=== PATIENT | female | born 1945 | race African-American/Black ===

== ENCOUNTER 2017-11-02 18:47 | Observation (INO) | payer MEDICARE, OTHER ==
--- NOTE | 2017-11-02 19:27 | PDOC ---
History of Present Illness - General History Source: Patient Exam Limitations: No Limitations - History of Present Illness Initial Comments: 11/02/17 20:12 The patient is a 72 year old female with past medical history of hypertension, asthma, CVA, COPD (on 5L O2 at home), CHF, and AICD placement who presents to the ED with complaints of hypotension and lightheadedness since this morning. The patient states that she is unable to walk because of her lightheadedness. She reports taking her blood pressure at home which appeared to be high, so she pressed her Life Alert button and EMS arrived at her home. When they took her blood pressure it was low. She reports also having cold symptoms for the past week as well. She also reports worsening SOB over the past month. The patient denies any fevers, chills, nausea, vomiting, diarrhea, cough, chest pain or urinary symptoms <Leslie Hare - Last Filed: 11/02/17 20:21> <Galileo Garcia - Last Filed: 11/03/17 01:19> - General Chief Complaint: Lightheaded Stated Complaint: HYPOTENSION Time Seen by Provider: 11/02/17 19:20 Past History <Leslie Hare - Last Filed: 11/02/17 20:21> - Past Medical History Anemia: No Asthma: Yes (ON 02 3L/MIN PRN) Cancer: No Cardiac Disorders: Yes CVA: Yes (2000 LEFT SIDED WEAKNESS) COPD: Yes CHF: Yes Dementia: No Diabetes: No GI Disorders: No Disorders: No HTN: Yes Hypercholesterolemia: No Liver Disease: No Seizures: No Thyroid Disease: No - Surgical History Abdominal Surgery: Yes (GASTRIC BYPASS [employer]EN [employer],) Appendectomy: No Cardiac Surgery: Yes (icd) Cholecystectomy: No Lung Surgery: No Neurologic Surgery: No Orthopedic Surgery: No (2000 SURGERY ON NECK,REMOVAL BOILS BOTH ARMPIT) - Immunization History Td Vaccination: No Immunization Up to Date: Yes - Suicide/Smoking/Psychosocial Hx Smoking Status: Yes Smoking History: Former smoker Have you smoked in the past 12 months: No Number of Cigarettes Smoked Daily: 5 Information on smoking cessation initiated: No 'Breaking Loose' booklet given: 03/09/15 Hx Alcohol Use: No Drug/Substance Use Hx: No Substance Use Type: None Hx Substance Use Treatment: No <Galileo Garcia - Last Filed: 11/03/17 01:19> - Past Medical History Allergies/Adverse Reactions: Allergies Allergy/AdvReac Type Severity Reaction Status Date / Time No Known Allergies Allergy Verified 04/24/16 09:57 Home Medications: Ambulatory Orders Aspirin [Aspir 81] 81 mg PO DAILY 02/23/12 Verapamil HCl [Verapamil ER] 120 mg PO DAILY 08/07/13 Multivitamin [Once Daily] 1 each PO DAILY 11/19/13 Omeprazole [Prilosec] 20 mg PO DAILY 04/24/16 Pregabalin [Lyrica] 100 mg PO DAILY 04/24/16 Varenicline Tartrate [Chantix] 1 mg PO DAILY 04/24/16 Carvedilol [Coreg -] 6.25 mg PO BID #60 tablet 04/27/16 Budesonide/Formeterol Fumarate [SYMBICORT 160/4.5mcg -] 1 inh PO DAILY 08/19/16 Tiotropium [place] [Spiriva] 1 inh PO DAILY 08/19/16 Bacitracin - [Bacitracin Topical Ointment -] 1 applic TP BID #1 tube 08/25/16 Furosemide [Lasix -] 40 mg PO DAILY #30 tablet 08/25/16 Roflumilast [Daliresp -] 500 mcg PO DAILY #30 tablet 08/25/16 Review of Systems - Review of Systems Able to Perform ROS?: Yes Comments:: 11/02/17 20:21 A complete review of 10 out of 10 review of systems is taken and is negative apart from what is previously mentioned below and in the HPI. All Other Systems: Reviewed and Negative <Leslie aHre - Last Filed: 11/02/17 20:21> *Physical Exam - Vital Signs Last Vital Signs Temp Pulse Resp BP Pulse Ox 98.2 F 100 H 20 93/66 100 11/02/17 19:16 11/02/17 19:16 11/02/17 19:16 11/02/17 19:16 11/02/17 19:16 - Physical Exam Comments: 11/02/17 20:21 Vitals: Triage Vital signs reviewed General Appearance: no acute distress, well nourished well developed, Head: Atraumatic, normocephalic Neck: Supple;No Nuchal rigidity Cardiac: Regular rate and rhythm, no murmurs, no rubs, no gallops, Lungs: Mild expiratory wheeze, good air movement bilaterally, Abdomen: Soft, nondistended, normal bowel sounds, nontender to palpation Extremities: Full range of motion to all extremities, no cyanosis, clubbing, or edema Skin: Warm and dry, no rashes or lesions, no petechiae Neuro: AOX3; Cranial Nerves 2-12 grossly intact <Leslie Hare - Last Filed: 11/02/17 20:21> - Vital Signs Last Vital Signs Temp Pulse Resp BP Pulse Ox 98.2 F 100 H 20 93/66 100 11/02/17 19:16 11/02/17 19:16 11/02/17 19:16 11/02/17 19:16 11/02/17 19:16 <Galileo Garcia - Last Filed: 11/03/17 01:19> Heart Score/ECG Review - ECG Impressions Comment:: 11/03/17 01:17 EKG performed at 1923 demonstrates rate of 56, rhythm of sinus, axis equal to left axis. No ST elevations no T-wave inversions <Galileo Garcia - Last Filed: 11/03/17 01:19> ED Treatment Course - LABORATORY CBC & Chemistry Diagram: 11/02/17 20:07 11/02/17 20:07 <Leslie Hare - Last Filed: 11/02/17 20:21> - LABORATORY CBC & Chemistry Diagram: 11/02/17 20:07 11/02/17 20:07 <Galileo Garcia - Last Filed: 11/03/17 01:19> Medical Decision Making - Medical Decision Making 11/03/17 01:18 Patient presents to the emergency department with a near syncopal episode Per report she was found to be hypotensive by EMS Upon arrival to ED patient with slight wheeze labs EKG chest x-ray ordered Reevaluation status post IV fluids blood pressure improving patient still with slight wheeze troponin negative Given borderline hypotension we will observe on telemetry to medicine service. We'll hold off additional IV fluids at this time given history of CHF <Galileo Garcia - Last Filed: 11/03/17 01:19> *DC/Admit/Observation/Transfer - Attestations Scribe Attestion: 11/02/17 20:25 Documentation prepared by Leslie Siracusa, acting as certified medical records coder for Galileo Garcia MD. <Leslie Hare - Last Filed: 11/02/17 20:21> - Discharge Dispostion Admit: Yes <Galileo Garcia - Last Filed: 11/03/17 01:19> Diagnosis at time of Disposition: Near syncope
[2017-11-02] MEDS ORDERED: SODIUM CHLORIDE 0.9% 1000 ML INFUS.BAG IV STA (19:28)
[2017-11-02 20:18] LABS: EOS % 0.9 % (0-4.5); LYMPH % 20.7 % (8-40); MCH 30.9 pg (25.7-33.7); MCHC 32.5 g/dl (32.0-36.0); MEAN PLT VOLUME 8.8 fl (7.5-11.1); MONO % 8.4 % (3.8-10.2); PLATELET COUNT 217 K/MM3 (134-434); RBC 4.53 M/mm3 (3.60-5.2); RDW 14.7 % (11.6-15.6); WHITE BLOOD COUNT 7.4 K/mm3 (4.0-10.0)
[2017-11-02 20:20] LABS: VENOUS PH 7.34 (7.32-7.42)
[2017-11-02 20:21] LABS: VENOUS PO2 36.1 mmHg (28-48)
[2017-11-02 20:29] LABS: INR 0.95 (0.82-1.09); PROTHROMBIN TIME (PATIENT) 10.7 SEC (9.98-11.88)
[2017-11-02 20:32] LABS: ACTIVATED PTT 24.1 SECONDS (26.9-34.4)
[2017-11-02 21:08] LABS: ALBUMIN 3.2 g/dl (3.4-5.0); ANION GAP 5 (8-16); BLOOD UREA NITROGEN 17 mg/dL (7-18); CALCIUM 8.2 mg/dL (8.5-10.1); CHLORIDE 113 mmol/L (98-107); CO2 24 mmol/L (21-32); CREATININE 1.1 mg/dL (0.55-1.02); GLUCOSE,RANDOM 92 mg/dL (74-106); POTASSIUM 4.3 mmol/L (3.5-5.1); SGOT/AST 14 U/L (15-37); SGPT/ALT 16 U/L (12-78); SODIUM 142 mmol/L (136-145)
[2017-11-02 21:12] LABS: URINE APPEARANCE SLCLOUDY; URINE BILIRUBIN NEGATIVE (NEGATIVE); URINE BLOOD NEGATIVE (NEGATIVE); URINE COLOR YELLOW; URINE GLUCOSE (UA) NEGATIVE (NEGATIVE); URINE KETONE NEGATIVE (NEGATIVE); URINE NITRITE NEGATIVE (NEGATIVE); URINE PROTEIN NEGATIVE (NEGATIVE)
[2017-11-02 21:12] LABS: ALK PHOS 110 U/L (45-117); BILIRUBIN,TOTAL 0.3 mg/dL (0.2-1.0); TOT PROT 6.6 g/dl (6.4-8.2)
[2017-11-02 21:16] LABS: URINE LEUK ESTERASE 1+ (NEGATIVE)
[2017-11-02 21:26] LABS: EPI CELLS RARE /HPF (FEW); URINE BACTERIA RARE /hpf (NONE SEEN); URINE HYALINE CAST 45 /lpf; URINE MUCUS RARE
[2017-11-02] MEDS ORDERED: ALBUTEROL SO4 2.5/IPRATROPIUM 0.5 INH SOL 3 ML VIAL.NEB. NEB ONE (22:59)
[2017-11-03] MEDS ORDERED: FUROSEMIDE 40 MG TABLET (FP) PO ONE (01:22)
--- NOTE | 2017-11-03 01:35 | HP ---
Admitting History and Physical - Primary Care Physician PCP: Brigida Carlos - Admission Chief Complaint: Hypotension History of Present Illness: 72 yo F h/o HTN, asthma, CVA, COPD (home O2 5L), dCHF, and AICD (last interrogated 3 months ago) presents to ED with dizziness after taking medications. Patient states that she felt dizzy 20 mins after taking all her meds at once. She then called 911. At first her BP shot up to 175/74, then it came down to 80/70 and it's confirmed while she's en route to ED by EMT. She denies room spinning, chest pain, palpitation, headache, vision change, tinnitus , focal weakness, fever, chills, bowel or urinary sx. History Source: Patient Limitations to Obtaining History: No Limitations - Past Medical History Cardiovascular: Yes: CHF, HTN, Other (AICD) Pulmonary: Yes: COPD (former smoker, quit in April) Gastrointestinal: Yes: Other (history of gastric bypass surgery) - Past Surgical History Past Surgical History: Yes: (1956, 1958), Permanent Pacemaker (vs ICD) - Smoking History Smoking history: Former smoker Have you smoked in the past 12 months: No Aproximately how many cigarettes per day: 5 - Alcohol/Substance Use Hx Alcohol Use: No - Social History History of Recent Travel: No Home Medications - Allergies Allergies/Adverse Reactions: Allergies Allergy/AdvReac Type Severity Reaction Status Date / Time No Known Allergies Allergy Verified 04/24/16 09:57 - Home Medications Home Medications: Ambulatory Orders Aspirin [Aspir 81] 81 mg PO DAILY 02/23/12 Verapamil HCl [Verapamil ER] 120 mg PO DAILY 08/07/13 Multivitamin [Once Daily] 1 each PO DAILY 11/19/13 Omeprazole [Prilosec] 20 mg PO DAILY 04/24/16 Pregabalin [Lyrica] 100 mg PO DAILY 04/24/16 Varenicline Tartrate [Chantix] 1 mg PO DAILY 04/24/16 Carvedilol [Coreg -] 6.25 mg PO BID #60 tablet 04/27/16 Budesonide/Formeterol Fumarate [SYMBICORT 160/4.5mcg -] 1 inh PO DAILY 08/19/16 Tiotropium [place] [Spiriva] 1 inh PO DAILY 08/19/16 Bacitracin - [Bacitracin Topical Ointment -] 1 applic TP BID #1 tube 08/25/16 Furosemide [Lasix -] 40 mg PO DAILY #30 tablet 08/25/16 Roflumilast [Daliresp -] 500 mcg PO DAILY #30 tablet 08/25/16 Review of Systems - Review of Systems Constitutional: reports: Weakness Eyes: reports: No Symptoms HENT: reports: No Symptoms Neck: reports: No Symptoms Cardiovascular: reports: Shortness of Breath. denies: Chest Pain, Palpitations Respiratory: reports: SOB Gastrointestinal: reports: No Symptoms Genitourinary: reports: No Symptoms Breasts: reports: No Symptoms Reported Musculoskeletal: reports: No Symptoms Integumentary: reports: No Symptoms Neurological: reports: Dizziness, Weakness Endocrine: reports: No Symptoms Physical Examination Vital Signs: Vital Signs Temperature 98.2 F 11/02/17 19:16 Pulse Rate 100 H 11/02/17 19:16 Respiratory Rate 20 11/02/17 19:16 Blood Pressure 108/50 11/02/17 21:57 O2 Sat by Pulse Oximetry (%) 100 11/02/17 20:56 Constitutional: Yes: Calm, Mild Distress Cardiovascular: Yes: Regular Rate and Rhythm, S1, S2. No: Murmur Respiratory: Yes: Rhonchi, SOB Gastrointestinal: Yes: Normal Bowel Sounds, Soft. No: Tenderness Edema: No Neurological: Yes: Alert, Oriented, Cran Nerves II-XII Intact. No: Loss of Sensation, Numbness, Tremors, Unsteady Gait ...Motor Strength: WNL Psychiatric: Yes: WNL Labs: CBC, BMP 11/02/17 20:07 11/02/17 20:07 Imaging - Results EKG: Image Reviewed Assessment/Plan 72 yo F h/o HTN, asthma, CVA, COPD (home O2 5L), dCHF, and AICD admitted to observation for hypotension. 1. Hypotension: Likely due to over-medication with BP meds. Hold verapamil ER and monitor vitals q4h. 2. Flash pulmonary edema in the setting of dCHF: Received fluids in ED for hypotension and developed flash pulmonary edema. Lasix 40mg PO x 1 dose then cont. daily lasix + coreg. Reassess fluid status. 3. dCHF: cont. lasix and coreg 4. COPD: stable. cont. daliresp, spiriva 5. HTN: hold verapamil ER FEN: avoid fluids. lytes normal. Na+ controlled diet. DVT ppx: heparin tid GI ppx: on home ppi Dispo: February discharge once asymptomatic and vitals stable Juan Rodriguez MD PGY2 Visit type - Emergency Visit Emergency Visit: Yes ED Registration Date: 11/02/17 Care time: The patient presented to the Emergency Department on the above date and was hospitalized for further evaluation of their emergent condition. - New Patient This patient is new to me today: Yes Date on this admission: 11/03/17 - Critical Care Critical Care patient: No
[2017-11-03] MEDS ORDERED: FUROSEMIDE 40 MG TABLET (FP) ONE (01:45)
[2017-11-03] MEDS ORDERED: ALBUTEROL SO4 2.5/IPRATROPIUM 0.5 INH SOL 3 ML VIAL.NEB. NEB ONE (02:46)
--- NOTE | 2017-11-03 05:03 | PN ---
Teaching Attending Note Name of Resident: Juan Rodriguez ATTENDING PHYSICIAN STATEMENT I saw and evaluated the patient. I reviewed the resident's note and discussed the case with the resident. I agree with the resident's findings and plan as documented. SUBJECTIVE: OBJECTIVE: ASSESSMENT AND PLAN: 72 yo F h/o HTN, asthma, CVA, COPD (home O2 5L), dCHF, and AICD admitted to observation for hypotension. 1. Hypotension: Likely due to over-medication with BP meds. Hold verapamil ER and monitor vitals q4h. 2. Flash pulmonary edema in the setting of dCHF: Received fluids in ED for hypotension and developed flash pulmonary edema. Lasix 40mg PO x 1 dose then cont. daily lasix + coreg. Reassess fluid status. 4. COPD: stable. cont. daliresp, spiriva 5. HTN: hold medication
[2017-11-03] MEDS ORDERED: HEPARIN NA (PORCINE) 5,000 UNITS/ML 1ML VIAL ONE ×2 (07:07→22:11)
[2017-11-03] MEDS: HEPARIN NA (PORCINE) 5,000 UNITS/ML 1ML VIAL SQ SCH ×3 (07:18→22:00)
[2017-11-03 08:02] LABS: ANION GAP 8 (8-16); CHLORIDE 112 mmol/L (98-107); CO2 24 mmol/L (21-32); CREATININE 0.9 mg/dL (0.55-1.02); GLUCOSE,RANDOM 87 mg/dL (74-106); SODIUM 144 mmol/L (136-145)
[2017-11-03 08:17] LABS: BLOOD UREA NITROGEN 14 mg/dL (7-18); CALCIUM 8.9 mg/dL (8.5-10.1)
--- NOTE | 2017-11-03 08:39 | CON.CARD ---
Consult Consult Specialty:: cardiology Reason for Consultation:: HTN; CHF - History of Present Illness Chief Complaint: Pt Alert; denies chest pain or dyspnea. History of Present Illness: The patient is a 72 year old black female with past medical history of hypertension, asthma, CVA, COPD (on 5L O2 at home), CHF, and AICD placement who presents to the ED with complaints of hypotension and lightheadedness since this morning. The patient states that she is unable to walk because of her lightheadedness. She reports taking her blood pressure at home which appeared to be high, so she pressed her Life Alert button and EMS arrived at her home. When they took her blood pressure it was low. She reports also having cold symptoms for the past week as well. She also reports worsening SOB over the past month. The patient denies any fevers, chills, nausea, vomiting, diarrhea, cough, chest pain or urinary symptoms - History Source History Provided By: Patient, Medical Record Limitations to Obtaining History: Poor Historian - Past Medical History Cardio/Vascular: Yes: CHF, HTN, Other (AICD) Pulmonary: Yes: COPD (former smoker, quit in April) Gastrointestinal: Yes: Other (history of gastric bypass surgery) Reproductive: Yes: Postmenopausal ...: No Heme/Onc: No: Anemia Psych: No: Depression - Past Surgical History Past Surgical History: Yes: (1956, 1958), Permanent Pacemaker (vs ICD) - Alcohol/Substance Use Hx Alcohol Use: No - Smoking History Smoking history: Former smoker Have you smoked in the past 12 months: No Aproximately how many cigarettes per day: 5 - Social History History of Recent Travel: No Home Medications - Allergies Allergies/Adverse Reactions: Allergies Allergy/AdvReac Type Severity Reaction Status Date / Time No Known Allergies Allergy Verified 04/24/16 09:57 - Home Medications Home Medications: Ambulatory Orders Aspirin [Aspir 81] 81 mg PO DAILY 02/23/12 Verapamil HCl [Verapamil ER] 120 mg PO DAILY 08/07/13 Multivitamin [Once Daily] 1 each PO DAILY 11/19/13 Omeprazole [Prilosec] 20 mg PO DAILY 04/24/16 Pregabalin [Lyrica] 100 mg PO DAILY 04/24/16 Varenicline Tartrate [Chantix] 1 mg PO DAILY 04/24/16 Carvedilol [Coreg -] 6.25 mg PO BID #60 tablet 04/27/16 Budesonide/Formeterol Fumarate [SYMBICORT 160/4.5mcg -] 1 inh PO DAILY 08/19/16 Tiotropium [place] [Spiriva] 1 inh PO DAILY 08/19/16 Bacitracin - [Bacitracin Topical Ointment -] 1 applic TP BID #1 tube 08/25/16 Furosemide [Lasix -] 40 mg PO DAILY #30 tablet 08/25/16 Roflumilast [Daliresp -] 500 mcg PO DAILY #30 tablet 08/25/16 Family Disease History - Family Disease History Family History: Denies Review of Systems - Review of Systems Constitutional: reports: No Symptoms Eyes: reports: No Symptoms HENT: reports: No Symptoms Neck: reports: No Symptoms Cardiovascular: reports: No Symptoms Respiratory: reports: SOB on Exertion Genitourinary: reports: No Symptoms Breasts: reports: No Symptoms Reported Musculoskeletal: reports: Muscle Weakness Integumentary: reports: Other ("extra" skin folds on arma and legs after gasttic bypass surgery years ago) Neurological: reports: No Symptoms Endocrine: reports: No Symptoms Psychiatric: reports: No Symptoms - Risk Factors Known Risk Factors: Yes: Age, Hypertension, Physical Inactivity, Race, Other ( CHF; s/p AICD) Vital Signs: Vital Signs Temperature 98.2 F 11/02/17 19:16 Pulse Rate 63 11/03/17 05:06 Respiratory Rate 20 11/03/17 05:06 Blood Pressure 150/62 11/03/17 05:06 O2 Sat by Pulse Oximetry (%) 89 L 11/03/17 05:06 Constitutional: Yes: Well Nourished Eyes: Yes: WNL HENT: Yes: WNL Neck: Yes: WNL Respiratory: Yes: Diminished Gastrointestinal: Yes: Soft Renal/: No: Anuria Cardiovascular: Yes: Regular Rate and Rhythm JVD: No Carotid Bruit: No PMI: Displaced Heart Sounds: Yes: S1, S2, S4 Murmur: Yes: Systolic Murmur, Grade 2 Musculoskeletal: Yes: WNL Extremities: Yes: WNL Edema: No Peripheral Pulses WNL: Yes Integumentary: Yes: Other (skin folds post gastric bypass surgery) Neurological: Yes: WNL Psychiatric: Yes: WNL - Other Data Labs, Other Data: CBC, BMP 11/02/17 20:07 11/03/17 06:37 INR, PTT INR 0.95 (0.82-1.09) 11/02/17 20:07 Troponin, BNP 11/02/17 11/02/17 11/03/17 20:07 20:07 03:27 Troponin I < 0.02 Cancelled < 0.02 B-Natriuretic Peptide 711.44 H 11/03/17 06:37 Troponin I < 0.02 B-Natriuretic Peptide Troponin, BNP 11/02/17 11/02/17 11/03/17 20:07 20:07 03:27 Troponin I < 0.02 Cancelled < 0.02 B-Natriuretic Peptide 711.44 H 11/03/17 06:37 Troponin I < 0.02 B-Natriuretic Peptide Ejection Fraction %: LVEF > or = 40 % Problem List - Problems (1) Dizziness Assessment/Plan: Check orthostatic VS. Maintain hydration. Code(s): R42 - DIZZINESS AND GIDDINESS (2) H/O gastric bypass Assessment/Plan: Pt would like to have "cosmetic" surgery for skin under arms and on thighs that hangs since she lost weight after gsatric bypass. Obese: 5'4", 200 lbs. Code(s): Z98.84 - BARIATRIC SURGERY STATUS (3) AICD (automatic cardioverter/defibrillator) present Code(s): Z95.810 - PRESENCE OF AUTOMATIC (IMPLANTABLE) CARDIAC DEFIBRILLATOR (4) CHF (congestive heart failure) Assessment/Plan: f/u ECHO results (last done in 2016 in office). On carvedilol. AICD; checked 05/2017, per pt. Code(s): I50.9 - HEART FAILURE, UNSPECIFIED (5) COPD (chronic obstructive pulmonary disease) Assessment/Plan: On home O2. Code(s): J44.9 - CHRONIC OBSTRUCTIVE PULMONARY DISEASE, UNSPECIFIED (6) Dyspnea Code(s): R06.00 - DYSPNEA, UNSPECIFIED (7) HTN (hypertension) Code(s): I10 - ESSENTIAL (PRIMARY) HYPERTENSION Qualifiers: Hypertension type: essential hypertension Qualified Code(s): I10 - Essential (primary) hypertension (8) Obesity (BMI 30.0-34.9) Code(s): E66.9 - OBESITY, UNSPECIFIED
--- NOTE | 2017-11-03 10:01 | HOSP ---
Subjective - Review of Symptoms Events since last encounter: Patient continues to feel short of breath on 5 liter oxygen. Vital Signs Temperature 98.2 F 11/02/17 19:16 Pulse Rate 62 11/03/17 09:06 Respiratory Rate 20 11/03/17 05:06 Blood Pressure 123/56 11/03/17 09:06 O2 Sat by Pulse Oximetry (%) 100 11/03/17 09:06 PE: lying in bed with no acute distress, on NC oxygen Respiratory: decreased BS BL Cardiovascular: RRR , S1S2 positive Gastrointestinal: soft, NT, NR EXT:PULSES ARE positive CBCD WBC 7.4 K/mm3 (4.0-10.0) 11/02/17 20:07 RBC 4.53 M/mm3 (3.60-5.2) 11/02/17 20:07 Hgb 14.0 GM/dL (10.7-15.3) 11/02/17 20:07 Hct 43.0 % (32.4-45.2) 11/02/17 20:07 MCV 95.0 fl (80-96) 11/02/17 20:07 MCHC 32.5 g/dl (32.0-36.0) 11/02/17 20:07 RDW 14.7 % (11.6-15.6) 11/02/17 20:07 Plt Count 217 K/MM3 (134-434) 11/02/17 20:07 MPV 8.8 fl (7.5-11.1) 11/02/17 20:07 CMP Sodium 144 mmol/L (136-145) 11/03/17 06:37 Potassium 4.0 mmol/L (3.5-5.1) 11/03/17 06:37 Chloride 112 mmol/L (98-107) H 11/03/17 06:37 Carbon Dioxide 24 mmol/L (21-32) 11/03/17 06:37 Anion Gap 8 (8-16) 11/03/17 06:37 BUN 14 mg/dL (7-18) 11/03/17 06:37 Creatinine 0.9 mg/dL (0.55-1.02) 11/03/17 06:37 Creat Clearance w eGFR 48.55 (>60) 11/02/17 20:07 Random Glucose 87 mg/dL (74-106) 11/03/17 06:37 Calcium 8.9 mg/dL (8.5-10.1) 11/03/17 06:37 Total Bilirubin 0.3 mg/dL (0.2-1.0) 11/02/17 20:07 AST 14 U/L (15-37) L 11/02/17 20:07 ALT 16 U/L (12-78) 11/02/17 20:07 Alkaline Phosphatase 110 U/L (45-117) 11/02/17 20:07 Total Protein 6.6 g/dl (6.4-8.2) 11/02/17 20:07 Albumin 3.2 g/dl (3.4-5.0) L 11/02/17 20:07 CARDIAC ENZYMES Creatine Kinase 115 IU/L (26-192) 11/02/17 20:07 Troponin I < 0.02 ng/ml (0.00-0.05) 11/03/17 06:37 Current Medications Generic Name Dose Route Start Last Admin Trade Name Joseq PRN Reason Stop Dose Admin Aspirin 81 mg 11/03/17 10:00 Ecotrin - PO DAILY [facility] Bacitracin 1 applic 11/03/17 10:00 Bacitracin - TP BID [facility] Budesonide/Formoterol Fumarate 2 puff 11/03/17 10:00 Symbicort 160/4.5mcg - IH BID [facility] Carvedilol 6.25 mg 11/03/17 10:00 Coreg - PO BID [facility] Furosemide 40 mg 11/03/17 10:00 Lasix - PO DAILY [facility] Heparin Sodium (Porcine) 5,000 unit 11/03/17 06:00 11/03/17 07:18 Heparin - SQ 5,000 unit TID [facility] Administration Multivitamins/Minerals/Vitamin C 1 tab 11/03/17 10:00 Tab-A-Vit - PO DAILY [facility] Pantoprazole Sodium 20 mg 11/03/17 10:00 Protonix - PO DAILY [facility] Pregabalin 100 mg 11/03/17 10:00 Lyrica - PO DAILY [facility] Roflumilast 500 mcg 11/03/17 10:00 Daliresp - PO DAILY [facility] Tiotropium [place] 1 puff 11/03/17 10:00 Spiriva - IH DAILY [facility] Varenicline 1 mg 11/03/17 10:00 Chantix - PO DAILY [facility] Home Medications Medication Instructions Recorded Aspirin [Aspir 81] 81 mg PO DAILY 02/23/12 Verapamil HCl [Verapamil ER] 120 mg PO DAILY 08/07/13 Multivitamin [Once Daily] 1 each PO DAILY 11/19/13 Omeprazole [Prilosec] 20 mg PO DAILY 04/24/16 Pregabalin [Lyrica] 100 mg PO DAILY 04/24/16 Varenicline Tartrate [Chantix] 1 mg PO DAILY 04/24/16 Carvedilol [Coreg -] 6.25 mg PO BID #60 tablet 04/27/16 Budesonide/Formeterol Fumarate 1 inh PO DAILY 08/19/16 [SYMBICORT 160/4.5mcg -] Tiotropium [place] [Spiriva] 1 inh PO DAILY 08/19/16 Bacitracin - [Bacitracin Topical 1 applic TP BID #1 tube 08/25/16 Ointment -] Furosemide [Lasix -] 40 mg PO DAILY #30 tablet 08/25/16 Roflumilast [Daliresp -] 500 mcg PO DAILY #30 tablet 08/25/16 Intake & Output 11/01/17 11/02/17 11/03/17 11/04/17 23:59 23:59 23:59 23:59 Intake Total 400 Balance 400 Weight 91.626 kg 90.718 kg A/P: Patient is a 72 yo Female with PMHx of HTN, asthma, CVA, COPD (home O2 5L), dCHF, and AICD admitted to observation for hypotension. #s/p Acute Hypotension with Hx of HTN ,now normotensive : will hold verapamil ER and monitor vitals q4h will discuss with his ip litigation associate # Acute Diastolic CHF exacerbation: started the patient on lasix 40mg PO daily continue . # COPD: stable. cont. daliresp, spiriva DVT Px: Heparin Physical Examination Vital Signs: Vital Signs Temperature 98.2 F 11/02/17 19:16 Pulse Rate 62 11/03/17 09:06 Respiratory Rate 20 11/03/17 05:06 Blood Pressure 123/56 11/03/17 09:06 O2 Sat by Pulse Oximetry (%) 100 11/03/17 09:06 Labs: CBC, BMP 11/02/17 20:07 11/03/17 06:37
[2017-11-03] MEDS ORDERED: PREGABALIN 100 MG CAPSULE ONE (10:14)
[2017-11-03] MEDS: BACITRACIN 15 GM TUBE TOPICAL OINTMENT TP SCH ×2 (10:57→21:56)
[2017-11-03] MEDS: PREGABALIN 100 MG CAPSULE PO SCH (10:58)
[2017-11-03] MEDS: TIOTROPIUM BROMIDE 18 MCG/INH (DEVICE W/ 5 CAPSULES) IH SCH (10:58)
[2017-11-03] MEDS: CARVEDILOL 6.25 MG TABLET (FP) PO SCH ×2 (10:58→22:00)
[2017-11-03] MEDS: PANTOPRAZOLE 20 MG TABLET (FP) PO SCH (10:58)
[2017-11-03] MEDS: BUDESONIDE/FORMETEROL FUMARATE 160/4.5 mcg INHALER IH SCH ×2 (10:58→23:53)
[2017-11-03] MEDS: ASPIRIN COATED 81 MG TABLET.EC PO SCH (10:58)
[2017-11-03] MEDS: FUROSEMIDE 40 MG TABLET (FP) PO SCH (10:58)
[2017-11-03] MEDS: MULTIVITAMINS (DAILY MVI) TABLET (FP) PO SCH (10:58)
[2017-11-03] MEDS: VARENICLINE TARTRATE 1 MG TAB PO SCH (10:58)
[2017-11-03] MEDS: ROFLUMILAST 500 MCG TABLET PO SCH (10:58)
[2017-11-03 12:17] LABS: CHOLESTEROL 134 mg/dL (50-200); HDL CHOLESTEROL 66 mg/dL (40-60); LDL CHOLESTEROL (ONLY SJRH) 56 mg/dL (5-100); TRIGLYCERIDES 94 mg/dL (35-160)
[2017-11-03] MEDS ORDERED: ACETAMINOPHEN 325 MG TABLET (FP) PO PRN (21:15)
[2017-11-03] MEDS ORDERED: CARVEDILOL 3.125 MG TABLET (FP) ONE (22:11)
[2017-11-04] MEDS ORDERED: PT OWN MED DRAWER 7, Y5N ONE (05:23)
[2017-11-04] MEDS: HEPARIN NA (PORCINE) 5,000 UNITS/ML 1ML VIAL SQ SCH ×3 (06:33→21:23)
[2017-11-04 07:31] VITALS: BMI 34.3
--- NOTE | 2017-11-04 10:28 | PN ---
Physical Exam: SUBJECTIVE: Patient seen and examined at bedside. complains of right hand cramp and abdominal cramps and constipation.still feel weak but sh dnies ny fever, chills, N/V/D, denies any chest pain or palpitation. OBJECTIVE: Vital Signs Period Temp Pulse Resp BP Sys/Vasquez Pulse Ox Last 24 Hr 97.6 F-98.2 F 62-81 18-20 119-140/61-77 90-96 GENERAL: The patient is awake, alert, and fully oriented, in no acute distress. HEAD: Normal with no signs of trauma. EYES: sclera anicteric, conjunctiva clear. ENT: moist mucous membranes. NECK: supple. LUNGS: Breath sounds equal, clear to auscultation bilaterally, no wheezes, no crackles, no accessory muscle use. HEART: Regular rate and rhythm, S1, S2 without murmur, rub or gallop. ABDOMEN: Soft, nontender, nondistended, normoactive bowel sounds, no guarding, no rebound, EXTREMITIES: 2+ pulses, warm, well-perfused, no edema. NEUROLOGICAL: Cranial nerves II through XII grossly intact. Normal speech, gait not observed. PSYCH: Normal mood, normal affect. SKIN: Warm, dry, no rashes or lesions noted Laboratory Results - last 24 hr 11/03/17 11/03/17 11/03/17 06:37 09:00 09:00 Sodium 144 Potassium 4.0 Chloride 112 H Carbon Dioxide 24 Anion Gap 8 BUN 14 Creatinine 0.9 Random Glucose 87 Calcium 8.9 Triglycerides 94 Cancelled Cholesterol 134 Cancelled Total LDL Cholesterol 56 Cancelled HDL Cholesterol 66 H Cancelled TSH 1.87 Cancelled Active Medications Generic Name Dose Route Start Last Admin Trade Name Freq PRN Reason Stop Dose Admin Acetaminophen 650 mg 11/03/17 21:15 Tylenol - PO Q6H PRN PAIN LEVEL 6-10 Aspirin 81 mg 11/03/17 10:00 11/03/17 10:58 Ecotrin - PO 81 mg DAILY KATY Administration Bacitracin 1 applic 11/03/17 10:00 11/03/17 21:56 Bacitracin - TP 1 mg BID KATY Administration Budesonide/Formoterol Fumarate 2 puff 11/03/17 10:00 11/03/17 23:53 Symbicort 160/4.5mcg - IH 160 mg BID KATY Administration Carvedilol 6.25 mg 11/03/17 10:00 11/03/17 22:00 Coreg - PO 6.25 mg BID KATY Administration Furosemide 40 mg 11/03/17 10:00 11/03/17 10:58 Lasix - PO 40 mg DAILY KATY Administration Heparin Sodium (Porcine) 5,000 unit 11/03/17 06:00 11/04/17 06:33 Heparin - SQ 5,000 unit TID KATY Administration Multivitamins/Minerals/Vitamin C 1 tab 11/03/17 10:00 11/03/17 10:58 Tab-A-Vit - PO 1 tab DAILY KATY Administration Pantoprazole Sodium 20 mg 11/03/17 10:00 11/03/17 10:58 Protonix - PO 20 mg DAILY KATY Administration Pregabalin 100 mg 11/03/17 10:00 11/03/17 10:58 Lyrica - PO 100 mg DAILY KATY Administration Roflumilast 500 mcg 11/03/17 10:00 11/03/17 10:58 Daliresp - PO 500 mcg DAILY KATY Administration Tiotropium [place] 1 puff 11/03/17 10:00 11/03/17 10:58 Spiriva - IH Not Given DAILY KATY Varenicline 1 mg 11/03/17 10:00 11/03/17 10:58 Chantix - PO Not Given DAILY KATY CBC, BMP 11/02/17 20:07 11/03/17 06:37 CXR 11/02/2017: No significant changes since prior study. ASSESSMENT/PLAN: 72 yo F h/o HTN, asthma, CVA, COPD (home O2 5L), dCHF, and AICD admitted to observation for hypotension. # Hypotension: * Likely due to over-medication with BP meds. * Hold verapamil ER and monitor vitals q4h. # Flash pulmonary edema in the setting of dCHF: * Received fluids in ED for hypotension and developed flash pulmonary edema. * Lasix 40mg PO x 1 dose then cont. daily lasix + coreg. * Reassess fluid status. # dCHF: * cont. lasix and coreg # COPD: stable. * cont. daliresp, spiriva # HTN: * hold verapamil ER 120 #FEN: * avoid fluids. * lytes normal. * Na+ controlled diet. #DVT ppx: * heparin SQ tid #GI ppx: * on home ppi #Dispo: February discharge once asymptomatic and vitals stable Visit type - Emergency Visit Emergency Visit: Yes ED Registration Date: 11/02/17 Care time: The patient presented to the Emergency Department on the above date and was hospitalized for further evaluation of their emergent condition. - New Patient This patient is new to me today: No - Critical Care Critical Care patient: No - Discharge Referral Referred to [facility] Med P.C.: No
[2017-11-04] MEDS: FUROSEMIDE 40 MG TABLET (FP) PO SCH (10:37)
[2017-11-04] MEDS: MULTIVITAMINS (DAILY MVI) TABLET (FP) PO SCH (10:37)
[2017-11-04] MEDS: ROFLUMILAST 500 MCG TABLET PO SCH (10:37)
[2017-11-04] MEDS: PANTOPRAZOLE 20 MG TABLET (FP) PO SCH (10:37)
[2017-11-04] MEDS: ASPIRIN COATED 81 MG TABLET.EC PO SCH (10:37)
[2017-11-04] MEDS: PREGABALIN 100 MG CAPSULE PO SCH (10:37)
[2017-11-04] MEDS: BACITRACIN 15 GM TUBE TOPICAL OINTMENT TP SCH ×2 (10:38→21:23)
[2017-11-04] MEDS: VARENICLINE TARTRATE 1 MG TAB PO SCH (10:38)
[2017-11-04] MEDS: TIOTROPIUM BROMIDE 18 MCG/INH (DEVICE W/ 5 CAPSULES) IH SCH (10:38)
[2017-11-04] MEDS: CARVEDILOL 6.25 MG TABLET (FP) PO SCH ×2 (10:38→21:22)
[2017-11-04] MEDS: BUDESONIDE/FORMETEROL FUMARATE 160/4.5 mcg INHALER IH SCH ×2 (10:38→21:23)
--- NOTE | 2017-11-04 16:03 | PN ---
Progress Note, Physician Chief Complaint: Pt A&Ox3; OOB in chair; occasionally feels dizzy. History of Present Illness: The patient is a 72 year old female with past medical history of hypertension, asthma, CVA, COPD (on 5L O2 at home), CHF, and AICD placement who presents to the ED with complaints of hypotension and lightheadedness since this morning. The patient states that she is unable to walk because of her lightheadedness. She reports taking her blood pressure at home which appeared to be high, so she pressed her Life Alert button and EMS arrived at her home. When they took her blood pressure it was low. She reports also having cold symptoms for the past week as well. She also reports worsening SOB over the past month. The patient denies any fevers, chills, nausea, vomiting, diarrhea, cough, chest pain or urinary symptoms - Current Medication List Current Medications: Active Medications Acetaminophen (Tylenol -) 650 mg PO Q6H PRN PRN Reason: PAIN LEVEL 6-10 Aspirin (Ecotrin -) 81 mg PO DAILY [facility] Last Admin: 11/04/17 10:37 Dose: 81 mg Bacitracin (Bacitracin -) 1 applic TP BID [facility] Last Admin: 11/04/17 10:38 Dose: Not Given Budesonide/Formoterol Fumarate (Symbicort 160/4.5mcg -) 2 puff IH BID [facility] Last Admin: 11/04/17 10:38 Dose: 160 mg Carvedilol (Coreg -) 6.25 mg PO BID [facility] Last Admin: 11/04/17 10:38 Dose: 6.25 mg Docusate Sodium (Colace -) 300 mg PO HS [facility] Furosemide (Lasix -) 40 mg PO DAILY [facility] Last Admin: 11/04/17 10:37 Dose: 40 mg Heparin Sodium (Porcine) (Heparin -) 5,000 unit SQ TID [facility] Last Admin: 11/04/17 14:51 Dose: 5,000 unit Multivitamins/Minerals/Vitamin C (Tab-A-Vit -) 1 tab PO DAILY [facility] Last Admin: 11/04/17 10:37 Dose: 1 tab Pantoprazole Sodium (Protonix -) 20 mg PO DAILY [facility] Last Admin: 11/04/17 10:37 Dose: 20 mg Pregabalin (Lyrica -) 100 mg PO DAILY [facility] Last Admin: 11/04/17 10:37 Dose: 100 mg Roflumilast (Daliresp -) 500 mcg PO DAILY [facility] Last Admin: 11/04/17 10:37 Dose: 500 mcg Tiotropium [place] (Spiriva -) 1 puff IH DAILY [facility] Last Admin: 11/04/17 10:38 Dose: 1 puff Varenicline (Chantix -) 1 mg PO DAILY [facility] Last Admin: 11/04/17 10:38 Dose: Not Given - Objective Vital Signs: Vital Signs Temperature 98.0 F 11/04/17 10:00 Pulse Rate 80 11/04/17 14:00 Respiratory Rate 20 11/04/17 14:00 Blood Pressure 106/67 11/04/17 14:00 O2 Sat by Pulse Oximetry (%) 95 11/04/17 10:00 Labs: CBC, BMP 11/02/17 20:07 11/03/17 06:37 INR, PTT INR 0.95 (0.82-1.09) 11/02/17 20:07 Problem List - Problems (1) H/O gastric bypass Assessment/Plan: Pt would like to have "cosmetic" surgery for skin under arms and on thighs that hangs since she lost weight after gsatric bypass. Obese: 5'4", 200 lbs. Code(s): Z98.84 - BARIATRIC SURGERY STATUS (2) AICD (automatic cardioverter/defibrillator) present Assessment/Plan: SVT and one episode of NSVT (halted by ATP; no shock required) on 05/2017 interrogation. Maintain electrolytes WNL. Continue carvedilol. ECHO: normal LVEF; hypertrophic cardiomyopathy (02/2017 ECHO). Code(s): Z95.810 - PRESENCE OF AUTOMATIC (IMPLANTABLE) CARDIAC DEFIBRILLATOR (3) COPD (chronic obstructive pulmonary disease) Assessment/Plan: On home O2. Code(s): J44.9 - CHRONIC OBSTRUCTIVE PULMONARY DISEASE, UNSPECIFIED (4) HTN (hypertension) Code(s): I10 - ESSENTIAL (PRIMARY) HYPERTENSION Qualifiers: Hypertension type: essential hypertension Qualified Code(s): I10 - Essential (primary) hypertension (5) Dizziness Assessment/Plan: Check orthostatic VS. Maintain hydration. Code(s): R42 - DIZZINESS AND GIDDINESS (6) Hypertrophic cardiomyopathy Code(s): I42.2 - OTHER HYPERTROPHIC CARDIOMYOPATHY
--- NOTE | 2017-11-04 20:22 | PN ---
Teaching Attending Note Name of Resident: Trevon Oconnor ATTENDING PHYSICIAN STATEMENT I saw and evaluated the patient. I reviewed the resident's note and discussed the case with the resident. I agree with the resident's findings and plan as documented. SUBJECTIVE: OBJECTIVE: Vital Signs Temperature 98.0 F 11/04/17 17:00 Pulse Rate 69 11/04/17 17:00 Respiratory Rate 20 11/04/17 17:00 Blood Pressure 108/49 11/04/17 17:00 O2 Sat by Pulse Oximetry (%) 95 11/04/17 10:00 CBCD WBC 7.4 K/mm3 (4.0-10.0) 11/02/17 20:07 RBC 4.53 M/mm3 (3.60-5.2) 11/02/17 20:07 Hgb 14.0 GM/dL (10.7-15.3) 11/02/17 20:07 Hct 43.0 % (32.4-45.2) 11/02/17 20:07 MCV 95.0 fl (80-96) 11/02/17 20:07 MCHC 32.5 g/dl (32.0-36.0) 11/02/17 20:07 RDW 14.7 % (11.6-15.6) 11/02/17 20:07 Plt Count 217 K/MM3 (134-434) 11/02/17 20:07 MPV 8.8 fl (7.5-11.1) 11/02/17 20:07 CMP Sodium 144 mmol/L (136-145) 11/03/17 06:37 Potassium 4.0 mmol/L (3.5-5.1) 11/03/17 06:37 Chloride 112 mmol/L (98-107) H 11/03/17 06:37 Carbon Dioxide 24 mmol/L (21-32) 11/03/17 06:37 Anion Gap 8 (8-16) 11/03/17 06:37 BUN 14 mg/dL (7-18) 11/03/17 06:37 Creatinine 0.9 mg/dL (0.55-1.02) 11/03/17 06:37 Creat Clearance w eGFR 48.55 (>60) 11/02/17 20:07 Random Glucose 87 mg/dL (74-106) 11/03/17 06:37 Calcium 8.9 mg/dL (8.5-10.1) 11/03/17 06:37 Total Bilirubin 0.3 mg/dL (0.2-1.0) 11/02/17 20:07 AST 14 U/L (15-37) L 11/02/17 20:07 ALT 16 U/L (12-78) 11/02/17 20:07 Alkaline Phosphatase 110 U/L (45-117) 11/02/17 20:07 Total Protein 6.6 g/dl (6.4-8.2) 11/02/17 20:07 Albumin 3.2 g/dl (3.4-5.0) L 11/02/17 20:07 CARDIAC ENZYMES Creatine Kinase 115 IU/L (26-192) 11/02/17 20:07 Troponin I < 0.02 ng/ml (0.00-0.05) 11/03/17 06:37 Current Medications Generic Name Dose Route Start Last Admin Trade Name Freq PRN Reason Stop Dose Admin Acetaminophen 650 mg 11/03/17 21:15 Tylenol - PO Q6H PRN PAIN LEVEL 6-10 Aspirin 81 mg 11/03/17 10:00 11/04/17 10:37 Ecotrin - PO 81 mg DAILY KATY Administration Bacitracin 1 applic 11/03/17 10:00 11/04/17 10:38 Bacitracin - TP Not Given BID KATY Budesonide/Formoterol Fumarate 2 puff 11/03/17 10:00 11/04/17 10:38 Symbicort 160/4.5mcg - IH 160 mg BID KATY Administration Carvedilol 6.25 mg 11/03/17 10:00 11/04/17 10:38 Coreg - PO 6.25 mg BID KATY Administration Docusate Sodium 300 mg 11/04/17 22:00 Colace - PO HS KATY Furosemide 40 mg 11/03/17 10:00 11/04/17 10:37 Lasix - PO 40 mg DAILY KATY Administration Heparin Sodium (Porcine) 5,000 unit 11/03/17 06:00 11/04/17 14:51 Heparin - SQ 5,000 unit TID KATY Administration Multivitamins/Minerals/Vitamin C 1 tab 11/03/17 10:00 11/04/17 10:37 Tab-A-Vit - PO 1 tab DAILY KATY Administration Pantoprazole Sodium 20 mg 11/03/17 10:00 11/04/17 10:37 Protonix - PO 20 mg DAILY KATY Administration Pregabalin 100 mg 11/03/17 10:00 11/04/17 10:37 Lyrica - PO 100 mg DAILY KATY Administration Roflumilast 500 mcg 11/03/17 10:00 11/04/17 10:37 Daliresp - PO 500 mcg DAILY KATY Administration Tiotropium [place] 1 puff 11/03/17 10:00 11/04/17 10:38 Spiriva - IH 1 puff DAILY KATY Administration Varenicline 1 mg 11/03/17 10:00 11/04/17 10:38 Chantix - PO Not Given DAILY [facility] Home Medications Medication Instructions Recorded Aspirin [Aspir 81] 81 mg PO DAILY 02/23/12 Verapamil HCl [Verapamil ER] 120 mg PO DAILY 08/07/13 Multivitamin [Once Daily] 1 each PO DAILY 11/19/13 Omeprazole [Prilosec] 20 mg PO DAILY 04/24/16 Pregabalin [Lyrica] 100 mg PO DAILY 04/24/16 Varenicline Tartrate [Chantix] 1 mg PO DAILY 04/24/16 Carvedilol [Coreg -] 6.25 mg PO BID #60 tablet 04/27/16 Budesonide/Formeterol Fumarate 1 inh PO DAILY 08/19/16 [SYMBICORT 160/4.5mcg -] Tiotropium [place] [Spiriva] 1 inh PO DAILY 08/19/16 Bacitracin - [Bacitracin Topical 1 applic TP BID #1 tube 08/25/16 Ointment -] Furosemide [Lasix -] 40 mg PO DAILY #30 tablet 08/25/16 Roflumilast [Daliresp -] 500 mcg PO DAILY #30 tablet 08/25/16 ASSESSMENT AND PLAN: Patient is a 72 yo Female with PMHx of HTN, asthma, CVA, COPD (home O2 5L), diastolic CHF, and AICD admitted to observation for hypotension. #s/p Acute Hypotension with Hx of HTN ,now normotensive: will hold verapamil ER and monitor vitals q4h will discuss with his bottom filler # Acute Diastolic CHF exacerbation: started the patient on lasix 40mg PO daily continue . # COPD: stable. cont. daliresp, spiriva DVT Px: Heparin will discharge patient home in am ; will check the records from office regarding use of Verapamil , is aware that she is running Her BP on a low side.
[2017-11-04] MEDS ORDERED: DOCUSATE SODIUM 100 MG CAPSULE (FP) PO SCH (22:00)
--- NOTE | 2017-11-05 04:46 | PN ---
Physical Exam: SUBJECTIVE: Patient seen and examined at bedside. no acute events over night, orthostics was positive, she is asking to go home for personal reasons. denies any fever, chills, N/V/D/C. OBJECTIVE: Vital Signs Period Temp Pulse Resp BP Sys/Vasquez Pulse Ox Last 24 Hr 97.6 F-98.1 F 62-80 20-20 106-142/49-100 95 GENERAL: The patient is awake, alert, and fully oriented, in no acute distress. HEAD: Normal with no signs of trauma. EYES: sclera anicteric, conjunctiva clear. ENT: moist mucous membranes. NECK: supple. LUNGS: Breath sounds equal, clear to auscultation bilaterally, no wheezes, no crackles, no accessory muscle use. HEART: Regular rate and rhythm, S1, S2 without murmur, rub or gallop. ABDOMEN: Soft, nontender, nondistended, normoactive bowel sounds, no guarding, no rebound, EXTREMITIES: 2+ pulses, warm, well-perfused, no edema. NEUROLOGICAL: Cranial nerves II through XII grossly intact. Normal speech, gait not observed. PSYCH: Normal mood, normal affect. SKIN: Warm, dry, no rashes or lesions noted Active Medications Generic Name Dose Route Start Last Admin Trade Name Freq PRN Reason Stop Dose Admin Acetaminophen 650 mg 11/03/17 21:15 Tylenol - PO Q6H PRN PAIN LEVEL 6-10 Aspirin 81 mg 11/03/17 10:00 11/04/17 10:37 Ecotrin - PO 81 mg DAILY KATY Administration Bacitracin 1 applic 11/03/17 10:00 11/04/17 21:23 Bacitracin - TP Not Given BID KATY Budesonide/Formoterol Fumarate 2 puff 11/03/17 10:00 11/04/17 21:23 Symbicort 160/4.5mcg - IH 2 puff BID KATY Administration Carvedilol 6.25 mg 11/03/17 10:00 11/04/17 21:22 Coreg - PO 6.25 mg BID KATY Administration Docusate Sodium 300 mg 11/04/17 22:00 11/04/17 21:22 Colace - PO 300 mg HS KATY Administration Furosemide 40 mg 11/03/17 10:00 11/04/17 10:37 Lasix - PO 40 mg DAILY KATY Administration Heparin Sodium (Porcine) 5,000 unit 11/03/17 06:00 11/04/17 21:23 Heparin - SQ 5,000 unit TID KATY Administration Multivitamins/Minerals/Vitamin C 1 tab 11/03/17 10:00 11/04/17 10:37 Tab-A-Vit - PO 1 tab DAILY KATY Administration Pantoprazole Sodium 20 mg 11/03/17 10:00 11/04/17 10:37 Protonix - PO 20 mg DAILY KATY Administration Pregabalin 100 mg 11/03/17 10:00 11/04/17 10:37 Lyrica - PO 100 mg DAILY KATY Administration Roflumilast 500 mcg 11/03/17 10:00 11/04/17 10:37 Daliresp - PO 500 mcg DAILY KATY Administration Tiotropium [place] 1 puff 11/03/17 10:00 11/04/17 10:38 Spiriva - IH 1 puff DAILY KATY Administration Varenicline 1 mg 11/03/17 10:00 11/04/17 10:38 Chantix - PO Not Given DAILY KATY CXR 11/02/2017: No significant changes since prior study. ASSESSMENT/PLAN: 72 yo F h/o HTN, asthma, CVA, COPD (home O2 5L), dCHF, and AICD admitted to observation for hypotension. # Hypotension: * Likely due to over-medication with BP meds. * Hold verapamil ER and monitor vitals q4h. # Flash pulmonary edema in the setting of dCHF: * Received fluids in ED for hypotension and developed flash pulmonary edema. * Lasix 40mg PO x 1 dose then cont. daily lasix + coreg. * Reassess fluid status. # dCHF: * cont. lasix and coreg # COPD: stable. * cont. daliresp, spiriva # HTN: * hold verapamil ER 120 #FEN: * avoid fluids. * lytes normal. * Na+ controlled diet. #DVT ppx: * heparin SQ tid #GI ppx: * on home ppi #Dispo: May discharge once asymptomatic and vitals stable Visit type - Emergency Visit Emergency Visit: Yes ED Registration Date: 11/02/17 Care time: The patient presented to the Emergency Department on the above date and was hospitalized for further evaluation of their emergent condition. - New Patient This patient is new to me today: No - Critical Care Critical Care patient: No - Discharge Referral Referred to [facility] Med P.C.: No
[2017-11-05] MEDS: HEPARIN NA (PORCINE) 5,000 UNITS/ML 1ML VIAL SQ SCH ×2 (06:35→13:58)
--- NOTE | 2017-11-05 08:33 | PN ---
Progress Note, Physician History of Present Illness: The patient is a 72 year old black female with past medical history of hypertension, asthma, CVA, COPD (on 5L O2 at home), CHF, and AICD placement who presents to the ED with complaints of hypotension and lightheadedness since this morning. The patient states that she is unable to walk because of her lightheadedness. She reports taking her blood pressure at home which appeared to be high, so she pressed her Life Alert button and EMS arrived at her home. When they took her blood pressure it was low. She reports also having cold symptoms for the past week as well. She also reports worsening SOB over the past month. The patient denies any fevers, chills, nausea, vomiting, diarrhea, cough, chest pain or urinary symptoms - Current Medication List Current Medications: Active Medications Acetaminophen (Tylenol -) 650 mg PO Q6H PRN PRN Reason: PAIN LEVEL 6-10 Aspirin (Ecotrin -) 81 mg PO DAILY [facility] Last Admin: 11/04/17 10:37 Dose: 81 mg Bacitracin (Bacitracin -) 1 applic TP BID [facility] Last Admin: 11/04/17 21:23 Dose: Not Given Budesonide/Formoterol Fumarate (Symbicort 160/4.5mcg -) 2 puff IH BID [facility] Last Admin: 11/04/17 21:23 Dose: 2 puff Carvedilol (Coreg -) 6.25 mg PO BID [facility] Last Admin: 11/04/17 21:22 Dose: 6.25 mg Docusate Sodium (Colace -) 300 mg PO HS [facility] Last Admin: 11/04/17 21:22 Dose: 300 mg Furosemide (Lasix -) 40 mg PO DAILY [facility] Last Admin: 11/04/17 10:37 Dose: 40 mg Heparin Sodium (Porcine) (Heparin -) 5,000 unit SQ TID [facility] Last Admin: 11/05/17 06:35 Dose: 5,000 unit Multivitamins/Minerals/Vitamin C (Tab-A-Vit -) 1 tab PO DAILY [facility] Last Admin: 11/04/17 10:37 Dose: 1 tab Pantoprazole Sodium (Protonix -) 20 mg PO DAILY [facility] Last Admin: 11/04/17 10:37 Dose: 20 mg Pregabalin (Lyrica -) 100 mg PO DAILY [facility] Last Admin: 11/04/17 10:37 Dose: 100 mg Roflumilast (Daliresp -) 500 mcg PO DAILY [facility] Last Admin: 11/04/17 10:37 Dose: 500 mcg Tiotropium [place] (Spiriva -) 1 puff IH DAILY [facility] Last Admin: 11/04/17 10:38 Dose: 1 puff Varenicline (Chantix -) 1 mg PO DAILY [facility] Last Admin: 11/04/17 10:38 Dose: Not Given - Objective Vital Signs: Vital Signs Temperature 98.1 F 11/05/17 05:00 Pulse Rate 65 11/05/17 05:00 Respiratory Rate 20 11/05/17 05:00 Blood Pressure 118/61 11/05/17 05:00 O2 Sat by Pulse Oximetry (%) 97 11/05/17 02:00 Eyes: Yes: WNL, Conjunctiva Clear, EOM Intact HENT: Yes: WNL, Atraumatic, Normocephalic Neck: Yes: WNL, Supple, Trachea Midline Cardiovascular: Yes: WNL, Regular Rate and Rhythm, Murmur, S1, S2 Respiratory: Yes: WNL, Regular, CTA Bilaterally Gastrointestinal: Yes: WNL, Normal Bowel Sounds Genitourinary: Yes: WNL Musculoskeletal: Yes: WNL Extremities: Yes: WNL Edema: No Integumentary: Yes: WNL Neurological: Yes: WNL, Alert, Oriented ...Motor Strength: WNL Psychiatric: Yes: WNL Labs: CBC, BMP 11/02/17 20:07 11/03/17 06:37 INR, PTT INR 0.95 (0.82-1.09) 11/02/17 20:07 Assessment/Plan - Problems (1) Dizziness Assessment/Plan: resolved probably dehydratiion Code(s): R42 - DIZZINESS AND GIDDINESS (2) H/O gastric bypass Assessment/Plan: Obese: 5'4", 200 lbs. Code(s): Z98.84 - BARIATRIC SURGERY STATUS (3) AICD (automatic cardioverter/defibrillator) present Code(s): Z95.810 - PRESENCE OF AUTOMATIC (IMPLANTABLE) CARDIAC DEFIBRILLATOR (4) CHF (congestive heart failure) Assessment/Plan: f/u ECHO results (last done in 2016 in office). On carvedilol. AICD; checked 05/2017, per pt. Code(s): I50.9 - HEART FAILURE, UNSPECIFIED (5) COPD (chronic obstructive pulmonary disease) Assessment/Plan: On home O2. Code(s): J44.9 - CHRONIC OBSTRUCTIVE PULMONARY DISEASE, UNSPECIFIED (6) Dyspnea Code(s): R06.00 - DYSPNEA, UNSPECIFIED (7) HTN (hypertension) Code(s): I10 - ESSENTIAL (PRIMARY) HYPERTENSION Qualifiers: Hypertension type: essential hypertension Qualified Code(s): I10 - Essential (primary) hypertension (8) Obesity (BMI 30.0-34.9) Code(s): E66.9 - OBESITY, UNSPECIFIED will d/c home off lasix, restart verapamil.
[2017-11-05 09:30] LABS: ANION GAP 9 (8-16); BLOOD UREA NITROGEN 21 mg/dL (7-18); CALCIUM 8.5 mg/dL (8.5-10.1); CHLORIDE 110 mmol/L (98-107); CO2 22 mmol/L (21-32); CREATININE 1.2 mg/dL (0.55-1.02); GLUCOSE,RANDOM 155 mg/dL (74-106); SODIUM 141 mmol/L (136-145)
[2017-11-05] MEDS: VARENICLINE TARTRATE 1 MG TAB PO SCH (10:16)
[2017-11-05] MEDS: BACITRACIN 15 GM TUBE TOPICAL OINTMENT TP SCH (10:16)
[2017-11-05] MEDS: ASPIRIN COATED 81 MG TABLET.EC PO SCH (10:17)
[2017-11-05] MEDS: PREGABALIN 100 MG CAPSULE PO SCH (10:17)
[2017-11-05] MEDS: FUROSEMIDE 40 MG TABLET (FP) PO SCH (10:17)
[2017-11-05] MEDS: MULTIVITAMINS (DAILY MVI) TABLET (FP) PO SCH (10:17)
[2017-11-05] MEDS: ROFLUMILAST 500 MCG TABLET PO SCH (10:17)
[2017-11-05] MEDS: TIOTROPIUM BROMIDE 18 MCG/INH (DEVICE W/ 5 CAPSULES) IH SCH (10:17)
[2017-11-05] MEDS: CARVEDILOL 6.25 MG TABLET (FP) PO SCH (10:17)
[2017-11-05] MEDS: PANTOPRAZOLE 20 MG TABLET (FP) PO SCH (10:17)
[2017-11-05] MEDS: BUDESONIDE/FORMETEROL FUMARATE 160/4.5 mcg INHALER IH SCH (10:18)
--- NOTE | 2017-11-05 13:31 | DS ---
Physical Exam: SUBJECTIVE: Patient seen and examined at bedside, stable hemodynamicaly and ready to go home. No acute events over night, no new complains. OBJECTIVE: Vital Signs Period Temp Pulse Resp BP Sys/Vasquez Pulse Ox Last 24 Hr 97.6 F-98.1 F 65-80 20-20 106-142/49-75 97-97 PHYSICAL EXAM GENERAL: The patient is awake, alert, and fully oriented, in no acute distress. HEAD: Normal with no signs of trauma. EYES: sclera anicteric, conjunctiva clear. ENT: moist mucous membranes. NECK: supple. LUNGS: Breath sounds equal, clear to auscultation bilaterally, no wheezes, no crackles, no accessory muscle use. HEART: Regular rate and rhythm, S1, S2 without murmur, rub or gallop. ABDOMEN: Soft, nontender, nondistended, normoactive bowel sounds, no guarding, no rebound, EXTREMITIES: 2+ pulses, warm, well-perfused, no edema. NEUROLOGICAL: Cranial nerves II through XII grossly intact. Normal speech, gait not observed. PSYCH: Normal mood, normal affect. SKIN: Warm, dry, no rashes or lesions noted LABS Laboratory Results - last 24 hr 11/05/17 08:50 Sodium 141 Potassium 4.0 Chloride 110 H Carbon Dioxide 22 Anion Gap 9 BUN 21 H Creatinine 1.2 H Random Glucose 155 H Calcium 8.5 CBC, BMP 11/02/17 20:07 11/05/17 08:50 HOSPITAL COURSE: Date of Admission:11/02/17 Date of Discharge: 11/05/17 'Ms Alcaraz is a 72 yo Female with PMHx of HTN, asthma, CVA, COPD (home O2 5L), dCHF, and AICD admitted to observation for hypotension. In term of Acute Hypotension with Hx of HTN ;Verapamil is on hold , still running Blood pressure on low side : Likely due to over-medication with BP meds. Hold verapamil ER and monitor vitals q4h during hospitalization. uppon discharged we stopped the lasix and she will resume verapamil 125 mg po daily. patient has Acute DCHF exacerbation on lasix 40mg PO daily , lasix was stopped upon discharged. for COPD: stable. cont. kavin choudhary will discharge patient home in am , will follow up with her PCP, Experimental Electronics Developer and Pulmonary doctor as out patient. she will resume her home meds. Minutes to complete discharge: 40 <Trevon Oconnor - Last Filed: 11/05/17 13:36> Physical Exam: Correction to the r d internship note: Patient's Verapamil was on hold on admission since patient was found to be hypotensive. Discussed with her [facility] Dr. Ramos to continue her Verapamil since has hx of HOCM . will discharge the patient home continue her Coreg as well. <Courtney Mackenzie - Last Filed: 11/05/17 21:23> Discharge Summary Reason For Visit: CONGESTIVE HEART FAILURE/PRE-SYNCOPE Current Active Problems Dizziness (Chronic) H/O gastric bypass (Chronic) Hypertrophic cardiomyopathy (Chronic) - Home Medications Comprehensive Discharge Medication List: Ambulatory Orders Aspirin [Aspir 81] 81 mg PO DAILY 02/23/12 Verapamil HCl [Verapamil ER] 120 mg PO DAILY 08/07/13 Multivitamin [Once Daily] 1 each PO DAILY 11/19/13 Omeprazole [Prilosec] 20 mg PO DAILY 04/24/16 Pregabalin [Lyrica] 100 mg PO DAILY 04/24/16 Varenicline Tartrate [Chantix] 1 mg PO DAILY 04/24/16 Carvedilol [Coreg -] 6.25 mg PO BID #60 tablet 04/27/16 Budesonide/Formeterol Fumarate [SYMBICORT 160/4.5mcg -] 1 inh PO DAILY 08/19/16 Tiotropium Hector [Spiriva] 1 inh PO DAILY 08/19/16 Bacitracin - [Bacitracin Topical Ointment -] 1 applic TP BID #1 tube 08/25/16 Roflumilast [Daliresp -] 500 mcg PO DAILY #30 tablet 08/25/16 <Trevon Oconnor - Last Filed: 11/05/17 13:36> - Home Medications Comprehensive Discharge Medication List: Ambulatory Orders Aspirin [Aspir 81] 81 mg PO DAILY 02/23/12 Verapamil HCl [Verapamil ER] 120 mg PO DAILY 08/07/13 Multivitamin [Once Daily] 1 each PO DAILY 11/19/13 Omeprazole [Prilosec] 20 mg PO DAILY 04/24/16 Pregabalin [Lyrica] 100 mg PO DAILY 04/24/16 Varenicline Tartrate [Chantix] 1 mg PO DAILY 04/24/16 Carvedilol [Coreg -] 6.25 mg PO BID #60 tablet 04/27/16 Budesonide/Formeterol Fumarate [SYMBICORT 160/4.5mcg -] 1 inh PO DAILY 08/19/16 Tiotropium Hector [Spiriva] 1 inh PO DAILY 08/19/16 Bacitracin - [Bacitracin Topical Ointment -] 1 applic TP BID #1 tube 08/25/16 Roflumilast [Daliresp -] 500 mcg PO DAILY #30 tablet 08/25/16 <Courtney Mackenzie - Last Filed: 11/05/17 21:23> Condition: Stable - Instructions Diet, Activity, Other Instructions: You were admitted to the hospital for low blood pressure due to over medication We stopped you lasix per [facility] winder recommendation and you will resume all other home meds as prescribed before including your verapamil 125 mg daily. Please follow up with your primary care physician within a week Please follow up with the [facility] winder within a week Please keep your self hydrated. Please take your time when you get out of bed and if you feel dizzy or lightheaded. Please monitor your blood pressure closely Please follow low sodium diet. If your symptoms worsen please call 911 or come back to emergency room as soon as possible. Referrals: Emile Salinas MD [Staff Physician] - 1 Week Disposition: HOME This patient is new to me today: No Emergency Visit: Yes ED Registration Date: 11/02/17 Care time: The patient presented to the Emergency Department on the above date and was hospitalized for further evaluation of their emergent condition. Critical Care patient: No - Discharge Referral Referred to [facility] Med P.C[facility] No <Trevon Oconnor - Last Filed: 11/05/17 13:36>
[2017-11-05 15:47] VITALS: BP 120/74; PULSE 75; TEMP 97.7
--- NOTE | 2017-11-05 21:45 | EKG ---
Test Reason : Blood Pressure : / mmHG Vent. Rate : 076 BPM Atrial Rate : 076 BPM P-R Int : 168 ms QRS Dur : 098 ms QT Int : 390 ms P-R-T Axes : 052 -46 055 degrees QTc Int : 438 ms NORMAL SINUS RHYTHM LEFT AXIS DEVIATION ANTERIOR INFARCT , AGE UNDETERMINED ABNORMAL ECG WHEN COMPARED WITH ECG OF 02-NOV-2017 19:23, NO SIGNIFICANT CHANGE WAS FOUND Confirmed by SARAH MENDEZ, LILIANA ([id number]) on 11/05/2017 9:44:51 PM Referred By: KODKA WOLF DR Confirmed By:LILIANA SMITH MD
--- NOTE | 2017-11-05 21:50 | EKG ---
Test Reason : Blood Pressure : / mmHG Vent. Rate : 056 BPM Atrial Rate : 056 BPM P-R Int : 170 ms QRS Dur : 096 ms QT Int : 444 ms P-R-T Axes : 039 -39 042 degrees QTc Int : 428 ms SINUS BRADYCARDIA LEFT AXIS DEVIATION ABNORMAL ECG WHEN COMPARED WITH ECG OF 20-AUG-2016 09:29, NO SIGNIFICANT CHANGE WAS FOUND Confirmed by LILIANA SMITH MD ([id number]) on 11/05/2017 9:49:43 PM Referred By: Confirmed By:LILIANA SMITH MD
== END 2017-11-05 16:00 | disposition home or self-care (01) ==
LOC: JER 18:47 → JERBED 23:16 → J4W 11-04 02:28
PROVIDERS: ADMIT Internal Medicine; ATTEND Internal Medicine
PROC: 3E0337Z Introduction of Electrolytic and Water Balance Substance into Peripheral Vein, Percutaneous Approach (ICD-10-PCS; principal; 2017-11-02)
PROC: 3E0F7GC Introduction of Other Therapeutic Substance into Respiratory Tract, Via Natural or Artificial Opening (ICD-10-PCS; 2017-11-02)
DX: I95.9 Hypotension, unspecified (principal); J81.0 Acute pulmonary edema; I50.33 Acute on chronic diastolic (congestive) heart failure; I10 Essential (primary) hypertension; I69.354 Hemiplegia and hemiparesis following cerebral infarction affecting left non-dominant side; I42.2 Other hypertrophic cardiomyopathy; J44.9 Chronic obstructive pulmonary disease, unspecified; J45.909 Unspecified asthma, uncomplicated; E66.9 Obesity, unspecified; Z68.34 Body mass index [BMI] 34.0-34.9, adult; Z95.810 Presence of automatic (implantable) cardiac defibrillator; Z98.84 Bariatric surgery status; Z87.891 Personal history of nicotine dependence; Z79.82 Long term (current) use of aspirin; Z99.81 Dependence on supplemental oxygen
CPT/HCPCS: 36415; 71045-TC; 80048; 80053; 80061; 81003; 81015; 82550; 82803; 83605; 83721; 83880; 84443; 84484; 85025; 85610; 85730; 87086; 87804; 93005; 93010; 94640; 99285-25; G0378; J1644

== ENCOUNTER 2018-03-26 10:37 | Inpatient (IN) | payer MEDICARE, OTHER ==
[2018-03-26 11:23] VITALS: BMI 34.7
--- NOTE | 2018-03-26 11:23 | PDOC ---
Attending Attestation - Resident Resident Name: Junior Abdi - HPI HPI: 03/26/18 15:44 pt presents to the ED complaining of chronic R hip pain and chronic shortness of breath. history of COPD and chronic home O2, states that her oxygen requirements increased last month. Denies injury to her R hip. Able to ambuate with difficulty. - Physicial Exam PE: 03/26/18 15:46 Agree with resident exam. PAtient is awake and alert, in no acute distress, speaking in complete sentences. Able to move R hip without difficulty. Lungs are clear. - Medical Decision Making 03/26/18 15:48 Pt presented to the ED complaining of chronic R hip pain and chronic shortness of breath. Denies other complaints. CXR and xray of the R hip show no acute changes. Patient was found to be tender by the resident on his exam, so CT abdomen pelvis was performed which shows small bowel anastomosis with dilated loop of small bowel consistent with small bowel obstruction. Patient is tolerating Po and is passing gas and having bowel movements. Denies fevers or abdominal pain. Plan is to discuss the case with Dr. Aguilera and likely admit the patient for observation.
--- NOTE | 2018-03-26 11:30 | PDOC ---
History of Present Illness - General Chief Complaint: Pain, Acute Stated Complaint: Shortness of Breath Time Seen by Provider: 03/26/18 11:21 - History of Present Illness Initial Comments: 03/26/18 11:31 73 yo F h/o HTN, asthma, CVA, COPD (home O2 3L), dCHF, and AICD who p/w R hip pain, and SOB. Patient reports 1 1/2 month of R hip pain with 3-4 days of sharp R hip pain, worse with ambulation. Typically ambulates with walker and cane. Denies falls, head/neck/back trauma. Patient states that R hip slightly. Pain not improved with topical "BC cream." Also reports episode of lightheadedness today upon EMS arrival, and 1 month of SOB and non productive cough. 1 month of BL LE leg/calf pain. Denies F/C, orthopnea, PND, N/V, diarrhea, constipation, urinary complaints, weakness, lightheadedness, sensory changes. PMHx: as noted above. H/o C section x 2. Denies TN. Denies h/o PE/DVT, recent travel, immobilization, surgery, or trauma. Denies h/o malignancy. ROS: as noted above SHx: Tobacco cessation 2 years ago following 20 year ppd smoking history. Denies Etoh, IVDA. Allergies: NKDA Past History - Past Medical History Allergies/Adverse Reactions: Allergies Allergy/AdvReac Type Severity Reaction Status Date / Time No Known Allergies Allergy Verified 03/26/18 11:13 Home Medications: Ambulatory Orders Aspirin [Aspir 81] 81 mg PO DAILY 02/23/12 Multivitamin [Once Daily] 1 each PO DAILY 11/19/13 Carvedilol [Coreg -] 6.25 mg PO BID #60 tablet 04/27/16 Roflumilast [Daliresp -] 500 mcg PO DAILY #30 tablet 08/25/16 Ergocalciferol [Vitamin D2] 50,000 unit PO Q7D@1000 03/26/18 Furosemide [Lasix] 40 mg PO DAILY 03/26/18 Gabapentin [Neurontin] 300 mg PO BID 03/26/18 Anemia: No Asthma: Yes (ON 5L/MIN PRN) Cancer: No Cardiac Disorders: Yes CVA: Yes (2000 LEFT SIDED WEAKNESS) COPD: Yes CHF: Yes Dementia: No Diabetes: No GI Disorders: No Disorders: No HTN: Yes Hypercholesterolemia: No Liver Disease: No Seizures: No Thyroid Disease: No - Surgical History Abdominal Surgery: Yes (GASTRIC BYPASS [employer] [place],) Appendectomy: No Cardiac Surgery: Yes (icd) Cholecystectomy: No Lung Surgery: No Neurologic Surgery: No Orthopedic Surgery: No (2000 SURGERY ON NECK,REMOVAL BOILS BOTH ARMPIT) - Immunization History Td Vaccination: No Immunization Up to Date: Yes - Suicide/Smoking/Psychosocial Hx Smoking Status: Yes Smoking History: Former smoker Have you smoked in the past 12 months: No Number of Cigarettes Smoked Daily: 5 If you are a former smoker, when did you quit?: 2 YEARS Information on smoking cessation initiated: No 'Breaking Loose' booklet given: 03/09/15 Hx Alcohol Use: No Drug/Substance Use Hx: No Substance Use Type: None Hx Substance Use Treatment: No Review of Systems - Review of Systems Comments:: 03/26/18 11:32 GENERAL/CONSTITUTIONAL: No fever or chills. No weakness. HEAD, EYES, EARS, NOSE AND THROAT: No change in vision. No ear pain or discharge. No sore throat. CARDIOVASCULAR: + SOB. No chest pain, RESPIRATORY: No cough, wheezing, or hemoptysis. GASTROINTESTINAL: No nausea, vomiting, diarrhea or constipation. GENITOURINARY: No dysuria, frequency, or change in urination. MUSCULOSKELETAL: + R hip pain. No neck or back pain. SKIN: No rash NEUROLOGIC: + Lightheadedness. No headache, vertigo, loss of consciousness, or change in strength/sensation. ENDOCRINE: No increased thirst. No abnormal weight change HEMATOLOGIC/LYMPHATIC: No anemia, easy bleeding, or history of blood clots. ALLERGIC/IMMUNOLOGIC: No hives or skin allergy. \\ *Physical Exam - Vital Signs Last Vital Signs Temp Pulse Resp BP Pulse Ox 98.4 F 61 20 160/59 95 03/26/18 11:15 03/26/18 11:15 03/26/18 11:15 03/26/18 11:15 03/26/18 11:15 - Physical Exam Comments: 03/26/18 11:33 GENERAL: Awake, alert, and fully oriented, in no acute distress HEAD: No signs of trauma, normocephalic, atraumatic EYES: PERRLA, EOMI, sclera anicteric, conjunctiva clear ENT: Hearing grossly normal, nares patent, oropharynx clear without exudates. Moist mucosa. NECK: Normal ROM, supple, no lymphadenopathy, JVD, or masses LUNGS: Diminished lungs sounds BL. HEART: Regular rate and rhythm, normal S1 and S2, no murmurs, rubs or gallops, peripheral pulses normal and equal bilaterally. ABDOMEN: Soft, R mid to lower abdominal ttp, normoactive bowel sounds. No guarding, no rebound. No masses. Neg CVA ttp. EXTREMITIES : BL calf ttp. Normal inspection, Normal range of motion, no edema. No clubbing or cyanosis. Palpable equal and symmetric DP and PT pulses. R HIP: + R sided greater trochanter ttp. Limited ROM d/t pain.Difficult to assess for bony deformity d/t body habitus. NEUROLOGICAL: Cranial nerves II through XII grossly intact. Normal speech, gait not assessed. No focal sensorimotor deficits SKIN: Warm, Dry, normal turgor, no rashes or lesions noted. ED Treatment Course - LABORATORY CBC & Chemistry Diagram: 03/26/18 12:15 03/26/18 12:15 Medical Decision Making - Medical Decision Making 03/26/18 12:27 73 yo F h/o HTN, asthma, CVA, COPD (home O2 3L), dCHF, and AICD who p/w R hip pain, and SOB. BP 160/95, 95% O2 on 3 L NC vitals otherwise wnl, VSS, AF. ACS/ TN r/o in setting of SOB, [place], and multiple risk factors. No evidence of fluid overload on physical exam. Will consider acute CHF vs. COPD exacerbation vs. PNA. PERC POS. Patient with BL calf ttp. R/o BL DVT and PE. Radiograph R hip. R/ o fracture/dislocation. ED Course: CBC, CMP, BNP, Cardiac Pr EKG, CXR CT AP 03/26/18 15:37 CT AP: S/p gastric surgery. Distended air/fluid small level and bowel loop at anasomosis. Closed loop cannot be exlcuded. June 2001 [facility] Gastric Bypass. Patient does not recall who performed procedure and at what clinic or hospital. Patient not vomitting, and tolerating PO intake. CBC. CMP: Unremarkable UA: Neg 03/26/18 16:[address] Aguilera patient is at risk of [place] hernia. She should be managed by bariatric surgery. 03/26/18 16:44 NPO, lactic acid Per Colby Carvajal pt. to remain NPO and will assess patient. Recommends observation. 03/26/18 17:[address] Brigida Carlos. Patient 03/26/18 17:32 Patient admitted to in./Dr. Sullivan. *DC/Admit/Observation/Transfer Diagnosis at time of Disposition: Bowel obstruction Qualifiers: Intestinal obstruction type: unspecified Intestinal obstruction extent: unspecified extent Qualified Code(s): K56.609 - Unspecified intestinal obstruction, unspecified as to partial versus complete obstruction - Discharge Dispostion Decision to Admit order: Yes - Referrals - Patient Instructions - Post Discharge Activity
[2018-03-26 12:29] LABS: BASO % 1.1 % (0-2.0); HEMOGLOBIN 13.9 GM/dL (10.7-15.3); LYMPH % 32.5 % (8-40); MCHC 33.9 g/dl (32.0-36.0); MEAN CELL VOLUME 94.3 fl (80-96); MEAN PLT VOLUME 9.1 fl (7.5-11.1); MONO % 13.2 % (3.8-10.2); NEUT % 51.2 % (42.8-82.8); PLATELET COUNT 236 K/MM3 (134-434); RBC 4.34 M/mm3 (3.60-5.2); RDW 14.6 % (11.6-15.6); WHITE BLOOD COUNT 5.5 K/mm3 (4.0-10.0)
[2018-03-26 12:43] LABS: INR 0.99 (0.82-1.09); PROTHROMBIN TIME (PATIENT) 11.2 SEC (9.7-13.0)
[2018-03-26 12:46] LABS: URINE APPEARANCE CLEAR; URINE BILIRUBIN NEGATIVE (<2.0 mg/dL); URINE COLOR YELLOW; URINE GLUCOSE (UA) NEGATIVE (NEGATIVE); URINE KETONE NEGATIVE (NEGATIVE); URINE LEUK ESTERASE NEGATIVE (NEGATIVE); URINE NITRITE NEGATIVE (NEGATIVE); URINE PROTEIN NEGATIVE (NEGATIVE)
[2018-03-26 13:31] LABS: ALBUMIN 3.6 g/dl (3.4-5.0); ANION GAP 7 (8-16); BILIRUBIN,TOTAL 0.5 mg/dL (0.2-1.0); BLOOD UREA NITROGEN 17 mg/dL (7-18); CALCIUM 8.7 mg/dL (8.5-10.1); CHLORIDE 109 mmol/L (98-107); CO2 27 mmol/L (21-32); CREATININE 0.8 mg/dL (0.55-1.02); GLUCOSE,RANDOM 90 mg/dL (74-106); SGPT/ALT 17 U/L (12-78); SODIUM 143 mmol/L (136-145); TOT PROT 6.8 g/dl (6.4-8.2)
[2018-03-26 13:32] LABS: ALK PHOS 104 U/L (45-117); N-TERMINAL BNP 1259.18 pg/ml (5-450); POTASSIUM 4.7 mmol/L (3.5-5.1); SGOT/AST 17 U/L (15-37)
--- NOTE | 2018-03-26 16:10 | EKG ---
Test Reason : Blood Pressure : / mmHG Vent. Rate : 061 BPM Atrial Rate : 061 BPM P-R Int : 182 ms QRS Dur : 090 ms QT Int : 466 ms P-R-T Axes : 057 -48 062 degrees QTc Int : 469 ms NORMAL SINUS RHYTHM LEFT AXIS DEVIATION ABNORMAL ECG WHEN COMPARED WITH ECG OF 05-NOV-2017 08:45, NO SIGNIFICANT CHANGE WAS FOUND Confirmed by MD MELLISA, JEAN ([id number]) on 03/26/2018 4:09:53 PM Referred By: Confirmed By:JEAN PAK MD
--- NOTE | 2018-03-26 17:34 | HP ---
CHIEF COMPLAINT: " Pain in both the hip right hip > Left hip" PCP: Dr. Jordan HISTORY OF PRESENT ILLNESS: Patient is a 73 year old female presented to the ED via EMS with the chief complaint of " Pain in both the hip right hip > Left hip". As per the patient, it started around 2 months ago, has been progressively getting worse, used to take BC powder (aspirin/Caffeine) for the pain which helped but since a week it hasn't been helping. Lives at home alone, uses a cane/walker, scooter for ambulation but patient said this morning she could barely get up, hence called 911 and was brought here for further evaluation. Denies chest pain, sob, cough, palpitation, abdominal pain, nausea or vomiting. Bowel habit normal-Last BM was this morning, passing flatus. Bladder habit normal. Sleep/Appetite normal. During the physical exam by the ED resident, she was found to have tenderness in the abdomen, CT abdomen was done showing possible SBO. Has a h/o Gastric bypass done in 2000 in [place] (doesn't remember the name of the doctor or the hospital). ER course was notable for: (1) Afebrile, hemodynamically stable, No leukocytosis (2) EKG: NSR (3) CT abdomen/Pelvis: s/p small bowel anastomosis with a markedly distended air and fluid- filled small bowel loop at the anastomotic site. A closed loop obstrustion cannot be excluded. Recent Travel: PAST MEDICAL HISTORY: HTN, asthma, CVA, COPD (home O2 5L), dCHF, and AICD PAST SURGICAL HISTORY: (1957, 1959), Permanent Pacemaker (vs ICD); Hemorrhoidectomy, Neck surgery; Gastric bypass Social History: Smoking: Smoked for 50 yrs, around 1 pack/day, quit 2 yrs ago Alcohol: Drinks 1 pint of Rum daily Drugs: Denies Family History: Non contributory Allergies No Known Allergies Allergy (Verified 03/26/18 11:13) HOME MEDICATIONS: Home Medications Medication Instructions Recorded Aspirin [Aspir 81] 81 mg PO DAILY 02/23/12 Multivitamin [Once Daily] 1 each PO DAILY 11/19/13 Carvedilol [Coreg -] 6.25 mg PO BID #60 tablet 04/27/16 Roflumilast [Daliresp -] 500 mcg PO DAILY #30 tablet 08/25/16 Ergocalciferol [Vitamin D2] 50,000 unit PO Q7D@1000 03/26/18 Fluticasone/Salmeterol [Advair 1 each IH BID 03/26/18 250-50 Diskus] Furosemide [Lasix] 40 mg PO DAILY 03/26/18 Gabapentin [Neurontin] 300 mg PO TID 03/26/18 REVIEW OF SYSTEMS CONSTITUTIONAL: Absent: fever, chills, diaphoresis, generalized weakness, malaise, loss of appetite, weight change HEENT: Absent: rhinorrhea, nasal congestion, throat pain, throat swelling, difficulty swallowing, mouth swelling, ear pain, eye pain, visual changes CARDIOVASCULAR: Absent: chest pain, syncope, palpitations, irregular heart rate, lightheadedness , peripheral edema RESPIRATORY: Absent: cough, shortness of breath, dyspnea with exertion, orthopnea, wheezing, stridor, hemoptysis GASTROINTESTINAL: Present: abdominal pain, nausea Absent: abdominal distension,vomiting, diarrhea, constipation, melena, hematochezia GENITOURINARY: Absent: dysuria, frequency, urgency, hesitancy, hematuria, flank pain, genital pain MUSCULOSKELETAL: Present: Right hip pain Absent: myalgia, arthralgia, joint swelling, back pain, neck pain SKIN: Absent: rash, itching, pallor HEMATOLOGIC/IMMUNOLOGIC: Absent: easy bleeding, easy bruising, lymphadenopathy, frequent infections ENDOCRINE: Absent: unexplained weight gain, unexplained weight loss, heat intolerance, cold intolerance NEUROLOGIC: Absent: headache, focal weakness or paresthesias, dizziness, unsteady gait, seizure, mental status changes, bladder or bowel incontinence PSYCHIATRIC: Absent: anxiety, depression, suicidal or homicidal ideation, hallucinations. PHYSICAL EXAMINATION Vital Signs - 24 hr 03/26/18 03/26/18 11:15 11:29 Temperature 98.4 F Pulse Rate 61 Respiratory 20 Rate Blood Pressure 160/59 O2 Sat by Pulse 95 95 Oximetry (%) GENERAL: Morbidly obese female, lying comfortably in bed, Awake, alert, and fully oriented, in no acute distress, has nasal canula in place. HEAD: Normal with no signs of trauma. EYES: EOM intact, no pallor or icterus. EARS, NOSE, THROAT: Ears normal. Moist mucous membranes. NECK: supple. LUNGS: Breath sounds equal, clear to auscultation bilaterally. No wheezes, and no crackles. No accessory muscle use. HEART: Regular rate and rhythm, normal S1 and S2 without murmur. ABDOMEN: Soft, tenderness in the right lower quadrant > left lower quadrant and mild tenderness diffusely, not distended, normoactive bowel sounds, no guarding , s. Hepatomegaly or splenomegaly couldn't be appreciated, passing flatus. MUSCULOSKELETAL: Normal range of motion at all joints. No bony deformities or tenderness. No CVA tenderness. UPPER EXTREMITIES: 2+ pulses, warm, well-perfused. No cyanosis. No clubbing. No peripheral edema. LOWER EXTREMITIES: 2+ pulses, warm, well-perfused. No calf tenderness. No peripheral edema. NEUROLOGICAL: No facial droop. Normal speech. Gait not observed. PSYCHIATRIC: Cooperative. Good eye contact. Appropriate mood and affect. SKIN: Warm, dry, normal turgor, no rashes or lesions noted, normal capillary refill. Laboratory Results - last 24 hr 03/26/18 03/26/18 03/26/18 11:47 12:15 12:15 WBC 5.5 RBC 4.34 Hgb 13.9 Hct 41.0 MCV 94.3 MCH 32.0 MCHC 33.9 RDW 14.6 Plt Count 236 MPV 9.1 Absolute Neuts (auto) 2.8 Neutrophils % 51.2 D Lymphocytes % 32.5 D Monocytes % 13.2 H Eosinophils % 2.0 D Basophils % 1.1 Nucleated RBC % 0 PT with INR INR Sodium Potassium Chloride Carbon Dioxide Anion Gap BUN Creatinine Creat Clearance w eGFR Random Glucose Calcium Total Bilirubin AST ALT Alkaline Phosphatase Creatine Kinase 79 Troponin I < 0.02 B-Natriuretic Peptide 1259.18 H Total Protein Albumin Urine Color Yellow Urine Appearance Clear Urine pH 5.0 Ur Specific [place] 1.018 Urine Protein Negative Urine Glucose (UA) Negative Urine Ketones Negative Urine Blood Negative Urine Nitrite Negative Urine Bilirubin Negative Urine Urobilinogen 2.0 H Ur Leukocyte Esterase Negative 03/26/18 03/26/18 12:15 12:15 WBC RBC Hgb Hct MCV MCH MCHC RDW Plt Count MPV Absolute Neuts (auto) Neutrophils % Lymphocytes % Monocytes % Eosinophils % Basophils % Nucleated RBC % PT with INR 11.20 INR 0.99 Sodium 143 Potassium 4.7 Chloride 109 H Carbon Dioxide 27 Anion Gap 7 L BUN 17 Creatinine 0.8 Creat Clearance w eGFR > 60 Random Glucose 90 Calcium 8.7 Total Bilirubin 0.5 D AST 17 ALT 17 Alkaline Phosphatase 104 Creatine Kinase Troponin I B-Natriuretic Peptide Total Protein 6.8 Albumin 3.6 Urine Color Urine Appearance Urine pH Ur Specific [place] Urine Protein Urine Glucose (UA) Urine Ketones Urine Blood Urine Nitrite Urine Bilirubin Urine Urobilinogen Ur Leukocyte Esterase Abdomen/Pelvis CT without contrast: s/p small bowel anastomosis with a markedly distended air and fluid- filled small bowel loop at the anastomotic site. A closed loop obstrustion cannot be excluded. ASSESSMENT/PLAN: Patient is a 73 year old female with significant past medical history of HTN, asthma, CVA, COPD (home O2 5L), dCHF, and AICD and multiple abdominal surgery presented to the ED via EMS with the chief complaint of " Pain in both the hip right hip > Left hip". # Possible SBO-r/o closed loop anastomosis Was found to have abdominal tenderness in the ED, Last BM was this morning; passing flatus. CT abd/pelvis report as mentioned above Admit in Med-Surg/Inpatient NPO except PO meds IV NS @ 83 mls/hr Lactic acid stat, repeat it at 1 am. Trend if needed. Doesn't need NG tube at this time. If needed can be placed as per Dr. Major but needs to be very careful while placing it. Abdominal/Pelvis CT with IV and Oral contrast to r/o closed loop anastomosis. Case discussed with Dr. Major. # B/L hip pain X-ray didn't show any acute pathology Could have arthritis # Hypertension- stable Continue 6.25 mg PO BID # COPD on home oxygen Continue oxygen Continue Roflumilast # Diastolic CHF-not in exacerbation BNP: 1259 Continue 6.25 mg PO BID On Lasix 40mg, will hold as patient is started on IV fluids # Alcohol use Drinks 1 pint of rum daily Watch for withdrawals # FEN IV NS @ 75 mls/hr x 1 bag, then reevalute her. Electrolytes WNL NPO except for PO meds # Prophylaxis For DVT: On Heparin 5000 IU sq TID For GI: Not on protonix # Code Status: Full Code # Dispo: Admitted in Med-Surg/Inpatient. Illness, Investigation and Plan of care explained to the patient. She verbalized understanding. Case discussed with Dr. Mackenzie. Visit type - Emergency Visit Emergency Visit: Yes ED Registration Date: 03/26/18 Care time: The patient presented to the Emergency Department on the above date and was hospitalized for further evaluation of their emergent condition. - New Patient This patient is new to me today: Yes Date on this admission: 03/26/18 - Critical Care Critical Care patient: No Hospitalist Screening - Colonoscopy Questionnaire Colonoscopy Questionnaire: Colonoscopy Questionnaire - Patient: 50 - 75 years old and never had a screening colonoscopy: Unknown History of colon or rectal polyps, or CA: Unknown History of IBD, Crohn's disease or UC: Unknown History of abdominal radiation therapy as a child: Unknown - Relative: 1 with colon or rectal CA, or polyps at age 60 or younger: Unknown Colon or rectal CA diagnosed at age 45 or younger: Unknown Multiple relatives with colon or rectal CA: Unknown - Outcome: Screening Result: Negative Screen
[2018-03-26] MEDS ORDERED: SODIUM CHLORIDE 1,000 ML IV SCH ×2 (18:45→19:23)
--- NOTE | 2018-03-26 19:27 | PN ---
Teaching Attending Note Name of Resident: Ann-Marie Garcia ATTENDING PHYSICIAN STATEMENT I saw and evaluated the patient. I reviewed the resident's note and discussed the case with the resident. I agree with the resident's findings and plan as documented. SUBJECTIVE: OBJECTIVE: Vital Signs Temperature 98.5 F 03/26/18 18:48 Pulse Rate 62 03/26/18 18:48 Respiratory Rate 18 03/26/18 18:48 Blood Pressure 144/65 03/26/18 18:48 O2 Sat by Pulse Oximetry (%) 95 03/26/18 11:29 CBCD WBC 5.5 K/mm3 (4.0-10.0) 03/26/18 12:15 RBC 4.34 M/mm3 (3.60-5.2) 03/26/18 12:15 Hgb 13.9 GM/dL (10.7-15.3) 03/26/18 12:15 Hct 41.0 % (32.4-45.2) 03/26/18 12:15 MCV 94.3 fl (80-96) 03/26/18 12:15 MCHC 33.9 g/dl (32.0-36.0) 03/26/18 12:15 RDW 14.6 % (11.6-15.6) 03/26/18 12:15 Plt Count 236 K/MM3 (134-434) 03/26/18 12:15 MPV 9.1 fl (7.5-11.1) 03/26/18 12:15 CMP Sodium 143 mmol/L (136-145) 03/26/18 12:15 Potassium 4.7 mmol/L (3.5-5.1) 03/26/18 12:15 Chloride 109 mmol/L (98-107) H 03/26/18 12:15 Carbon Dioxide 27 mmol/L (21-32) 03/26/18 12:15 Anion Gap 7 (8-16) L 03/26/18 12:15 BUN 17 mg/dL (7-18) 03/26/18 12:15 Creatinine 0.8 mg/dL (0.55-1.02) 03/26/18 12:15 Creat Clearance w eGFR > 60 (>60) 03/26/18 12:15 Random Glucose 90 mg/dL (74-106) 03/26/18 12:15 Calcium 8.7 mg/dL (8.5-10.1) 03/26/18 12:15 Total Bilirubin 0.5 mg/dL (0.2-1.0) D 03/26/18 12:15 AST 17 U/L (15-37) 03/26/18 12:15 ALT 17 U/L (12-78) 03/26/18 12:15 Alkaline Phosphatase 104 U/L (45-117) 03/26/18 12:15 Total Protein 6.8 g/dl (6.4-8.2) 03/26/18 12:15 Albumin 3.6 g/dl (3.4-5.0) 03/26/18 12:15 CARDIAC ENZYMES Creatine Kinase 79 IU/L (26-192) 03/26/18 12:15 Troponin I < 0.02 ng/ml (0.00-0.05) 03/26/18 12:15 Home Medications Medication Instructions Recorded Aspirin [Aspir 81] 81 mg PO DAILY 02/23/12 Multivitamin [Once Daily] 1 each PO DAILY 11/19/13 Carvedilol [Coreg -] 6.25 mg PO BID #60 tablet 04/27/16 Roflumilast [Daliresp -] 500 mcg PO DAILY #30 tablet 08/25/16 Ergocalciferol [Vitamin D2] 50,000 unit PO Q7D@1000 03/26/18 Furosemide [Lasix] 40 mg PO DAILY 03/26/18 Gabapentin [Neurontin] 300 mg PO BID 03/26/18 PE: per resident's note Abdomen/Pelvis CT without contrast: s/p small bowel anastomosis with a markedly distended air and fluid- filled small bowel loop at the anastomotic site. A closed loop obstruction cannot be excluded. ASSESSMENT/PLAN: Patient is a 73 year old female with significant past medical history of HTN, asthma, CVA, COPD (home O2 5L), diastolic CHF, and AICD and multiple abdominal surgery presented to the ED c/o having Pain in both of her hips. While in ED.was found to have an abdominal pain. # Abdominal pain with possible SBO as per report cannot r/o closed loop anastomosis, patient was seen by who suggested repeat of abdomen with oral contrast. As per surgeon if it is a closed loop will need a surgery. follow the result closely. # B/L hip pain : Xray with no acute pathology; recommend a weight loss # Hypertension- continue 6.25 mg PO BID # COPD on home oxygen continue and continue home meds. # Diastolic CHF-not in exacerbation continue meds. # Alcohol use Drinks 1 pint of rum daily Watch for withdrawals # DVT Px: Heparin 5000 IU sq TID Code Status: Full Code
[2018-03-26] MEDS ORDERED: GABAPENTIN 300 MG CAPSULE (FP) PO ONE (19:46)
[2018-03-26] MEDS ORDERED: GABAPENTIN 100 MG CAPSULE (FP) ONE (20:14)
[2018-03-26] MEDS ORDERED: GABAPENTIN 300 MG CAPSULE (FP) PO SCH (22:00)
[2018-03-26] MEDS ORDERED: CARVEDILOL 6.25 MG TABLET (FP) PO SCH (22:00)
--- NOTE | 2018-03-26 22:54 | CON.CARD ---
Consult Consult Specialty:: Cardiology - History of Present Illness History of Present Illness: Patient is a 73 year old female presented to the ED via EMS with the chief complaint of " Pain in both the hip right hip > Left hip". As per the patient, it started around 2 months ago, has been progressively getting worse, used to take BC powder (aspirin/Caffeine) for the pain which helped but since a week it hasn't been helping. Lives at home alone, uses a cane/walker, scooter for ambulation but patient said this morning she could barely get up, hence called 911 and was brought here for further evaluation. Denies chest pain, sob, cough, palpitation, abdominal pain, nausea or vomiting. Bowel habit normal-Last BM was this morning, passing flatus. Bladder habit normal. Sleep/Appetite normal. During the physical exam by the ED resident, she was found to have tenderness in the abdomen, CT abdomen was done showing possible SBO. Has a h/o Gastric bypass done in 2000 in [place] (doesn't remember the name of the doctor or the hospital). PMH s/p Gastric bypass surgery COPD HHD HOCOM HTN Negative MIBI stress test March [address]. [facility] c.cath NSVT s/p AICD [employer] single lead 2009 Sleep apnea on CPAP mask 2014 - History Source History Provided By: Patient, Medical Record - Past Medical History Cardio/Vascular: Yes: CHF, HTN, Other (AICD) Pulmonary: Yes: COPD (former smoker, quit in April) Gastrointestinal: Yes: Other (history of gastric bypass surgery) - Past Surgical History Past Surgical History: Yes: (1957, 195), Permanent Pacemaker (vs ICD) - Alcohol/Substance Use Hx Alcohol Use: No - Smoking History Smoking history: Former smoker Have you smoked in the past 12 months: No Aproximately how many cigarettes per day: 5 If you are a former smoker, when did you quit?: 2 YEARS - Social History History of Recent Travel: No Home Medications - Allergies Allergies/Adverse Reactions: Allergies Allergy/AdvReac Type Severity Reaction Status Date / Time No Known Allergies Allergy Verified 03/26/18 11:13 - Home Medications Home Medications: Ambulatory Orders Aspirin [Aspir 81] 81 mg PO DAILY 02/23/12 Multivitamin [Once Daily] 1 each PO DAILY 11/19/13 Carvedilol [Coreg -] 6.25 mg PO BID #60 tablet 04/27/16 Roflumilast [Daliresp -] 500 mcg PO DAILY #30 tablet 08/25/16 Ergocalciferol [Vitamin D2] 50,000 unit PO Q7D@1000 03/26/18 Furosemide [Lasix] 40 mg PO DAILY 03/26/18 Gabapentin [Neurontin] 300 mg PO BID 03/26/18 Review of Systems - Review of Systems Constitutional: reports: No Symptoms Eyes: reports: No Symptoms HENT: reports: No Symptoms Neck: reports: No Symptoms Cardiovascular: reports: No Symptoms Respiratory: reports: SOB Gastrointestinal: reports: Abdominal Pain Genitourinary: reports: No Symptoms Breasts: reports: No Symptoms Reported Musculoskeletal: reports: No Symptoms Integumentary: reports: No Symptoms Neurological: reports: No Symptoms Endocrine: reports: No Symptoms Hematology/Lymphatic: reports: No Symptoms Psychiatric: reports: No Symptoms Vital Signs: Vital Signs Temperature 97.9 F 03/26/18 22:36 Pulse Rate 66 03/26/18 22:36 Respiratory Rate 20 03/26/18 22:36 Blood Pressure 144/60 03/26/18 22:36 O2 Sat by Pulse Oximetry (%) 97 03/26/18 20:54 Constitutional: Yes: Well Nourished, No Distress, Calm Eyes: Yes: WNL, Conjunctiva Clear, EOM Intact HENT: Yes: WNL, Atraumatic, Normocephalic Neck: Yes: WNL, Supple, Trachea Midline Respiratory: Yes: WNL, Regular, CTA Bilaterally Renal/: Yes: WNL Cardiovascular: Yes: WNL, Regular Rate and Rhythm Musculoskeletal: Yes: WNL Extremities: Yes: WNL Integumentary: Yes: WNL Neurological: Yes: WNL, Alert, Oriented ...Motor Strength: WNL Psychiatric: Yes: WNL, Alert, Oriented - Other Data Labs, Other Data: CBC, BMP 03/26/18 12:15 03/26/18 12:15 INR, PTT INR 0.99 (0.82-1.09) 03/26/18 12:15 Troponin, BNP 03/26/18 12:15 Troponin I < 0.02 B-Natriuretic Peptide 1259.18 H Troponin, BNP 03/26/18 12:15 Troponin I < 0.02 B-Natriuretic Peptide 1259.18 H Imaging - Results Chest X-ray: Image Reviewed (no i/e) EKG: Image Reviewed (sr rep abn) Problem List - Problems (1) Bowel obstruction Code(s): K56.609 - UNSP INTESTNL OBST, UNSP TO PARTIAL VERSUS COMPLETE OBST Qualifiers: Intestinal obstruction type: unspecified Intestinal obstruction extent: unspecified extent Qualified Code(s): K56.609 - Unspecified intestinal obstruction, unspecified as to partial versus complete obstruction (2) AICD (automatic cardioverter/defibrillator) present Code(s): Z95.810 - PRESENCE OF AUTOMATIC (IMPLANTABLE) CARDIAC DEFIBRILLATOR (3) Acute exacerbation of CHF (congestive heart failure) Code(s): I50.9 - HEART FAILURE, UNSPECIFIED (4) Acute exacerbation of chronic obstructive pulmonary disease (COPD) Code(s): J44.1 - CHRONIC OBSTRUCTIVE PULMONARY DISEASE W (ACUTE) EXACERBATION (5) Acute hypernatremia Code(s): E87.0 - HYPEROSMOLALITY AND HYPERNATREMIA (6) Alcohol use Code(s): Z78.9 - OTHER SPECIFIED HEALTH STATUS (7) Alcohol use with intoxication Code(s): F10.929 - ALCOHOL USE, UNSPECIFIED WITH INTOXICATION, UNSPECIFIED (8) Atrophic vulvovaginitis Code(s): N95.2 - POSTMENOPAUSAL ATROPHIC VAGINITIS (9) Bronchitis Code(s): J40 - BRONCHITIS, NOT SPECIFIED ACUTE OR CHRONIC (10) CHF (congestive heart failure) Code(s): I50.9 - HEART FAILURE, UNSPECIFIED (11) COPD (chronic obstructive pulmonary disease) Code(s): J44.9 - CHRONIC OBSTRUCTIVE PULMONARY DISEASE, UNSPECIFIED (12) DVT prophylaxis Code(s): [id number] - (13) Dental caries Code(s): K02.9 - DENTAL CARIES, UNSPECIFIED (14) Dyspnea Code(s): R06.00 - DYSPNEA, UNSPECIFIED (15) Fall Code(s): W19.XXXA - UNSPECIFIED FALL, INITIAL ENCOUNTER (16) Generalized weakness Code(s): R53.1 - WEAKNESS (17) H/O: CVA (cerebrovascular accident) Code(s): Z86.73 - PRSNL HX OF TIA (TIA), AND CEREB INFRC W/O RESID DEFICITS (18) HTN (hypertension) Code(s): I10 - ESSENTIAL (PRIMARY) HYPERTENSION Qualifiers: Hypertension type: essential hypertension Qualified Code(s): I10 - Essential (primary) hypertension (19) Obesity (BMI 30.0-34.9) Code(s): E66.9 - OBESITY, UNSPECIFIED (20) Post concussion syndrome Code(s): F07.81 - POSTCONCUSSIONAL SYNDROME (21) Viral syndrome Code(s): B34.9 - VIRAL INFECTION, UNSPECIFIED (22) Dizziness Code(s): R42 - DIZZINESS AND GIDDINESS (23) H/O gastric bypass Code(s): Z98.84 - BARIATRIC SURGERY STATUS (24) Hypertrophic cardiomyopathy Code(s): I42.2 - OTHER HYPERTROPHIC CARDIOMYOPATHY (25) Near syncope Code(s): R55 - SYNCOPE AND COLLAPSE Assessment/Plan abd pain partial sbo s/p Gastric bypass surgery COPD HHD HOCOM HTN Negative MIBI stress test March [address] [facility] c.cath NSVT s/p AICD [employer] single lead 2010 Sleep apnea on CPAP mask 2014 Plan Cardiac [place] stable further management as per GI and surgery ECHO
--- NOTE | 2018-03-26 23:25 | CONSULT ---
Consult Consult Specialty:: Bariatric Surgery Reason for Consultation:: Abdominal pain - History of Present Illness History of Present Illness: 73 female s/p Open [place] en Y Gastric Bypass 2000 presents to the ER for complaints of right leg pain On exam in the ER, she was noted to have right>left sided abdominal tenderness Denies nausea/vomiting Passing gas Had a BM today Was tolerating diet No fevers/chills - History Source History Provided By: Patient Limitations to Obtaining History: No Limitations - Past Medical History Cardio/Vascular: Yes: CHF, HTN, Other (AICD) Pulmonary: Yes: COPD (former smoker, quit in April) Gastrointestinal: Yes: Other (history of gastric bypass surgery) - Past Surgical History Past Surgical History: Yes: Bariatric Surgery (Gastric bypass), (1956 , 1958), Permanent Pacemaker (vs ICD) - Alcohol/Substance Use Hx Alcohol Use: No - Smoking History Smoking history: Former smoker Have you smoked in the past 12 months: No Aproximately how many cigarettes per day: 5 If you are a former smoker, when did you quit?: 2 YEARS - Social History History of Recent Travel: No Home Medications - Allergies Allergies/Adverse Reactions: Allergies Allergy/AdvReac Type Severity Reaction Status Date / Time No Known Allergies Allergy Verified 03/26/18 11:13 - Home Medications Home Medications: Ambulatory Orders Aspirin [Aspir 81] 81 mg PO DAILY 02/23/12 Multivitamin [Once Daily] 1 each PO DAILY 11/19/13 Carvedilol [Coreg -] 6.25 mg PO BID #60 tablet 04/27/16 Roflumilast [Daliresp -] 500 mcg PO DAILY #30 tablet 08/25/16 Ergocalciferol [Vitamin D2] 50,000 unit PO Q7D@1000 03/26/18 Furosemide [Lasix] 40 mg PO DAILY 03/26/18 Gabapentin [Neurontin] 300 mg PO BID 03/26/18 Family Disease History - Family Disease History Family History: Denies Review of Systems - Review of Systems Constitutional: denies: Chills, Fever HENT: reports: No Symptoms Gastrointestinal: reports: Abdominal Pain. denies: Melena, Nausea, Vomiting Musculoskeletal: reports: Extremity Pain, Muscle Pain Neurological: reports: No Symptoms Pain Intensity: 4 Physical Exam Vital Signs: Vital Signs Temperature 97.9 F 03/26/18 22:36 Pulse Rate 66 03/26/18 22:36 Respiratory Rate 20 03/26/18 22:36 Blood Pressure 144/60 03/26/18 22:36 O2 Sat by Pulse Oximetry (%) 97 03/26/18 20:54 Constitutional: Yes: Calm Cardiovascular: Yes: WNL Respiratory: Yes: Regular Gastrointestinal: Yes: Soft, Abdomen, Obese, Tenderness (Right>left). No: Tenderness, Rebound Neurological: Yes: Alert, Oriented Labs: CBC, BMP 03/26/18 12:15 03/26/18 12:15 Imaging - Results Cat Scan: Report Reviewed, Image Reviewed Problem List - Problems (1) Bowel obstruction Code(s): K56.609 - UNSP INTESTNL OBST, UNSP TO PARTIAL VERSUS COMPLETE OBST Qualifiers: Intestinal obstruction type: unspecified Intestinal obstruction extent: unspecified extent Qualified Code(s): K56.609 - Unspecified intestinal obstruction, unspecified as to partial versus complete obstruction Assessment/Plan Dilated loops of bowel with air fluid levels on CT-? obstruction CT done without any contrast Needs repeat CT A/P with PO gastrograffin and IV contrast to further evaluate NPO Serial abdominal exams Serial lactate levels NG tube if vomits or pain worsens IV fluids
[2018-03-27] MEDS: HEPARIN NA (PORCINE) 5,000 UNITS/ML 1ML VIAL SQ SCH ×4 (06:06→23:08)
[2018-03-27 08:48] LABS: BASO % 1.4 % (0-2.0); EOS % 2.5 % (0-4.5); HEMOGLOBIN 13.7 GM/dL (10.7-15.3); MCH 31.9 pg (25.7-33.7); MCHC 33.4 g/dl (32.0-36.0); MEAN CELL VOLUME 95.7 fl (80-96); MEAN PLT VOLUME 9.5 fl (7.5-11.1); MONO % 12.9 % (3.8-10.2); NEUT % 48.2 % (42.8-82.8); PLATELET COUNT 234 K/MM3 (134-434); RBC 4.28 M/mm3 (3.60-5.2); RDW 14.6 % (11.6-15.6); WHITE BLOOD COUNT 5.1 K/mm3 (4.0-10.0)
[2018-03-27 09:10] LABS: ANION GAP 10 (8-16); CALCIUM 8.7 mg/dL (8.5-10.1); CHLORIDE 109 mmol/L (98-107); CO2 25 mmol/L (21-32); POTASSIUM 4.3 mmol/L (3.5-5.1); SODIUM 144 mmol/L (136-145)
[2018-03-27 09:14] LABS: BLOOD UREA NITROGEN 12 mg/dL (7-18); CREATININE 0.8 mg/dL (0.55-1.02); GLUCOSE,RANDOM 86 mg/dL (74-106)
[2018-03-27] MEDS: ALBUTEROL SO4 2.5/IPRATROPIUM 0.5 INH SOL 3 ML VIAL.NEB. NEB PRN ×3 (09:29→21:08)
[2018-03-27] MEDS ORDERED: FUROSEMIDE 40 MG TABLET (FP) PO SCH (10:00)
[2018-03-27] MEDS ORDERED: PT OWN MED DRAWER 7, Y5N ONE (11:08)
[2018-03-27] MEDS: CARVEDILOL 6.25 MG TABLET (FP) PO SCH ×3 (11:14→22:00)
[2018-03-27] MEDS: GABAPENTIN 300 MG CAPSULE (FP) PO SCH ×2 (11:14→21:15)
--- NOTE | 2018-03-27 11:55 | PN ---
Progress Note (short form) - Note Progress Note: No new events Abdominal pain improved No vomiting + Gas Vital Signs Period Temp Pulse Resp BP Sys/Vasquez Pulse Ox Last 24 Hr 97.9 F-98.5 F 62-67 18-22 133-146/60-80 97-97 Abd soft, tenderness improved, no rebound CBC WBC 5.1 K/mm3 (4.0-10.0) 03/27/18 08:13 RBC 4.28 M/mm3 (3.60-5.2) 03/27/18 08:13 Hgb 13.7 GM/dL (10.7-15.3) 03/27/18 08:13 Hct 41.0 % (32.4-45.2) 03/27/18 08:13 MCV 95.7 fl (80-96) 03/27/18 08:13 MCH 31.9 pg (25.7-33.7) 03/27/18 08:13 MCHC 33.4 g/dl (32.0-36.0) 03/27/18 08:13 RDW 14.6 % (11.6-15.6) 03/27/18 08:13 Plt Count 234 K/MM3 (134-434) 03/27/18 08:13 MPV 9.5 fl (7.5-11.1) 03/27/18 08:13 Absolute Neuts (auto) 2.4 # 03/27/18 08:13 Neutrophils % 48.2 % (42.8-82.8) 03/27/18 08:13 Lymphocytes % 35.0 % (8-40) 03/27/18 08:13 Monocytes % 12.9 % (3.8-10.2) H 03/27/18 08:13 Eosinophils % 2.5 % (0-4.5) 03/27/18 08:13 Basophils % 1.4 % (0-2.0) 03/27/18 08:13 Nucleated RBC % 0 % (0-0) 03/27/18 08:13 CMP Sodium 144 mmol/L (136-145) 03/27/18 08:13 Potassium 4.3 mmol/L (3.5-5.1) 03/27/18 08:13 Chloride 109 mmol/L (98-107) H 06/13/18 08:13 Carbon Dioxide 25 mmol/L (21-32) 03/27/18 08:13 Anion Gap 10 (8-16) 03/27/18 08:13 BUN 12 mg/dL (7-18) 03/27/18 08:13 Creatinine 0.8 mg/dL (0.55-1.02) 03/27/18 08:13 Creat Clearance w eGFR > 60 (>60) 03/26/18 12:15 Random Glucose 86 mg/dL (74-106) 03/27/18 08:13 Lactic Acid 1.1 mmol/L (0.0-2.0) 03/26/18 21:30 Calcium 8.7 mg/dL (8.5-10.1) 03/27/18 08:13 Total Bilirubin 0.5 mg/dL (0.2-1.0) D 03/26/18 12:15 AST 17 U/L (15-37) 03/26/18 12:15 ALT 17 U/L (12-78) 03/26/18 12:15 Alkaline Phosphatase 104 U/L (45-117) 03/26/18 12:15 Creatine Kinase 79 IU/L (26-192) 03/26/18 12:15 Troponin I < 0.02 ng/ml (0.00-0.05) 03/26/18 12:15 B-Natriuretic Peptide 1259.18 pg/ml (5-450) H 03/26/18 12:15 Total Protein 6.8 g/dl (6.4-8.2) 03/26/18 12:15 Albumin 3.6 g/dl (3.4-5.0) 03/26/18 12:[address] PO/IV- distended jejunal loop now partially decompressed with contrast flowing passed it into colon Resolving PSBO Continue NPO IV fluids Serial abdominal exams Serial x rays q 12-24 hours until contrast noted to continue to pass distally into the colon Problem List - Problems (1) Bowel obstruction Code(s): K56.609 - UNSP INTESTNL OBST, UNSP TO PARTIAL VERSUS COMPLETE OBST Qualifiers: Intestinal obstruction type: unspecified Intestinal obstruction extent: unspecified extent Qualified Code(s): K56.609 - Unspecified intestinal obstruction, unspecified as to partial versus complete obstruction
--- NOTE | 2018-03-27 14:20 | PN ---
Progress Note, Physician History of Present Illness: Patient is a 73 year old female presented to the ED via EMS with the chief complaint of " Pain in both the hip right hip > Left hip". As per the patient, it started around 2 months ago, has been progressively getting worse, used to take BC powder (aspirin/Caffeine) for the pain which helped but since a week it hasn't been helping. Lives at home alone, uses a cane/walker, scooter for ambulation but patient said this morning she could barely get up, hence called 911 and was brought here for further evaluation. Denies chest pain, sob, cough, palpitation, abdominal pain, nausea or vomiting. Bowel habit normal-Last BM was this morning, passing flatus. Bladder habit normal. Sleep/Appetite normal. During the physical exam by the ED resident, she was found to have tenderness in the abdomen, CT abdomen was done showing possible SBO. Has a h/o Gastric bypass done in 2000 in [place] (doesn't remember the name of the doctor or the hospital). PMH s/p Gastric bypass surgery COPD HHD HOCOM HTN Negative MIBI stress test March [address]. [facility] c.cath NSVT s/p AICD [employer] single lead 2009 Sleep apnea on CPAP mask 2014 - Current Medication List Current Medications: Active Medications Albuterol/Ipratropium (Duoneb -) 1 amp NEB Q4H PRN PRN Reason: SHORTNESS OF BREATH Last Admin: 03/27/18 09:29 Dose: 1 amp Aspirin (Ecotrin -) 81 mg PO DAILY REPLACED BY [facility] Carvedilol (Coreg -) 6.25 mg PO BID REPLACED BY [facility] Last Admin: 03/27/18 11:14 Dose: 6.25 mg Gabapentin (Neurontin -) 300 mg PO BID REPLACED BY [facility] Last Admin: 03/27/18 11:14 Dose: 300 mg Heparin Sodium (Porcine) (Heparin -) 5,000 unit SQ TID REPLACED BY [facility] Last Admin: 03/27/18 06:06 Dose: 5,000 unit Roflumilast (Daliresp -) 500 mcg PO DAILY REPLACED BY [facility] - Objective Vital Signs: Vital Signs Temperature 98.0 F 03/27/18 10:00 Pulse Rate 62 03/27/18 10:00 Respiratory Rate 22 03/27/18 10:00 Blood Pressure 146/80 03/27/18 10:00 O2 Sat by Pulse Oximetry (%) 97 03/26/18 22:01 Eyes: Yes: WNL, Conjunctiva Clear, EOM Intact HENT: Yes: WNL, Atraumatic, Normocephalic Neck: Yes: WNL, Supple, Trachea Midline Cardiovascular: Yes: Murmur, S1, S2 Respiratory: Yes: WNL, Regular, CTA Bilaterally Genitourinary: Yes: WNL Musculoskeletal: Yes: WNL Extremities: Yes: WNL Edema: No Integumentary: Yes: WNL Neurological: Yes: WNL, Alert, Oriented ...Motor Strength: WNL Psychiatric: Yes: WNL Labs: CBC, BMP 03/27/18 08:13 03/27/18 08:13 INR, PTT INR 0.99 (0.82-1.09) 03/26/18 12:15 Problem List - Problems (1) Bowel obstruction Code(s): K56.609 - UNSP INTESTNL OBST, UNSP TO PARTIAL VERSUS COMPLETE OBST Qualifiers: Intestinal obstruction type: unspecified Intestinal obstruction extent: unspecified extent Qualified Code(s): K56.609 - Unspecified intestinal obstruction, unspecified as to partial versus complete obstruction (2) AICD (automatic cardioverter/defibrillator) present Code(s): Z95.810 - PRESENCE OF AUTOMATIC (IMPLANTABLE) CARDIAC DEFIBRILLATOR (3) Acute exacerbation of CHF (congestive heart failure) Code(s): I50.9 - HEART FAILURE, UNSPECIFIED (4) Acute exacerbation of chronic obstructive pulmonary disease (COPD) Code(s): J44.1 - CHRONIC OBSTRUCTIVE PULMONARY DISEASE W (ACUTE) EXACERBATION (5) Acute hypernatremia Code(s): E87.0 - HYPEROSMOLALITY AND HYPERNATREMIA (6) Alcohol use Code(s): Z78.9 - OTHER SPECIFIED HEALTH STATUS (7) Alcohol use with intoxication Code(s): F10.929 - ALCOHOL USE, UNSPECIFIED WITH INTOXICATION, UNSPECIFIED (8) Atrophic vulvovaginitis Code(s): N95.2 - POSTMENOPAUSAL ATROPHIC VAGINITIS (9) Bronchitis Code(s): J40 - BRONCHITIS, NOT SPECIFIED ACUTE OR CHRONIC (10) CHF (congestive heart failure) Code(s): I50.9 - HEART FAILURE, UNSPECIFIED (11) COPD (chronic obstructive pulmonary disease) Code(s): J44.9 - CHRONIC OBSTRUCTIVE PULMONARY DISEASE, UNSPECIFIED (12) DVT prophylaxis Code(s): [id number] - (13) Dental caries Code(s): K02.9 - DENTAL CARIES, UNSPECIFIED (14) Dyspnea Code(s): R06.00 - DYSPNEA, UNSPECIFIED (15) Fall Code(s): W19.XXXA - UNSPECIFIED FALL, INITIAL ENCOUNTER (16) Generalized weakness Code(s): R53.1 - WEAKNESS (17) H/O: CVA (cerebrovascular accident) Code(s): Z86.73 - PRSNL HX OF TIA (TIA), AND CEREB INFRC W/O RESID DEFICITS (18) HTN (hypertension) Code(s): I10 - ESSENTIAL (PRIMARY) HYPERTENSION Qualifiers: Hypertension type: essential hypertension Qualified Code(s): I10 - Essential (primary) hypertension (19) Obesity (BMI 30.0-34.9) Code(s): E66.9 - OBESITY, UNSPECIFIED (20) Post concussion syndrome Code(s): F07.81 - POSTCONCUSSIONAL SYNDROME (21) Viral syndrome Code(s): B34.9 - VIRAL INFECTION, UNSPECIFIED (22) Dizziness Code(s): R42 - DIZZINESS AND GIDDINESS (23) H/O gastric bypass Code(s): Z98.84 - BARIATRIC SURGERY STATUS (24) Hypertrophic cardiomyopathy Code(s): I42.2 - OTHER HYPERTROPHIC CARDIOMYOPATHY (25) Near syncope Code(s): R55 - SYNCOPE AND COLLAPSE Assessment/Plan abd pain partial sbo s/p Gastric bypass surgery COPD HHD HOCOM HTN Negative MIBI stress test March [address] c.cath NSVT s/p AICD [employer] single lead 2010 Sleep apnea on CPAP mask 2014 Plan Cardiac [place] stable further management as per GI and surgery ECHO
[2018-03-27] MEDS: ASPIRIN COATED 81 MG TABLET.EC PO SCH (15:19)
[2018-03-27] MEDS: ROFLUMILAST 500 MCG TABLET PO SCH (15:19)
--- NOTE | 2018-03-27 18:44 | PN ---
Teaching Attending Note Name of Resident: Lynsey Becker ATTENDING PHYSICIAN STATEMENT I saw and evaluated the patient. I reviewed the resident's note and discussed the case with the resident. I agree with the resident's findings and plan as documented. SUBJECTIVE: No fever or chills , thirsty. No abd pain. pain in all her body and in her thighs and legs . has CLAUDIO , does not use CPAP at home . uses 3 L of O2 at home OBJECTIVE: NAD, dry MM CV: RRR Lungs: minimal bibasilar crackles Abd: obese , soft , TTP in R periumbilical area . no rebound tenderness or guarding Ext: no edema. ASSESSMENT AND PLAN: 73 year old female with significant past medical history of HTN, asthma, CVA, COPD, diastolic CHF, and AICD and multiple abdominal surgeries including gastric bypass who presented to pain in both hips who presented with b/l hip pain and was found to have partial SBO 1- Partial SBO : improved on repeat CT with contrast. has big BM today - repeat KUB tomorrow - NPO , possible feed tomorrow - appreciate Sx input 2- H/o Diastolic CHF : chronic stable, no signs of fluid overload. - monitor - cont coreg - hold lasix as NPO and slightly on the dry side 3- h/o COPD and CLAUDIO, cont home O2 . refuses to use CPAP 4- ALcohol dependence: no signs of withdrawal. 5- HTN: cont coreg dispo : HLOC
--- NOTE | 2018-03-27 19:10 | PN ---
Physical Exam: SUBJECTIVE: Patient seen and examined at bedside. Overnight, with continued pain and numb sensation in lower extremities. Today, pt with continued extremity pain. Still NPO, with BM and without nausea. denies BROOKS, fever, chills , SOB, or changes in urinary or bowel function. OBJECTIVE: Vital Signs Period Temp Pulse Resp BP Sys/Vasquez Pulse Ox Last 24 Hr 97.9 F-98.5 F 61-67 18-22 133-146/60-80 97-97 GENERAL: The patient is on 3L NC. awake, alert, and fully oriented, in no acute distress. HEAD: Normal with no signs of trauma. EYES: PERRL, extraocular movements intact, sclera anicteric, conjunctiva clear. ENT: Ears normal, nares patent, moist mucous membranes. NECK: Trachea midline, supple. LUNGS: +rhonchi, coarse breath sounds, b/l crackles appreciated. no accessory m usage HEART: Regular rate and rhythm, S1, S2 without murmur, rub or gallop. ABDOMEN: Soft, obese, nontender, nondistended, normoactive bowel sounds, no guarding EXTREMITIES: 2+ pt pulses, warm, well-perfused, no edema. NEUROLOGICAL: Cranial nerves II through XII grossly intact. PSYCH: positive mood, normal affect. SKIN: Warm, dry, normal turgor Laboratory Results - last 24 hr 03/26/18 03/27/18 03/27/18 21:30 08:13 08:13 WBC 5.1 RBC 4.28 Hgb 13.7 Hct 41.0 MCV 95.7 MCH 31.9 MCHC 33.4 RDW 14.6 Plt Count 234 MPV 9.5 Absolute Neuts (auto) 2.4 Neutrophils % 48.2 Lymphocytes % 35.0 Monocytes % 12.9 H Eosinophils % 2.5 Basophils % 1.4 Nucleated RBC % 0 Sodium 144 Potassium 4.3 Chloride 109 H Carbon Dioxide 25 Anion Gap 10 BUN 12 Creatinine 0.8 Random Glucose 86 Lactic Acid 1.1 Calcium 8.7 Active Medications Generic Name Dose Route Start Last Admin Trade Name Freq PRN Reason Stop Dose Admin Acetaminophen 650 mg 03/27/18 14:32 Tylenol - PO Q6H PRN HEADACHE Albuterol/Ipratropium 1 amp 03/27/18 08:37 03/27/18 16:24 Duoneb - NEB 1 amp Q4H PRN Administration SHORTNESS OF BREATH Aspirin 81 mg 03/27/18 10:00 03/27/18 15:19 Ecotrin - PO 81 mg DAILY KATY Administration Carvedilol 6.25 mg 03/27/18 10:00 03/27/18 11:14 Coreg - PO 6.25 mg BID KATY Administration Gabapentin 300 mg 03/27/18 10:00 03/27/18 11:14 Neurontin - PO 300 mg BID KATY Administration Heparin Sodium (Porcine) 5,000 unit 03/27/18 06:00 03/27/18 15:19 Heparin - SQ 5,000 unit TID KATY Administration Roflumilast 500 mcg 03/27/18 10:00 03/27/18 15:19 Daliresp - PO 500 mcg DAILY KATY Administration Imaging 03/26/18: CXR: since prior study of 11/02/17, again noted is a large heart, unfolded aorta, prominent sara and R pacemaker. an acute chest process is not seen. 03/26/18: R hip XR: no acute pathology. intact R hip. arthritic spine changes with evidence o previous pelvic surgery with fasteners present. evidence of buttock granulomata. 03/26/18: CTAP w/o contrast: 1. s/p gastric surgery. 2. s/p small bowel anastomosis with markedly distended air and fluid filled small bowel loop at the anastamotic site. a closed loop obstruction cannot be excluded. 03/27/18: CTAP w contrast: partial decompression of distended jejunal loop withinthe L mid abdomen since 03/26/18. ASSESSMENT/PLAN: 73 year old female with PMH HTN, asthma, CVA, COPD (home O2 3L), dCHF, and AICD and multiple abdominal surgeries who presented to the ED via EMS c/o R and L lower extremity pain. Pt found to have partial SBO. #Partial SBO 2/2 small bowel anastamosis -pt without complaint, no nausea. +BM -no need for NGT at this time, as without pain -f/u KUB -will adv diet tomorrow if improved #b/l lower extremity pain -likely 2/2 arthritis -if continues, may rec PT or physiatry consult #h/o diastolic CHF -continue to hold lasix 40mg qd, as pt dry -continue coreg 6.25mg PO BID #HTN- controlled -continue coreg 6.25mg PO BID #COPD on 3L 02 baseline -continue NC 02 -nebs q4h PRN -Daliresp 500 mcg PO qd #F/E/N -no IVF at this time as pt with congestion -continue to follow lytes -NPO except for PO meds #DVT PPX Heparin 5000 U sq TID #Dispo continued monitoring on med-surg Visit type - Emergency Visit Emergency Visit: No - New Patient This patient is new to me today: Yes Date on this admission: 03/27/18 - Critical Care Critical Care patient: No
[2018-03-27] MEDS ORDERED: INSULIN (LEVEMIR) 100 UNITS/ML UNITS SQ ONE (19:54)
[2018-03-27] MEDS ORDERED: INSULIN (NOVOLOG) ASPART 100 UNITS/ML 10ML VIAL ONE (21:03)
[2018-03-27] MEDS: ACETAMINOPHEN 325 MG TABLET (FP) PO PRN (21:15)
[2018-03-28] MEDS: ALBUTEROL SO4 2.5/IPRATROPIUM 0.5 INH SOL 3 ML VIAL.NEB. NEB PRN ×2 (08:05→21:34)
[2018-03-28 08:56] LABS: BLOOD UREA NITROGEN 10 mg/dL (7-18); CHLORIDE 111 mmol/L (98-107); CO2 23 mmol/L (21-32); CREATININE 0.7 mg/dL (0.55-1.02); GLUCOSE,RANDOM 87 mg/dL (74-106); POTASSIUM 4.2 mmol/L (3.5-5.1); SODIUM 145 mmol/L (136-145)
[2018-03-28 08:57] LABS: ANION GAP 11 (8-16); CALCIUM 8.9 mg/dL (8.5-10.1)
[2018-03-28 09:01] LABS: BASO % 1.2 % (0-2.0); EOS % 3.5 % (0-4.5); HEMATOCRIT 40.5 % (32.4-45.2); HEMOGLOBIN 13.3 GM/dL (10.7-15.3); LYMPH % 33.3 % (8-40); MCHC 32.8 g/dl (32.0-36.0); MEAN CELL VOLUME 94.5 fl (80-96); MEAN PLT VOLUME 9.5 fl (7.5-11.1); MONO % 12.4 % (3.8-10.2); NEUT % 49.6 % (42.8-82.8); PLATELET COUNT 208 K/MM3 (134-434); RBC 4.29 M/mm3 (3.60-5.2); RDW 14.4 % (11.6-15.6); WHITE BLOOD COUNT 4.2 K/mm3 (4.0-10.0)
--- NOTE | 2018-03-28 09:41 | PN ---
Progress Note, Physician Chief Complaint: Pt a&ox34; RETURNED FROM ABDOMINAL STUDIES. nO CHEST PAIN OR DYSPNEA. History of Present Illness: Pt presented to the ED complaining of chronic R hip pain and chronic shortness of breath. Denies other complaints. CXR and xray of the R hip show no acute changes. Patient was found to be tender by the resident on his exam, so CT abdomen pelvis was performed which shows small bowel anastomosis with dilated loop of small bowel consistent with small bowel obstruction. Patient is tolerating Po and is passing gas and having bowel movements. Denies fevers or abdominal pain. Plan is to discuss the case with Dr. Aguilera and likely admit the patient for observation. - Current Medication List Current Medications: Active Medications Acetaminophen (Tylenol -) 650 mg PO Q6H PRN PRN Reason: HEADACHE Last Admin: 03/27/18 21:15 Dose: 650 mg Albuterol/Ipratropium (Duoneb -) 1 amp NEB Q4H PRN PRN Reason: SHORTNESS OF BREATH Last Admin: 03/27/18 21:08 Dose: 1 amp Aspirin (Ecotrin -) 81 mg PO DAILY [facility] Last Admin: 03/27/18 15:19 Dose: 81 mg Carvedilol (Coreg -) 6.25 mg PO BID [facility] Last Admin: 03/27/18 21:17 Dose: 6.25 mg Gabapentin (Neurontin -) 300 mg PO BID [facility] Last Admin: 03/27/18 21:15 Dose: 300 mg Heparin Sodium (Porcine) (Heparin -) 5,000 unit SQ TID [facility] Last Admin: 03/27/18 21:16 Dose: 5,000 unit Roflumilast (Daliresp -) 500 mcg PO DAILY [facility] Last Admin: 03/27/18 15:19 Dose: 500 mcg - Objective Vital Signs: Vital Signs Temperature 98.5 F 03/27/18 18:00 Pulse Rate 67 03/27/18 18:00 Respiratory Rate 20 03/27/18 22:00 Blood Pressure 155/66 03/27/18 18:00 O2 Sat by Pulse Oximetry (%) 92 L 03/27/18 20:00 Labs: CBC, BMP 03/27/18 08:13 03/27/18 08:13 INR, PTT INR 0.99 (0.82-1.09) 03/26/18 12:15 Problem List - Problems (1) Bowel obstruction Assessment/Plan: f/u studies done today Code(s): K56.609 - UNSP INTESTNL OBST, UNSP TO PARTIAL VERSUS COMPLETE OBST Qualifiers: Intestinal obstruction type: unspecified Intestinal obstruction extent: unspecified extent Qualified Code(s): K56.609 - Unspecified intestinal obstruction, unspecified as to partial versus complete obstruction (2) AICD (automatic cardioverter/defibrillator) present Assessment/Plan: Placed for ?cardiac arrest in 2009. F/u ECHO for LVEF, wall thicknesses. On carvedilol. Code(s): Z95.810 - PRESENCE OF AUTOMATIC (IMPLANTABLE) CARDIAC DEFIBRILLATOR (3) Acute exacerbation of CHF (congestive heart failure) Code(s): I50.9 - HEART FAILURE, UNSPECIFIED (4) Acute exacerbation of chronic obstructive pulmonary disease (COPD) Code(s): J44.1 - CHRONIC OBSTRUCTIVE PULMONARY DISEASE W (ACUTE) EXACERBATION (5) Generalized weakness Code(s): R53.1 - WEAKNESS (6) HTN (hypertension) Code(s): I10 - ESSENTIAL (PRIMARY) HYPERTENSION Qualifiers: Hypertension type: essential hypertension Qualified Code(s): I10 - Essential (primary) hypertension (7) Obesity (BMI 30.0-34.9) Code(s): E66.9 - OBESITY, UNSPECIFIED (8) H/O gastric bypass Code(s): Z98.84 - BARIATRIC SURGERY STATUS (9) DVT femoral (deep venous thrombosis) with thrombophlebitis Assessment/Plan: Vascular study could not r/o partial thrombosis of Rt supercifical femoral vein ; further evaluation with repeat study recommended. Code(s): I82.419 - ACUTE EMBOLISM AND THROMBOSIS OF UNSPECIFIED FEMORAL VEIN
--- NOTE | 2018-03-28 10:41 | PN ---
Progress Note (short form) - Note Progress Note: 73 yo female with resolving PSBO. Currently resting in position of comfort without complaint. States she is passing a lot of gas. Had 2 bm's (diarrhea). She is voiding spontaneously. Denies n/v/f/c, CP, SOB or abd pain/bloating/ distension. Last Vital Signs Temp Pulse Resp BP Pulse Ox 98.5 F 67 20 155/66 92 L 03/27/18 18:00 03/27/18 18:00 03/27/18 22:00 03/27/18 18:00 03/27/18 20:00 CBC 03/28/18 06:20 Gen: nad Abd: morbidly obese habitus. soft. nt. nd LE: soft. nt bilat AXR 03/27/18 shows a improvement in colonic distension Problem List - Problems (1) Partial small bowel obstruction Assessment/Plan: PSBO resolving Cont serial abd exams Once the contrast is identified in the COLON on xray we will begin a clear liquid diet Cont medical management GI ppx Code(s): K56.600 - PARTIAL INTESTINAL OBSTRUCTION, UNSPECIFIED TO CAUSE
[2018-03-28] MEDS: GABAPENTIN 300 MG CAPSULE (FP) PO SCH ×3 (12:35→23:08)
[2018-03-28] MEDS: ROFLUMILAST 500 MCG TABLET PO SCH (12:36)
[2018-03-28] MEDS: ASPIRIN COATED 81 MG TABLET.EC PO SCH (12:36)
[2018-03-28] MEDS: CARVEDILOL 6.25 MG TABLET (FP) PO SCH ×2 (12:37→23:05)
[2018-03-28] MEDS: HEPARIN NA (PORCINE) 5,000 UNITS/ML 1ML VIAL SQ SCH ×3 (14:31→23:05)
[2018-03-28 15:06] LABS: MAGNESIUM 1.8 mg/dL (1.8-2.4); PHOSPHOROUS 3.6 mg/dL (2.5-4.9)
--- NOTE | 2018-03-28 15:21 | PN ---
Teaching Attending Note Name of Resident: Lynsey Becker ATTENDING PHYSICIAN STATEMENT I saw and evaluated the patient. I reviewed the resident's note and discussed the case with the resident. I agree with the resident's findings and plan as documented. SUBJECTIVE: No fever or chills. No abd pain. had 2 BMs this am OBJECTIVE: NAD CV: RRR , JVD Lungs: minimal bibasilar crackles Abd: obese , soft , TTP in R periumbilical area . no rebound tenderness or guarding ., NL BS Ext: no edema. TTP over R thigh, R calf , and L calf . ASSESSMENT AND PLAN: 73 year old female with significant past medical history of HTN, asthma, CVA, COPD, diastolic CHF, and AICD and multiple abdominal surgeries including gastric bypass who presented to pain in both hips who presented with b/l hip pain and was found to have partial SBO 1- Partial SBO : improved clinically ( having BMs ) and on xry ( contrast passed to rectum and L colon ) - will d/w Sx starting clears today 2- H/o Diastolic CHF: chronic stable, no signs of fluid overload. - monitor - cont coreg - echo reviewed: LVH, NL EF, severe TR and Mod MR - hold lasix as NPO and slightly on the dry side 3- h/o COPD and CLAUDIO, cont home O2 . refuses to use CPAP 4- ALcohol dependence: no signs of withdrawal. 5- HTN: cont coreg 6- LE pain and tenderness: not hips but thighs nad calfs. suspect fibromyalgia , but need to r/o DVT. initial US was not a good evaluation to view all veins due to patient not being cooperative . will repeat dispo : HLOC
--- NOTE | 2018-03-28 19:17 | PN ---
Physical Exam: SUBJECTIVE: Patient seen and examined at bedside. Overnight, pt with cont'd SOB sat 94% on RA. Was NPO for AXR. Today, c/o diffuse pain in lower extremities. + multiple BM. Eager to eat. Otherwise without BROOKS, fever, N/V, chills, or changes in urinary function. OBJECTIVE: Vital Signs Period Temp Pulse Resp BP Sys/Vasquez Pulse Ox Last 24 Hr 97.8 F-98.6 F 63-108 18-24 152-161/82-98 92-98 GENERAL: The patient is resting in bed. awake, alert, and fully oriented, in no acute distress. On 3L NC HEAD: Normal with no signs of trauma. EYES: PERRL, extraocular movements intact, sclera anicteric, conjunctiva clear. ENT: Ears normal, nares patent NECK: Trachea midline, supple. LUNGS: +scattered rhonchi b/l . without accessory m usage HEART: tachycardic rate and rhythm, S1, S2 without murmur, rub or gallop. ABDOMEN: Soft, +point tenderness RLQ, nondistended, normoactive bowel sounds, no guarding, no rebound, EXTREMITIES: 2+ pt pulses, TTP on lower extremities. NEUROLOGICAL: Cranial nerves II through XII grossly intact. PSYCH: positive mood, normal affect. SKIN: Warm, dry, normal turgor Laboratory Results - last 24 hr 03/28/18 03/28/18 06:00 06:20 WBC 4.2 RBC 4.29 Hgb 13.3 Hct 40.5 MCV 94.5 MCH 31.0 MCHC 32.8 RDW 14.4 Plt Count 208 MPV 9.5 Absolute Neuts (auto) 2.1 Neutrophils % 49.6 Lymphocytes % 33.3 Monocytes % 12.4 H Eosinophils % 3.5 Basophils % 1.2 Nucleated RBC % 0 Sodium 145 Potassium 4.2 Chloride 111 H Carbon Dioxide 23 Anion Gap 11 BUN 10 Creatinine 0.7 Random Glucose 87 Calcium 8.9 Phosphorus 3.6 Magnesium 1.8 Active Medications Generic Name Dose Route Start Last Admin Trade Name Freq PRN Reason Stop Dose Admin Acetaminophen 650 mg 03/27/18 14:32 03/27/18 21:15 Tylenol - PO 650 mg Q6H PRN Administration HEADACHE Albuterol/Ipratropium 1 amp 03/27/18 08:37 03/28/18 08:05 Duoneb - NEB 1 amp Q4H PRN Administration SHORTNESS OF BREATH Aspirin 81 mg 03/27/18 10:00 03/28/18 12:36 Ecotrin - PO 81 mg DAILY KATY Administration Carvedilol 6.25 mg 03/27/18 10:00 03/28/18 12:37 Coreg - PO 6.25 mg BID KATY Administration Gabapentin 300 mg 03/27/18 10:00 03/28/18 12:35 Neurontin - PO 300 mg BID KATY Administration Heparin Sodium (Porcine) 5,000 unit 03/27/18 06:00 03/28/18 14:31 Heparin - SQ 5,000 unit TID KATY Administration Roflumilast 500 mcg 03/27/18 10:00 03/28/18 12:36 Daliresp - PO 500 mcg DAILY KATY Administration Imaging 03/26/18: CXR: since prior study of 11/02/17, again noted is a large heart, unfolded aorta, prominent sara and R pacemaker. an acute chest process is not seen. 03/26/18: R hip XR: no acute pathology. intact R hip. arthritic spine changes with evidence o previous pelvic surgery with fasteners present. evidence of buttock granulomata. 03/26/18: CTAP w/o contrast: 1. s/p gastric surgery. 2. s/p small bowel anastomosis with markedly distended air and fluid filled small bowel loop at the anastamotic site. a closed loop obstruction cannot be excluded. 03/27/18: CTAP w contrast: partial decompression of distended jejunal loop withinthe L mid abdomen since 03/26/18. 03/27/18: ECHO: moderate concentric LVH, pacemaker, mild to mod TR, RSVP elevated 40-50mmhg, LV wall thickness- asymmetric septal hypertrophy and hypertrophic CM, severe MR 03/28/18: Abdomen flat and upright: partial SBO. contrast in rectum. partially contracted bladder. there are pelvic phleboliths. there are right pelvic soft tissue calcifications. there may be some brigitte calcifications in the RLQ. there is a large heart with pacemaker. free air not seen. a CT scan performed on showed improvement with decompression of the jejunum. since the CT scan, much of the contrast in the bowel has been eliminated. improving partial SBO. 03/28/18: duplex RLE: no evidence DVT in distal R superficial femoral v. ASSESSMENT/PLAN: 73 year old female with PMH HTN, asthma, CVA, COPD (home O2 3L), dCHF, and AICD and multiple abdominal surgeries who presented to the ED via EMS c/o R and L lower extremity pain. Pt found to have partial SBO. #Partial SBO 2/2 small bowel anastamosis -pt tolerating diet, without N/V. will adv to regular -KUB from AM reveals improving partial SBO #b/l lower extremity pain -likely 2/2 arthritis and deconditioning. not active at baseline -to be seen by physical therapy #h/o diastolic CHF -continue to hold lasix 40mg qd, as pt dry -continue coreg 6.25mg PO BID #h/o AICD -continue coreg 6.25mg PO BID -03/27/18: ECHO: moderate concentric LVH, pacemaker, mild to mod TR, RSVP elevated 40-50mmhg, LV wall thickness- asymmetric septal hypertrophy and hypertrophic CM, severe MR #HTN- controlled -continue coreg 6.25mg PO BID #COPD on 3L 02 baseline -continue NC 02 -nebs q4h PRN -Daliresp 500 mcg PO qd #F/E/N -no IVF at this time -continue to follow lytes -sodium controlled diet #DVT PPX Heparin 5000 U sq TID #Dispo continued monitoring on med-surg Visit type - Emergency Visit Emergency Visit: No - New Patient This patient is new to me today: No - Critical Care Critical Care patient: No
[2018-03-28] MEDS: ACETAMINOPHEN 325 MG TABLET (FP) PO PRN (21:29)
[2018-03-29] MEDS ORDERED: PT OWN MED DRAWER 7, Y5N ONE ×2 (05:01→10:55)
[2018-03-29] MEDS: HEPARIN NA (PORCINE) 5,000 UNITS/ML 1ML VIAL SQ SCH ×3 (05:29→21:45)
[2018-03-29 09:14] LABS: BASO % 1.2 % (0-2.0); EOS % 2.8 % (0-4.5); HEMATOCRIT 42.8 % (32.4-45.2); HEMOGLOBIN 14.2 GM/dL (10.7-15.3); LYMPH % 35.7 % (8-40); MCH 31.9 pg (25.7-33.7); MCHC 33.2 g/dl (32.0-36.0); MEAN CELL VOLUME 95.9 fl (80-96); MEAN PLT VOLUME 9.4 fl (7.5-11.1); MONO % 11.8 % (3.8-10.2); NEUT % 48.5 % (42.8-82.8); PLATELET COUNT 196 K/MM3 (134-434); RBC 4.46 M/mm3 (3.60-5.2); RDW 14.3 % (11.6-15.6); WHITE BLOOD COUNT 4.5 K/mm3 (4.0-10.0)
[2018-03-29 09:42] LABS: ANION GAP 9 (8-16); BLOOD UREA NITROGEN 8 mg/dL (7-18); CALCIUM 8.9 mg/dL (8.5-10.1); CHLORIDE 110 mmol/L (98-107); CO2 24 mmol/L (21-32); CREATININE 0.8 mg/dL (0.55-1.02); GLUCOSE,RANDOM 111 mg/dL (74-106); PHOSPHOROUS 3.2 mg/dL (2.5-4.9); SODIUM 143 mmol/L (136-145)
[2018-03-29] MEDS: CARVEDILOL 6.25 MG TABLET (FP) PO SCH ×2 (11:04→21:45)
[2018-03-29] MEDS: GABAPENTIN 300 MG CAPSULE (FP) PO SCH (11:04)
[2018-03-29] MEDS: ASPIRIN COATED 81 MG TABLET.EC PO SCH (11:04)
[2018-03-29] MEDS: ROFLUMILAST 500 MCG TABLET PO SCH (11:05)
[2018-03-29] MEDS: ALBUTEROL SO4 2.5/IPRATROPIUM 0.5 INH SOL 3 ML VIAL.NEB. NEB PRN ×3 (11:30→20:40)
--- NOTE | 2018-03-29 11:56 | PN ---
Progress Note, Physician History of Present Illness: Patient is a 73 year old female presented to the ED via EMS with the chief complaint of " Pain in both the hip right hip > Left hip". As per the patient, it started around 2 months ago, has been progressively getting worse, used to take BC powder (aspirin/Caffeine) for the pain which helped but since a week it hasn't been helping. Lives at home alone, uses a cane/walker, scooter for ambulation but patient said this morning she could barely get up, hence called 911 and was brought here for further evaluation. Denies chest pain, sob, cough, palpitation, abdominal pain, nausea or vomiting. Bowel habit normal-Last BM was this morning, passing flatus. Bladder habit normal. Sleep/Appetite normal. During the physical exam by the ED resident, she was found to have tenderness in the abdomen, CT abdomen was done showing possible SBO. Has a h/o Gastric bypass done in 2000 in [place] (doesn't remember the name of the doctor or the hospital). PMH s/p Gastric bypass surgery COPD HHD HOCOM HTN Negative MIBI stress test March [address] Allen [facility] c.cath NSVT s/p AICD [employer]! single lead 2009 Sleep apnea on CPAP mask 2014 - Current Medication List Current Medications: Active Medications Acetaminophen (Tylenol -) 650 mg PO Q6H PRN PRN Reason: HEADACHE Last Admin: 03/28/18 21:29 Dose: 650 mg Albuterol/Ipratropium (Duoneb -) 1 amp NEB Q4H PRN PRN Reason: SHORTNESS OF BREATH Last Admin: 03/28/18 21:34 Dose: 1 amp Aspirin (Ecotrin -) 81 mg PO DAILY [facility] Last Admin: 03/29/18 11:04 Dose: 81 mg Carvedilol (Coreg -) 6.25 mg PO BID [facility] Last Admin: 03/29/18 11:04 Dose: 6.25 mg Gabapentin (Neurontin -) 400 mg PO TID [facility] Heparin Sodium (Porcine) (Heparin -) 5,000 unit SQ TID [facility] Last Admin: 03/29/18 05:29 Dose: Not Given Roflumilast (Daliresp -) 500 mcg PO DAILY [facility] Last Admin: 03/29/18 11:05 Dose: 500 mcg - Objective Vital Signs: Vital Signs Temperature 98.7 F 06/15/18 10:54 Pulse Rate 60 03/29/18 10:54 Respiratory Rate 24 03/29/18 10:54 Blood Pressure 133/63 03/29/18 10:54 O2 Sat by Pulse Oximetry (%) 92 L 03/28/18 21:00 Eyes: Yes: WNL, Conjunctiva Clear, EOM Intact HENT: Yes: WNL, Atraumatic, Normocephalic Neck: Yes: WNL, Supple, Trachea Midline Cardiovascular: Yes: Regular Rate and Rhythm, Murmur, S1, S2 Respiratory: Yes: WNL, Regular, CTA Bilaterally Gastrointestinal: Yes: WNL, Normal Bowel Sounds Genitourinary: Yes: WNL Musculoskeletal: Yes: WNL Extremities: Yes: WNL Edema: No Integumentary: Yes: WNL Neurological: Yes: WNL, Alert, Oriented ...Motor Strength: WNL Psychiatric: Yes: WNL Labs: CBC, BMP 03/29/18 09:00 03/29/18 09:00 INR, PTT INR 0.99 (0.82-1.09) 03/26/18 12:15 Problem List - Problems (1) Bowel obstruction Code(s): K56.609 - UNSP INTESTNL OBST, UNSP TO PARTIAL VERSUS COMPLETE OBST Qualifiers: Intestinal obstruction type: unspecified Intestinal obstruction extent: unspecified extent Qualified Code(s): K56.609 - Unspecified intestinal obstruction, unspecified as to partial versus complete obstruction (2) AICD (automatic cardioverter/defibrillator) present Code(s): Z95.810 - PRESENCE OF AUTOMATIC (IMPLANTABLE) CARDIAC DEFIBRILLATOR (3) Acute exacerbation of CHF (congestive heart failure) Code(s): I50.9 - HEART FAILURE, UNSPECIFIED (4) Acute exacerbation of chronic obstructive pulmonary disease (COPD) Code(s): J44.1 - CHRONIC OBSTRUCTIVE PULMONARY DISEASE W (ACUTE) EXACERBATION (5) Acute hypernatremia Code(s): E87.0 - HYPEROSMOLALITY AND HYPERNATREMIA (6) Alcohol use Code(s): Z78.9 - OTHER SPECIFIED HEALTH STATUS (7) Alcohol use with intoxication Code(s): F10.929 - ALCOHOL USE, UNSPECIFIED WITH INTOXICATION, UNSPECIFIED (8) Atrophic vulvovaginitis Code(s): N95.2 - POSTMENOPAUSAL ATROPHIC VAGINITIS (9) Bronchitis Code(s): J40 - BRONCHITIS, NOT SPECIFIED ACUTE OR CHRONIC (10) CHF (congestive heart failure) Code(s): I50.9 - HEART FAILURE, UNSPECIFIED (11) COPD (chronic obstructive pulmonary disease) Code(s): J44.9 - CHRONIC OBSTRUCTIVE PULMONARY DISEASE, UNSPECIFIED (12) DVT prophylaxis Code(s): [id number] - (13) Dental caries Code(s): K02.9 - DENTAL CARIES, UNSPECIFIED (14) Dyspnea Code(s): R06.00 - DYSPNEA, UNSPECIFIED (15) Fall Code(s): W19.XXXA - UNSPECIFIED FALL, INITIAL ENCOUNTER (16) Generalized weakness Code(s): R53.1 - WEAKNESS (17) H/O: CVA (cerebrovascular accident) Code(s): Z86.73 - PRSNL HX OF TIA (TIA), AND CEREB INFRC W/O RESID DEFICITS (18) HTN (hypertension) Code(s): I10 - ESSENTIAL (PRIMARY) HYPERTENSION Qualifiers: Hypertension type: essential hypertension Qualified Code(s): I10 - Essential (primary) hypertension (19) Obesity (BMI 30.0-34.9) Code(s): E66.9 - OBESITY, UNSPECIFIED (20) Post concussion syndrome Code(s): F07.81 - POSTCONCUSSIONAL SYNDROME (21) Viral syndrome Code(s): B34.9 - VIRAL INFECTION, UNSPECIFIED (22) Dizziness Code(s): R42 - DIZZINESS AND GIDDINESS (23) H/O gastric bypass Code(s): Z98.84 - BARIATRIC SURGERY STATUS (24) Hypertrophic cardiomyopathy Code(s): I42.2 - OTHER HYPERTROPHIC CARDIOMYOPATHY (25) Near syncope Code(s): R55 - SYNCOPE AND COLLAPSE Assessment/Plan - Problems (1) Bowel obstruction Assessment/Plan: f/u studies done today Code(s): K56.609 - UNSP INTESTNL OBST, UNSP TO PARTIAL VERSUS COMPLETE OBST Qualifiers: Intestinal obstruction type: unspecified Intestinal obstruction extent: unspecified extent Qualified Code(s): K56.609 - Unspecified intestinal obstruction, unspecified as to partial versus complete obstruction (2) AICD (automatic cardioverter/defibrillator) present Assessment/Plan: Placed for ?cardiac arrest in 2009. F/u ECHO for LVEF, wall thicknesses. On carvedilol. Code(s): Z95.810 - PRESENCE OF AUTOMATIC (IMPLANTABLE) CARDIAC DEFIBRILLATOR (3) Acute exacerbation of CHF (congestive heart failure) Code(s): I50.9 - HEART FAILURE, UNSPECIFIED (4) Acute exacerbation of chronic obstructive pulmonary disease (COPD) Code(s): J44.1 - CHRONIC OBSTRUCTIVE PULMONARY DISEASE W (ACUTE) EXACERBATION (5) Generalized weakness Code(s): R53.1 - WEAKNESS (6) HTN (hypertension) Code(s): I10 - ESSENTIAL (PRIMARY) HYPERTENSION Qualifiers: Hypertension type: essential hypertension Qualified Code(s): I10 - Essential (primary) hypertension (7) Obesity (BMI 30.0-34.9) Code(s): E66.9 - OBESITY, UNSPECIFIED (8) H/O gastric bypass Code(s): Z98.84 - BARIATRIC SURGERY STATUS (9) DVT femoral (deep venous thrombosis) with thrombophlebitis Assessment/Plan: Vascular study could not r/o partial thrombosis of Rt supercifical femoral vein ; further evaluation with repeat study recommended. Code(s): I82.419 - ACUTE EMBOLISM AND THROMBOSIS OF UNSPECIFIED FEMORAL VEIN
--- NOTE | 2018-03-29 13:59 | PN ---
Progress Note (short form) - Note Progress Note: No new events No abdominal pain Tolerating diet + Gas AVSS Abd soft Diet as tolerated NO surgical intervention needed at this time Reconsult PRN Thank you Problem List - Problems (1) Bowel obstruction Code(s): K56.609 - UNSP INTESTNL OBST, UNSP TO PARTIAL VERSUS COMPLETE OBST Qualifiers: Intestinal obstruction type: unspecified Intestinal obstruction extent: unspecified extent Qualified Code(s): K56.609 - Unspecified intestinal obstruction, unspecified as to partial versus complete obstruction
[2018-03-29] MEDS: GABAPENTIN 400 MG CAPSULE (FP) PO SCH ×2 (14:00→21:45)
--- NOTE | 2018-03-29 14:28 | PN ---
Physical Exam: SUBJECTIVE: Patient seen and examined at bedside. Overnight, pt still c/o lower extremity pain. Sat 93-94% on 2L. Today, pt still c/o same pain. Still with mild SOB. Has been tolerating diet, without N/V. Otherwise without BROOKS, fever, chills, or changes in urinary or bowel function. OBJECTIVE: Vital Signs Period Temp Pulse Resp BP Sys/Vasquez Pulse Ox Last 24 Hr 97.8 F-98.7 F 60-70 18-24 123-159/58-98 92 GENERAL: The patient is awake, alert, and fully oriented, in no acute distress. +2L NC HEAD: Normal with no signs of trauma. EYES: PERRL, extraocular movements intact, sclera anicteric, conjunctiva clear. ENT: Ears normal, nares patent, oropharynx clear without exudates, moist mucous membranes. NECK: Trachea midline, supple. LUNGS: +scattered rhonchi bilaterally. no accessory m usage HEART: Regular rate and rhythm, S1, S2 without murmur, rub or gallop. ABDOMEN: Soft, obese, nontender, nondistended, normoactive bowel sounds, no guarding EXTREMITIES: 2+ pt pulses, warm, well-perfused, no edema. still with diffuse tenderness all over extremities. NEUROLOGICAL: Cranial nerves II through XII grossly intact. Normal speech PSYCH: Normal mood, normal affect. SKIN: Warm, dry, normal turgor Laboratory Results - last 24 hr 03/28/18 03/29/18 03/29/18 06:20 09:00 09:00 WBC 4.5 RBC 4.46 Hgb 14.2 Hct 42.8 MCV 95.9 MCH 31.9 MCHC 33.2 RDW 14.3 Plt Count 196 MPV 9.4 Absolute Neuts (auto) 2.2 Neutrophils % 48.5 Lymphocytes % 35.7 Monocytes % 11.8 H Eosinophils % 2.8 Basophils % 1.2 Nucleated RBC % 0 Sodium 143 Potassium 4.0 Chloride 110 H Carbon Dioxide 24 Anion Gap 9 BUN 8 Creatinine 0.8 Random Glucose 111 H Calcium 8.9 Phosphorus 3.6 3.2 Magnesium 1.8 2.0 Active Medications Generic Name Dose Route Start Last Admin Trade Name Freq PRN Reason Stop Dose Admin Acetaminophen 650 mg 03/27/18 14:32 03/28/18 21:29 Tylenol - PO 650 mg Q6H PRN Administration HEADACHE Albuterol/Ipratropium 1 amp 03/27/18 08:37 03/28/18 21:34 Duoneb - NEB 1 amp Q4H PRN Administration SHORTNESS OF BREATH Aspirin 81 mg 03/27/18 10:00 03/29/18 11:04 Ecotrin - PO 81 mg DAILY KATY Administration Carvedilol 6.25 mg 03/27/18 10:00 03/29/18 11:04 Coreg - PO 6.25 mg BID KATY Administration Gabapentin 400 mg 03/29/18 14:00 Neurontin - PO TID KATY Heparin Sodium (Porcine) 5,000 unit 03/27/18 06:00 03/29/18 14:14 Heparin - SQ 5,000 unit TID KATY Administration Roflumilast 500 mcg 03/27/18 10:00 03/29/18 11:05 Daliresp - PO 500 mcg DAILY KATY Administration Imaging 03/26/18: CXR: since prior study of 11/02/17, again noted is a large heart, unfolded aorta, prominent sara and R pacemaker. an acute chest process is not seen. 03/26/18: R hip XR: no acute pathology. intact R hip. arthritic spine changes with evidence o previous pelvic surgery with fasteners present. evidence of buttock granulomata. 03/26/18: CTAP w/o contrast: 1. s/p gastric surgery. 2. s/p small bowel anastomosis with markedly distended air and fluid filled small bowel loop at the anastamotic site. a closed loop obstruction cannot be excluded. 03/27/18: CTAP w contrast: partial decompression of distended jejunal loop withinthe L mid abdomen since 03/26/18. 03/27/18: ECHO: moderate concentric LVH, pacemaker, mild to mod TR, RSVP elevated 40-50mmhg, LV wall thickness- asymmetric septal hypertrophy and hypertrophic CM, severe MR 03/28/18: Abdomen flat and upright: partial SBO. contrast in rectum. partially contracted bladder. there are pelvic phleboliths. there are right pelvic soft tissue calcifications. there may be some brigitte calcifications in the RLQ. there is a large heart with pacemaker. free air not seen. a CT scan performed on showed improvement with decompression of the jejunum. since the CT scan, much of the contrast in the bowel has been eliminated. improving partial SBO. 03/28/18: duplex RLE: no evidence DVT in distal R superficial femoral v. ASSESSMENT/PLAN: 73 year old female with PMH HTN, asthma, CVA, COPD (home O2 3L), dCHF, and AICD and multiple abdominal surgeries who presented to the ED via EMS c/o R and L lower extremity pain. Pt found to have partial SBO. #Partial SBO 2/2 small bowel anastamosis -pt tolerating diet. No N/V -KUB from AM reveals improving partial SBO -cleared by surgery, without need of further intervention #b/l lower extremity pain -likely 2/2 arthritis and deconditioning. not active at baseline -today with PT 75 feet w/ rolling walker, assistance #h/o diastolic CHF -continue to hold lasix 40mg qd, as pt dry -continue coreg 6.25mg PO BID #h/o AICD -continue coreg 6.25mg PO BID -03/27/18: ECHO: moderate concentric LVH, pacemaker, mild to mod TR, RSVP elevated 40-50mmhg, LV wall thickness- asymmetric septal hypertrophy and hypertrophic CM, severe MR #HTN- controlled -continue coreg 6.25mg PO BID #COPD on 3L 02 baseline -continue NC 02 -nebs q4h PRN -Daliresp 500 mcg PO qd #F/E/N -no IVF at this time -continue to follow lytes -sodium controlled diet #DVT PPX Heparin 5000 U sq TID #Dispo continued monitoring on med-surg pt ready for d/c planning however refusing. states needs 24HHA will need to discuss with SW tomorrow Visit type - Emergency Visit Emergency Visit: No - New Patient This patient is new to me today: No - Critical Care Critical Care patient: No - Discharge Referral Referred to [facility] Med [facility] No
[2018-03-29] MEDS: ACETAMINOPHEN 325 MG TABLET (FP) PO PRN ×2 (16:01→21:49)
--- NOTE | 2018-03-29 18:28 | PN ---
Teaching Attending Note Name of Resident: Lynsey Becker ATTENDING PHYSICIAN STATEMENT I saw and evaluated the patient. I reviewed the resident's note and discussed the case with the resident. I agree with the resident's findings and plan as documented. SUBJECTIVE: no abd pain , feels burning pain in LE from hips down she was told she had neuropathy but wants an immidiate cure OBJECTIVE: NAD CV: RRR , JVD Lungs: minimal bibasilar crackles Abd: obese , soft , minimal TTP in R periumbilical area . no rebound tenderness or guarding ., NL BS Ext: no edema. TTP over R thigh, R calf , and L calf . ASSESSMENT AND PLAN: 73 year old female with significant past medical history of HTN, asthma, CVA, COPD, diastolic CHF, and AICD and multiple abdominal surgeries including gastric bypass who presented to pain in both hips who presented with b/l hip pain and was found to have partial SBO 1- Partial SBO : improved . tolerated diet 2- H/o Diastolic CHF: chronic stable, no signs of fluid overload. - monitor - cont coreg - Echo reviewed: LVH, NL EF, severe TR and Mod MR - hold lasix while here 3- h/o COPD and CLAUDIO, cont home O2 . refuses to use CPAP 4- ALcohol dependence: no signs of withdrawal. 5- HTN: cont coreg 6- LE pain and tenderness: no dvt . has neuropathy. increase neurontin. f/u with neuro ( has appointment ) Patient is ready for dc but has no services set for a safe dc . will arrange and dc in am
[2018-03-30] MEDS: HEPARIN NA (PORCINE) 5,000 UNITS/ML 1ML VIAL SQ SCH ×3 (05:56→22:06)
[2018-03-30] MEDS: GABAPENTIN 400 MG CAPSULE (FP) PO SCH ×3 (05:57→22:07)
[2018-03-30] MEDS: ALBUTEROL SO4 2.5/IPRATROPIUM 0.5 INH SOL 3 ML VIAL.NEB. NEB PRN ×4 (07:30→20:35)
[2018-03-30 08:41] LABS: ANION GAP 8 (8-16); BLOOD UREA NITROGEN 8 mg/dL (7-18); CALCIUM 8.7 mg/dL (8.5-10.1); CHLORIDE 112 mmol/L (98-107); CO2 26 mmol/L (21-32); GLUCOSE,RANDOM 81 mg/dL (74-106); POTASSIUM 3.8 mmol/L (3.5-5.1); SODIUM 146 mmol/L (136-145)
[2018-03-30 08:43] LABS: CREATININE 0.8 mg/dL (0.55-1.02)
--- NOTE | 2018-03-30 08:50 | PN ---
Progress Note, Physician History of Present Illness: Patient is a 73 year old female presented to the ED via EMS with the chief complaint of " Pain in both the hip right hip > Left hip". As per the patient, it started around 2 months ago, has been progressively getting worse, used to take BC powder (aspirin/Caffeine) for the pain which helped but since a week it hasn't been helping. Lives at home alone, uses a cane/walker, scooter for ambulation but patient said this morning she could barely get up, hence called 911 and was brought here for further evaluation. Denies chest pain, sob, cough, palpitation, abdominal pain, nausea or vomiting. Bowel habit normal-Last BM was this morning, passing flatus. Bladder habit normal. Sleep/Appetite normal. During the physical exam by the ED resident, she was found to have tenderness in the abdomen, CT abdomen was done showing possible SBO. Has a h/o Gastric bypass done in 2000 in [place] (doesn't remember the name of the doctor or the hospital). PMH s/p Gastric bypass surgery COPD HHD HOCOM HTN Negative MIBI stress test March [address] [facility] c.cath NSVT s/p AICD [employer] single lead 2009 Sleep apnea on CPAP mask 2014 - Current Medication List Current Medications: Active Medications Acetaminophen (Tylenol -) 650 mg PO Q6H PRN PRN Reason: HEADACHE Last Admin: 03/29/18 21:49 Dose: 650 mg Albuterol/Ipratropium (Duoneb -) 1 amp NEB Q4H PRN PRN Reason: SHORTNESS OF BREATH Last Admin: 03/30/18 07:30 Dose: 1 amp Aspirin (Ecotrin -) 81 mg PO DAILY [facility] Last Admin: 03/29/18 11:04 Dose: 81 mg Carvedilol (Coreg -) 6.25 mg PO BID [facility] Last Admin: 03/29/18 21:45 Dose: 6.25 mg Gabapentin (Neurontin -) 400 mg PO TID [facility] Last Admin: 03/30/18 05:57 Dose: 400 mg Heparin Sodium (Porcine) (Heparin -) 5,000 unit SQ TID [facility] Last Admin: 03/30/18 05:56 Dose: 5,000 unit Roflumilast (Daliresp -) 500 mcg PO DAILY [facility] Last Admin: 03/29/18 11:05 Dose: 500 mcg - Objective Vital Signs: Vital Signs Temperature 98.1 F 03/30/18 06:00 Pulse Rate 61 03/30/18 06:00 Respiratory Rate 20 03/30/18 06:00 Blood Pressure 113/65 03/30/18 06:00 O2 Sat by Pulse Oximetry (%) 95 03/29/18 21:00 Eyes: Yes: WNL, Conjunctiva Clear, EOM Intact HENT: Yes: WNL, Atraumatic, Normocephalic Neck: Yes: WNL, Supple, Trachea Midline Cardiovascular: Yes: Murmur, S1, S2 Respiratory: Yes: WNL, Regular, CTA Bilaterally Gastrointestinal: Yes: WNL, Normal Bowel Sounds Genitourinary: Yes: WNL Musculoskeletal: Yes: WNL Extremities: Yes: WNL Edema: No Integumentary: Yes: WNL Neurological: Yes: WNL, Alert, Oriented ...Motor Strength: WNL Psychiatric: Yes: WNL Labs: CBC, BMP 03/29/18 09:00 03/30/18 07:30 INR, PTT INR 0.99 (0.82-1.09) 03/26/18 12:15 Problem List - Problems (1) Bowel obstruction Code(s): K56.609 - UNSP INTESTNL OBST, UNSP TO PARTIAL VERSUS COMPLETE OBST Qualifiers: Intestinal obstruction type: unspecified Intestinal obstruction extent: unspecified extent Qualified Code(s): K56.609 - Unspecified intestinal obstruction, unspecified as to partial versus complete obstruction (2) AICD (automatic cardioverter/defibrillator) present Code(s): Z95.810 - PRESENCE OF AUTOMATIC (IMPLANTABLE) CARDIAC DEFIBRILLATOR (3) Acute exacerbation of CHF (congestive heart failure) Code(s): I50.9 - HEART FAILURE, UNSPECIFIED (4) Acute exacerbation of chronic obstructive pulmonary disease (COPD) Code(s): J44.1 - CHRONIC OBSTRUCTIVE PULMONARY DISEASE W (ACUTE) EXACERBATION (5) Acute hypernatremia Code(s): E87.0 - HYPEROSMOLALITY AND HYPERNATREMIA (6) Alcohol use Code(s): Z78.9 - OTHER SPECIFIED HEALTH STATUS (7) Alcohol use with intoxication Code(s): F10.929 - ALCOHOL USE, UNSPECIFIED WITH INTOXICATION, UNSPECIFIED (8) Atrophic vulvovaginitis Code(s): N95.2 - POSTMENOPAUSAL ATROPHIC VAGINITIS (9) Bronchitis Code(s): J40 - BRONCHITIS, NOT SPECIFIED ACUTE OR CHRONIC (10) CHF (congestive heart failure) Code(s): I50.9 - HEART FAILURE, UNSPECIFIED (11) COPD (chronic obstructive pulmonary disease) Code(s): J44.9 - CHRONIC OBSTRUCTIVE PULMONARY DISEASE, UNSPECIFIED (12) DVT prophylaxis Code(s): XUT2808 - (13) Dental caries Code(s): K02.9 - DENTAL CARIES, UNSPECIFIED (14) Dyspnea Code(s): R06.00 - DYSPNEA, UNSPECIFIED (15) Fall Code(s): W19.XXXA - UNSPECIFIED FALL, INITIAL ENCOUNTER (16) Generalized weakness Code(s): R53.1 - WEAKNESS (17) H/O: CVA (cerebrovascular accident) Code(s): Z86.73 - PRSNL HX OF TIA (TIA), AND CEREB INFRC W/O RESID DEFICITS (18) HTN (hypertension) Code(s): I10 - ESSENTIAL (PRIMARY) HYPERTENSION Qualifiers: Hypertension type: essential hypertension Qualified Code(s): I10 - Essential (primary) hypertension (19) Obesity (BMI 30.0-34.9) Code(s): E66.9 - OBESITY, UNSPECIFIED (20) Post concussion syndrome Code(s): F07.81 - POSTCONCUSSIONAL SYNDROME (21) Viral syndrome Code(s): B34.9 - VIRAL INFECTION, UNSPECIFIED (22) Dizziness Code(s): R42 - DIZZINESS AND GIDDINESS (23) H/O gastric bypass Code(s): Z98.84 - BARIATRIC SURGERY STATUS (24) Hypertrophic cardiomyopathy Code(s): I42.2 - OTHER HYPERTROPHIC CARDIOMYOPATHY (25) Near syncope Code(s): R55 - SYNCOPE AND COLLAPSE Assessment/Plan - Problems (1) Bowel obstruction Assessment/Plan: f/u studies done today Code(s): K56.609 - UNSP INTESTNL OBST, UNSP TO PARTIAL VERSUS COMPLETE OBST Qualifiers: Intestinal obstruction type: unspecified Intestinal obstruction extent: unspecified extent Qualified Code(s): K56.609 - Unspecified intestinal obstruction, unspecified as to partial versus complete obstruction (2) AICD (automatic cardioverter/defibrillator) present Assessment/Plan: Placed for ?cardiac arrest in 2009. F/u ECHO for LVEF, wall thicknesses. On carvedilol. Code(s): Z95.810 - PRESENCE OF AUTOMATIC (IMPLANTABLE) CARDIAC DEFIBRILLATOR (3) Acute exacerbation of CHF (congestive heart failure) Code(s): I50.9 - HEART FAILURE, UNSPECIFIED (4) Acute exacerbation of chronic obstructive pulmonary disease (COPD) Code(s): J44.1 - CHRONIC OBSTRUCTIVE PULMONARY DISEASE W (ACUTE) EXACERBATION (5) Generalized weakness Code(s): R53.1 - WEAKNESS (6) HTN (hypertension) Code(s): I10 - ESSENTIAL (PRIMARY) HYPERTENSION Qualifiers: Hypertension type: essential hypertension Qualified Code(s): I10 - Essential (primary) hypertension (7) Obesity (BMI 30.0-34.9) Code(s): E66.9 - OBESITY, UNSPECIFIED (8) H/O gastric bypass Code(s): Z98.84 - BARIATRIC SURGERY STATUS (9) DVT femoral (deep venous thrombosis) with thrombophlebitis Assessment/Plan: Vascular study could not r/o partial thrombosis of Rt supercifical femoral vein ; further evaluation with repeat study recommended. Code(s): I82.419 - ACUTE EMBOLISM AND THROMBOSIS OF UNSPECIFIED FEMORAL VEIN
[2018-03-30 09:05] LABS: MAGNESIUM 1.9 mg/dL (1.8-2.4); PHOSPHOROUS 3.2 mg/dL (2.5-4.9)
--- NOTE | 2018-03-30 09:19 | EKG ---
Test Reason : Blood Pressure : / mmHG Vent. Rate : 074 BPM Atrial Rate : 074 BPM P-R Int : 158 ms QRS Dur : 100 ms QT Int : 414 ms P-R-T Axes : 049 -55 068 degrees QTc Int : 459 ms NORMAL SINUS RHYTHM LEFT AXIS DEVIATION ABNORMAL ECG WHEN COMPARED WITH ECG OF 26-MAR-2018 10:54, NO SIGNIFICANT CHANGE WAS FOUND Confirmed by DREW MENDEZ, JAMES ([id number]) on 03/30/2018 9:19:24 AM Referred By: Juan SULTANA Confirmed By:JAMES RUSSELL MD
[2018-03-30] MEDS ORDERED: FUROSEMIDE 40 MG/4 ML INJECTABLE VIAL IVPUSH STA ×2 (10:46→13:07)
[2018-03-30] MEDS ORDERED: PT OWN MED DRAWER 7, Y5N ONE (11:14)
[2018-03-30] MEDS: ROFLUMILAST 500 MCG TABLET PO SCH (11:22)
[2018-03-30] MEDS: CARVEDILOL 6.25 MG TABLET (FP) PO SCH ×2 (11:22→22:07)
[2018-03-30] MEDS: ASPIRIN COATED 81 MG TABLET.EC PO SCH (11:22)
--- NOTE | 2018-03-30 14:31 | PN ---
Teaching Attending Note Name of Resident: Rishi Shelby ATTENDING PHYSICIAN STATEMENT I saw and evaluated the patient. I reviewed the resident's note and discussed the case with the resident. I agree with the resident's findings and plan as documented. SUBJECTIVE: No fever or chills. felt very SOB today and desated to 87 % on her 3 L of oxygen . no PC , no ocugh . used venti mask temporarily . OBJECTIVE: NAD CV: RRR , JVD Lungs: minimal bibasilar crackles Abd: obese , soft , minimal TTP in R periumbilical area . no rebound tenderness or guarding ., NL BS Ext: no edema. TTP over R thigh, R calf , and L calf . ASSESSMENT AND PLAN: 73 year old female with significant past medical history of HTN, asthma, CVA, COPD, diastolic CHF, and AICD and multiple abdominal surgeries including gastric bypass who presented to pain in both hips who presented with b/l hip pain and was found to have partial SBO 1- Partial SBO : improved . tolerated diet 2- SOB and hypoxia : Likely due to acute diastolic heart failure in the setting of holding her diuretics for days . - ordered Iv lasix 40 once. pt declined. if ocnt to decline will give PO and cont her home dose - unlikely acute COPD exacerbation , but if no improvement with IV lasix will treat as COPD . - order CPAP at night ( has been refusing ) - can probably place back on 3 L of NC. - cont coerg 3- H/o COPD and CLAUDIO, cont home O2 . as above Nebs 4- ALcohol dependence: no signs of withdrawal. 5- HTN: cont coreg 6- LE pain and tenderness: no dvt . has neuropathy. cont increased neurontin dose . f/u with neuro ( has appointment ) HLOC . Not ready for dc today
--- NOTE | 2018-03-30 15:27 | PN ---
Physical Exam: SUBJECTIVE: Patient seen and examined at bedside. Overnight, still c/o lower extremity pain however OOB. Today, pt desat into mid 80's after eating and talking to neighbor. Stat EKG done, pt switched to venti mask with significant improvement. Pt transitioned back since to 3L NC 02, sat 96%. Denies BROOKS, fever, chills, or chest pain. OBJECTIVE: Vital Signs Period Temp Pulse Resp BP Sys/Vasquez Pulse Ox Last 24 Hr 97.5 F-98.3 F 61-74 20-32 113-154/59-108 95 GENERAL: The patient is out of breath. awake, alert, and fully oriented, +3L 02 HEAD: Normal with no signs of trauma. EYES: PERRL, extraocular movements intact, sclera anicteric, conjunctiva clear. No ptosis. ENT: Ears normal, nares patent NECK: Trachea midline, supple. LUNGS: +scattered rhonchi appreciated b/l, with coarse breath sounds. with mild accessory m usage. HEART: Regular rate and rhythm, S1, S2 without murmur, rub or gallop. ABDOMEN: Soft, nontender, nondistended, normoactive bowel sounds, no guarding EXTREMITIES: 2+ pt pulses, warm, diffusely tender to palpation NEUROLOGICAL: Cranial nerves II through XII grossly intact. PSYCH: Normal mood, normal affect. SKIN: Warm, dry, normal turgor Laboratory Results - last 24 hr 03/30/18 03/30/18 07:30 07:30 Sodium 146 H Potassium 3.8 Chloride 112 H Carbon Dioxide 26 Anion Gap 8 BUN 8 Creatinine 0.8 Creat Clearance w eGFR > 60 Random Glucose 81 Calcium 8.7 Phosphorus 3.2 Cancelled Magnesium 1.9 Cancelled Active Medications Generic Name Dose Route Start Last Admin Trade Name Freq PRN Reason Stop Dose Admin Acetaminophen 650 mg 03/27/18 14:32 03/29/18 21:49 Tylenol - PO 650 mg Q6H PRN Administration HEADACHE Albuterol/Ipratropium 1 amp 03/27/18 08:37 03/30/18 15:05 Duoneb - NEB 1 amp Q4H PRN Administration SHORTNESS OF BREATH Aspirin 81 mg 03/27/18 10:00 03/30/18 11:22 Ecotrin - PO 81 mg DAILY KATY Administration Carvedilol 6.25 mg 03/27/18 10:00 03/30/18 11:22 Coreg - PO 6.25 mg BID KATY Administration Furosemide 40 mg 03/31/18 10:00 Lasix - PO DAILY KATY Gabapentin 400 mg 03/29/18 14:00 03/30/18 13:40 Neurontin - PO 400 mg TID KATY Administration Heparin Sodium (Porcine) 5,000 unit 03/27/18 06:00 03/30/18 13:40 Heparin - SQ 5,000 unit TID KATY Administration Roflumilast 500 mcg 03/27/18 10:00 03/30/18 11:22 Daliresp - PO 500 mcg DAILY KATY Administration Imaging 03/26/18: CXR: since prior study of 11/02/17, again noted is a large heart, unfolded aorta, prominent sara and R pacemaker. an acute chest process is not seen. 03/26/18: R hip XR: no acute pathology. intact R hip. arthritic spine changes with evidence o previous pelvic surgery with fasteners present. evidence of buttock granulomata. 03/26/18: CTAP w/o contrast: 1. s/p gastric surgery. 2. s/p small bowel anastomosis with markedly distended air and fluid filled small bowel loop at the anastamotic site. a closed loop obstruction cannot be excluded. 03/27/18: CTAP w contrast: partial decompression of distended jejunal loop withinthe L mid abdomen since 03/26/18. 03/27/18: ECHO: moderate concentric LVH, pacemaker, mild to mod TR, RSVP elevated 40-50mmhg, LV wall thickness- asymmetric septal hypertrophy and hypertrophic CM, severe MR 03/28/18: Abdomen flat and upright: partial SBO. contrast in rectum. partially contracted bladder. there are pelvic phleboliths. there are right pelvic soft tissue calcifications. there may be some brigitte calcifications in the RLQ. there is a large heart with pacemaker. free air not seen. a CT scan performed on showed improvement with decompression of the jejunum. since the CT scan, much of the contrast in the bowel has been eliminated. improving partial SBO. 03/28/18: duplex RLE: no evidence DVT in distal R superficial femoral v. ASSESSMENT/PLAN: 73 year old female with PMH HTN, asthma, CVA, COPD (home O2 3L), dCHF, and AICD and multiple abdominal surgeries who presented to the ED via EMS c/o R and L lower extremity pain. Pt found to have partial SBO. #SOB, hx COPD (on 3L 02), hx diastolic CHF -acute change in resp status, likely 2/2 holding lasix d/t SBO -received dose of 40mg IVP lasix x 1 today -will continue on 40mg PO qd tomorrow -continue coreg 6.25mg PO BID -continue 3L NC 02 -nebs q4h PRN -Daliresp 500 mcg PO qd -CPAP at night #Partial SBO 2/2 small bowel anastamosis -resolved -pt tolerating diet. No N/V -cleared by surgery, without need of further intervention #b/l lower extremity pain -likely 2/2 arthritis and deconditioning. not active at baseline -Continue neurontin 400mg PO TID -once breathing stabilizes, encourage PT #h/o AICD -continue coreg 6.25mg PO BID -03/27/18: ECHO: moderate concentric LVH, pacemaker, mild to mod TR, RSVP elevated 40-50mmhg, LV wall thickness- asymmetric septal hypertrophy and hypertrophic CM, severe MR #HTN- controlled -continue coreg 6.25mg PO BID #F/E/N -no IVF at this time -continue to follow lytes -sodium controlled diet #DVT PPX Heparin 5000 U sq TID #Dispo continued monitoring on med-surg not ready for d/c, d/t resp status requesting 24hr SLIPMAN when d/c Visit type - Emergency Visit Emergency Visit: No - New Patient This patient is new to me today: No - Critical Care Critical Care patient: No
[2018-03-30] MEDS: ACETAMINOPHEN 325 MG TABLET (FP) PO PRN (22:07)
[2018-03-31] MEDS: GABAPENTIN 400 MG CAPSULE (FP) PO SCH ×3 (06:06→21:34)
[2018-03-31] MEDS: HEPARIN NA (PORCINE) 5,000 UNITS/ML 1ML VIAL SQ SCH ×3 (06:06→21:52)
[2018-03-31 08:09] LABS: CHLORIDE 108 mmol/L (98-107); POTASSIUM 3.9 mmol/L (3.5-5.1); SODIUM 143 mmol/L (136-145)
[2018-03-31 08:21] LABS: ANION GAP 8 (8-16); BLOOD UREA NITROGEN 11 mg/dL (7-18); CO2 27 mmol/L (21-32); CREATININE 0.9 mg/dL (0.55-1.02); GLUCOSE,RANDOM 94 mg/dL (74-106)
--- NOTE | 2018-03-31 09:07 | PN ---
Progress Note, Physician History of Present Illness: Patient is a 73 year old female presented to the ED via EMS with the chief complaint of " Pain in both the hip right hip > Left hip". As per the patient, it started around 2 months ago, has been progressively getting worse, used to take BC powder (aspirin/Caffeine) for the pain which helped but since a week it hasn't been helping. Lives at home alone, uses a cane/walker, scooter for ambulation but patient said this morning she could barely get up, hence called 911 and was brought here for further evaluation. Denies chest pain, sob, cough, palpitation, abdominal pain, nausea or vomiting. Bowel habit normal-Last BM was this morning, passing flatus. Bladder habit normal. Sleep/Appetite normal. During the physical exam by the ED resident, she was found to have tenderness in the abdomen, CT abdomen was done showing possible SBO. Has a h/o Gastric bypass done in 2000 in [place] (doesn't remember the name of the doctor or the hospital). PMH s/p Gastric bypass surgery COPD HHD HOCOM HTN Negative MIBI stress test March 2014 Non[address] CAD [address] dr. [facility] c.cath NSVT s/p AICD [employer] single lead 2009 Sleep apnea on CPAP mask 2014 - Current Medication List Current Medications: Active Medications Acetaminophen (Tylenol -) 650 mg PO Q6H PRN PRN Reason: HEADACHE Last Admin: 03/30/18 22:07 Dose: 650 mg Albuterol/Ipratropium (Duoneb -) 1 amp NEB Q4H PRN PRN Reason: SHORTNESS OF BREATH Last Admin: 03/30/18 20:35 Dose: 1 amp Aspirin (Ecotrin -) 81 mg PO DAILY [facility] Last Admin: 03/30/18 11:22 Dose: 81 mg Carvedilol (Coreg -) 6.25 mg PO BID [facility] Last Admin: 03/30/18 22:07 Dose: 6.25 mg Furosemide (Lasix -) 40 mg PO DAILY [facility] Gabapentin (Neurontin -) 400 mg PO TID [facility] Last Admin: 03/31/18 06:06 Dose: 400 mg Heparin Sodium (Porcine) (Heparin -) 5,000 unit SQ TID [facility] Last Admin: 03/31/18 06:06 Dose: 5,000 unit Roflumilast (Daliresp -) 500 mcg PO DAILY [facility] Last Admin: 03/30/18 11:22 Dose: 500 mcg - Objective Vital Signs: Vital Signs Temperature 97.3 F L 03/31/18 05:00 Pulse Rate 62 03/31/18 05:00 Respiratory Rate 22 03/31/18 05:00 Blood Pressure 129/68 03/31/18 05:00 O2 Sat by Pulse Oximetry (%) 97 03/31/18 01:36 Eyes: Yes: WNL, Conjunctiva Clear, EOM Intact HENT: Yes: WNL, Atraumatic, Normocephalic Neck: Yes: WNL, Supple, Trachea Midline Cardiovascular: Yes: WNL, Regular Rate and Rhythm, Murmur, S1, S2 Respiratory: Yes: WNL, Regular, CTA Bilaterally Gastrointestinal: Yes: WNL, Normal Bowel Sounds Genitourinary: Yes: WNL Musculoskeletal: Yes: WNL Extremities: Yes: WNL Edema: No Integumentary: Yes: WNL Neurological: Yes: WNL, Alert, Oriented ...Motor Strength: WNL Psychiatric: Yes: WNL Labs: CBC, BMP 03/29/18 09:00 03/31/18 07:24 INR, PTT INR 0.99 (0.82-1.09) 03/26/18 12:15 Problem List - Problems (1) Bowel obstruction Code(s): K56.609 - UNSP INTESTNL OBST, UNSP TO PARTIAL VERSUS COMPLETE OBST Qualifiers: Intestinal obstruction type: unspecified Intestinal obstruction extent: unspecified extent Qualified Code(s): K56.609 - Unspecified intestinal obstruction, unspecified as to partial versus complete obstruction (2) AICD (automatic cardioverter/defibrillator) present Code(s): Z95.810 - PRESENCE OF AUTOMATIC (IMPLANTABLE) CARDIAC DEFIBRILLATOR (3) Acute exacerbation of CHF (congestive heart failure) Code(s): I50.9 - HEART FAILURE, UNSPECIFIED (4) Acute exacerbation of chronic obstructive pulmonary disease (COPD) Code(s): J44.1 - CHRONIC OBSTRUCTIVE PULMONARY DISEASE W (ACUTE) EXACERBATION (5) Acute hypernatremia Code(s): E87.0 - HYPEROSMOLALITY AND HYPERNATREMIA (6) Alcohol use Code(s): Z78.9 - OTHER SPECIFIED HEALTH STATUS (7) Alcohol use with intoxication Code(s): F10.929 - ALCOHOL USE, UNSPECIFIED WITH INTOXICATION, UNSPECIFIED (8) Atrophic vulvovaginitis Code(s): N95.2 - POSTMENOPAUSAL ATROPHIC VAGINITIS (9) Bronchitis Code(s): J40 - BRONCHITIS, NOT SPECIFIED ACUTE OR CHRONIC (10) CHF (congestive heart failure) Code(s): I50.9 - HEART FAILURE, UNSPECIFIED (11) COPD (chronic obstructive pulmonary disease) Code(s): J44.9 - CHRONIC OBSTRUCTIVE PULMONARY DISEASE, UNSPECIFIED (12) DVT prophylaxis Code(s): OCX4001 - (13) Dental caries Code(s): K02.9 - DENTAL CARIES, UNSPECIFIED (14) Dyspnea Code(s): R06.00 - DYSPNEA, UNSPECIFIED (15) Fall Code(s): W19.XXXA - UNSPECIFIED FALL, INITIAL ENCOUNTER (16) Generalized weakness Code(s): R53.1 - WEAKNESS (17) H/O: CVA (cerebrovascular accident) Code(s): Z86.73 - PRSNL HX OF TIA (TIA), AND CEREB INFRC W/O RESID DEFICITS (18) HTN (hypertension) Code(s): I10 - ESSENTIAL (PRIMARY) HYPERTENSION Qualifiers: Hypertension type: essential hypertension Qualified Code(s): I10 - Essential (primary) hypertension (19) Obesity (BMI 30.0-34.9) Code(s): E66.9 - OBESITY, UNSPECIFIED (20) Post concussion syndrome Code(s): F07.81 - POSTCONCUSSIONAL SYNDROME (21) Viral syndrome Code(s): B34.9 - VIRAL INFECTION, UNSPECIFIED (22) Dizziness Code(s): R42 - DIZZINESS AND GIDDINESS (23) H/O gastric bypass Code(s): Z98.84 - BARIATRIC SURGERY STATUS (24) Hypertrophic cardiomyopathy Code(s): I42.2 - OTHER HYPERTROPHIC CARDIOMYOPATHY (25) Near syncope Code(s): R55 - SYNCOPE AND COLLAPSE Assessment/Plan - Problems (1) Bowel obstruction Assessment/Plan: f/u studies done today Code(s): K56.609 - UNSP INTESTNL OBST, UNSP TO PARTIAL VERSUS COMPLETE OBST Qualifiers: Intestinal obstruction type: unspecified Intestinal obstruction extent: unspecified extent Qualified Code(s): K56.609 - Unspecified intestinal obstruction, unspecified as to partial versus complete obstruction (2) AICD (automatic cardioverter/defibrillator) present Assessment/Plan: Placed for ?cardiac arrest in 2009. F/u ECHO for LVEF, wall thicknesses. On carvedilol. Code(s): Z95.810 - PRESENCE OF AUTOMATIC (IMPLANTABLE) CARDIAC DEFIBRILLATOR (3) Acute exacerbation of CHF (congestive heart failure) Code(s): I50.9 - HEART FAILURE, UNSPECIFIED chf resolving after restarting lasix (4) Acute exacerbation of chronic obstructive pulmonary disease (COPD) Code(s): J44.1 - CHRONIC OBSTRUCTIVE PULMONARY DISEASE W (ACUTE) EXACERBATION (5) Generalized weakness Code(s): R53.1 - WEAKNESS (6) HTN (hypertension) Code(s): I10 - ESSENTIAL (PRIMARY) HYPERTENSION Qualifiers: Hypertension type: essential hypertension Qualified Code(s): I10 - Essential (primary) hypertension (7) Obesity (BMI 30.0-34.9) Code(s): E66.9 - OBESITY, UNSPECIFIED (8) H/O gastric bypass Code(s): Z98.84 - BARIATRIC SURGERY STATUS
[2018-03-31] MEDS: ALBUTEROL SO4 2.5/IPRATROPIUM 0.5 INH SOL 3 ML VIAL.NEB. NEB PRN ×3 (11:39→20:30)
[2018-03-31] MEDS: ASPIRIN COATED 81 MG TABLET.EC PO SCH (12:12)
[2018-03-31] MEDS: CARVEDILOL 6.25 MG TABLET (FP) PO SCH ×2 (12:12→21:33)
[2018-03-31] MEDS: FUROSEMIDE 40 MG TABLET (FP) PO SCH (12:12)
[2018-03-31] MEDS: ROFLUMILAST 500 MCG TABLET PO SCH (12:13)
--- NOTE | 2018-03-31 19:29 | PN ---
Progress Note (short form) - Note Progress Note: Subjective: no fever or chills. still SOB but slightly better than yesterdya Objective: Vital Signs: Last Vital Signs Temp Pulse Resp BP Pulse Ox 98.8 F 75 20 111/63 94 L 03/31/18 15:58 03/31/18 15:58 03/31/18 15:58 03/31/18 15:58 03/31/18 09:00 Laboratory Results - last 24 hr 03/31/18 07:24 Sodium 143 Potassium 3.9 Chloride 108 H Carbon Dioxide 27 Anion Gap 8 BUN 11 Creatinine 0.9 Creat Clearance w eGFR > 60 Random Glucose 94 Calcium 9.0 Physical Exam: NAD CV: RRR Lungs: minimal bibasilar crackles Abd: obese , soft , minimal TTP in R periumbilical area . no rebound tenderness or guarding ., NL BS Ext: no edema. TTP over R thigh, R calf , and L calf . ASSESSMENT AND PLAN: 73 year old female with significant past medical history of HTN, asthma, CVA, COPD, diastolic CHF, and AICD and multiple abdominal surgeries including gastric bypass who presented to pain in both hips who presented with b/l hip pain and was found to have partial SBO 1- Partial SBO : improved . tolerated diet 2- SOB and hypoxia : due to acute D CHF exacerbation - cont po lasix - give extra 20 IV todya - cont coerg - CPAP at night 3- H/o COPD and CLAUDIO, cont home O2 . Nebs 4- ALcohol dependence: no signs of withdrawal. 5- HTN: cont coreg 6- LE pain and tenderness: no dvt . has neuropathy. cont increased neurontin dose . f/u with neuro ( has appointment ) possibel c tomorrow . need VNS Visit type - Emergency Visit Emergency Visit: Yes ED Registration Date: 03/26/18 Care time: The patient presented to the Emergency Department on the above date and was hospitalized for further evaluation of their emergent condition. - New Patient This patient is new to me today: No - Critical Care Critical Care patient: No
[2018-03-31] MEDS ORDERED: FUROSEMIDE 40 MG/4 ML INJECTABLE VIAL IVPUSH ONE (19:30)
[2018-03-31] MEDS: ACETAMINOPHEN 325 MG TABLET (FP) PO PRN (21:32)
[2018-04-01] MEDS: ACETAMINOPHEN 325 MG TABLET (FP) PO PRN (02:48)
[2018-04-01] MEDS: HEPARIN NA (PORCINE) 5,000 UNITS/ML 1ML VIAL SQ SCH ×2 (06:05→13:38)
[2018-04-01] MEDS: GABAPENTIN 400 MG CAPSULE (FP) PO SCH ×2 (06:06→13:38)
--- NOTE | 2018-04-01 10:29 | PN ---
Progress Note, Physician History of Present Illness: Patient is a 73 year old female presented to the ED via EMS with the chief complaint of " Pain in both the hip right hip > Left hip". As per the patient, it started around 2 months ago, has been progressively getting worse, used to take BC powder (aspirin/Caffeine) for the pain which helped but since a week it hasn't been helping. Lives at home alone, uses a cane/walker, scooter for ambulation but patient said this morning she could barely get up, hence called 911 and was brought here for further evaluation. Denies chest pain, sob, cough, palpitation, abdominal pain, nausea or vomiting. Bowel habit normal-Last BM was this morning, passing flatus. Bladder habit normal. Sleep/Appetite normal. During the physical exam by the ED resident, she was found to have tenderness in the abdomen, CT abdomen was done showing possible SBO. Has a h/o Gastric bypass done in 2000 in [place] (doesn't remember the name of the doctor or the hospital). PMH s/p Gastric bypass surgery COPD HHD HOCOM HTN Negative MIBI stress test March [address]. [facility] c.cath NSVT s/p AICD [employer] single lead 2009 Sleep apnea on CPAP mask 2014 - Current Medication List Current Medications: Active Medications Acetaminophen (Tylenol -) 650 mg PO Q6H PRN PRN Reason: HEADACHE Last Admin: 04/01/18 02:48 Dose: 650 mg Aspirin (Ecotrin -) 81 mg PO DAILY [facility] Last Admin: 03/31/18 12:12 Dose: 81 mg Carvedilol (Coreg -) 6.25 mg PO BID [facility] Last Admin: 03/31/18 21:33 Dose: 6.25 mg Furosemide (Lasix -) 40 mg PO DAILY [facility] Last Admin: 03/31/18 12:12 Dose: 40 mg Gabapentin (Neurontin -) 400 mg PO TID [facility] Last Admin: 04/01/18 06:06 Dose: 400 mg Heparin Sodium (Porcine) (Heparin -) 5,000 unit SQ TID [facility] Last Admin: 04/01/18 06:05 Dose: 5,000 unit Roflumilast (Daliresp -) 500 mcg PO DAILY [facility] Last Admin: 03/31/18 12:13 Dose: 500 mcg - Objective Vital Signs: Vital Signs Temperature 98.2 F 04/01/18 06:00 Pulse Rate 62 04/01/18 06:00 Respiratory Rate 20 04/01/18 06:00 Blood Pressure 127/73 04/01/18 06:00 O2 Sat by Pulse Oximetry (%) 98 04/01/18 02:29 Eyes: Yes: WNL, Conjunctiva Clear, EOM Intact HENT: Yes: WNL, Atraumatic, Normocephalic Neck: Yes: WNL, Supple, Trachea Midline Cardiovascular: Yes: WNL, Regular Rate and Rhythm, Murmur, S1, S2 Respiratory: Yes: WNL, Regular, CTA Bilaterally Gastrointestinal: Yes: WNL, Normal Bowel Sounds Genitourinary: Yes: WNL Musculoskeletal: Yes: WNL Extremities: Yes: WNL Edema: No Integumentary: Yes: WNL Neurological: Yes: WNL, Alert, Oriented ...Motor Strength: WNL Psychiatric: Yes: WNL Labs: CBC, BMP 03/29/18 09:00 03/31/18 07:24 INR, PTT INR 0.99 (0.82-1.09) 03/26/18 12:15 Problem List - Problems (1) Bowel obstruction Code(s): K56.609 - UNSP INTESTNL OBST, UNSP TO PARTIAL VERSUS COMPLETE OBST Qualifiers: Intestinal obstruction type: unspecified Intestinal obstruction extent: unspecified extent Qualified Code(s): K56.609 - Unspecified intestinal obstruction, unspecified as to partial versus complete obstruction (2) AICD (automatic cardioverter/defibrillator) present Code(s): Z95.810 - PRESENCE OF AUTOMATIC (IMPLANTABLE) CARDIAC DEFIBRILLATOR (3) Acute exacerbation of CHF (congestive heart failure) Code(s): I50.9 - HEART FAILURE, UNSPECIFIED (4) Acute exacerbation of chronic obstructive pulmonary disease (COPD) Code(s): J44.1 - CHRONIC OBSTRUCTIVE PULMONARY DISEASE W (ACUTE) EXACERBATION (5) Acute hypernatremia Code(s): E87.0 - HYPEROSMOLALITY AND HYPERNATREMIA (6) Alcohol use Code(s): Z78.9 - OTHER SPECIFIED HEALTH STATUS (7) Alcohol use with intoxication Code(s): F10.929 - ALCOHOL USE, UNSPECIFIED WITH INTOXICATION, UNSPECIFIED (8) Atrophic vulvovaginitis Code(s): N95.2 - POSTMENOPAUSAL ATROPHIC VAGINITIS (9) Bronchitis Code(s): J40 - BRONCHITIS, NOT SPECIFIED ACUTE OR CHRONIC (10) CHF (congestive heart failure) Code(s): I50.9 - HEART FAILURE, UNSPECIFIED (11) COPD (chronic obstructive pulmonary disease) Code(s): J44.9 - CHRONIC OBSTRUCTIVE PULMONARY DISEASE, UNSPECIFIED (12) DVT prophylaxis Code(s): [id number] - (13) Dental caries Code(s): K02.9 - DENTAL CARIES, UNSPECIFIED (14) Dyspnea Code(s): R06.00 - DYSPNEA, UNSPECIFIED (15) Fall Code(s): W19.XXXA - UNSPECIFIED FALL, INITIAL ENCOUNTER (16) Generalized weakness Code(s): R53.1 - WEAKNESS (17) H/O: CVA (cerebrovascular accident) Code(s): Z86.73 - PRSNL HX OF TIA (TIA), AND CEREB INFRC W/O RESID DEFICITS (18) HTN (hypertension) Code(s): I10 - ESSENTIAL (PRIMARY) HYPERTENSION Qualifiers: Hypertension type: essential hypertension Qualified Code(s): I10 - Essential (primary) hypertension (19) Obesity (BMI 30.0-34.9) Code(s): E66.9 - OBESITY, UNSPECIFIED (20) Post concussion syndrome Code(s): F07.81 - POSTCONCUSSIONAL SYNDROME (21) Viral syndrome Code(s): B34.9 - VIRAL INFECTION, UNSPECIFIED (22) Dizziness Code(s): R42 - DIZZINESS AND GIDDINESS (23) H/O gastric bypass Code(s): Z98.84 - BARIATRIC SURGERY STATUS (24) Hypertrophic cardiomyopathy Code(s): I42.2 - OTHER HYPERTROPHIC CARDIOMYOPATHY (25) Near syncope Code(s): R55 - SYNCOPE AND COLLAPSE Assessment/Plan - Problems (1) Bowel obstruction Assessment/Plan: f/u studies done today Code(s): K56.609 - UNSP INTESTNL OBST, UNSP TO PARTIAL VERSUS COMPLETE OBST Qualifiers: Intestinal obstruction type: unspecified Intestinal obstruction extent: unspecified extent Qualified Code(s): K56.609 - Unspecified intestinal obstruction, unspecified as to partial versus complete obstruction (2) AICD (automatic cardioverter/defibrillator) present Assessment/Plan: Placed for ?cardiac arrest in 2009. F/u ECHO for LVEF, wall thicknesses. On carvedilol. Code(s): Z95.810 - PRESENCE OF AUTOMATIC (IMPLANTABLE) CARDIAC DEFIBRILLATOR (3) Acute exacerbation of CHF (congestive heart failure) Code(s): I50.9 - HEART FAILURE, UNSPECIFIED chf resolving after restarting lasix (4) Acute exacerbation of chronic obstructive pulmonary disease (COPD) Code(s): J44.1 - CHRONIC OBSTRUCTIVE PULMONARY DISEASE W (ACUTE) EXACERBATION (5) Generalized weakness Code(s): R53.1 - WEAKNESS (6) HTN (hypertension) Code(s): I10 - ESSENTIAL (PRIMARY) HYPERTENSION Qualifiers: Hypertension type: essential hypertension Qualified Code(s): I10 - Essential (primary) hypertension (7) Obesity (BMI 30.0-34.9) Code(s): E66.9 - OBESITY, UNSPECIFIED (8) H/O gastric bypass Code(s): Z98.84 - BARIATRIC SURGERY STATUS
[2018-04-01 11:09] VITALS: PULSE 72
[2018-04-01] MEDS ORDERED: PT OWN MED DRAWER 7, Y5N ONE (11:15)
[2018-04-01] MEDS: CARVEDILOL 6.25 MG TABLET (FP) PO SCH (11:16)
[2018-04-01] MEDS: ROFLUMILAST 500 MCG TABLET PO SCH (11:16)
[2018-04-01] MEDS: ASPIRIN COATED 81 MG TABLET.EC PO SCH (11:17)
[2018-04-01] MEDS: FUROSEMIDE 40 MG TABLET (FP) PO SCH (11:17)
--- NOTE | 2018-04-01 12:53 | DS ---
Physical Exam: SUBJECTIVE: Patient seen and examined at bedside. No acute events overnight. Today, pt sat in mid 90's on NC 02. Looking forward to going home. Denies BROOKS, fever, chills, chest pain or pressure, or changes in urinary or bowel function. OBJECTIVE: Vital Signs Period Temp Pulse Resp BP Sys/Vasquez Pulse Ox Last 24 Hr 97.7 F-98.8 F 62-75 20-24 111-140/57-75 94-98 PHYSICAL EXAM GENERAL: The patient is in good spirits. awake, alert, and fully oriented, in no acute distress. on 3L NC 02 HEAD: Normal with no signs of trauma. EYES: PERRL, extraocular movements intact, sclera anicteric, conjunctiva clear. ENT: Ears normal, nares patent, oropharynx clear without exudates, moist mucous membranes. NECK: Trachea midline, full range of motion, supple. LUNGS: +mild crackles b/l in bases HEART: Regular rate and rhythm, S1, S2 without murmur, rub or gallop. ABDOMEN: Soft, obese, nontender, nondistended, normoactive bowel sounds, no guarding, no rebound EXTREMITIES: 2+ pt pulses, warm, well-perfused, no edema. NEUROLOGICAL: Cranial nerves II through XII grossly intact. PSYCH: Normal mood, normal affect. SKIN: Warm, dry LABS CBC Trend 03/26/18 03/27/18 03/28/18 12:15 08:13 06:00 WBC 5.5 5.1 4.2 Hgb 13.9 13.7 13.3 Hct 41.0 41.0 40.5 Plt Count 236 234 208 03/29/18 09:00 WBC 4.5 Hgb 14.2 Hct 42.8 Plt Count 196 BMP trend 03/26/18 03/27/18 03/28/18 12:15 08:13 06:20 Sodium 143 144 145 Potassium 4.7 4.3 4.2 Chloride 109 H 109 H 111 H Carbon Dioxide 27 25 23 Anion Gap 7 L BUN 17 12 10 Creatinine 0.8 0.8 0.7 03/29/18 03/30/18 03/31/18 09:00 07:30 07:24 Sodium 143 146 H 143 Potassium 4.0 3.8 3.9 Chloride 110 H 112 H 108 H Carbon Dioxide 24 Anion Gap BUN 8 8 11 Creatinine 0.8 0.8 0.9 Additional testing 03/26/18 03/27/18 03/28/18 12:15 08:13 06:20 Random Glucose 86 87 Phosphorus 3.6 Magnesium 1.8 B-Natriuretic Peptide 1259.18 H 03/29/18 03/30/18 03/31/18 09:00 07:30 07:24 Random Glucose 111 H 81 94 Phosphorus 3.2 3.2 Magnesium 2.0 1.9 Imaging 03/26/18: CXR: since prior study of 11/02/17, again noted is a large heart, unfolded aorta, prominent sara and R pacemaker. an acute chest process is not seen. 03/26/18: R hip XR: no acute pathology. intact R hip. arthritic spine changes with evidence o previous pelvic surgery with fasteners present. evidence of buttock granulomata. 03/26/18: CTAP w/o contrast: 1. s/p gastric surgery. 2. s/p small bowel anastomosis with markedly distended air and fluid filled small bowel loop at the anastamotic site. a closed loop obstruction cannot be excluded. 03/27/18: CTAP w contrast: partial decompression of distended jejunal loop withinthe L mid abdomen since 03/26/18. 03/27/18: ECHO: moderate concentric LVH, pacemaker, mild to mod TR, RSVP elevated 40-50mmhg, LV wall thickness- asymmetric septal hypertrophy and hypertrophic CM, severe MR 03/28/18: Abdomen flat and upright: partial SBO. contrast in rectum. partially contracted bladder. there are pelvic phleboliths. there are right pelvic soft tissue calcifications. there may be some brigitte calcifications in the RLQ. there is a large heart with pacemaker. free air not seen. a CT scan performed on showed improvement with decompression of the jejunum. since the CT scan, much of the contrast in the bowel has been eliminated. improving partial SBO. 03/28/18: duplex RLE: no evidence DVT in distal R superficial femoral v. 03/29/18: KUB : resolving partial small bowel obstruction, air in stool and rectum 03/30/18: CXR: cardiomegaly, slightly rotated to left, sclerotic knob, prominent central markings and R pacemaker. sinec 03/26/18, the patient is rotated to the left. HOSPITAL COURSE: Date of Admission:03/26/18 Date of Discharge: 04/01/18 Admit diagnosis: partial small bowel obstruction 73 y/o female with hx asthma, CVA, COPD (on 3L 02 at home), diastolic CHF, AICD , past abdominal surgeries, who presented to the ED via EMS c/o pain in her RLE and LLE. As per patient this pain has progressively worsened, and has not been alleviated with BC powder (aspirin/Caffeine) for pain. In the past, this had alleviated her pain. Pt came to the hospital for evaluation because she was unable to get up out of bed. While pt was in the hospital she had a CTAP done which revealed possible closed loop obstruction, with small bowel loop at the anastamotic loop. Pt was admitted for partial small bowel obstruction. While pt was in the hospital, she was managed for the following: Partial SBO 2/2 small bowel anastamosis When pt presented to ED, she did not have abdominal complaints. Did not have nausea, vomiting, or constipation. Was having BM and passing flatus. However, imaging revealed partial SBO. Pt was kept NPO, given mild IVF (and assessed for crackles and signs of overload) during this time. Serial abdominal exams were performed as well as follow up abdominal XR imaging, which revealed resolution of obstruction. Pt's diet was subsequently advanced. Prior to d/c, she was seen by surgery and only recommended f/u however with no needed NGT or surgical interventions. She will f/u with her surgeon in a week. SOB, hx COPD, hx diastolic CHF Pt had an acute change in respiratory status prior to d/c, as her lasix was held d/t SBO. And the need to replete her fluids d/t SBO. For this reason, pt completed a short trial on venti mask until her 02 sat improved back into the mid 90's and her SOB resolved. She was given a dose of IV lasix and then continued on her home dose of 40mg PO qd. Pt was also continued on coreg 6.25mg PO BID, 3L NC 02, neb tx q4h PRN, daliresp 500mcg PO qd. Towards the end of her stay, she was placed on CPAP. Initially she was resistant and noncompliant. She is recommended PM continuation of CPAP and will d/w her PCP. B/l lower extremity pain Likely secondary to arthritis, deconditioning. Pt dose of neurontin was changed to 400 mg PO TID. She should continue Physical therapy after d/c. This was discussed with her. H/o AICD, HTN Pt will continue on coreg 6.25mg PO BID. She had an ECHO performed which revealed the following: moderate concentric LVH , pacemaker, mild to mod TR, RSVP elevated 40-50mmhg, LV wall thickness- asymmetric septal hypertrophy and hypertrophic CM, severe MR Pt is to f/u with PCP, cardio, with PT, neurology in a wk. Minutes to complete discharge: 44 Discharge Summary Reason For Visit: INTESTINAL OBSTRUCTION Current Active Problems Acute diastolic heart failure (Acute) Partial small bowel obstruction (Acute) H/O gastric bypass (Chronic) Obesity (BMI 30.0-34.9) (Chronic) Condition: Improved - Instructions Diet, Activity, Other Instructions: You were in the hospital because you had an obstruction in your small bowel. You were seen by the surgery team, and had abdominal scans that showed that this resolved. Your visit You were seen by the surgery, medicine, and cardiology teams Medications You may continue your home medications. We have changed your neurontin dose. Continue to take 400mg three times a day for your leg pain. (instead of 300mg twice a day) Care - You should discuss using a CPAP machine at night with your primary medical doctor. This can help stabilize your breathing. - We also recommend you continue physical therapy for your legs - Follow up with your neurologist for your leg pain. - Don't drink alcohol. as it might interact with your medications - Don't smoke cigaret. Follow-up Please follow up with the following doctors: -Dr. Serrato, your primary care doctor - 1 week -Dr. Major, the surgeon who saw you in the hospital- 1 week -Dr. Salinas, the turf manager who saw you in the hospital - 1 week -You should also follow up with your neurologist in 1 week . If you develop shortness of breath, or chest pain, please go to the hospital. We hope you feel better soon. Referrals: Colby Major MD [Staff Physician] - 1 Week Noble Serrato MD [Primary Care Provider] - 1 Week Emile Salinas MD [Staff Physician] - 1 Week Disposition: VNS/HOME HEALTH CARE - Home Medications Comprehensive Discharge Medication List: Ambulatory Orders Aspirin [Aspir 81] 81 mg PO DAILY 02/23/12 Multivitamin [Once Daily] 1 each PO DAILY 11/19/13 Carvedilol [Coreg -] 6.25 mg PO BID #60 tablet 04/27/16 Roflumilast [Daliresp -] 500 mcg PO DAILY #30 tablet 08/25/16 Ergocalciferol [Vitamin D2] 50,000 unit PO Q7D@1000 03/26/18 Furosemide [Lasix] 40 mg PO DAILY 03/26/18 Gabapentin [Neurontin -] 400 mg PO TID #21 capsule 04/01/18 This patient is new to me today: No Emergency Visit: No Critical Care patient: No - Discharge Referral Referred to [facility] No
[2018-04-01 14:27] VITALS: BP 133/66; TEMP 98.6
--- NOTE | 2018-04-01 16:37 | PN ---
Teaching Attending Note Name of Resident: Lynsey Becker ATTENDING PHYSICIAN STATEMENT I saw and evaluated the patient. I reviewed the resident's note and discussed the case with the resident. I agree with the resident's findings and plan as documented. SUBJECTIVE: no SOB . improved . BM OBJECTIVE: NAD CV: RRR Lungs: CTAB Abd: obese , soft , NT. no rebound tenderness or guarding ., NL BS Ext: no edema. TTP over R thigh, R calf , and L calf . ASSESSMENT AND PLAN: 73 year old female with significant past medical history of HTN, asthma, CVA, COPD, diastolic CHF, and AICD and multiple abdominal surgeries including gastric bypass who presented to pain in both hips who presented with b/l hip pain and was found to have partial SBO 1- Partial SBO :resolved 2- SOB and hypoxia : due to acute D CHF exacerbation - cont po lasix at dc - cont coerg - f/u with PCP and pulm for CPAP 3- H/o COPD and CLAUDIO, cont home O2 and inhalers 4- ALcohol dependence: no signs of withdrawal. 5- HTN: cont coreg 6-peripheral neuropathy : cont increased dose of neuronting. advised no alcohol use dispo : HOme with VNS
== END 2018-04-01 15:00 | disposition home health service (06) | DRG 388 ==
LOC: JER 10:37 → JERBED 17:31 → OBSVTOIN 18:47 → J5S 22:30
PROVIDERS: ADMIT Internal Medicine; ATTEND Internal Medicine
DX: K56.600 Partial intestinal obstruction, unspecified as to cause (principal); I50.31 Acute diastolic (congestive) heart failure; I69.354 Hemiplegia and hemiparesis following cerebral infarction affecting left non-dominant side; J44.9 Chronic obstructive pulmonary disease, unspecified; G47.33 Obstructive sleep apnea (adult) (pediatric); F10.20 Alcohol dependence, uncomplicated; I11.0 Hypertensive heart disease with heart failure; G62.9 Polyneuropathy, unspecified; E66.9 Obesity, unspecified; Z68.34 Body mass index [BMI] 34.0-34.9, adult
CPT/HCPCS: 36415; 71045-TC-FY; 73523-TC-FY; 74018-TC-FY; 74019-TC-FY; 74176-TC; 74177-TC; 80048; 80053; 81003; 82550; 83605; 83735; 83880; 84100; 84484; 85025; 85610; 93005; 93010; 93306-TC; 93970-TC; 93971-TC; 94640; 94660; 97116-GP; 97161-GP; 99284-25; G0378; J1644; J7030; J7620

== ENCOUNTER 2018-11-11 11:18 | Inpatient (IN) | payer MEDICARE, OTHER ==
[2018-11-11] MEDS ORDERED: ALBUTEROL SO4 2.5/IPRATROPIUM 0.5 INH SOL 3 ML VIAL.NEB. NEB ONE ×2 (12:02→12:19)
--- NOTE | 2018-11-11 12:12 | PDOC ---
History of Present Illness - General Chief Complaint: Shortness of Breath Stated Complaint: SOB Time Seen by Provider: 11/11/18 11:56 History Source: Patient Exam Limitations: No Limitations - History of Present Illness Initial Comments: Vannesa is a 73 yo F with a pmh of CHF, COPD on home O2 3-5L, AICD, asthma, HTN , CVA, who was BIBEMS that presents for SOB, difficulty breathing and progressive weakness over the course of the past month. She says this morning it was extremely difficult for her to breathe and even with 5 liters of home O2 she was short of breath so she called an ambulance to come to the hospital. She has not been able to lie flat at night and has been experiencing significant dyspnea on exertion. She reports that her legs have been swelling and she has been experiencing difficulty walking as a result of her weakness. She states that 1 month prior she was able to ambulate without difficulty but now she cannot walk. She also admits to being very bad about adhering to her medication regimen at home. She states it is hard to keep track of her meds so she just doesn't take them. She denies currently having any chest pain, dysuria, frequency, urgency, diarrhea, constipation, headache, neck pain, blurry vision, numbness, tingling, fevers, infections, or chills. PCP: Noble Serrato [employer] Outseamer: Dr. Ramos Social Hx: Admits to drinking 1 box of wine every 3 days, former 50+ pack year smoking history - stopped 3 years ago. Denies other substance usage. PSH: (1957, 195), AICD, Hemorrhoidectomy, Neck surgery, Gastric bypass Allergies: NKA, NKDA Past History - Past Medical History Allergies/Adverse Reactions: Allergies Allergy/AdvReac Type Severity Reaction Status Date / Time No Known Allergies Allergy Verified 03/26/18 11:13 Home Medications: Ambulatory Orders Aspirin [Aspir 81] 81 mg PO DAILY 02/23/12 Multivitamin [Once Daily] 1 each PO DAILY 11/19/13 Carvedilol [Coreg -] 6.25 mg PO BID #60 tablet 04/27/16 Roflumilast [Daliresp -] 500 mcg PO DAILY #30 tablet 08/25/16 Ergocalciferol [Vitamin D2] 50,000 unit PO Q7D@1000 03/26/18 Furosemide [Lasix] 40 mg PO DAILY 03/26/18 Gabapentin [Neurontin -] 400 mg PO TID #21 capsule 04/01/18 Anemia: No Asthma: Yes (ON 02 5L/MIN PRN) Cancer: No Cardiac Disorders: Yes CVA: Yes (2000 LEFT SIDED WEAKNESS) COPD: Yes CHF: Yes Dementia: No Diabetes: No GI Disorders: No Disorders: No HTN: Yes Hypercholesterolemia: No Liver Disease: No Seizures: No Thyroid Disease: No - Surgical History Abdominal Surgery: Yes (GASTRIC BYPASS [employer],) Appendectomy: No Cardiac Surgery: Yes (icd) Cholecystectomy: No Lung Surgery: No Neurologic Surgery: No Orthopedic Surgery: No (2000 SURGERY ON NECK,REMOVAL BOILS BOTH ARMPIT) - Immunization History Td Vaccination: No Immunization Up to Date: Yes - Suicide/Smoking/Psychosocial Hx Smoking Status: Yes Smoking History: Former smoker Have you smoked in the past 12 months: Yes Number of Cigarettes Smoked Daily: 5 If you are a former smoker, when did you quit?: 2 YEARS Information on smoking cessation initiated: No 'Breaking Loose' booklet given: 03/09/15 Hx Alcohol Use: No Drug/Substance Use Hx: No Substance Use Type: None Hx Substance Use Treatment: No Review of Systems - Review of Systems Able to Perform ROS?: Yes Comments:: CONSTITUTIONAL: Present: Fatigue Absent: fever, no chills EYES: Absent: visual changes ENT: Absent: ear pain, no sore throat CARDIOVASCULAR: Absent: chest pain, no palpitations RESPIRATORY: Present: cough, SOB GI: Absent: abdominal pain, no nausea, no vomiting, no constipation, no diarrhea GENITOURINARY: Absent: dysuria, no frequency, no hematuria MUSKULOSKELETAL: Present: Constant Back pain for months Absent: no arthralgia, no myalgia SKIN: Present: There is a rash under both breasts NEURO: Absent: headache *Physical Exam - Vital Signs Last Vital Signs Temp Pulse Resp BP Pulse Ox 99.7 F H 94 H 16 141/78 100 11/11/18 11:24 11/11/18 11:20 11/11/18 11:20 11/11/18 11:20 11/11/18 11:20 - Physical Exam Comments: GENERAL: Well-appearing, well-nourished. No apparent distress. HEENT: Normocephalic, atraumatic. PERRL, EOM intact. CARDIOVASCULAR: Regular rate and rhythm. No murmurs, rubs, or gallops. Distal pulses are 2+ and symmetric. PULMONARY: There is clear evidence of respiratory distress. She has decreased breath sounds bilaterally at the bases with some crackles in the bases L>R. No wheezing , rales or rhonchi. ABDOMEN: Soft, non-distended, non-tender. EXTREMITIES: Normal ROM in all four extremities. 1 + edema in both legs. SKIN: There are bilateral intertrigo rashes underneath her breasts. NEUROLOGICAL: No focal neurological deficits. Moderate Sedation - Procedure Monitoring Vital Signs: Procedure Monitoring Vital Signs Temperature 99.7 F H 11/11/18 11:24 Pulse Rate 94 H 11/11/18 11:20 Respiratory Rate 16 11/11/18 11:20 Blood Pressure 141/78 11/11/18 11:20 O2 Sat by Pulse Oximetry (%) 100 11/11/18 11:20 ED Treatment Course - LABORATORY CBC & Chemistry Diagram: 11/11/18 12:22 11/11/18 12:22 Medical Decision Making - Medical Decision Making Vannesa is a 73 yo F with a pmh of CHF, COPD on home O2 3-5L, AICD, asthma, HTN , CVA, who was BIBEMS that presents for SOB, difficulty breathing and progressive weakness over the course of the past month. She says this morning it was extremely difficult for her to breathe and even with 5 liters of home O2 she was short of breath so she called an ambulance to come to the hospital. She has not been able to lie flat at night and has been experiencing significant dyspnea on exertion. She reports that her legs have been swelling and she has been experiencing difficulty walking as a result of her weakness. She states that 1 month prior she was able to ambulate without difficulty but now she cannot walk. VS WNL. Afebrile, borderline tachycardic. Rectal temp < 100. DDx IBNLT: CHF vs COPD exacerbation. URI, PNA, pneumothorax, pleural effusion, pulmonary edema. This appears to be more of a CHF exacerbation than COPD. She has not been wheezing much, complains of generalized weakness, dyspnea on exertion, orthopnea , and SOB. She has not been adherent to her CHF meds. Plan: Labs, urine, CXR, EKG, Duonebs, lasix, cardiac monitoring, re-assess. BNP elevated at 2253 This appears to be a HF exacerbation. Giving Lasix in ER. Dr. Ramos is here and she is his patient so he will see her. She needs social work to help her get on top of taking her meds more consistently Will admit her for further CHF treatment. *DC/Admit/Observation/Transfer Diagnosis at time of Disposition: CHF (congestive heart failure) - Discharge Dispostion Condition at time of disposition: Guarded Decision to Admit order: Yes - Referrals Referrals: Noble Serrato MD [Primary Care Provider] - - Patient Instructions - Post Discharge Activity
[2018-11-11] MEDS ORDERED: FUROSEMIDE 40 MG/4 ML INJECTABLE VIAL IVPUSH ONE ×2 (12:21→17:30)
[2018-11-11 12:37] LABS: BASO % 1.2 % (0-2.0); EOS % 1.8 % (0-4.5); HEMATOCRIT 38.9 % (32.4-45.2); HEMOGLOBIN 13.2 GM/dL (10.7-15.3); LYMPH % 24.4 % (8-40); MCH 31.3 pg (25.7-33.7); MCHC 33.9 g/dl (32.0-36.0); MEAN CELL VOLUME 92.3 fl (80-96); MEAN PLT VOLUME 9.2 fl (7.5-11.1); MONO % 9.5 % (3.8-10.2); NEUT % 63.1 % (42.8-82.8); PLATELET COUNT 228 K/MM3 (134-434); RBC 4.21 M/mm3 (3.60-5.2); RDW 13.7 % (11.6-15.6); VENOUS PH 7.37 (7.32-7.42); VENOUS PO2 45.6 mmHg (28-48); WHITE BLOOD COUNT 5.8 K/mm3 (4.0-10.0)
--- NOTE | 2018-11-11 12:47 | PDOC ---
Attending Attestation - Resident Resident Name: Yoan Jameson - ED Attending Attestation I have performed the following: I have examined & evaluated the patient, The case was reviewed & discussed with the resident, I agree w/resident's findings & plan, Exceptions are as noted - Physicial Exam PE: 11/11/18 14:02 GENERAL: The patient is awake, alert, and fully oriented, Nontoxic - in no acute distress. HEAD: Normocephalic, atraumatic. EYES: extraocular movements intact, sclera anicteric, conjunctiva clear. ENT: Normal voice, Moist mucous membranes. NECK: Normal range of motion, supple LUNGS: Trace crackles at the bases HEART: Regular rate and rhythm, normal S1 and S2 without murmur, rub or gallop. ABDOMEN: Soft, nontender, normoactive bowel sounds. No guarding, no rebound. . No CVA tenderness EXTREMITIES: Normal range of motion, +1 pitting edema bilaterally, negative Homans sign tenderness. NEUROLOGICAL: No facial assymetry, Normal speech, moivng all 4 extremities psontaneously adns ymmetrically PSYCH: Normal mood, normal affect. SKIN: Warm, Dry, normal turgor, - Medical Decision Making 11/11/18 12:45 73y F CHF, copd, on baseline 3-5 NC, AICD, sp CVA, asthma, htn presents with 1 month of worsening sob, increased leg sewlling and generalized weakness. PT notes she wasnt feeling better on her 5L of NC so called EMS. more difficult ambulting due to her dyspnea and worsening orthopnea denies any fever, cp, dysuria +smoking history +drinks freuquently +bases at bases +1 edema 11/11/18 14:31 pts bnp elevated, cxr cw ocngestion will admit for further management of chf exacerbation will give lasix for diuresis <Tammie,Alf - Last Filed: 11/11/18 14:31> - HPI HPI: 11/11/18 15:07 73y F with PMH of CHF, COPD (on baseline 3-5L o2 NC), AICD, sp CVA, asthma, and HTN who presents the emergency department for evaluation of a 1 month history of worsening SOB, increased b/l leg swelling, and generalized weakness. Pt reports feeling sob this morning despite being on 5L of o2 via NC which prompted her to activate EMS. Pt reports associated difficulty with ambulation due to her weakness and rolon. She reports sleeping with 4 pillows under her head and 2 under each of her legs. Denies fevers, recent infections, chest pain , hemoptysis, leg swelling, increased urinary frequency. Endorses history of alcohol and cigarette use. - Medical Decision Making Documentation prepared by Rachel Ramirez, acting as medical insurance clerk for Alf Cho MD. <Rachel Ramirez - Last Filed: 11/11/18 15:07> Heart Score/ECG Review - ECG Impressions Comment:: 11/11/18 14:04 Twelve-lead EKG was performed and reviewed by me. There is normal sinus rhythm with a rate of 58 left axis deviation nonspecific t wave abnormaities <Alf Cho - Last Filed: 11/11/18 14:31>
[2018-11-11 12:57] LABS: INR 1.03 (0.83-1.09); PROTHROMBIN TIME (PATIENT) 12.1 SEC (9.7-13.0)
[2018-11-11 13:00] LABS: ACTIVATED PTT 27.2 SECONDS (25.2-36.5)
[2018-11-11 13:09] LABS: ALBUMIN 3.4 g/dl (3.4-5.0); ALK PHOS 105 U/L (45-117); ANION GAP 9 MMOL/L (8-16); BILIRUBIN,TOTAL 0.5 mg/dL (0.2-1); BLOOD UREA NITROGEN 16 mg/dL (7-18); CALCIUM 8.6 mg/dL (8.5-10.1); CHLORIDE 114 mmol/L (98-107); CO2 22 mmol/L (21-32); GLUCOSE,RANDOM 100 mg/dL (74-106); POTASSIUM 4.4 mmol/L (3.5-5.1); SGOT/AST 15 U/L (15-37); SGPT/ALT 15 U/L (13-61); SODIUM 145 mmol/L (136-145); TOT PROT 6.7 g/dl (6.4-8.2)
[2018-11-11 13:11] LABS: N-TERMINAL BNP 2253.6 pg/ml (5-450)
--- NOTE | 2018-11-11 13:41 | EKG ---
Test Reason : Blood Pressure : / mmHG Vent. Rate : 058 BPM Atrial Rate : 058 BPM P-R Int : 164 ms QRS Dur : 092 ms QT Int : 484 ms P-R-T Axes : 048 -49 076 degrees QTc Int : 475 ms SINUS BRADYCARDIA WITH PREMATURE ATRIAL COMPLEXES LEFT AXIS DEVIATION NONSPECIFIC T WAVE ABNORMALITY ABNORMAL ECG WHEN COMPARED WITH ECG OF 30-MAR-2018 09:07, PREMATURE ATRIAL COMPLEXES ARE NOW PRESENT T WAVE VARIATION Confirmed by SARAH MENDEZ, LILIANA ([id number]) on 11/11/2018 1:40:47 PM Referred By: Confirmed By:LILIANA SMITH MD
[2018-11-11] MEDS ORDERED: FUROSEMIDE 40 MG/4 ML INJECTABLE VIAL ONE ×2 (13:54→17:28)
--- NOTE | 2018-11-11 14:07 | CON.CARD ---
Consult Consult Specialty:: Cardiology - History of Present Illness Chief Complaint: sob History of Present Illness: 73y F CHF, copd, on baseline 3-5 NC, AICD, sp CVA, asthma, htn presents with 1 month of worsening sob, increased leg sewlling and generalized weakness. PT notes she wasnt feeling better on her 5L of NC so called EMS. more difficult ambulting due to her dyspnea and worsening orthopnea PMH s/p Gastric bypass surgery COPD HHD HOCOM HTN Negative MIBI stress test March [address]. [facility] c.cath NSVT s/p AICD [employer] single lead 2009 Sleep apnea on CPAP mask 2014 - Past Medical History Cardio/Vascular: Yes: CHF, HTN, Other (AICD) Pulmonary: Yes: COPD (former smoker, quit in April) Gastrointestinal: Yes: Other (history of gastric bypass surgery) - Past Surgical History Past Surgical History: Yes: (1956, 1958), Permanent Pacemaker (vs ICD) - Alcohol/Substance Use Hx Alcohol Use: No - Smoking History Smoking history: Former smoker Have you smoked in the past 12 months: Yes Aproximately how many cigarettes per day: 5 If you are a former smoker, when did you quit?: 2 YEARS - Social History History of Recent Travel: No Home Medications - Allergies Allergies/Adverse Reactions: Allergies Allergy/AdvReac Type Severity Reaction Status Date / Time No Known Allergies Allergy Verified 03/26/18 11:13 - Home Medications Home Medications: Ambulatory Orders Aspirin [Aspir 81] 81 mg PO DAILY 02/23/12 Multivitamin [Once Daily] 1 each PO DAILY 11/19/13 Carvedilol [Coreg -] 6.25 mg PO BID #60 tablet 04/27/16 Roflumilast [Daliresp -] 500 mcg PO DAILY #30 tablet 08/25/16 Ergocalciferol [Vitamin D2] 50,000 unit PO Q7D@1000 03/26/18 Furosemide [Lasix] 40 mg PO DAILY 03/26/18 Gabapentin [Neurontin -] 400 mg PO TID #21 capsule 04/01/18 Review of Systems - Review of Systems Constitutional: reports: No Symptoms Eyes: reports: No Symptoms HENT: reports: No Symptoms Neck: reports: No Symptoms Cardiovascular: reports: No Symptoms Respiratory: reports: SOB, SOB on Exertion Gastrointestinal: reports: No Symptoms Genitourinary: reports: No Symptoms Breasts: reports: No Symptoms Reported Musculoskeletal: reports: No Symptoms Integumentary: reports: No Symptoms Neurological: reports: No Symptoms Endocrine: reports: No Symptoms Hematology/Lymphatic: reports: No Symptoms Psychiatric: reports: No Symptoms Vital Signs: Vital Signs Temperature 99.7 F H 11/11/18 11:24 Pulse Rate 60 11/11/18 12:19 Respiratory Rate 16 11/11/18 11:20 Blood Pressure 141/78 11/11/18 11:20 O2 Sat by Pulse Oximetry (%) 99 11/11/18 12:30 Constitutional: Yes: Well Nourished, No Distress, Calm Eyes: Yes: WNL, Conjunctiva Clear, EOM Intact HENT: Yes: WNL, Atraumatic, Normocephalic Neck: Yes: WNL, Supple, Trachea Midline Respiratory: Yes: WNL, Regular, CTA Bilaterally Gastrointestinal: Yes: WNL, Normal Bowel Sounds Renal/: Yes: WNL Cardiovascular: Yes: WNL, Regular Rate and Rhythm Heart Sounds: Yes: S1, S2 Murmur: Yes: Systolic Murmur Musculoskeletal: Yes: WNL Extremities: Yes: WNL Edema: Yes Edema: LLE: 1+, RLE: 1+ Integumentary: Yes: WNL Neurological: Yes: WNL, Alert, Oriented ...Motor Strength: WNL Psychiatric: Yes: WNL, Alert, Oriented - Other Data Labs, Other Data: CBC, BMP 11/11/18 12:22 11/11/18 12:22 INR, PTT INR 1.03 (0.83-1.09) 11/11/18 12:22 Troponin, BNP 11/11/18 12:22 Troponin I 0.03 B-Natriuretic Peptide 2253.6 H Troponin, BNP 11/11/18 12:22 Troponin I 0.03 B-Natriuretic Peptide 2253.6 H Imaging - Results Chest X-ray: Image Reviewed (no i/e) EKG: Image Reviewed (s ariana apc's) Problem List - Problems (1) Acute diastolic heart failure Code(s): I50.31 - ACUTE DIASTOLIC (CONGESTIVE) HEART FAILURE (2) Bowel obstruction Code(s): K56.609 - UNSP INTESTNL OBST, UNSP TO PARTIAL VERSUS COMPLETE OBST (3) CHF (congestive heart failure) Code(s): I50.9 - HEART FAILURE, UNSPECIFIED (4) DVT femoral (deep venous thrombosis) with thrombophlebitis Code(s): I82.419 - ACUTE EMBOLISM AND THROMBOSIS OF UNSPECIFIED FEMORAL VEIN (5) Dental caries Code(s): K02.9 - DENTAL CARIES, UNSPECIFIED (6) Generalized weakness Code(s): R53.1 - WEAKNESS (7) Partial small bowel obstruction Code(s): K56.600 - PARTIAL INTESTINAL OBSTRUCTION, UNSPECIFIED TO CAUSE (8) AICD (automatic cardioverter/defibrillator) present Code(s): Z95.810 - PRESENCE OF AUTOMATIC (IMPLANTABLE) CARDIAC DEFIBRILLATOR (9) COPD (chronic obstructive pulmonary disease) Code(s): J44.9 - CHRONIC OBSTRUCTIVE PULMONARY DISEASE, UNSPECIFIED (10) H/O gastric bypass Code(s): Z98.84 - BARIATRIC SURGERY STATUS (11) H/O: CVA (cerebrovascular accident) Code(s): Z86.73 - PRSNL HX OF TIA (TIA), AND CEREB INFRC W/O RESID DEFICITS (12) HTN (hypertension) Code(s): I10 - ESSENTIAL (PRIMARY) HYPERTENSION Qualifiers: (13) Obesity (BMI 30.0-34.9) Code(s): E66.9 - OBESITY, UNSPECIFIED Assessment/Plan decompensated chf edema elevated bnp s/p Gastric bypass surgery COPD HHD HOCOM HTN Negative MIBI stress test March [address] [facility] c.cath NSVT s/p AICD [employer] single lead 2010 Sleep apnea on CPAP mask 2014 Plan agree with IV lasix will f/u
[2018-11-11 14:25] LABS: URINE APPEARANCE CLEAR; URINE BILIRUBIN NEGATIVE (<2.0 mg/dL); URINE COLOR YELLOW; URINE GLUCOSE (UA) NEGATIVE (NEGATIVE); URINE KETONE NEGATIVE (NEGATIVE); URINE LEUK ESTERASE NEGATIVE (NEGATIVE); URINE NITRITE NEGATIVE (NEGATIVE); URINE PROTEIN NEGATIVE (NEGATIVE); URINE UROBILINOGEN NEGATIVE mg/dL (0.2-1.0)
[2018-11-11 15:01] LABS: EPI CELLS RARE /HPF (FEW); URINE HYALINE CAST 3 /lpf; URINE MUCUS RARE
--- NOTE | 2018-11-11 15:21 | HP ---
Admitting History and Physical - Primary Care Physician PCP: Brigida Carlos - Admission Chief Complaint: sob History of Present Illness: 73 year old female pmh of HTN, CHF s/p AICD, CVA w/ residual left side weakness , COPD(3L O2 at home), peripheral neuropathy, presents with worsening sob over the last 3 weeks. Pt reports increased sob, weight gain>13lbs, orthopnea, and le edema over the last couple of weeks. She was advised by her PCP to come to ED sooner however she did not due to personal reasons. She continued to feel worse and decided to come to ED. Pt reports using 4 pillows when sleeping. She also c/o sob on minimal exertion. Pt reports she has not been taking her medications, unable to state why. Otherwise, she denies any chest pain, lightheadedness, dizziness, fever/chills, abdominal pain, dysuria or recent travel. History Source: Patient, Medical Record Limitations to Obtaining History: Poor Historian - Past Medical History [employer]: Yes: CVA, Peripheral Neuropathy Cardiovascular: Yes: CAD, CHF, HTN Pulmonary: Yes: Asthma, COPD, O2 Dependent, Sleep Apnea - Past Surgical History Past Surgical History: Yes: AICD, Bypass (gastric), (1956, 1958), Laminectomy (cervical) - Smoking History Smoking history: Former smoker Have you smoked in the past 12 months: No If you are a former smoker, when did you quit?: 3 years ago - Alcohol/Substance Use Hx Alcohol Use: No History of Substance Use: reports: None - Social History History of Recent Travel: No Home Medications - Allergies Allergies/Adverse Reactions: Allergies Allergy/AdvReac Type Severity Reaction Status Date / Time No Known Allergies Allergy Verified 03/26/18 11:13 - Home Medications Home Medications: Ambulatory Orders Aspirin [Aspir 81] 81 mg PO DAILY 02/23/12 Multivitamin [Once Daily] 1 each PO DAILY 11/19/13 Carvedilol [Coreg -] 6.25 mg PO BID #60 tablet 04/27/16 Roflumilast [Daliresp -] 500 mcg PO DAILY #30 tablet 08/25/16 Furosemide [Lasix] 40 mg PO DAILY 03/26/18 Budesonide/Formeterol Fumarate [SYMBICORT 160/4.5mcg -] 2 puff IH BID 11/11/18 Pregabalin [Lyrica -] 50 mg PO TID 11/11/18 Family Disease History - Family Disease History Family History: Denies Review of Systems Findings/Remarks: as per hpi Physical Examination Vital Signs: Vital Signs Temperature 99.7 F H 11/11/18 11:24 Pulse Rate 60 11/11/18 14:57 Respiratory Rate 16 11/11/18 11:20 Blood Pressure 141/78 11/11/18 11:20 O2 Sat by Pulse Oximetry (%) 98 11/11/18 14:57 Constitutional: Yes: Well Nourished, Calm, Obese Cardiovascular: Yes: Regular Rate and Rhythm, Murmur Respiratory: Yes: Regular, CTA Bilaterally, Cough, On Nasal O2, Rales (mild bibasilar), SOB, SOB on Exertion. No: Accessory Muscle Use, Tachypnea, Wheezes Gastrointestinal: Yes: WNL, Normal Bowel Sounds, Soft, Abdomen, Obese. No: Distention, Tenderness Renal/: Yes: WNL Edema: Yes Edema: LLE: 1+, RLE: 1+ Neurological: Yes: Alert, Oriented Psychiatric: Yes: WNL, Alert, Oriented Labs: CBC, BMP 11/11/18 12:22 11/11/18 12:22 Imaging - Results Chest X-ray: Report Reviewed (unremarkable) Ultrasound: Pending (cardiac echo) Problem List - Problems (1) Acute exacerbation of congestive heart failure Assessment/Plan: acute on chronic, diastolic HFpEF presents w/ sob, orthopnea, weight gain, le edema suspect 2/2 non-compliance with meds outpt bnp 2253 iv lasix daily weights strict I&O's low na diet echo ordered cardiology following Code(s): I50.9 - HEART FAILURE, UNSPECIFIED Qualifiers: Heart failure type: diastolic Qualified Code(s): I50.33 - Acute on chronic diastolic (congestive) heart failure (2) Acute respiratory failure with hypoxia Assessment/Plan: 2/2 acute chf requiring more O2 to maintain o2sat >92% continue O2 via NC CPAP at night for sleep apnea Code(s): J96.01 - ACUTE RESPIRATORY FAILURE WITH HYPOXIA (3) COPD (chronic obstructive pulmonary disease) Assessment/Plan: not in acute exacerbation continue O2 via NC symbicort, daliresp Code(s): J44.9 - CHRONIC OBSTRUCTIVE PULMONARY DISEASE, UNSPECIFIED Qualifiers: COPD type: unspecified COPD Qualified Code(s): J44.9 - Chronic obstructive pulmonary disease, unspecified (4) HTN (hypertension) Assessment/Plan: mildly elevated- monitor trend while here BP goal 130/80 continue carvedilol, lasix Code(s): I10 - ESSENTIAL (PRIMARY) HYPERTENSION Qualifiers: Hypertension type: essential hypertension Qualified Code(s): I10 - Essential (primary) hypertension (5) Peripheral neuropathy Assessment/Plan: stable continue lyrica Code(s): G62.9 - POLYNEUROPATHY, UNSPECIFIED Qualifiers: Peripheral neuropathy type: polyneuropathy, unspecified Qualified Code(s): G62.9 - Polyneuropathy, unspecified (6) H/O: CVA (cerebrovascular accident) Assessment/Plan: chronic residual left sided weakness Code(s): Z86.73 - PRSNL HX OF TIA (TIA), AND CEREB INFRC W/O RESID DEFICITS (7) CAD (coronary artery disease) Assessment/Plan: not in acute ACS non-obstructive continue asa lipid panel ordered Code(s): I25.10 - ATHSCL HEART DISEASE OF [place] CORONARY ARTERY W/O ANG PCTRS Qualifiers: Coronary Disease-Associated Artery/Lesion type: [place] artery [place] vs. transplanted heart: [place] heart Associated angina: without angina Qualified Code(s): I25.10 - Atherosclerotic heart disease of [place] coronary artery without angina pectoris
[2018-11-11] MEDS ORDERED: ALBUTEROL SO4 2.5/IPRATROPIUM 0.5 INH SOL 3 ML VIAL.NEB. NEB PRN (17:17)
[2018-11-11] MEDS ORDERED: CARVEDILOL 12.5 MG TABLET (FP) ONE (21:35)
[2018-11-11] MEDS ORDERED: PREGABALIN 50 MG CAPSULE ONE (21:35)
[2018-11-11] MEDS: CARVEDILOL 6.25 MG TABLET (FP) PO SCH (21:41)
[2018-11-11] MEDS: PREGABALIN 50 MG CAPSULE PO SCH (21:41)
[2018-11-11] MEDS: BUDESONIDE/FORMETEROL FUMARATE 160/4.5 mcg INHALER IH SCH (21:41)
[2018-11-11] MEDS ORDERED: GABAPENTIN 400 MG CAPSULE (FP) PO SCH (22:00)
[2018-11-12] MEDS: FUROSEMIDE 40 MG/4 ML INJECTABLE VIAL IVPUSH SCH ×2 (06:57→14:37)
[2018-11-12] MEDS: PREGABALIN 50 MG CAPSULE PO SCH ×3 (06:57→22:18)
[2018-11-12] MEDS: ASPIRIN COATED 81 MG TABLET.EC PO SCH (09:54)
[2018-11-12] MEDS: CARVEDILOL 6.25 MG TABLET (FP) PO SCH ×2 (09:54→22:18)
[2018-11-12] MEDS: ENOXAPARIN NA (PORCINE) 40 MG/0.4 ML DISP.SYRIN SQ SCH (09:54)
[2018-11-12 10:06] LABS: BASO % 1.1 % (0-2.0); EOS % 2.5 % (0-4.5); HEMATOCRIT 38.1 % (32.4-45.2); HEMOGLOBIN 12.7 GM/dL (10.7-15.3); LYMPH % 20.9 % (8-40); MCH 30.9 pg (25.7-33.7); MCHC 33.2 g/dl (32.0-36.0); MEAN CELL VOLUME 93.1 fl (80-96); MEAN PLT VOLUME 9.2 fl (7.5-11.1); NEUT % 63.5 % (42.8-82.8); PLATELET COUNT 228 K/MM3 (134-434); RDW 13.9 % (11.6-15.6); WHITE BLOOD COUNT 5.7 K/mm3 (4.0-10.0)
[2018-11-12] MEDS ORDERED: PT OWN MED DRAWER 7, Y5N ONE (10:18)
[2018-11-12 10:39] LABS: ANION GAP 10 MMOL/L (8-16); BLOOD UREA NITROGEN 21 mg/dL (7-18); CALCIUM 8.4 mg/dL (8.5-10.1); CHLORIDE 109 mmol/L (98-107); CHOLESTEROL 127 mg/dL (50-200); CO2 23 mmol/L (21-32); CREATININE 1.1 mg/dL (0.55-1.3); GLUCOSE,RANDOM 110 mg/dL (74-106); HDL CHOLESTEROL 58 mg/dL (40-60); MAGNESIUM 1.8 mg/dL (1.8-2.4); PHOSPHOROUS 4.7 mg/dL (2.5-4.9); POTASSIUM 3.8 mmol/L (3.5-5.1); SODIUM 142 mmol/L (136-145); TRIGLYCERIDES 99 mg/dL (0-150)
[2018-11-12] MEDS ORDERED: MAGNESIUM SULF 50% (8.12 MEQ/2 ML-1 GM VIAL) IVPB ONE (10:45)
[2018-11-12] MEDS ORDERED: POTASSIUM CHLORIDE TABS 20 MEQ TABLET.ER (FP) PO ONE (10:46)
--- NOTE | 2018-11-12 11:20 | ECHO ---
Name: JOMAR, JERMAN Exam:Adult Echocardiogram Study Date: 11/12/2018 07:44 AM Age: 73 yrs Reason For Study: CHF Height: 64 in Weight: 213 lb BSA: 2.0 m2 MMode/2D Measurements & Calculations IVSd: 1.4 cm Ao root diam: 2.6 cm LVIDd: 3.5 cm LA dimension: 4.0 cm LVIDs: 2.2 cm LVPWd: 1.3 cm EDV(Teich): 51.0 ml LAV (MOD-bp): 91.3 ml ESV(Teich): 15.8 ml Doppler Measurements & Calculations MV E max agustín: 142.0 cm/sec MR max agustín: 516.1 cm/sec MV A max agustín: 134.6 cm/sec MR max P.7 mmHg MV E/A: 1.1 MV dec time: 0.11 sec TR max agustín: 296.6 cm/sec Med Peak E' Agustín: 3.7 cm/sec TR max P.2 mmHg Med E/e': 38.4 Lat Peak E' Agustín: 3.9 cm/sec Lat E/e': 36.3 PI Vmax: 123.5 cm/sec Procedure A two-dimensional transthoracic echocardiogram with color flow and Doppler was performed. The patient was in normal sinus rhythm during the exam. Left Ventricle There is moderate concentric left ventricular hypertrophy. There is asymmetric septal hypertrophy. Th ere is systolic anterior motion of the chordal apparatus. Resting LV Max Pressure Gradient = 46 mmhg. An intracavitary gradient is present. Left ventricular systolic function is normal. Ejection Fraction = 55-60%. Right Ventricle There is a pacemaker lead in the right ventricle. The right ventricle is grossly normal size. The rig ht ventricular systolic function is grossly normal. Atria The left atrium is mildly dilated. The right atrium is mildly dilated. Mitral Valve There is moderate mitral annular calcification. There is mild mitral valve thickening. There is mild to moderate mitral regurgitation. Tricuspid Valve The tricuspid valve is not well visualized, but is grossly normal. There is mild tricuspid regurgitat ion. Right ventricular systolic pressure is elevated at 30-40mmHg. Aortic Valve There is mild aortic sclerosis.;. The aortic valve is trileaflet. The aortic valve opens well. No hemodynamically significant valvular aortic stenosis. No aortic regurgitation is present. Pulmonic Valve The pulmonic valve is not well seen, but is grossly normal. There is no pulmonic valvular regurgitati on. Great Vessels The aortic root is normal size. Pericardium/Pleura There is no pericardial effusion. Interpretation Summary There is moderate concentric left ventricular hypertrophy. There is asymmetric septal hypertrophy. There is systolic anterior motion of the chordal apparatus. An intracavitary gradient is present. Resting LV Max Pressure Gradient = 46 mmhg Left ventricular systolic function is normal. The right ventricular systolic function is grossly normal. The left atrium is mildly dilated. The right atrium is mildly dilated. There is moderate mitral annular calcification. There is mild mitral valve thickening. There is mild to moderate mitral regurgitation. There is mild tricuspid regurgitation. There is mild aortic sclerosis.; There is no pericardial effusion. MD Zak Caba 11/12/2018 11:20 AM
--- NOTE | 2018-11-12 11:44 | CONSULT ---
Consult - text type - Consultation Consultation Note: Renal Consult for CKD/Fluid overload This is a 73 year old woman with hx of CKD stage 3 (Baseline Cr 0.9-1.1) w/o proteinuria, CHF s/p AICD, CVA, COPD who presented with progressive SOB at home and admitted with CHF exacerbation. PT reports she was not compliant with her medications at home. Denies any chest pain, fever, chills , wheeze, N/V/D. Feels as little better today. No dysuria, flank pain, hematuria. PMhx: as above Allergies: NKDA Family Hx: NC Social Hx: No T/A/D ROS: as per HPI Home Medications Medication Instructions Recorded Aspirin [Aspir 81] 81 mg PO DAILY 02/23/12 Multivitamin [Once Daily] 1 each PO DAILY 11/19/13 Carvedilol [Coreg -] 6.25 mg PO BID #60 tablet 04/27/16 Roflumilast [Daliresp -] 500 mcg PO DAILY #30 tablet 08/25/16 Furosemide [Lasix] 40 mg PO DAILY 03/26/18 Budesonide/Formeterol Fumarate 2 puff IH BID 11/11/18 [SYMBICORT 160/4.5mcg -] Pregabalin [Lyrica -] 50 mg PO TID 11/11/18 Vital Signs Temperature 98 F 11/12/18 10:00 Pulse Rate 80 11/12/18 10:00 Respiratory Rate 20 11/12/18 10:00 Blood Pressure 142/68 11/12/18 10:00 O2 Sat by Pulse Oximetry (%) 96 11/12/18 04:00 Intake & Output 11/09/18 11/10/18 11/11/18 11/12/18 23:59 23:59 23:59 23:59 Output Total 1999 1399 Balance -1999 Weight 96.615 kg 95.731 kg NAD awake and alert no JVD, neck supple RRR, No M/R Dec BS at lung bases soft NT/ND Abd Trace LE edema, no clubbing or cyanosis no bladder distension CBC, BMP 11/12/18 09:50 11/12/18 09:50 Current Medications Albuterol/Ipratropium (Duoneb -) 1 amp NEB Q6H PRN PRN Reason: SHORTNESS OF BREATH Aspirin (Ecotrin -) 81 mg PO DAILY [facility] Last Admin: 11/12/18 09:54 Dose: 81 mg Budesonide/Formoterol Fumarate (Symbicort 160/4.5mcg -) 2 puff IH BID [facility] Last Admin: 11/11/18 21:41 Dose: Not Given Carvedilol (Coreg -) 6.25 mg PO BID [facility] Last Admin: 11/12/18 09:54 Dose: 6.25 mg Enoxaparin Sodium (Lovenox -) 40 mg SQ DAILY [facility] Last Admin: 11/12/18 09:54 Dose: 40 mg Furosemide (Lasix Injection -) 40 mg IVPUSH BID@0600,1400 [facility] Last Admin: 11/12/18 06:57 Dose: 40 mg Nystatin (Nystop Powder -) 1 applic TP DAILY [facility] Pregabalin (Lyrica -) 50 mg PO TID [facility] Last Admin: 11/12/18 06:57 Dose: 50 mg Roflumilast (Daliresp -) 500 mcg PO DAILY [facility] 73 year old woman with hx of CKD stage 3 (Baseline Cr 0.9-1.1 ) w/o proteinuria, CHF s/p AICD, CVA, COPD who presented with progressive SOB at home and admitted with CHF exacerbation. #CHF/Fluid overload #CKD stage 3 #HTN #COPD Continue Lasix IV BID as per cardiology recs Trend daily weights, BUN/Cr and electrolytes Renal function stable at this time pt would benefit from DIANE/ARB but would wait until pt is evolemic and off IV lasix before starting Can titrate Coreg as needed for BP control now Low salt diet continue Nebs as needed Thank you Nikolai Orozco DO
--- NOTE | 2018-11-12 11:45 | PN ---
Progress Note, Physician Chief Complaint: Pt lying in bed in no acute distress. reports sob improving. c/o itchy rash under breasts. also requests to follow here as well. Denies any chest pain, worsening sob, n/v/d - Current Medication List Current Medications: Active Medications Albuterol/Ipratropium (Duoneb -) 1 amp NEB Q6H PRN PRN Reason: SHORTNESS OF BREATH Aspirin (Ecotrin -) 81 mg PO DAILY [facility] Last Admin: 11/12/18 09:54 Dose: 81 mg Budesonide/Formoterol Fumarate (Symbicort 160/4.5mcg -) 2 puff IH BID [facility] Last Admin: 11/11/18 21:41 Dose: Not Given Carvedilol (Coreg -) 6.25 mg PO BID [facility] Last Admin: 11/12/18 09:54 Dose: 6.25 mg Enoxaparin Sodium (Lovenox -) 40 mg SQ DAILY [facility] Last Admin: 11/12/18 09:54 Dose: 40 mg Furosemide (Lasix Injection -) 40 mg IVPUSH BID@0600,1400 [facility] Last Admin: 11/12/18 06:57 Dose: 40 mg Nystatin (Nystop Powder -) 1 applic TP DAILY [facility] Pregabalin (Lyrica -) 50 mg PO TID [facility] Last Admin: 11/12/18 06:57 Dose: 50 mg Roflumilast (Daliresp -) 500 mcg PO DAILY [facility] - Objective Vital Signs: Vital Signs Temperature 98 F 11/12/18 10:00 Pulse Rate 80 11/12/18 10:00 Respiratory Rate 20 11/12/18 10:00 Blood Pressure 142/68 11/12/18 10:00 O2 Sat by Pulse Oximetry (%) 96 11/12/18 04:00 Constitutional: Yes: Well Nourished, No Distress, Calm, Obese Cardiovascular: Yes: Regular Rate and Rhythm Respiratory: Yes: WNL, Regular, CTA Bilaterally. No: Accessory Muscle Use, Tachypnea, Wheezes Gastrointestinal: Yes: WNL, Normal Bowel Sounds, Soft, Abdomen, Obese. No: Distention, Tenderness Genitourinary: Yes: Moses Present Edema: Yes Edema: LLE: Trace, RLE: Trace Integumentary: Yes: Rash (b/l under breasts) Wound/Incision: Yes: Clean/Dry Neurological: Yes: WNL, Alert, Oriented Psychiatric: Yes: WNL, Alert, Oriented Labs: CBC, BMP 11/12/18 09:50 11/12/18 09:50 INR, PTT INR 1.03 (0.83-1.09) 11/11/18 12:22 Assessment/Plan (1) Acute exacerbation of congestive heart failure Assessment/Plan: improving weight trending down iv lasix strict I&O's low na diet cardiology following Code(s): I50.9 - HEART FAILURE, UNSPECIFIED Qualifiers: Heart failure type: diastolic Qualified Code(s): I50.33 - Acute on chronic diastolic (congestive) heart failure (2) Acute respiratory failure with hypoxia Assessment/Plan: improving continue O2 via [place] CPAP at night for sleep apnea Code(s): J96.01 - ACUTE RESPIRATORY FAILURE WITH HYPOXIA (3) COPD (chronic obstructive pulmonary disease) Assessment/Plan: not in acute exacerbation continue O2 via NC symbicort, daliresp Code(s): J44.9 - CHRONIC OBSTRUCTIVE PULMONARY DISEASE, UNSPECIFIED Qualifiers: COPD type: unspecified COPD Qualified Code(s): J44.9 - Chronic obstructive pulmonary disease, unspecified (4) HTN (hypertension) Assessment/Plan: mildly elevated- monitor trend BP goal <130/80 continue carvedilol, lasix Code(s): I10 - ESSENTIAL (PRIMARY) HYPERTENSION Qualifiers: Hypertension type: essential hypertension Qualified Code(s): I10 - Essential (primary) hypertension (5) Peripheral neuropathy Assessment/Plan: stable continue lyrica Code(s): G62.9 - POLYNEUROPATHY, UNSPECIFIED Qualifiers: Peripheral neuropathy type: polyneuropathy, unspecified Qualified Code(s): G62.9 - Polyneuropathy, unspecified (6) H/O: CVA (cerebrovascular accident) Assessment/Plan: chronic residual left sided weakness Code(s): Z86.73 - PRSNL HX OF TIA (TIA), AND CEREB INFRC W/O RESID DEFICITS (7) CAD (coronary artery disease) Assessment/Plan: not in acute ACS non-obstructive continue asa lipid panel wnl Code(s): I25.10 - ATHSCL HEART DISEASE OF [place] CORONARY ARTERY W/O ANG PCTRS Qualifiers: Coronary Disease-Associated Artery/Lesion type: [place] artery [place] vs. transplanted heart: [place] heart Associated angina: without angina Qualified Code(s): I25.10 - Atherosclerotic heart disease of [place] coronary artery without angina pectoris (8) CKD (chronic kidney disease) Assessment/Plan: at baseline nephrology consulted per pt request monitor Code(s): N18.9 - CHRONIC KIDNEY DISEASE, UNSPECIFIED Qualifiers: Chronic kidney disease stage: stage 3 (moderate) Qualified Code(s): N18.3 - Chronic kidney disease, stage 3 (moderate) (9) Hypokalemia Assessment/Plan: repleted today monitor bmp Code(s): E87.6 - HYPOKALEMIA (10) Hypomagnesemia Assessment/Plan: repleted Code(s): E83.42 - HYPOMAGNESEMIA (11) Intertrigo Assessment/Plan: b/l under breasts nystatin powder ordered Code(s): L30.4 - ERYTHEMA INTERTRIGO Dispo: Home with VNS
[2018-11-12] MEDS: BUDESONIDE/FORMETEROL FUMARATE 160/4.5 mcg INHALER IH SCH ×2 (12:33→22:18)
[2018-11-12] MEDS: ROFLUMILAST 500 MCG TABLET PO SCH (12:33)
--- NOTE | 2018-11-12 14:05 | PN ---
Progress Note, Physician Chief Complaint: Pt alert; OOB in chair; c/o right sided lower back and hip pain; she says "i think I'm dying because I'm gaining weight even though I had a gastric bypass". History of Present Illness: Pt is a 73 yo black woman with a pmh of diastolic CHF, HOCM (normal LVEF, mild- moderate asymmetric LVH, and moderate LVOT gradient on most recent ECHO),s/p ICD , COPD-- on home O2 3-5L, asthma, HTN, CVA, morbid obesity-->gastric bypass surgery (reduced to 155 lbs; now is 213 lbs), sleep apnea, who was BIBEMS that presents for SOB, difficulty breathing and progressive weakness over the course of the past month. She says this morning it was extremely difficult for her to breathe and even with 5 liters of home O2 she was short of breath so she called an ambulance to come to the hospital. She has not been able to lie flat at night and has been experiencing significant dyspnea on exertion. She reports that her legs have been swelling and she has been experiencing difficulty walking as a result of her weakness. She states that 1 month prior she was able to ambulate without difficulty but now she cannot walk. She also admits to being very bad about adhering to her medication regimen at home. She states it is hard to keep track of her meds so she just doesn't take them. She denies currently having any chest pain, dysuria, frequency, urgency, diarrhea, constipation, headache, neck pain, blurry vision, numbness, tingling, fevers, infections, or chills. PCP: Noble Serrato [employer] Machine: Dr. Ramos Social Hx: Admits to drinking 1 box of wine every 3 days, former 50+ pack year smoking history - stopped 3 years ago. Denies other substance usage. PSH: (1957, 195), AICD, Hemorrhoidectomy, Neck surgery, Gastric bypass Allergies: NKA, NKDA Negative MIBI stress test March [address] Allen [facility] c.cath NSVT s/p AICD [employer] SARL single lead 2009 Sleep apnea on CPAP mask 2014 - Current Medication List Current Medications: Active Medications Albuterol/Ipratropium (Duoneb -) 1 amp NEB Q6H PRN PRN Reason: SHORTNESS OF BREATH Aspirin (Ecotrin -) 81 mg PO DAILY [facility] Last Admin: 11/12/18 09:54 Dose: 81 mg Budesonide/Formoterol Fumarate (Symbicort 160/4.5mcg -) 2 puff IH BID [facility] Last Admin: 11/12/18 12:33 Dose: 2 inh Carvedilol (Coreg -) 6.25 mg PO BID [facility] Last Admin: 11/12/18 09:54 Dose: 6.25 mg Enoxaparin Sodium (Lovenox -) 40 mg SQ DAILY [facility] Last Admin: 11/12/18 09:54 Dose: 40 mg Furosemide (Lasix Injection -) 40 mg IVPUSH BID@0600,1400 [facility] Last Admin: 11/12/18 06:57 Dose: 40 mg Nystatin (Nystop Powder -) 1 applic TP DAILY [facility] Pregabalin (Lyrica -) 50 mg PO TID [facility] Last Admin: 11/12/18 06:57 Dose: 50 mg Roflumilast (Daliresp -) 500 mcg PO DAILY [facility] Last Admin: 11/12/18 12:33 Dose: 500 mcg - Objective Vital Signs: Vital Signs Temperature 98 F 11/12/18 10:00 Pulse Rate 80 11/12/18 10:00 Respiratory Rate 20 11/12/18 10:00 Blood Pressure 142/68 11/12/18 10:00 O2 Sat by Pulse Oximetry (%) 96 11/12/18 09:00 Constitutional: Yes: Anxious, Obese Eyes: Yes: WNL HENT: Yes: WNL Neck: Yes: WNL Cardiovascular: Yes: Bradycardia, S1, S2, S4 Respiratory: Yes: WNL Gastrointestinal: Yes: Soft, Abdomen, Obese ...Rectal Exam: Yes: Deferred Genitourinary: No: Anuria, Vaginal Bleeding Musculoskeletal: Yes: Joint Stiffness, Muscle Weakness Extremities: Yes: WNL Edema: No Peripheral Pulses WNL: Yes Integumentary: Yes: WNL Neurological: Yes: Alert, Oriented, Weakness Psychiatric: Yes: Other Labs: CBC, BMP 11/12/18 09:50 11/12/18 09:50 INR, PTT INR 1.03 (0.83-1.09) 11/11/18 12:22 Abnormal Lab Results 11/11/18 11/12/18 11/12/18 14:10 09:50 09:50 Monocytes % 12.0 H Chloride 109 H BUN 21 H Random Glucose 110 H Calcium 8.4 L Urine Blood 2+ H - ....Imaging Chest X-ray: Image Reviewed (no acute infiltrate) Other: Image Reviewed (telemetry: NSR) Problem List - Problems (1) Status post gastric bypass for obesity Assessment/Plan: F/u nutrition consult (s/p gastric bypass surgery; pt has regained much of the lost weight, and is worried by it). Code(s): Z98.84 - BARIATRIC SURGERY STATUS (2) Acute respiratory failure with hypoxia Assessment/Plan: F/u with registrar assistant. F/u CT chest (recommended after two small pleura-based nodules in left lung were noted on CT in 2016). Code(s): J96.01 - ACUTE RESPIRATORY FAILURE WITH HYPOXIA (3) AICD (automatic cardioverter/defibrillator) present Code(s): Z95.810 - PRESENCE OF AUTOMATIC (IMPLANTABLE) CARDIAC DEFIBRILLATOR (4) COPD (chronic obstructive pulmonary disease) Assessment/Plan: medication regimen per registrar assistant. Code(s): J44.9 - CHRONIC OBSTRUCTIVE PULMONARY DISEASE, UNSPECIFIED Qualifiers: COPD type: unspecified COPD Qualified Code(s): J44.9 - Chronic obstructive pulmonary disease, unspecified (5) HTN (hypertension) Assessment/Plan: on carvedilol and furosemide. Code(s): I10 - ESSENTIAL (PRIMARY) HYPERTENSION Qualifiers: Hypertension type: essential hypertension Qualified Code(s): I10 - Essential (primary) hypertension (6) Sedentary lifestyle Assessment/Plan: Physical therapy would be of benefit (pt c/o back, hip, and knee pains). Weight loss is sorto. Code(s): Z91.89 - OTH PERSONAL RISK FACTORS, NOT ELSEWHERE CLASSIFIED
[2018-11-12] MEDS: NYSTATIN POWDER 100,000 UNITS/GM - 15 GM TOPICAL POWDER TP SCH (14:37)
[2018-11-13] MEDS: FUROSEMIDE 40 MG/4 ML INJECTABLE VIAL IVPUSH SCH ×2 (05:48→10:32)
[2018-11-13] MEDS: PREGABALIN 50 MG CAPSULE PO SCH ×3 (05:48→22:17)
[2018-11-13 08:14] LABS: BASO % 1.3 % (0-2.0); EOS % 2.7 % (0-4.5); HEMATOCRIT 40.5 % (32.4-45.2); HEMOGLOBIN 13.4 GM/dL (10.7-15.3); LYMPH % 28.2 % (8-40); MCH 30.9 pg (25.7-33.7); MEAN CELL VOLUME 93.5 fl (80-96); MONO % 13.7 % (3.8-10.2); NEUT % 54.1 % (42.8-82.8); PLATELET COUNT 227 K/MM3 (134-434); RBC 4.33 M/mm3 (3.60-5.2); RDW 14.1 % (11.6-15.6); WHITE BLOOD COUNT 5.6 K/mm3 (4.0-10.0)
[2018-11-13] MEDS ORDERED: PT OWN MED DRAWER 7, Y5N ONE (08:35)
[2018-11-13 09:45] LABS: ANION GAP 9 MMOL/L (8-16); BLOOD UREA NITROGEN 23 mg/dL (7-18); CALCIUM 8.7 mg/dL (8.5-10.1); CHLORIDE 109 mmol/L (98-107); CO2 27 mmol/L (21-32); CREATININE 1.2 mg/dL (0.55-1.3); GLUCOSE,RANDOM 101 mg/dL (74-106); MAGNESIUM 2.2 mg/dL (1.8-2.4); PHOSPHOROUS 5.2 mg/dL (2.5-4.9); POTASSIUM 4.1 mmol/L (3.5-5.1); SODIUM 144 mmol/L (136-145)
[2018-11-13] MEDS: ENOXAPARIN NA (PORCINE) 40 MG/0.4 ML DISP.SYRIN SQ SCH (09:45)
[2018-11-13] MEDS: CARVEDILOL 6.25 MG TABLET (FP) PO SCH ×2 (09:45→22:17)
[2018-11-13] MEDS: ROFLUMILAST 500 MCG TABLET PO SCH (09:45)
[2018-11-13] MEDS: ASPIRIN COATED 81 MG TABLET.EC PO SCH (09:45)
[2018-11-13] MEDS: NYSTATIN POWDER 100,000 UNITS/GM - 15 GM TOPICAL POWDER TP SCH (09:46)
[2018-11-13] MEDS: BUDESONIDE/FORMETEROL FUMARATE 160/4.5 mcg INHALER IH SCH ×2 (09:46→22:18)
--- NOTE | 2018-11-13 09:49 | PN ---
Progress Note, Physician Chief Complaint: Pt lying in bed in no acute distress. reports sob improving. Denies any chest pain, worsening sob, n/v/d - Current Medication List Current Medications: Active Medications Albuterol/Ipratropium (Duoneb -) 1 amp NEB Q6H PRN PRN Reason: SHORTNESS OF BREATH Last Admin: 11/12/18 21:15 Dose: 1 amp Aspirin (Ecotrin -) 81 mg PO DAILY [facility] Last Admin: 11/13/18 09:45 Dose: 81 mg Budesonide/Formoterol Fumarate (Symbicort 160/4.5mcg -) 2 puff IH BID [facility] Last Admin: 11/13/18 09:46 Dose: 2 inh Carvedilol (Coreg -) 6.25 mg PO BID [facility] Last Admin: 11/13/18 09:45 Dose: 6.25 mg Enoxaparin Sodium (Lovenox -) 40 mg SQ DAILY [facility] Last Admin: 11/13/18 09:45 Dose: 40 mg Nystatin (Nystop Powder -) 1 applic TP DAILY [facility] Last Admin: 11/13/18 09:46 Dose: 1 applic Pregabalin (Lyrica -) 50 mg PO TID [facility] Last Admin: 11/13/18 05:48 Dose: 50 mg Roflumilast (Daliresp -) 500 mcg PO DAILY [facility] Last Admin: 11/13/18 09:45 Dose: 500 mcg - Objective Vital Signs: Vital Signs Temperature 98.2 F 11/13/18 06:00 Pulse Rate 84 11/13/18 06:00 Respiratory Rate 20 11/13/18 06:00 Blood Pressure 129/72 11/13/18 06:00 O2 Sat by Pulse Oximetry (%) 98 11/13/18 04:05 Constitutional: Yes: Well Nourished, No Distress, Calm Cardiovascular: Yes: Regular Rate and Rhythm Respiratory: Yes: WNL, Regular, CTA Bilaterally, On Nasal O2. No: Accessory Muscle Use, Tachypnea, Wheezes Gastrointestinal: Yes: WNL, Normal Bowel Sounds, Soft, Abdomen, Obese. No: Distention, Tenderness Genitourinary: Yes: WNL Edema: Yes Edema: LLE: Trace, RLE: Trace Neurological: Yes: WNL, Alert, Oriented Psychiatric: Yes: WNL, Alert, Oriented Labs: CBC, BMP 11/13/18 07:45 11/13/18 07:45 INR, PTT INR 1.03 (0.83-1.09) 11/11/18 12:22 Assessment/Plan (1) Acute exacerbation of congestive heart failure Assessment/Plan: improving weight trending down iv lasix reduced, will transition to po lasix upon d/c strict I&O's low na diet case discussed with cardiology Code(s): I50.9 - HEART FAILURE, UNSPECIFIED Qualifiers: Heart failure type: diastolic Qualified Code(s): I50.33 - Acute on chronic diastolic (congestive) heart failure (2) Acute respiratory failure with hypoxia Assessment/Plan: improving continue O2 via [place] CPAP at night for sleep apnea Code(s): J96.01 - ACUTE RESPIRATORY FAILURE WITH HYPOXIA (3) COPD (chronic obstructive pulmonary disease) Assessment/Plan: not in acute exacerbation continue O2 via [place] symbicort, daliresp Code(s): J44.9 - CHRONIC OBSTRUCTIVE PULMONARY DISEASE, UNSPECIFIED Qualifiers: COPD type: unspecified COPD Qualified Code(s): J44.9 - Chronic obstructive pulmonary disease, unspecified (4) HTN (hypertension) Assessment/Plan: BP goal <130/80 continue carvedilol, lasix Code(s): I10 - ESSENTIAL (PRIMARY) HYPERTENSION Qualifiers: Hypertension type: essential hypertension Qualified Code(s): I10 - Essential (primary) hypertension (5) Peripheral neuropathy Assessment/Plan: stable continue lyrica Code(s): G62.9 - POLYNEUROPATHY, UNSPECIFIED Qualifiers: Peripheral neuropathy type: polyneuropathy, unspecified Qualified Code(s): G62.9 - Polyneuropathy, unspecified (6) H/O: CVA (cerebrovascular accident) Assessment/Plan: chronic residual left sided weakness Code(s): Z86.73 - PRSNL HX OF TIA (TIA), AND CEREB INFRC W/O RESID DEFICITS (7) CAD (coronary artery disease) Assessment/Plan: not in acute ACS non-obstructive continue asa lipid panel wnl Code(s): I25.10 - ATHSCL HEART DISEASE OF [place] CORONARY ARTERY W/O ANG PCTRS Qualifiers: Coronary Disease-Associated Artery/Lesion type: [place] artery [place] vs. transplanted heart: [place] heart Associated angina: without angina Qualified Code(s): I25.10 - Atherosclerotic heart disease of [place] coronary artery without angina pectoris (8) CKD (chronic kidney disease) Assessment/Plan: stable trending up, will reduce iv lasix nephrology following Code(s): N18.9 - CHRONIC KIDNEY DISEASE, UNSPECIFIED Qualifiers: Chronic kidney disease stage: stage 3 (moderate) Qualified Code(s): N18.3 - Chronic kidney disease, stage 3 (moderate) (9) Hypokalemia Assessment/Plan: resolved Code(s): E87.6 - HYPOKALEMIA (10) Hypomagnesemia Assessment/Plan: resolved Code(s): E83.42 - HYPOMAGNESEMIA (11) Intertrigo Assessment/Plan: b/l under breasts clotrimazole cream Code(s): L30.4 - ERYTHEMA INTERTRIGO (12) Constipation Assessment/Plan: miralax, colace ordered Code(s): K59.00 - CONSTIPATION, UNSPECIFIED Qualifiers: Constipation type: slow transit constipation Qualified Code(s): K59.01 - Slow transit constipation Dispo: Home with VNS, anticipate d/c in the next 24-48 hours
[2018-11-13] MEDS: CLOTRIMAZOLE 1% CREAM 15 GM TUBE TP SCH ×2 (12:03→22:17)
--- NOTE | 2018-11-13 13:29 | PN ---
Progress Note (short form) - Note Progress Note: Renal follow up for CKD/Volume overload Pt seen and examined at the bedside reports feeling better sob improved but not baseline yet making urine Vital Signs Temperature 98 F 11/13/18 10:00 Pulse Rate 70 11/13/18 10:00 Respiratory Rate 18 11/13/18 10:00 Blood Pressure 142/88 11/13/18 10:00 O2 Sat by Pulse Oximetry (%) 98 11/13/18 04:05 Intake & Output 11/10/18 11/11/18 11/12/18 11/13/18 23:59 23:59 23:59 23:59 Intake Total 840 15 Output Total 2000 3000 Balance -2000 -2160 15 Weight 96.615 kg 95.731 kg 85.729 kg NAD awake and alert no JVD, neck supple RRR, No M/R Dec BS at lung bases soft NT/ND Abd Trace LE edema, no clubbing or cyanosis no bladder distension CBC, BMP 11/13/18 07:45 11/13/18 07:45 Current Medications Albuterol/Ipratropium (Duoneb -) 1 amp NEB Q6H PRN PRN Reason: SHORTNESS OF BREATH Last Admin: 11/12/18 21:15 Dose: 1 amp Aspirin (Ecotrin -) 81 mg PO DAILY [facility] Last Admin: 11/13/18 09:45 Dose: 81 mg Budesonide/Formoterol Fumarate (Symbicort 160/4.5mcg -) 2 puff IH BID [facility] Last Admin: 11/13/18 09:46 Dose: 2 inh Carvedilol (Coreg -) 6.25 mg PO BID [facility] Last Admin: 11/13/18 09:45 Dose: 6.25 mg Clotrimazole (Lotrimin 1% Cream -) 1 applic TP BID [facility] Last Admin: 11/13/18 12:03 Dose: 1 applic Enoxaparin Sodium (Lovenox -) 40 mg SQ DAILY [facility] Last Admin: 11/13/18 09:45 Dose: 40 mg Furosemide (Lasix Injection -) 40 mg IVPUSH DAILY [facility] Last Admin: 11/13/18 10:32 Dose: Not Given Pregabalin (Lyrica -) 50 mg PO TID [facility] Last Admin: 11/13/18 13:29 Dose: 50 mg Roflumilast (Daliresp -) 500 mcg PO DAILY [facility] Last Admin: 11/13/18 09:45 Dose: 500 mcg 73 year old woman with hx of CKD stage 3 (Baseline Cr 0.9-1.1 ) w/o proteinuria, CHF s/p AICD, CVA, COPD who presented with progressive SOB at home and admitted with CHF exacerbation. #CHF/Fluid overload #CKD stage 3 #HTN #COPD Renal function stbal e Continue Lasix IV Dailyas per cardiology recs Trend daily weights, BUN/Cr and electrolytes Thank you Nikolai Orozco DO
[2018-11-13] MEDS: DOCUSATE SODIUM 100 MG CAPSULE (FP) PO SCH (13:59)
[2018-11-13] MEDS: POLYETHYLENE GLYCOL 3350 119 GM BTL PO SCH (13:59)
--- NOTE | 2018-11-13 15:35 | PN ---
Progress Note, Physician History of Present Illness: 73y F CHF, copd, on baseline 3-5 NC, AICD, sp CVA, asthma, htn presents with 1 month of worsening sob, increased leg sewlling and generalized weakness. PT notes she wasnt feeling better on her 5L of NC so called EMS. more difficult ambulting due to her dyspnea and worsening orthopnea PMH s/p Gastric bypass surgery COPD HHD HOCOM HTN Negative MIBI stress test March 2014 Nonobstruct[address] CAD 2009 dr. Aleln [facility] c.cath NSVT s/p AICD [facility] single lead 2009 Sleep apnea on CPAP mask 2014 - Current Medication List Current Medications: Active Medications Albuterol/Ipratropium (Duoneb -) 1 amp NEB Q6H PRN PRN Reason: SHORTNESS OF BREATH Last Admin: 11/12/18 21:15 Dose: 1 amp Aspirin (Ecotrin -) 81 mg PO DAILY [facility] Last Admin: 11/13/18 09:45 Dose: 81 mg Budesonide/Formoterol Fumarate (Symbicort 160/4.5mcg -) 2 puff IH BID [facility] Last Admin: 11/13/18 09:46 Dose: 2 inh Carvedilol (Coreg -) 6.25 mg PO BID [facility] Last Admin: 11/13/18 09:45 Dose: 6.25 mg Clotrimazole (Lotrimin 1% Cream -) 1 applic TP BID [facility] Last Admin: 11/13/18 12:03 Dose: 1 applic Docusate Sodium (Colace -) 300 mg PO DAILY [facility] Last Admin: 11/13/18 13:59 Dose: 300 mg Enoxaparin Sodium (Lovenox -) 40 mg SQ DAILY [facility] Last Admin: 11/13/18 09:45 Dose: 40 mg Furosemide (Lasix Injection -) 40 mg IVPUSH DAILY [facility] Last Admin: 11/13/18 10:32 Dose: Not Given Polyethylene Glycol (Miralax (For Daily Use) -) 17 gm PO DAILY [facility] Last Admin: 11/13/18 13:59 Dose: 17 gm Pregabalin (Lyrica -) 50 mg PO TID [facility] Last Admin: 11/13/18 13:29 Dose: 50 mg Roflumilast (Daliresp -) 500 mcg PO DAILY [facility] Last Admin: 11/13/18 09:45 Dose: 500 mcg - Objective Vital Signs: Vital Signs Temperature 98.2 F 11/13/18 14:00 Pulse Rate 89 11/13/18 14:00 Respiratory Rate 18 11/13/18 10:00 Blood Pressure 113/54 L 11/13/18 14:00 O2 Sat by Pulse Oximetry (%) 98 11/13/18 04:05 Eyes: Yes: WNL, Conjunctiva Clear, EOM Intact HENT: Yes: WNL, Atraumatic, Normocephalic Neck: Yes: WNL, Supple, Trachea Midline Cardiovascular: Yes: WNL, Regular Rate and Rhythm, Murmur, S1, S2 Respiratory: Yes: WNL, Regular, CTA Bilaterally Gastrointestinal: Yes: WNL, Normal Bowel Sounds Genitourinary: Yes: WNL Musculoskeletal: Yes: WNL Extremities: Yes: WNL Edema: No Integumentary: Yes: WNL Neurological: Yes: WNL, Alert, Oriented ...Motor Strength: WNL Psychiatric: Yes: WNL Labs: CBC, BMP 11/13/18 07:45 11/13/18 07:45 INR, PTT INR 1.03 (0.83-1.09) 11/11/18 12:22 Problem List - Problems (1) Acute diastolic heart failure Code(s): I50.31 - ACUTE DIASTOLIC (CONGESTIVE) HEART FAILURE (2) Bowel obstruction Code(s): K56.609 - UNSP INTESTNL OBST, UNSP TO PARTIAL VERSUS COMPLETE OBST (3) CHF (congestive heart failure) Code(s): I50.9 - HEART FAILURE, UNSPECIFIED (4) DVT femoral (deep venous thrombosis) with thrombophlebitis Code(s): I82.419 - ACUTE EMBOLISM AND THROMBOSIS OF UNSPECIFIED FEMORAL VEIN (5) Dental caries Code(s): K02.9 - DENTAL CARIES, UNSPECIFIED (6) Generalized weakness Code(s): R53.1 - WEAKNESS (7) Partial small bowel obstruction Code(s): K56.600 - PARTIAL INTESTINAL OBSTRUCTION, UNSPECIFIED TO CAUSE (8) AICD (automatic cardioverter/defibrillator) present Code(s): Z95.810 - PRESENCE OF AUTOMATIC (IMPLANTABLE) CARDIAC DEFIBRILLATOR (9) COPD (chronic obstructive pulmonary disease) Code(s): J44.9 - CHRONIC OBSTRUCTIVE PULMONARY DISEASE, UNSPECIFIED Qualifiers: COPD type: unspecified COPD Qualified Code(s): J44.9 - Chronic obstructive pulmonary disease, unspecified (10) H/O gastric bypass Code(s): Z98.84 - BARIATRIC SURGERY STATUS (11) H/O: CVA (cerebrovascular accident) Code(s): Z86.73 - PRSNL HX OF TIA (TIA), AND CEREB INFRC W/O RESID DEFICITS (12) HTN (hypertension) Code(s): I10 - ESSENTIAL (PRIMARY) HYPERTENSION Qualifiers: Hypertension type: essential hypertension Qualified Code(s): I10 - Essential (primary) hypertension (13) Obesity (BMI 30.0-34.9) Code(s): E66.9 - OBESITY, UNSPECIFIED Assessment/Plan - Problems (1) Status post gastric bypass for obesity Assessment/Plan: F/u nutrition consult (s/p gastric bypass surgery; pt has regained much of the lost weight, and is worried by it). Code(s): Z98.84 - BARIATRIC SURGERY STATUS (2) Acute respiratory failure with hypoxia Assessment/Plan: F/u with music coordinator. F/u CT chest (recommended after two small pleura-based nodules in left lung were noted on CT in 2016). Code(s): J96.01 - ACUTE RESPIRATORY FAILURE WITH HYPOXIA (3) AICD (automatic cardioverter/defibrillator) present Code(s): Z95.810 - PRESENCE OF AUTOMATIC (IMPLANTABLE) CARDIAC DEFIBRILLATOR (4) COPD (chronic obstructive pulmonary disease) Assessment/Plan: medication regimen per music coordinator. Code(s): J44.9 - CHRONIC OBSTRUCTIVE PULMONARY DISEASE, UNSPECIFIED Qualifiers: COPD type: unspecified COPD Qualified Code(s): J44.9 - Chronic obstructive pulmonary disease, unspecified (5) HTN (hypertension) Assessment/Plan: on carvedilol and furosemide. Code(s): I10 - ESSENTIAL (PRIMARY) HYPERTENSION Qualifiers: Hypertension type: essential hypertension Qualified Code(s): I10 - Essential (primary) hypertension (6) Sedentary lifestyle Assessment/Plan: Physical therapy would be of benefit (pt c/o back, hip, and knee pains). Weight loss is sorto. Code(s): Z91.89 - OTH PERSONAL RISK FACTORS, NOT ELSEWHERE CLASSIFIED chf improved with iv lasix- changed to qd today. Change it to PO and d/c in am
[2018-11-13 18:32] VITALS: BMI 32.4
[2018-11-13] MEDS ORDERED: MELATONIN 5 MG TABLETS PO ONE (22:13)
[2018-11-14] MEDS: PREGABALIN 50 MG CAPSULE PO SCH (05:22)
[2018-11-14 09:13] LABS: ANION GAP 9 MMOL/L (8-16); BLOOD UREA NITROGEN 21 mg/dL (7-18); CALCIUM 8.9 mg/dL (8.5-10.1); CHLORIDE 108 mmol/L (98-107); CO2 26 mmol/L (21-32); CREATININE 1.1 mg/dL (0.55-1.3); GLUCOSE,RANDOM 178 mg/dL (74-106); MAGNESIUM 2.2 mg/dL (1.8-2.4); PHOSPHOROUS 3.8 mg/dL (2.5-4.9); POTASSIUM 3.8 mmol/L (3.5-5.1); SODIUM 143 mmol/L (136-145)
[2018-11-14] MEDS ORDERED: PT OWN MED DRAWER 7, Y5N ONE (09:19)
[2018-11-14] MEDS: ROFLUMILAST 500 MCG TABLET PO SCH (09:23)
[2018-11-14] MEDS: CARVEDILOL 6.25 MG TABLET (FP) PO SCH (09:23)
[2018-11-14] MEDS: ENOXAPARIN NA (PORCINE) 40 MG/0.4 ML DISP.SYRIN SQ SCH (09:23)
[2018-11-14] MEDS: DOCUSATE SODIUM 100 MG CAPSULE (FP) PO SCH (09:23)
[2018-11-14] MEDS: FUROSEMIDE 40 MG/4 ML INJECTABLE VIAL IVPUSH SCH (09:23)
[2018-11-14] MEDS: ASPIRIN COATED 81 MG TABLET.EC PO SCH (09:23)
[2018-11-14] MEDS: CLOTRIMAZOLE 1% CREAM 15 GM TUBE TP SCH (09:24)
[2018-11-14] MEDS: BUDESONIDE/FORMETEROL FUMARATE 160/4.5 mcg INHALER IH SCH (09:24)
[2018-11-14] MEDS: POLYETHYLENE GLYCOL 3350 119 GM BTL PO SCH (09:24)
[2018-11-14] MEDS ORDERED: POTASSIUM CHLORIDE TABS 20 MEQ TABLET.ER (FP) PO ONE (10:07)
[2018-11-14] MEDS ORDERED: traMADol HCL 50 MG TABLET PO PRN (10:22)
[2018-11-14] MEDS ORDERED: ACETAMINOPHEN 325 MG TABLET (FP) PO PRN (10:35)
--- NOTE | 2018-11-14 10:58 | DS ---
Physical Examination Vital Signs: Vital Signs Temperature 97.6 F 11/14/18 06:30 Pulse Rate 71 11/14/18 06:30 Respiratory Rate 20 11/14/18 06:30 Blood Pressure 108/64 11/14/18 06:30 O2 Sat by Pulse Oximetry (%) 94 L 11/13/18 21:00 Constitutional: Yes: Well Nourished, No Distress, Obese Cardiovascular: Yes: Regular Rate and Rhythm Respiratory: Yes: WNL, Regular, CTA Bilaterally, On Nasal O2. No: Accessory Muscle Use, SOB, Tachypnea, Wheezes Gastrointestinal: Yes: WNL, Normal Bowel Sounds, Soft, Abdomen, Obese. No: Distention, Tenderness Renal/: Yes: WNL Edema: Yes Edema: LLE: Trace, RLE: Trace Neurological: Yes: WNL, Alert, Oriented Psychiatric: Yes: WNL, Alert, Oriented Labs: CBC, BMP 11/13/18 07:45 11/14/18 08:30 Discharge Summary Reason For Visit: CONGESTIVE HEART FAILURE Current Active Problems Acute exacerbation of congestive heart failure (Acute) Acute respiratory failure with hypoxia (Acute) CAD (coronary artery disease) (Acute) CHF (congestive heart failure) (Acute) CKD (chronic kidney disease) (Acute) Constipation (Acute) Hypokalemia (Acute) Hypomagnesemia (Acute) Intertrigo (Acute) Peripheral neuropathy (Acute) Sedentary lifestyle (Acute) Status post gastric bypass for obesity (Acute) Hospital Course: 73 year old female pmh of HTN, CHF s/p AICD, CVA w/ residual left side weakness , COPD(3L O2 at home), peripheral neuropathy admitted for acute chf exacerbation. Suspect this 2/2 non compliance at home as pt reported she was not taking medications at home for no apparent reason. Pt clinically improved with iv diuresis. Pt transitioned to po lasix per cardiology. Vitals/labs stable. Advise compliance with medications and follow up. Pt is medically stable for discharge home w/ VNS. 40 minutes spent in discharge planning Condition: Improved - Instructions Diet, Activity, Other Instructions: LOW NA DIET AT HOME CONTINUE O2 3L CPAP PER PCP DAILY WEIGHTS AND KEEP LOG AND BRING IT WITH YOU WHEN YOU FOLLOW UP INFORM CARDIOLOGY OR PCP IF WEIGHTGAIN>3LBS/DAY TAKE MEDICATIONS DIRECTED- ALL MEDS HAVE BEEN REFILLED AND SENT TO PHARMACY TRAMADOL NEEDED FOR PAIN CALL REGARDING FOLLOW UP Referrals: Brigida Carlos MD [Staff Physician] - Leeanne Monterroso MD [Non Staff, Medical] - 1 Week Emile Salinas MD [Staff Physician] - 1 Week Disposition: VNS/HOME HEALTH CARE - Home Medications Comprehensive Discharge Medication List: Ambulatory Orders Aspirin [Aspir 81] 81 mg PO DAILY 02/23/12 Multivitamin [Once Daily] 1 each PO DAILY 11/19/13 Budesonide/Formeterol Fumarate [SYMBICORT 160/4.5mcg -] 2 puff IH BID 11/11/18 Budesonide/Formeterol Fumarate [SYMBICORT 160/4.5mcg -] 2 puff IH BID #1 inhaler 11/14/18 Carvedilol [Coreg -] 6.25 mg PO BID #60 tablet 11/14/18 Clotrimazole [Lotrimin -] 1 applic TP BID #1 tube 11/14/18 Docusate Sodium [Colace -] 300 mg PO DAILY #60 capsule 11/14/18 Furosemide [Lasix] 40 mg PO DAILY #30 tablet 11/14/18 Polyethylene Glycol 3350 [Miralax 119 gm Btl -] 17 gm PO DAILY #1 bottle Pregabalin [Lyrica -] 50 mg PO TID #42 capsule MDD 200 11/14/18 Roflumilast [Daliresp -] 500 mcg PO DAILY #30 tablet 11/14/18 traMADol HCL [Ultram -] 50 mg PO Q8H PRN #21 tablet MDD 150 11/14/18
[2018-11-14 11:09] VITALS: BP 123/68; PULSE 77; TEMP 97.7
[2018-11-15] MEDS ORDERED: FUROSEMIDE 40 MG TABLET (FP) PO SCH (10:00)
== END 2018-11-14 14:54 | disposition home health service (06) | DRG 291 ==
LOC: JER 11:18 → JERBED 15:13 → J4W 11-12 06:47
PROVIDERS: ADMIT Internal Medicine; ATTEND Nurse Practitioner Family
DX: I13.0 Hypertensive heart and chronic kidney disease with heart failure and stage 1 through stage 4 chronic kidney disease, or unspecified chronic kidney disease (principal); I50.33 Acute on chronic diastolic (congestive) heart failure; J96.01 Acute respiratory failure with hypoxia; I69.354 Hemiplegia and hemiparesis following cerebral infarction affecting left non-dominant side; N18.3 Chronic kidney disease, stage 3 (moderate); J44.9 Chronic obstructive pulmonary disease, unspecified; E66.01 Morbid (severe) obesity due to excess calories; E87.6 Hypokalemia; E83.42 Hypomagnesemia; Z99.81 Dependence on supplemental oxygen; Z95.810 Presence of automatic (implantable) cardiac defibrillator; J45.909 Unspecified asthma, uncomplicated; Z87.891 Personal history of nicotine dependence; F10.10 Alcohol abuse, uncomplicated; Z98.84 Bariatric surgery status; R21 Rash and other nonspecific skin eruption; I25.10 Atherosclerotic heart disease of native coronary artery without angina pectoris; G47.30 Sleep apnea, unspecified; G62.9 Polyneuropathy, unspecified; Z68.35 Body mass index [BMI] 35.0-35.9, adult; Z91.14 Patient's other noncompliance with medication regimen; L30.4 Erythema intertrigo; Z72.89 Other problems related to lifestyle
CPT/HCPCS: 36415; 71045-TC-FY; 80048; 80053; 80061; 81003; 81015; 82803; 83721; 83735; 83880; 84100; 84443; 84484; 85025; 85610; 85730; 86850; 86900; 86901; 87040; 87086; 93005; 93010; 93306-TC; 94640; 94660; 97116-GP; 97162-GP; 99285-25

== ENCOUNTER 2019-02-25 11:10 | Observation (INO) | payer MEDICARE, OTHER | END 2019-02-27 17:16 | disposition home health service (06) | LOC: J5S 02-26 00:09 → JER 11:10 → JERBED 15:50 ==

== ENCOUNTER 2019-07-03 10:40 | Emergency (ER) | payer MEDICARE, OTHER ==
[2019-07-03 11:01] VITALS: BP 122/78; PULSE 70; TEMP 98.2; BMI 34.4
--- NOTE | 2019-07-03 11:20 | PDOC ---
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 Pt states when she left the house to go to her appointment, she felt immediately SOB without her oxygen and "used this inhaler (symbicort) a bunch of times". Pt states she has been non-compliant with all of her medications over the past year ("I don't know why"), and she used this MDI much more than usual today. At the cardiologists office, she had "shaking in both of her hands that she couldn't control" and the office staff thought "she was having a seizure". The pt was awake and speaking during this episode, and the pt remembers the incident. The pt states she still has the tremors but they have improved, and has never had this problem before. Pt states "I am always short of breath" but cannot say if it is worse than baseline. Pt denies any fevers/chills, headache, cough or congestion, vision changes, syncope, chest pain, palpitations, nausea/vomiting, abdominal pain, urinary symptoms, diarrhea/constipation, or leg swelling. Allergies: NKDA PCP: Dr. Monterroso Neuro: Dr. Martinez Pain: Dr. Ramirez Cards: Dr. Salinas Social: Pt denies any cigarette, alcohol, or drug use. Pt denies any recent travel or sick contacts. Surgical: AICD placement, gastric bypass Family: no relevant history. 07/03/19 13:30 07/03/19 14:14 Past History - Travel Traveled outside of the country in the last 30 days: No Close contact w/someone who was outside of country & ill: No - Past Medical History Allergies/Adverse Reactions: Allergies Allergy/AdvReac Type Severity Reaction Status Date / Time No Known Allergies Allergy Verified 07/03/19 10:58 Home Medications: Ambulatory Orders Aspirin [Aspir 81] 81 mg PO DAILY 02/23/12 Multivitamin [Once Daily] 1 each PO DAILY 11/19/13 Budesonide/Formeterol Fumarate [SYMBICORT 160/4.5mcg -] 2 puff IH BID #1 inhaler 11/14/18 Carvedilol [Coreg -] 6.25 mg PO BID #60 tablet 11/14/18 Docusate Sodium [Colace -] 300 mg PO DAILY #60 capsule 11/14/18 Furosemide [Lasix] 40 mg PO DAILY #30 tablet 11/14/18 Polyethylene Glycol 3350 [Miralax 119 gm Btl -] 17 gm PO DAILY #1 bottle Roflumilast [Daliresp -] 500 mcg PO DAILY #30 tablet 11/14/18 Cyclobenzaprine HCl 5 mg PO TID PRN #42 tablet 02/27/19 Gabapentin [Neurontin -] 100 mg PO TID #90 capsule 02/27/19 Lidocaine 5% Patch [Lidoderm -] 1 patch TP DAILY #30 patch 02/27/19 Anemia: No Asthma: Yes (ON 02 5L/MIN PRN) Cancer: No Cardiac Disorders: Yes CVA: Yes (2000 LEFT SIDED WEAKNESS) COPD: Yes CHF: Yes Dementia: No Diabetes: No GI Disorders: No Disorders: No HTN: Yes Hypercholesterolemia: No Liver Disease: No Seizures: No Thyroid Disease: No - Surgical History Abdominal Surgery: Yes (GASTRIC BYPASS OWEN [employer]HE[employer],) Appendectomy: No Cardiac Surgery: Yes (icd) Cholecystectomy: No Lung Surgery: No Neurologic Surgery: No Orthopedic Surgery: No (2000 SURGERY ON NECK,REMOVAL BOILS BOTH ARMPIT) - Immunization History Td Vaccination: No Immunization Up to Date: Yes - Suicide/Smoking/Psychosocial Hx Smoking Status: Yes Smoking History: Never smoked Have you smoked in the past 12 months: No Number of Cigarettes Smoked Daily: 5 If you are a former smoker, when did you quit?: 3 years ago 'Breaking Loose' booklet given: 03/09/15 Hx Alcohol Use: No Drug/Substance Use Hx: No Substance Use Type: None Hx Substance Use Treatment: No Review of Systems - Review of Systems Able to Perform ROS?: Yes (limited, poor historian) Constitutional: Yes: Weight Stable. No: Fever, Loss of Appetite, Malaise, Weakness HEENTM: No: Recent change in vision, Nose Congestion, Throat Pain Respiratory: Yes: Shortness of Breath, SOB with Exertion, SOB at Rest. No: Cough, Orthopnea, Wheezing, Productive cough, Hemoptysis Cardiac (ROS): No: Chest Pain, Edema, Irregular Heart Rate, Lightheadedness, Palpitations, Syncope, Chest Tightness ABD/GI: No: Constipated, Diarrhea, Nausea, Vomiting : No: Burning, Pain, Urgency Musculoskeletal: No: Other (chronic pain in knees, not new) Integumentary: No: Rash Neurological: No: Headache, Weakness, Unsteady Gait (ambulatory with walker), Dizziness Psychiatric: No: Sleep Pattern Change, Change in Appetite Endocrine: No: Increased Urine, Change in Weight Hematologic/Lymphatic: No: Anemia, Blood Clots *Physical Exam - Vital Signs Last Vital Signs Temp Pulse Resp BP Pulse Ox 98.2 F 70 16 122/78 87 L 07/03/19 10:59 07/03/19 10:59 07/03/19 10:59 07/03/19 10:59 07/03/19 10:59 - Physical Exam Comments: Hypoxic on arrival (improved to 95% on 3L NC), pt afebrile. Pt in NAD, obese body habitus. Pt alert and oriented x3. patient services coordinator generally intact, muscular strength and sensation intact. B/l hand tremors present. Mildly decreased strength on the L arm and leg (pt baseline) Edema R knee (pt states chronic from arthritis) No midline spinal tenderness, step-offs, or crepitus. Head normocephalic, atraumatic. Eyes PERRLA, EOMI. Oropharynx without erythema or exudates, no LAD b/l. No nasal congestion, hearing intact. Clear heart sounds, S1/S2, no JVD, b/l pedal edema, or heart murmur. Clear lung sounds, no respiratory distress, wheezes, crackles, or accessory muscle use. No abdominal or CVA tenderness to palpation, no rebound, no guarding. Abdomen soft, non-distended, and with normoactive bowel sounds. Skin without jaundice or rash. 07/03/19 14:22 07/03/19 14:31 07/03/19 16:23 ED Treatment Course - LABORATORY CBC & Chemistry Diagram: 07/03/19 12:56 07/03/19 12:36 Medical Decision Making - Medical Decision Making Pt was seen at bedside, also will be seen by attending Dr. Vargas. Pt presenting with shaking activity from Cardiology clinic, shortly after taking large dose of symbicort MDI. Pt has never had seizure activity in the past, and did not have LOC or incontinence. Will evaluate with labs, chest x-ray, EKG to look for CHF vs COPD exacerbations vs ACS vs infection vs electrolyte abnormalities. Provided 3L NC O2, which improved pts O2. Will continue to reassess pt and monitor for symptomatic improvement. ECG: NSR, LAD, intervals WNL (HR 71, AZ 162, QRS 96, QTc 460). No TWIs or significant ST segment changes. No significant changes from prior ECG (02/25/2019 ). 07/03/19 14:31 Chest x-ray with no acute pathology. Spoke with Dr. Salinas, who states pt had no LOC, but generalized shaking - - will obtain non-contrast head CT. Labs WNL for pt Trop <.02 with no ECG changes; BNP 818 (improved from prior admissions). 07/03/19 14:33 Pt has been eating and stable in ER, has not provided urine sample yet. Pt taken for head CT. 07/03/19 15:26 CT head negative for acute pathology UA pending 07/03/19 15:49 UA negative for infection Pt can be discharged to home with follow-up. Pt advised to follow-up with PCP in 1-2 days and has been referred to neurology. Strict return precautions provided with pt understanding. 07/03/19 16:22 *DC/Admit/Observation/Transfer Diagnosis at time of Disposition: Tremors of nervous system COPD (chronic obstructive pulmonary disease) Qualifiers: COPD type: unspecified COPD Qualified Code(s): J44.9 - Chronic obstructive pulmonary disease, unspecified - Discharge Dispostion Disposition: HOME Condition at time of disposition: Improved Decision to Admit order: No - Referrals Referrals: Leeanne Monterroso MD [Primary Care Provider] - Charles Martinez MD [Staff Physician] - - Patient Instructions Printed Discharge Instructions: DI for Chronic Obstructive Pulmonary Disease, DI for Seizure Disorder -- Adult Additional Instructions: You were seen in the ER today for shaking or tremors. The results of your labs and imaging today were normal for your baseline. Please follow-up with your primary care doctor and neurologist (Dr. Martinez) within 1-2 days to discuss your visit and make sure your symptoms have improved. Please return to the ER if you have any worsening pain or continued shaking activity, development of fevers or chills, loss of consciousness, inability to tolerate food or fluids, or any other concerns. - Post Discharge Activity
[2019-07-03 13:08] LABS: BASO % 0.6 % (0-2.0); EOS % 0.1 % (0-4.5); HEMATOCRIT 45.2 % (32.4-45.2); HEMOGLOBIN 14.6 GM/dL (10.7-15.3); LYMPH % 9.3 % (8-40); MCHC 32.3 g/dl (32.0-36.0); MEAN CELL VOLUME 96.1 fl (80-96); MEAN PLT VOLUME 9.4 fl (7.5-11.1); MONO % 5.4 % (3.8-10.2); NEUT % 84.6 % (42.8-82.8); PLATELET COUNT 230 K/MM3 (134-434); RDW 13.7 % (11.6-15.6); WHITE BLOOD COUNT 7.7 K/mm3 (4.0-10.0)
[2019-07-03 13:36] LABS: INR 1.01 (0.83-1.09); PROTHROMBIN TIME (PATIENT) 11.9 SEC (9.7-13.0)
[2019-07-03 13:46] LABS: ALBUMIN 3.6 g/dl (3.4-5.0); BILIRUBIN,TOTAL 0.3 mg/dL (0.2-1); BLOOD UREA NITROGEN 16.3 mg/dL (7-18); CREATININE 1.1 mg/dL (0.55-1.3); POTASSIUM 4.2 mmol/L (3.5-5.1); TOT PROT 7.1 g/dl (6.4-8.2)
--- NOTE | 2019-07-03 14:30 | PDOC ---
Attending Attestation - Resident Resident Name: Elda Snell - ED Attending Attestation I have performed the following: I have examined & evaluated the patient, The case was reviewed & discussed with the resident, I agree w/resident's findings & plan, Exceptions are as noted - HPI HPI: 07/03/19 14:25 74 F with h/o HTN, CHF (s/p AICD), CVA (L-sided deficits), COPD (3L home O2), and lumbar radiculopathy presenting to ED for shaking of her extremities today. Pt states that she was at Dr. Salinas's office for a routine visit this morning. While she was getting an EKG done, pt states that she began to shake. She states that her arms and legs were all tremoring uncontrollably. She denies LOC. Does not recall how long the episode lasted but states that it resolved spontaneously. Pt currently denies any symptoms. Denies fevers. Endorses chronic SOB due to COPD. No new cough. No dysuria. No abdominal pain/N/V/D. - Physicial Exam PE: 07/03/19 14:29 "GENERAL: Awake, alert, and fully oriented, in no acute distress. HEAD: No signs of trauma EYES: PERRLA, EOMI, sclera anicteric, conjunctiva clear ENT: Auricles normal inspection, hearing grossly normal, nares patent, oropharynx clear without exudates. Moist mucosa NECK: Nontender, no stepoffs, Normal ROM, supple, no lymphadenopathy, JVD, or masses LUNGS: Breath sounds equal, clear to auscultation bilaterally. No wheezes, and no crackles HEART: Regular rate and rhythm, normal S1 and S2, no murmurs, rubs or gallops ABDOMEN: Soft, nontender, normoactive bowel sounds. No guarding, no rebound. No masses EXTREMITIES: Normal range of motion, no edema. No clubbing or cyanosis. No cords, erythema, or tenderness NEUROLOGICAL: Cranial nerves II through XII intact. 5/5 strength and sensation in all extremities, Normal speech, normal gait, normal cerebellar function SKIN: Warm, Dry, normal turgor, no rashes or lesions noted. - Medical Decision Making 07/03/19 14:30 74 F with possible rigors vs tremors today. Pt notes whole body shaking. Possible seizure, but pt was awake the entire time. Will evaluate for infectious process. Obtain head CT to r/o intracranial process. Pt neurologically nonfocal in ED. Vitals in triage notable for O2 sat 87. However, pt was on room air and is uses 3L home O2 chronically. O2 sat on 2L oxygen s 96. - Labs - CXR, UA - CT head 07/03/19 15:51 CT head negative Labs wnl CXR and UA with no evidence of infection Pt with no recurrent episodes of shaking. Will give neuro f/u Pt is well appearing, with normal vitals. Clinically stable for DC at this time. I discussed the physical exam findings, ancillary test results and final diagnoses with the patient. I answered all of the patient's questions. The patient was satisfied with the care received and felt comfortable with the discharge plan and treatment plan. The patient agrees to follow up with the primary care physician within 24-72 hours.
[2019-07-03 15:57] LABS: PH,URINE 5.5 (5.0-8.0); URINE APPEARANCE Clear; URINE BILIRUBIN Negative (NEGATIVE); URINE COLOR Yellow; URINE GLUCOSE (UA) Negative (NEGATIVE); URINE KETONE Negative (NEGATIVE); URINE LEUK ESTERASE Negative (NEGATIVE); URINE NITRITE Negative (NEGATIVE); URINE PROTEIN Negative (NEGATIVE); URINE UROBILINOGEN 0.2 mg/dL (0.2-1.0)
--- NOTE | 2019-07-04 14:39 | EKG ---
Test Reason : Blood Pressure : / mmHG Vent. Rate : 071 BPM Atrial Rate : 071 BPM P-R Int : 162 ms QRS Dur : 096 ms QT Int : 424 ms P-R-T Axes : 046 -34 050 degrees QTc Int : 460 ms NORMAL SINUS RHYTHM LEFT AXIS DEVIATION ABNORMAL ECG WHEN COMPARED WITH ECG OF 25-FEB-2019 14:41, NO SIGNIFICANT CHANGE WAS FOUND Confirmed by SIMBA ECHAVARRIA MD ([id number]) on 07/04/2019 2:39:37 PM Referred By: Confirmed By:SIMBA ECHAVARRIA MD
== END 2019-07-03 17:41 | disposition home or self-care (01) ==
LOC: JER 10:40
DX: G25.1 Drug-induced tremor (principal); J44.9 Chronic obstructive pulmonary disease, unspecified; I25.10 Atherosclerotic heart disease of native coronary artery without angina pectoris; I11.0 Hypertensive heart disease with heart failure; I50.9 Heart failure, unspecified; I69.854 Hemiplegia and hemiparesis following other cerebrovascular disease affecting left non-dominant side; M54.16 Radiculopathy, lumbar region; Z99.81 Dependence on supplemental oxygen; Z95.810 Presence of automatic (implantable) cardiac defibrillator
CPT/HCPCS: 36415; 70450-TC; 71045-TC-FY; 80053; 81003; 82550; 83735; 83880; 84484; 85025; 85610; 93005; 93010; 99283-25

== ENCOUNTER 2019-10-21 10:38 | Inpatient (IN) | payer MEDICARE, OTHER ==
[2019-10-21] MEDS ORDERED: ALBUTEROL SO4 2.5/IPRATROPIUM 0.5 INH SOL 3 ML VIAL.NEB. NEB ONE ×2 (11:17→11:25)
[2019-10-21 12:10] LABS: BASO % 0.9 % (0-2.0); EOS % 1.3 % (0-4.5); HEMATOCRIT 44.6 % (32.4-45.2); HEMOGLOBIN 14.7 GM/dL (10.7-15.3); MCH 30.7 pg (25.7-33.7); MEAN CELL VOLUME 93.2 fl (80-96); MEAN PLT VOLUME 9.6 fl (7.5-11.1); MONO % 9.2 % (3.8-10.2); NEUT % 63.6 % (42.8-82.8); PLATELET COUNT 280 K/MM3 (134-434); RBC 4.78 M/mm3 (3.60-5.2); RDW 13.5 % (11.6-15.6); WHITE BLOOD COUNT 7.1 K/mm3 (4.0-10.0)
--- NOTE | 2019-10-21 12:18 | PDOC ---
History of Present Illness - General Chief Complaint: Respiratory Stated Complaint: DIFFICULTY BREATHING Time Seen by Provider: 10/21/19 10:53 History Source: Patient Exam Limitations: No Limitations - History of Present Illness Initial Comments: 10/21/19 12:18 74y F with PMH of AICD, CVA with L sided weakness, HTN, COPD on 3L NC presenting for sob, cough, congestion, aches. Pt states symptoms started a few days ago and thinks she might have pneumonia because the nasal cannula was dirty. cough is productive of white phlegm. She also complains of aches in the legs. She denies chest pain, increasing use of oxygen, headaches, weakness, numbness/tingling, back pain, abdominal pain, n/v/d, changes in vision, recent antibiotic use. Past History - Past Medical History Allergies/Adverse Reactions: Allergies Allergy/AdvReac Type Severity Reaction Status Date / Time No Known Allergies Allergy Verified 10/21/19 11:06 Home Medications: Ambulatory Orders Fluticasone/Umeclidin/Vilanter [Trelegy Ellipta 100-62.5-25] 1 each IH DAILY 05/03 Ipratropium/Albuterol Sulfate [Iprat-Albut 0.5-3(2.5) mg/3 ml] 3 ml IH PRN 10/21 Losartan Potassium [Cozaar -] 50 mg PO DAILY 10/21/19 Aspirin [Adult Aspirin Regimen] 1 tablet PO DAILY 10/22/19 Anemia: No Asthma: Yes (ON 02 5L/MIN PRN) Cancer: No Cardiac Disorders: Yes CVA: Yes (2000 LEFT SIDED WEAKNESS) COPD: Yes CHF: Yes Dementia: No Diabetes: No GI Disorders: No Disorders: No HTN: Yes Hypercholesterolemia: No Liver Disease: No Seizures: No Thyroid Disease: No - Surgical History Abdominal Surgery: Yes (GASTRIC BYPASS [employer] PACHE[employer],) Appendectomy: No Cardiac Surgery: Yes (icd) Cholecystectomy: No Lung Surgery: No Neurologic Surgery: No Orthopedic Surgery: No (2000 SURGERY ON NECK,REMOVAL BOILS BOTH ARMPIT) - Immunization History Td Vaccination: No Immunization Up to Date: Yes - Psycho Social/Smoking Cessation Hx Smoking Status: Yes Smoking History: Former smoker Have you smoked in the past 12 months: No Number of Cigarettes Smoked Daily: 5 If you are a former smoker, when did you quit?: 3 years ago Information on smoking cessation initiated: No 'Breaking Loose' booklet given: 03/09/15 Hx Alcohol Use: No Drug/Substance Use Hx: No Substance Use Type: None Hx Substance Use Treatment: No Review of Systems - Review of Systems Constitutional: Yes: See HPI HEENTM: Yes: See HPI Respiratory: Yes: See HPI Cardiac (ROS): No: Symptoms Reported ABD/GI: No: Symptoms Reported : No: Symptoms Reported Musculoskeletal: Yes: See HPI Integumentary: No: Symptoms Reported Neurological: No: Symptoms reported *Physical Exam - Vital Signs Last Vital Signs Temp Pulse Resp BP Pulse Ox 98 F 83 24 H 143/94 95 10/21/19 11:01 10/21/19 11:01 10/21/19 11:01 10/21/19 11:10/21/19 11:15 - Physical Exam General Appearance: Yes: Nourished, Appropriately Dressed. No: Apparent Distress HEENT: positive: EOMI, MERNA, Normal ENT Inspection Neck: positive: Trachea midline, Supple Respiratory/Chest: positive: Labored Respiration, Crackles, Rhonchi, Wheezing. negative: Chest Tender, Respiratory Distress, Accessory Muscle Use, Rapid RR, Decreased Breath Sounds, Stridor Cardiovascular: positive: Regular Rhythm, Regular Rate, S1, S2. negative: Edema , JVD, Murmur Vascular Pulses: Dorsalis-Pedis (R): 2+, Doralis-Pedis (L): 2+ Gastrointestinal/Abdominal: positive: Normal Bowel Sounds, Soft. negative: Tender Musculoskeletal: positive: Normal Inspection. negative: CVA Tenderness, Decreased Range of Motion, Vertebral Tenderness Extremity: positive: Normal Capillary Refill. 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, Fully Oriented, Alert, Normal Mood/ Affect, Normal Response, Motor Strength /5 ED Treatment Course - LABORATORY CBC & Chemistry Diagram: 10/22/19 12:15 10/22/19 12:15 - ADDITIONAL ORDERS Additional order review: 10/21/19 11:44 RBC 4.78 MCV 93.2 MCHC 33.0 RDW 13.5 MPV 9.6 Neutrophils % 63.6 D Lymphocytes % 25.0 D Monocytes % 9.2 Eosinophils % 1.3 D Basophils % 0.9 - RADIOLOGY Radiology Studies Ordered: Category Date Time Status CHEST X-RAY PORTABLE* [RAD] Stat Radiology 10/21/19 11:06 Taken - Medications Given in the ED: ED Medications Discontinued Medications Generic Name Dose Route Start Last Admin Trade Name Echo PRN Reason Stop Dose Admin Albuterol/Ipratropium 2 amp 10/21/19 11:17 10/21/19 11:34 Duoneb - NEB 10/21/19 11:18 2 amp ONCE ONE Administration Medical Decision Making - Medical Decision Making 10/21/19 19:40 74y F with COPD on 3L presenting for sob, cough, congestion. vitals: tachypnea, saturating well on 3L NC. will obtain cardiac labs and basic labs, bnp. -duonebs. labs show no white count, elevated bnp however pt had elevated bnp 10/2018 with normal EF on echo. negative trop, flu negative. cxr does not show any infiltrates or consolidations. ekg: nsr at 83bpm, normal intervals. left axis. no nessa or depressions. upon reassessment, patient is still dyspneic requiring to take breaths inbetween words. o2 requirement increased in interim to 4L. -azithromycin 500mg -solu-medrol will admit for copd exacerbation Discharge - Discharge Information Problems reviewed: Yes Clinical Impression/Diagnosis: COPD exacerbation Condition: Improved - Follow up/Referral - Patient Discharge Instructions - Post Discharge Activity
[2019-10-21 12:25] LABS: INR 1.02 (0.83-1.09)
[2019-10-21 12:34] LABS: N-TERMINAL BNP 1847.2 pg/ml (5-450)
[2019-10-21 12:37] LABS: ALBUMIN 3.4 g/dl (3.4-5.0); BILIRUBIN,TOTAL 0.4 mg/dL (0.2-1); BLOOD UREA NITROGEN 12.6 mg/dL (7-18); CALCIUM 9.1 mg/dL (8.5-10.1); MAGNESIUM 2.1 mg/dL (1.8-2.4); POTASSIUM 4.6 mmol/L (3.5-5.1); TOT PROT 7.1 g/dl (6.4-8.2)
[2019-10-21] MEDS ORDERED: AZITHROMYCIN IVPB 500 MG in DEXTROSE 5%-WATER - 250 ML IVPB ONE (12:52)
[2019-10-21] MEDS ORDERED: methylPREDNISolone NA SUCC 125 MG/2 ML VIAL IVPUSH ONE (12:52)
--- NOTE | 2019-10-21 13:04 | PDOC ---
Documentation entered by Jose Welsh SCRIBE, acting as scribe for Amrit Vargas MD. Amrit Vargas MD: This documentation has been prepared by the Blaise hdez Daniel, SCRIBE, under my direction and personally reviewed by me in its entirety. I confirm that the documentation accurately reflects all work, treatment, procedures, and medical decision making performed by me. Attending Attestation - Resident Resident Name: Sa Adryira - ED Attending Attestation I have performed the following: I have examined & evaluated the patient, The case was reviewed & discussed with the resident, I agree w/resident's findings & plan, Exceptions are as noted - HPI HPI: 10/21/19 13:04 74 F with h/o HTN, CHF (s/p AICD), CVA (L-sided deficits), COPD (3L home O2), and lumbar radiculopathy presenting to ED with SOB and cough. Pt states that she has had SOB x 1 week, worsening. Denies F/C. Endorses pain in her chest with coughing. Denies leg swelling. Has been using breathing treatments at home with no improvement. - Physicial Exam PE: 10/21/19 13:05 "GENERAL: Awake, alert, and fully oriented, in no acute distress. HEAD: No signs of trauma EYES: PERRLA, EOMI, sclera anicteric, conjunctiva clear ENT: Auricles normal inspection, hearing grossly normal, nares patent, oropharynx clear without exudates. Moist mucosa NECK: Nontender, no stepoffs, Normal ROM, supple, no lymphadenopathy, JVD, or masses LUNGS: + expiratory wheezes, bibasilar rales HEART: Regular rate and rhythm, normal S1 and S2, no murmurs, rubs or gallops ABDOMEN: Soft, nontender, normoactive bowel sounds. No guarding, no rebound. No masses EXTREMITIES: Normal range of motion, no edema. No clubbing or cyanosis. No cords, erythema, or tenderness NEUROLOGICAL: Cranial nerves II through XII intact. 5/5 strength and sensation in all extremities, Normal speech, normal gait, normal cerebellar function SKIN: Warm, Dry, normal turgor, no rashes or lesions noted. - Medical Decision Making 10/21/19 13:06 74 F with SOB and cough. Exam notable for wheezing and mild rales. Likely COPD exacerbation. - Labs - CXR - Nebs, steroids, azithro
[2019-10-21] MEDS ORDERED: AZITHROMYCIN IVPB 500 MG/250 ML BAG IVPB ONE (13:06)
[2019-10-21] MEDS ORDERED: methylPREDNISolone NA SUCC 125 MG/2 ML VIAL ONE (13:06)
--- NOTE | 2019-10-21 14:49 | EKG ---
Test Reason : Blood Pressure : / mmHG Vent. Rate : 083 BPM Atrial Rate : 083 BPM P-R Int : 144 ms QRS Dur : 084 ms QT Int : 398 ms P-R-T Axes : 048 -54 063 degrees QTc Int : 467 ms NORMAL SINUS RHYTHM POSSIBLE LEFT ATRIAL ENLARGEMENT LEFT AXIS DEVIATION SEPTAL INFARCT , AGE UNDETERMINED ABNORMAL ECG WHEN COMPARED WITH ECG OF 03-JUL-2019 11:53, SEPTAL INFARCT IS NOW PRESENT Confirmed by Colby Chapman ([id number]) on 10/21/2019 2:49:11 PM Referred By: Confirmed By:Colby Chapman
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
[2019-10-21] MEDS ORDERED: ALBUTEROL SO4 0.083% IH SOL 2.5 MG/3 ML VIAL.NEB. NEB SCH (17:15)
[2019-10-21] MEDS ORDERED: FUROSEMIDE 40 MG/4 ML INJECTABLE VIAL IVPB SCH (18:00)
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
--- NOTE | 2019-10-21 19:00 | CON.CARD ---
Consult Consult Specialty:: cardiology Reason for Consultation:: SOB; hx CHF - History of Present Illness Chief Complaint: Pt c/o SOB on minimal exertion History of Present Illness: 74 yr old woman with PM h/o HOCM, with diastolic CHF (2019 ECHO: asymmetric severe septal LVH; normal LVEF, with moderately elevated LVOT gradient); hx nonsustained VT/s/p AICD; CVA with L-sided deficits (CT head 07/03: chronic small vessel ischemia), non-obstructive CAD on coronary angiogram, HTN, COPD ( 3L home O2), obesity/s/p gastric bypass surgery, sleep apnea, and lumbar radiculopathy, now presenting to ED with SOB and cough. Pt states that she has had SOB x 1 week, worsening. Denies F/C. Endorses pain in her chest with coughing. Denies leg swelling. Has been using breathing treatments at home with no improvement. 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, Peripheral Neuropathy Cardio/Vascular: Yes: CAD, CHF, HTN Pulmonary: Yes: Asthma, COPD, O2 Dependent, Sleep Apnea Gastrointestinal: Yes: Other (hx gastric bypass surgery) Reproductive: Yes: Postmenopausal ...: No Musculoskeletal: Yes: Chronic low back pain - Past Surgical History Past Surgical History: Yes: AICD, Bypass (gastric), (1956, 1958), Laminectomy (cervical) - Alcohol/Substance Use Hx Alcohol Use: No History of Substance Use: reports: None - Smoking History Smoking history: Former smoker Have you smoked in the past 12 months: No Aproximately how many cigarettes per day: 5 If you are a former smoker, when did you quit?: 3 years ago - Social History Usual Living Arrangement: With Spouse History of Recent Travel: No Home Medications - Allergies Allergies/Adverse Reactions: Allergies Allergy/AdvReac Type Severity Reaction Status Date / Time No Known Allergies Allergy Verified 10/21/19 11:06 - Home Medications Home Medications: Ambulatory Orders Fluticasone/Umeclidin/Vilanter [Trelegy Ellipta 100-62.5-25] 1 each IH DAILY 05/03 Ipratropium/Albuterol Sulfate [Iprat-Albut 0.5-3(2.5) mg/3 ml] 3 ml IH PRN 01/07 /20 Losartan Potassium [Cozaar -] 50 mg PO DAILY 10/21/19 Family Medical History Family History: Denies Review of Systems - Review of Systems Constitutional: reports: Weakness Cardiovascular: reports: Shortness of Breath Respiratory: reports: SOB Musculoskeletal: reports: Muscle Weakness Neurological: reports: Weakness - Risk Factors Known Risk Factors: Yes: Age, Hypercholesterolemia, Hypertension, Physical Inactivity, Other (HOCM) Vital Signs: Vital Signs Temperature 98.3 F 10/21/19 13:54 Pulse Rate 88 10/21/19 15:00 Respiratory Rate 32 H 10/21/19 15:00 Blood Pressure 148/89 10/21/19 13:54 O2 Sat by Pulse Oximetry (%) 93 L 10/21/19 15:15 Constitutional: Yes: Obese - Other Data Labs, Other Data: CBC, BMP 10/21/19 11:44 10/21/19 11:44 INR, PTT INR 1.02 (0.83-1.09) 10/21/19 11:44 Troponin, BNP 10/21/19 11:44 Troponin I < 0.02 B-Natriuretic Peptide 1847.2 H Troponin, BNP 10/21/19 11:44 Troponin I < 0.02 B-Natriuretic Peptide 1847.2 H Imaging - Results Chest X-ray: Image Reviewed (no acute pathology or process) EKG: Image Reviewed (NSR; LAD; LAE; ?old septal infarct) Problem List - Problems (1) Chronic diastolic (congestive) heart failure Assessment/Plan: Pt does not appear to be in acute heart failure. On carvedilol (HOCM;HTN; NSVT) Avoid excessive dehydration (attempt to use diuretics sparingly with HOCM, as use may worsen LVOT obstruction). f/u BUN/Cr, electrolytes, daily weight, Is and Os. 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 Code(s): J44.9 - CHRONIC OBSTRUCTIVE PULMONARY DISEASE, UNSPECIFIED Qualifiers: COPD type: unspecified COPD Qualified Code(s): J44.9 - Chronic obstructive pulmonary disease, unspecified (6) H/O gastric bypass Code(s): Z98.84 - BARIATRIC SURGERY STATUS (7) H/O: CVA (cerebrovascular accident) Code(s): Z86.73 - PRSNL HX OF TIA (TIA), AND CEREB INFRC W/O RESID DEFICITS (8) HTN (hypertension) Code(s): I10 - ESSENTIAL (PRIMARY) HYPERTENSION Qualifiers: Hypertension type: essential hypertension Qualified Code(s): I10 - Essential (primary) hypertension (9) Peripheral neuropathy Code(s): G62.9 - POLYNEUROPATHY, UNSPECIFIED Qualifiers: Peripheral neuropathy type: polyneuropathy, unspecified Qualified Code(s): G62.9 - Polyneuropathy, unspecified (10) NSVT (nonsustained ventricular tachycardia) Assessment/Plan: Hx NSVT on recent ICD interrogation. Continue carvedilol 6.25 mg bid. F/u electrolytes. Avoid excessive dehydration. Code(s): I47.2 - VENTRICULAR TACHYCARDIA (11) HOCM (hypertrophic obstructive cardiomyopathy) Assessment/Plan: On carvedilol (HOCM;HTN; NSVT). On losartan (HTN); caution with vasodilators in HOCM. F/u ECHO. Use diuretics sparingly to avoid potential worsening of LVOT obstruction. Code(s): I42.1 - OBSTRUCTIVE HYPERTROPHIC CARDIOMYOPATHY
[2019-10-21] MEDS: ALBUTEROL SO4 2.5/IPRATROPIUM 0.5 INH SOL 3 ML VIAL.NEB. NEB SCH (20:40)
[2019-10-21] MEDS: CARVEDILOL 6.25 MG TABLET (FP) PO SCH (21:20)
[2019-10-21] MEDS: methylPREDNISolone NA SUCC 40 MG/1 ML VIAL IVPB SCH (21:20)
[2019-10-21] MEDS ORDERED: MELATONIN 5 MG TABLETS PO ONE (23:31)
[2019-10-22] MEDS: methylPREDNISolone NA SUCC 40 MG/1 ML VIAL IVPB SCH ×4 (04:54→21:15)
[2019-10-22] MEDS: ALBUTEROL SO4 0.083% IH SOL 2.5 MG/3 ML VIAL.NEB. NEB PRN ×2 (05:05→21:10)
[2019-10-22] MEDS ORDERED: FUROSEMIDE 40 MG/4 ML INJECTABLE VIAL IVPUSH SCH ×3 (06:00→18:00)
[2019-10-22] MEDS ORDERED: FUROSEMIDE 40 MG/4 ML INJECTABLE VIAL IVPB SCH (06:00)
[2019-10-22] MEDS ORDERED: PT OWN MED DRAWER 7, Y5N ONE ×2 (08:45→10:30)
[2019-10-22] MEDS: ALBUTEROL SO4 2.5/IPRATROPIUM 0.5 INH SOL 3 ML VIAL.NEB. NEB SCH ×4 (09:15→20:00)
[2019-10-22] MEDS: CARVEDILOL 6.25 MG TABLET (FP) PO SCH ×2 (09:17→21:15)
[2019-10-22] MEDS: ENOXAPARIN NA (PORCINE) 40 MG/0.4 ML DISP.SYRIN SQ SCH (09:17)
[2019-10-22] MEDS: LOSARTAN POTASSIUM 50 MG TABLET (FP) PO SCH (09:17)
[2019-10-22] MEDS: AZITHROMYCIN IVPB 250 MG in DEXTROSE 5%-WATER - 250 ML IVPB SCH (10:43)
--- NOTE | 2019-10-22 12:18 | EKG ---
Test Reason : Blood Pressure : / mmHG Vent. Rate : 066 BPM Atrial Rate : 066 BPM P-R Int : 154 ms QRS Dur : 096 ms QT Int : 446 ms P-R-T Axes : 053 -18 067 degrees QTc Int : 467 ms NORMAL SINUS RHYTHM NORMAL ECG WHEN COMPARED WITH ECG OF 21-OCT-2019 11:01, CRITERIA FOR SEPTAL INFARCT ARE NO LONGER PRESENT Confirmed by DREW MENDEZ, JAMES ([id number]) on 10/22/2019 12:17:47 PM Referred By: Kaden PENA Confirmed By:JAMES RUSSELL MD
--- NOTE | 2019-10-22 12:27 | PN ---
Progress Note, Physician History of Present Illness: 74 yr old woman with PM h/o HOCM, with diastolic CHF (2019 ECHO: asymmetric severe septal LVH; normal LVEF, with moderately elevated LVOT gradient); hx nonsustained VT/s/p AICD; CVA with L-sided deficits (CT head 07/03: chronic small vessel ischemia), non-obstructive CAD on coronary angiogram, HTN, COPD ( 3L home O2), obesity/s/p gastric bypass surgery, sleep apnea, and lumbar radiculopathy, now presenting to ED with SOB and cough. Pt states that she has had SOB x 1 week, worsening. Denies F/C. Endorses pain in her chest with coughing. Denies leg swelling. Has been using breathing treatments at home with no improvement. - Current Medication List Current Medications: Active Medications Albuterol Sulfate (Ventolin 0.083% Nebulizer Soln -) 1 amp NEB Q4H KATY Albuterol Sulfate (Ventolin 0.083% Nebulizer Soln -) 1 amp NEB Q4H PRN PRN Reason: SHORT OF BREATH/WHEEZING Last Admin: 10/22/19 05:05 Dose: 1 amp Albuterol/Ipratropium (Duoneb -) 1 amp NEB RQID [facility] Last Admin: 10/22/19 09:15 Dose: 1 amp Carvedilol (Coreg -) 6.25 mg PO BID [facility] Last Admin: 10/22/19 09:17 Dose: 6.25 mg Enoxaparin Sodium (Lovenox -) 40 mg SQ DAILY [facility] Last Admin: 10/22/19 09:17 Dose: 40 mg Azithromycin 250 mg/ Dextrose 250 mls @ 250 mls/hr IVPB DAILY [facility] Last Admin: 10/22/19 10:43 Dose: 250 mls/hr Losartan Potassium (Cozaar -) 50 mg PO DAILY [facility] Last Admin: 10/22/19 09:17 Dose: 50 mg Methylprednisolone Sodium Succinate (Solu-Medrol -) 40 mg IVPB Q6H-IV [facility] Last Admin: 10/22/19 09:43 Dose: 40 mg - Objective Vital Signs: Vital Signs Temperature 98.7 F 10/22/19 08:05 Pulse Rate 96 H 10/22/19 08:05 Respiratory Rate 18 10/22/19 08:05 Blood Pressure 109/55 L 10/22/19 08:05 O2 Sat by Pulse Oximetry (%) 95 10/22/19 08:05 Eyes: Yes: WNL, Conjunctiva Clear, EOM Intact HENT: Yes: WNL, Atraumatic, Normocephalic Neck: Yes: WNL, Supple, Trachea Midline Cardiovascular: Yes: WNL, Regular Rate and Rhythm, Murmur Respiratory: Yes: WNL, Regular, CTA Bilaterally Gastrointestinal: Yes: WNL, Normal Bowel Sounds Genitourinary: Yes: WNL Musculoskeletal: Yes: WNL Extremities: Yes: WNL Edema: No Integumentary: Yes: WNL Neurological: Yes: WNL, Alert, Oriented ...Motor Strength: WNL Psychiatric: Yes: WNL Labs: INR, PTT INR 1.02 (0.83-1.09) 10/21/19 11:44 Assessment/Plan Problems (1) Chronic diastolic (congestive) heart failure Assessment/Plan: Pt does not appear to be in acute heart failure. On carvedilol (HOCM;HTN; NSVT) Avoid excessive dehydration (attempt to use diuretics sparingly with HOCM, as use may worsen LVOT obstruction). f/u BUN/Cr, electrolytes, daily weight, Is and Os. Code(s): I50.32 - CHRONIC DIASTOLIC (CONGESTIVE) HEART FAILURE (2) Obesity Code(s): E66.9 - OBESITY, UNSPECIFIED (3) Lumbar radiculopathy Assessment/Plan: s/p lumbar surgery Code(s): M54.16 - RADICULOPATHY, LUMBAR REGION (4) AICD (automatic cardioverter/defibrillator) present Assessment/Plan: f/u most recent interrogation (Hx NSVT) Code(s): Z95.810 - PRESENCE OF AUTOMATIC (IMPLANTABLE) CARDIAC DEFIBRILLATOR (5) COPD (chronic obstructive pulmonary disease) Assessment/Plan: steroids, bronchodilators, and O2 per ton container filler. Code(s): J44.9 - CHRONIC OBSTRUCTIVE PULMONARY DISEASE, UNSPECIFIED Qualifiers: COPD type: unspecified COPD Qualified Code(s): J44.9 - Chronic obstructive pulmonary disease, unspecified (6) H/O gastric bypass Code(s): Z98.84 - BARIATRIC SURGERY STATUS (7) H/O: CVA (cerebrovascular accident) Code(s): Z86.73 - PRSNL HX OF TIA (TIA), AND CEREB INFRC W/O RESID DEFICITS (8) HTN (hypertension) Code(s): I10 - ESSENTIAL (PRIMARY) HYPERTENSION Qualifiers: Hypertension type: essential hypertension Qualified Code(s): I10 - Essential (primary) hypertension (9) Peripheral neuropathy Code(s): G62.9 - POLYNEUROPATHY, UNSPECIFIED Qualifiers: Peripheral neuropathy type: polyneuropathy, unspecified Qualified Code(s): G62.9 - Polyneuropathy, unspecified (10) NSVT (nonsustained ventricular tachycardia) Assessment/Plan: Hx NSVT on recent ICD interrogation. Continue carvedilol 6.25 mg bid. F/u electrolytes. Avoid excessive dehydration. Code(s): I47.2 - VENTRICULAR TACHYCARDIA (11) HOCM (hypertrophic obstructive cardiomyopathy) Assessment/Plan: On carvedilol (HOCM;HTN; NSVT). On losartan (HTN); caution with vasodilators in HOCM. F/u ECHO. Use diuretics sparingly to avoid potential worsening of LVOT obstruction. Code(s): I42.1 - OBSTRUCTIVE HYPERTROPHIC CARDIOMYOPATHY
[2019-10-22 12:29] LABS: HEMATOCRIT 40.2 % (32.4-45.2); HEMOGLOBIN 13.1 GM/dL (10.7-15.3); MCH 30.2 pg (25.7-33.7); MCHC 32.5 g/dl (32.0-36.0); MEAN CELL VOLUME 92.7 fl (80-96); MEAN PLT VOLUME 8.6 fl (7.5-11.1); PLATELET COUNT 261 K/MM3 (134-434); RBC 4.33 M/mm3 (3.60-5.2); RDW 13.4 % (11.6-15.6)
[2019-10-22 13:03] LABS: ALBUMIN 3.3 g/dl (3.4-5.0); BILIRUBIN,TOTAL 0.3 mg/dL (0.2-1); BLOOD UREA NITROGEN 20.9 mg/dL (7-18); CALCIUM 8.9 mg/dL (8.5-10.1); CREATININE 1.1 mg/dL (0.55-1.3); PHOSPHOROUS 2.6 mg/dL (2.5-4.9); POTASSIUM 4.4 mmol/L (3.5-5.1)
--- NOTE | 2019-10-22 14:21 | CON.PULM ---
Consult Consult Specialty:: PULMONARY Referred by:: Dr Montana Reason for Consultation:: shortness of breath - History of Present Illness Chief Complaint: shortness of breath History of Present Illness: 74yo female with h/o HTN, LV systolic dysfunction s/p ICD, COPD, chronic hypoxic respiratory failure, h/o CVA who was admitted with worsening shortness of breath x 2 months. Denies chest pain or discomfort. Reports a cough productive of white sputum and wheezing. Had subjective fevers 2 weeks ago with viral symptoms. Reports compliance with her inhalers and oxygen. She is a former smoker. 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, Peripheral Neuropathy Cardio/Vascular: Yes: CAD, CHF, HTN Pulmonary: Yes: Asthma, COPD, O2 Dependent, Sleep Apnea Gastrointestinal: Yes: Other (hx gastric bypass surgery) ...: No Musculoskeletal: Yes: Chronic low back pain - Past Surgical History Past Surgical History: Yes: AICD, Bypass (gastric), (1956, 1958), Laminectomy (cervical) - Alcohol/Substance Use Hx Alcohol Use: No History of Substance Use: reports: None - Smoking History Smoking history: Former smoker Have you smoked in the past 12 months: No Aproximately how many cigarettes per day: 5 If you are a former smoker, when did you quit?: 3 years ago - Social History Usual Living Arrangement: With Spouse History of Recent Travel: No Home Medications - Allergies Allergies/Adverse Reactions: Allergies Allergy/AdvReac Type Severity Reaction Status Date / Time No Known Allergies Allergy Verified 10/21/19 11:06 - Home Medications Home Medications: Ambulatory Orders Fluticasone/Umeclidin/Vilanter [Trelegy Ellipta 100-62.5-25] 1 each IH DAILY 05/03 Ipratropium/Albuterol Sulfate [Iprat-Albut 0.5-3(2.5) mg/3 ml] 3 ml IH PRN 10/21 Losartan Potassium [Cozaar -] 50 mg PO DAILY 10/21/19 Review of Systems - Review of Systems Constitutional: reports: Fever, Weakness Eyes: denies: Recent Change in Vision HENT: reports: Nasal Congestion, Throat Pain Neck: denies: Stiffness, Tenderness Cardiovascular: reports: Shortness of Breath. denies: Chest Pain, Edema Respiratory: reports: Cough, SOB, SOB on Exertion, Wheezing. denies: Hemoptysis Gastrointestinal: denies: Abdominal Pain, Nausea, Vomiting Genitourinary: denies: Dysuria, Hematuria Neurological: denies: Dizziness, Headache Endocrine: denies: Unexplained Weight Loss Physical Exam Vital Sings: Vital Signs Temperature 98.7 F 10/22/19 08:05 Pulse Rate 96 H 10/22/19 08:05 Respiratory Rate 18 10/22/19 08:05 Blood Pressure 109/55 L 10/22/19 08:05 O2 Sat by Pulse Oximetry (%) 95 10/22/19 08:05 Constitutional: Yes: Mild Distress Eyes: Yes: Conjunctiva Clear, EOM Intact HENT: Yes: Atraumatic, Normocephalic Neck: Yes: Supple, Trachea Midline Cardiovascular: Yes: Regular Rate and Rhythm Respiratory: Yes: Diminished (distant breath sounds), Rhonchi ...Clubbing: No Gastrointestinal: Yes: Normal Bowel Sounds, Soft. No: Tenderness Edema: No Neurological: Yes: Alert, Oriented Labs: CBC, BMP 10/22/19 12:15 10/22/19 12:15 Imaging - Results Chest X-ray: Report Reviewed, Image Reviewed (no infiltrates) Problem List - Problems (1) COPD exacerbation Code(s): J44.1 - CHRONIC OBSTRUCTIVE PULMONARY DISEASE W (ACUTE) EXACERBATION Assessment/Plan Acute COPD exacerbation URI Chronic Hypoxic Respiratory Failure LV Systolic Dysfunction HTN h/o CVA - IV medrol - inhaled bronchodilators - O2 to keep SpO2 >90% - agree with azithromycin - DVT prophylaxis Thank you for this consult Jeff Pinon MD
--- NOTE | 2019-10-22 14:37 | ECHO ---
Name: HOLDIP, JERMAN Exam:Adult Echocardiogram Study Date: 10/22/2019 10:47 AM Age: 74 yrs Reason For Study: CHF Height: 64 in Weight: 204 lb BSA: 2.0 m2 MMode/2D Measurements & Calculations IVSd: 1.5 cm Ao root diam: 2.6 cm LVIDd: 3.1 cm LA dimension: 4.1 cm LVIDs: 2.2 cm LVPWd: 1.8 cm EDV(Teich): 37.6 ml LVOT diam: 2.0 cm ESV(Teich): 17.1 ml LAV (MOD-bp): 89.6 ml Doppler Measurements & Calculations MV V2 max: 225.9 cm/sec MV E max agustín: 182.0 cm/sec MV max P.4 mmHg MV A max agustín: 153.4 cm/sec MV V2 mean: 129.1 cm/sec MV E/A: 1.2 MV mean P.8 mmHg MV dec time: 0.25 sec MV V2 VTI: 61.8 cm Ao V2 max: 220.2 cm/sec LV V1 max P.0 mmHg Ao max P.4 mmHg LV V1 max: 200.2 cm/sec Ao V2 mean: 136.7 cm/sec Ao mean P.1 mmHg Ao V2 VTI: 44.8 cm BENJAMIN(V,D): 2.7 cm2 MR max agustín: 587.1 cm/sec TV V2 max: 393.6 cm/sec MR max P.1 mmHg TV max P.0 mmHg TR max agustín: 317.6 cm/sec PA V2 max: 93.7 cm/sec TR max P.7 mmHg PA max P.5 mmHg Med Peak E' Agustín: 5.8 cm/sec Med E/e': 31.6 Lat Peak E' Agustín: 2.9 cm/sec Lat E/e': 62.0 Procedure A two-dimensional transthoracic echocardiogram with color flow and Doppler was performed. Left Ventricle There is moderate asymmetric left ventricular hypertrophy. The left ventricular ejection fraction is normal. The left ventricular wall motion is normal. Right Ventricle The right ventricle is grossly normal size. There is a pacemaker lead in the right ventricle. Atria The left atrium is mildly dilated. The right atrium is mildly dilated. Mitral Valve There is mild to moderate mitral valve thickening. There is mild to moderate mitral annular calcifica tion. There is moderate mitral stenosis. Functional mitral valve stenosis secondary to MAC. There is modera te mitral regurgitation. Tricuspid Valve There is mild tricuspid valve thickening. There is no tricuspid stenosis. There is mild to moderate t ricuspid regurgitation. Right ventricular systolic pressure is elevated at >60mmHg. Aortic Valve The aortic valve is not well visualized. No hemodynamically significant valvular aortic stenosis. Mod erate aortic regurgitation. Pulmonic Valve The pulmonic valve is not well visualized. Great Vessels The aortic root is normal size. Pericardium/Pleura There is no pericardial effusion. Interpretation Summary There is moderate asymmetric left ventricular hypertrophy. The left ventricular ejection fraction is normal. The left ventricular wall motion is normal. There is a pacemaker lead in the right ventricle. The left atrium is mildly dilated. The right atrium is mildly dilated. There is mild to moderate mitral valve thickening. There is mild to moderate mitral annular calcification. There is moderate mitral stenosis. Functional mitral valve stenosis secondary to MAC There is moderate mitral regurgitation. Moderate aortic regurgitation. Right ventricular systolic pressure is elevated at >60mmHg. There is mild to moderate tricuspid regurgitation. MD Emile Salinas 10/22/2019 02:36 PM
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
--- NOTE | 2019-10-22 19:58 | PN ---
Teaching Attending Note Name of Resident: Hudson Vences ATTENDING PHYSICIAN STATEMENT I saw and evaluated the patient. I reviewed the resident's note and discussed the case with the resident. I agree with the resident's findings and plan as documented. SUBJECTIVE: SOB . wheezing no CP OBJECTIVE: NAD Cv : RRR Lungs: wheezing Abd: obese , soft, NT Ext : No edema ASSESSMENT AND PLAN: 74 y/o F PMH HTN, diastolic CHF s/p AICD, CVA w/ residual left side weakness, COPD (3L O2 at home), peripheral neuropathy, HOCM , h/o NSVT, presented with SOband was diagnosed with COPD exacerbation 1- Acute COPD exacerbation 2- h/o diastolic CHF 3- h/o HOCM 4- h/o NSVT with ICD placement plan : - cont steroids - azitho x 3 days - nebs - add mucomyst - no diuresis - cont losartan - resume home asa - SQ lovenox fro DVt Px HLOC
[2019-10-22] MEDS: ACETYLCYSTEINE 20% 200MG/ML 30 ML VIAL *FOR ORAL / INH USE ONLY NEB SCH (20:00)
[2019-10-22] MEDS ORDERED: MELATONIN 5 MG TABLETS PO ONE (23:11)
[2019-10-23] MEDS: methylPREDNISolone NA SUCC 40 MG/1 ML VIAL IVPB SCH ×4 (03:29→21:17)
[2019-10-23 07:34] LABS: HEMATOCRIT 41.8 % (32.4-45.2); HEMOGLOBIN 13.3 GM/dL (10.7-15.3); MCH 29.9 pg (25.7-33.7); MCHC 31.7 g/dl (32.0-36.0); MEAN CELL VOLUME 94.3 fl (80-96); MEAN PLT VOLUME 10.1 fl (7.5-11.1); PLATELET COUNT 262 K/MM3 (134-434); RBC 4.43 M/mm3 (3.60-5.2); RDW 13.5 % (11.6-15.6); WHITE BLOOD COUNT 14.9 K/mm3 (4.0-10.0)
[2019-10-23 08:11] LABS: ALBUMIN 3.2 g/dl (3.4-5.0); BILIRUBIN,TOTAL 0.2 mg/dL (0.2-1); BLOOD UREA NITROGEN 22.3 mg/dL (7-18); CALCIUM 8.8 mg/dL (8.5-10.1); POTASSIUM 5.3 mmol/L (3.5-5.1); TOT PROT 6.7 g/dl (6.4-8.2)
[2019-10-23] MEDS: ALBUTEROL SO4 2.5/IPRATROPIUM 0.5 INH SOL 3 ML VIAL.NEB. NEB SCH ×5 (08:57→20:25)
[2019-10-23] MEDS: ACETYLCYSTEINE 20% 200MG/ML 30 ML VIAL *FOR ORAL / INH USE ONLY NEB SCH (08:59)
[2019-10-23] MEDS: LOSARTAN POTASSIUM 50 MG TABLET (FP) PO SCH (10:58)
[2019-10-23] MEDS: CARVEDILOL 6.25 MG TABLET (FP) PO SCH ×2 (10:58→21:16)
[2019-10-23] MEDS: ASPIRIN COATED 81 MG TABLET.EC PO SCH (10:59)
[2019-10-23] MEDS: AZITHROMYCIN IVPB 250 MG in DEXTROSE 5%-WATER - 250 ML IVPB SCH (10:59)
[2019-10-23] MEDS: ENOXAPARIN NA (PORCINE) 40 MG/0.4 ML DISP.SYRIN SQ SCH (10:59)
--- NOTE | 2019-10-23 11:48 | PN ---
Progress Note (short form) - Note Progress Note: Still with congested cough and SOB. Asked for suction device as she is expectorating thick phlegm. No CP. No acute events overnight. Intake & Output 10/20/19 10/21/19 10/22/19 10/23/19 23:59 23:59 23:59 23:59 Intake Total 400 430 480 Balance 400 430 480 Weight 204 lb 6.4 oz 204 lb 3.2 oz 207 lb 12.8 oz Last Vital Signs Temp Pulse Resp BP Pulse Ox 97.8 F 92 H 20 146/74 94 L 10/23/19 10:00 10/23/19 10:00 10/23/19 10:00 10/23/19 10:00 10/22/19 22:00 Active Medications Acetylcysteine (Mucomyst 20 Oral / Inh Use Only*) 200 mg NEB RQID [facility] Albuterol Sulfate (Ventolin 0.083% Nebulizer Soln -) 1 amp NEB Q4H [facility] Albuterol Sulfate (Ventolin 0.083% Nebulizer Soln -) 1 amp NEB Q4H PRN PRN Reason: SHORT OF BREATH/WHEEZING Last Admin: 10/22/19 21:10 Dose: 1 amp Albuterol/Ipratropium (Duoneb -) 1 amp NEB RQID [facility] Last Admin: 10/23/19 08:57 Dose: 1 amp Aspirin (Ecotrin -) 81 mg PO DAILY [facility] Last Admin: 10/23/19 10:59 Dose: 81 mg Carvedilol (Coreg -) 6.25 mg PO BID [facility] Last Admin: 10/23/19 10:58 Dose: 6.25 mg Enoxaparin Sodium (Lovenox -) 40 mg SQ DAILY [facility] Last Admin: 10/23/19 10:59 Dose: 40 mg Azithromycin 250 mg/ Dextrose 250 mls @ 250 mls/hr IVPB DAILY [facility] Last Admin: 10/23/19 10:59 Dose: 250 mls/hr Losartan Potassium (Cozaar -) 50 mg PO DAILY [facility] Last Admin: 10/23/19 10:58 Dose: 50 mg Methylprednisolone Sodium Succinate (Solu-Medrol -) 40 mg IVPB Q6H-IV [facility] Last Admin: 10/23/19 10:58 Dose: 40 mg Constitutional: Yes: Mildly tachypneic at rest Eyes: Yes: Conjunctiva Clear, EOM Intact HENT: Yes: Atraumatic, Normocephalic Neck: Yes: Supple, Trachea Midline Cardiovascular: Yes: Regular Rate and Rhythm Respiratory: Yes: Bilateral coarse rhonchi, scattered mild expiratory wheeze, Diminished at the bases ...Clubbing: No Gastrointestinal: Yes: Normal Bowel Sounds, Soft. No: Tenderness Edema: No Neurological: Yes: Alert, Oriented Labs: Laboratory Results - last 24 hr 10/22/19 10/22/19 10/22/19 12:15 12:15 12:15 WBC 12.0 H RBC 4.33 Hgb 13.1 Hct 40.2 MCV 92.7 MCH 30.2 MCHC 32.5 RDW 13.4 Plt Count 261 MPV 8.6 D Platelet Comment Sodium 137 Potassium 4.4 Chloride 105 Carbon Dioxide 24 Anion Gap 8 BUN 20.9 H Creatinine 1.1 Est GFR (CKD-EPI)AfAm 56.48 Est GFR (CKD-EPI)NonAf 48.73 Random Glucose 131 H Hemoglobin A1c % 5.4 Calcium 8.9 Phosphorus 2.6 Magnesium 2.0 Total Bilirubin 0.3 AST 13 L ALT 14 Alkaline Phosphatase 84 Total Protein 7.0 Albumin 3.3 L Triglycerides 66 Cholesterol 127 Total LDL Cholesterol 50 HDL Cholesterol 68 H 10/23/19 10/23/19 06:40 06:40 WBC 14.9 H RBC 4.43 Hgb 13.3 Hct 41.8 MCV 94.3 MCH 29.9 MCHC 31.7 L RDW 13.5 Plt Count 262 MPV 10.1 D Platelet Comment Present Sodium 138 Potassium 5.3 H Chloride 107 Carbon Dioxide 24 Anion Gap 8 BUN 22.3 H Creatinine 1.0 Est GFR (CKD-EPI)AfAm 63.38 Est GFR (CKD-EPI)NonAf 54.68 Random Glucose 124 H Hemoglobin A1c % Calcium 8.8 Phosphorus Magnesium Total Bilirubin 0.2 AST 18 ALT 17 Alkaline Phosphatase 77 Total Protein 6.7 Albumin 3.2 L Triglycerides Cholesterol Total LDL Cholesterol HDL Cholesterol Problem List - Problems (1) COPD exacerbation Code(s): J44.1 - CHRONIC OBSTRUCTIVE PULMONARY DISEASE W (ACUTE) EXACERBATION Assessment/Plan Acute COPD exacerbation URI Chronic Hypoxic Respiratory Failure LV Systolic Dysfunction HTN h/o CVA - IV medrol - inhaled bronchodilators - O2 to keep SpO2 >90% - Noted azithromycin - DVT prophylaxis Dr Chodwhury
[2019-10-23] MEDS: ACETYLCYSTEINE 20% 200MG/ML 4 ML VIAL *FOR ORAL / INH USE ONLY NEB SCH ×3 (11:58→20:25)
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
--- NOTE | 2019-10-23 12:26 | PN ---
Progress Note, Physician Chief Complaint: Pt A&Ox3; lying in bed; becomes SOB while conversing. No chest pain. She says she wants to get a portable O2 mintor for use when she goes out (and says her scooter is [place]). History of Present Illness: 74 yr old black woman with PM h/o HOCM, with diastolic CHF (2019 ECHO: asymmetric severe septal LVH; normal LVEF, with moderately elevated LVOT gradient); hx nonsustained VT/s/p AICD; CVA with L-sided deficits (CT head : chronic small vessel ischemia), non-obstructive CAD on coronary angiogram, HTN, COPD (3L home O2), obesity/s/p gastric bypass surgery, sleep apnea, and lumbar radiculopathy, now presenting to ED with SOB and cough. Pt states that she has had SOB x 1 week, worsening. Denies F/C. Endorses pain in her chest with coughing. Denies leg swelling. Has been using breathing treatments at home with no improvement. - Current Medication List Current Medications: Active Medications Acetylcysteine (Mucomyst 20 Oral / Inh Use Only*) 200 mg NEB RQID [facility] Last Admin: 10/23/19 11:58 Dose: Not Given Albuterol Sulfate (Ventolin 0.083% Nebulizer Soln -) 1 amp NEB Q4H PRN PRN Reason: SHORT OF BREATH/WHEEZING Last Admin: 10/22/19 21:10 Dose: 1 amp Albuterol/Ipratropium (Duoneb -) 1 amp NEB RQID [facility] Last Admin: 10/23/19 11:58 Dose: 1 amp Aspirin (Ecotrin -) 81 mg PO DAILY [facility] Last Admin: 10/23/19 10:59 Dose: 81 mg Budesonide/Formoterol Fumarate (Symbicort 80/4.5mcg -) 2 puff IH BID [facility] Carvedilol (Coreg -) 6.25 mg PO BID [facility] Last Admin: 10/23/19 10:58 Dose: 6.25 mg Enoxaparin Sodium (Lovenox -) 40 mg SQ DAILY [facility] Last Admin: 10/23/19 10:59 Dose: 40 mg Azithromycin 250 mg/ Dextrose 250 mls @ 250 mls/hr IVPB DAILY [facility] Last Admin: 10/23/19 10:59 Dose: 250 mls/hr Losartan Potassium (Cozaar -) 50 mg PO DAILY [facility] Last Admin: 10/23/19 10:58 Dose: 50 mg Methylprednisolone Sodium Succinate (Solu-Medrol -) 40 mg IVPB Q6H-IV [facility] Last Admin: 10/23/19 10:58 Dose: 40 mg - Objective Vital Signs: Vital Signs Temperature 97.8 F 10/23/19 10:00 Pulse Rate 92 H 10/23/19 10:00 Respiratory Rate 10/23/19 10:00 Blood Pressure 146/74 10/23/19 10:00 O2 Sat by Pulse Oximetry (%) 94 L 10/22/19 22:00 Constitutional: Yes: Anxious, Other Eyes: Yes: WNL HENT: Yes: WNL Neck: Yes: WNL Cardiovascular: Yes: Regular Rate and Rhythm, S1, S2 (split) Respiratory: Yes: Diminished, Rales Gastrointestinal: Yes: Soft ...Rectal Exam: Yes: Deferred Genitourinary: No: Anuria Musculoskeletal: Yes: Muscle Weakness, Other (ICD battery felt (right anterior chest wall)) Extremities: Yes: Cool Edema: Yes Edema: LLE: Trace, RLE: Trace Peripheral Pulses WNL: Yes Integumentary: Yes: WNL Labs: CBC, BMP 10/23/19 06:40 10/23/19 06:40 INR, PTT INR 1.02 (0.83-1.09) 10/21/19 11:44 Problem List - Problems (1) Chronic diastolic (congestive) heart failure Code(s): I50.32 - CHRONIC DIASTOLIC (CONGESTIVE) HEART FAILURE (2) Obesity Code(s): E66.9 - OBESITY, UNSPECIFIED (3) Lumbar radiculopathy Code(s): M54.16 - RADICULOPATHY, LUMBAR REGION (4) AICD (automatic cardioverter/defibrillator) present Code(s): Z95.810 - PRESENCE OF AUTOMATIC (IMPLANTABLE) CARDIAC DEFIBRILLATOR (5) COPD (chronic obstructive pulmonary disease) Code(s): J44.9 - CHRONIC OBSTRUCTIVE PULMONARY DISEASE, UNSPECIFIED Qualifiers: COPD type: unspecified COPD Qualified Code(s): J44.9 - Chronic obstructive pulmonary disease, unspecified (6) H/O gastric bypass Code(s): Z98.84 - BARIATRIC SURGERY STATUS (7) H/O: CVA (cerebrovascular accident) Code(s): Z86.73 - PRSNL HX OF TIA (TIA), AND CEREB INFRC W/O RESID DEFICITS (8) HTN (hypertension) Code(s): I10 - ESSENTIAL (PRIMARY) HYPERTENSION Qualifiers: Hypertension type: essential hypertension Qualified Code(s): I10 - Essential (primary) hypertension (9) Peripheral neuropathy Code(s): G62.9 - POLYNEUROPATHY, UNSPECIFIED Qualifiers: Peripheral neuropathy type: polyneuropathy, unspecified Qualified Code(s): G62.9 - Polyneuropathy, unspecified (10) NSVT (nonsustained ventricular tachycardia) Code(s): I47.2 - VENTRICULAR TACHYCARDIA (11) HOCM (hypertrophic obstructive cardiomyopathy) Code(s): I42.1 - OBSTRUCTIVE HYPERTROPHIC CARDIOMYOPATHY (12) Hyperkalemia Assessment/Plan: hold losartan. Gentle hydration. F/u electrolytes, BUN/Cr, electrolytes., Is and Os. Serial BPs; Code(s): E87.5 - HYPERKALEMIA
[2019-10-23] MEDS ORDERED: BUDESONIDE/FORMETEROL FUMARATE 80/4.5 mcg INHALER IH SCH (12:30)
--- NOTE | 2019-10-23 14:26 | PN ---
Teaching Attending Note Name of Resident: Hudson Vences ATTENDING PHYSICIAN STATEMENT I saw and evaluated the patient. I reviewed the resident's note and discussed the case with the resident. I agree with the resident's findings and plan as documented. SUBJECTIVE: No fever or chills. still SOB but slightly better than yesterday. cought with white sputum. no abd pain. OBJECTIVE: NAD Cv : RRR Lungs: wheezing b/l. coarse rales Ext : No edema ASSESSMENT AND PLAN: 74 y/o F PMH HTN, diastolic CHF s/p AICD, CVA w/ residual left side weakness, COPD (3L O2 at home), peripheral neuropathy, HOCM , h/o NSVT, presented with SOband was diagnosed with COPD exacerbation 1- Acute COPD exacerbation 2- h/o diastolic CHF 3- h/o HOCM 4- h/o NSVT with ICD placement 5- Hyperkalemia plan : - cont steroids . patient stated she did not want them due to weight gain. she as advised to continue current treatment - azitho day 3 . dc - add Symbicort - nebs - cont mucomyst - no diuresis - agree with holding Losartan due to hyperkalemia . repeat level this afternoon - cont asa - SQ lovenox for DVt Px HLOC
[2019-10-23] MEDS: BUDESONIDE/FORMETEROL FUMARATE 160/4.5 mcg INHALER IH SCH ×2 (15:11→21:15)
[2019-10-23] MEDS: ALBUTEROL SO4 0.083% IH SOL 2.5 MG/3 ML VIAL.NEB. NEB PRN (17:45)
[2019-10-23] MEDS ORDERED: MELATONIN 1 MG TABLET PO ONE (21:22)
[2019-10-24] MEDS: methylPREDNISolone NA SUCC 40 MG/1 ML VIAL IVPB SCH ×4 (03:26→21:24)
[2019-10-24] MEDS: ALBUTEROL SO4 0.083% IH SOL 2.5 MG/3 ML VIAL.NEB. NEB PRN ×5 (03:59→20:40)
[2019-10-24 07:25] LABS: HEMATOCRIT 41.9 % (32.4-45.2); HEMOGLOBIN 13.8 GM/dL (10.7-15.3); MCHC 33.1 g/dl (32.0-36.0); MEAN CELL VOLUME 93.8 fl (80-96); MEAN PLT VOLUME 9.8 fl (7.5-11.1); PLATELET COUNT 197 K/MM3 (134-434); RBC 4.46 M/mm3 (3.60-5.2); RDW 13.3 % (11.6-15.6); WHITE BLOOD COUNT 10.8 K/mm3 (4.0-10.0)
[2019-10-24] MEDS: ACETYLCYSTEINE 20% 200MG/ML 4 ML VIAL *FOR ORAL / INH USE ONLY NEB SCH ×4 (07:40→20:40)
[2019-10-24 07:47] LABS: BILIRUBIN,TOTAL 0.2 mg/dL (0.2-1); BLOOD UREA NITROGEN 21.7 mg/dL (7-18); CALCIUM 8.9 mg/dL (8.5-10.1); CREATININE 0.9 mg/dL (0.55-1.3); POTASSIUM 4.7 mmol/L (3.5-5.1); TOT PROT 6.3 g/dl (6.4-8.2)
[2019-10-24] MEDS: ALBUTEROL SO4 2.5/IPRATROPIUM 0.5 INH SOL 3 ML VIAL.NEB. NEB SCH ×4 (08:02→22:15)
[2019-10-24] MEDS: CARVEDILOL 6.25 MG TABLET (FP) PO SCH ×2 (09:18→21:24)
[2019-10-24] MEDS: ENOXAPARIN NA (PORCINE) 40 MG/0.4 ML DISP.SYRIN SQ SCH (09:19)
[2019-10-24] MEDS: ASPIRIN COATED 81 MG TABLET.EC PO SCH (09:19)
[2019-10-24] MEDS: BUDESONIDE/FORMETEROL FUMARATE 160/4.5 mcg INHALER IH SCH ×2 (09:20→21:35)
--- NOTE | 2019-10-24 14:11 | PN ---
Progress Note (short form) - Note Progress Note: Still with congested cough and SOB. Reports epistaxis overnight. No CP. No acute events overnight. Intake & Output 10/21/19 10/22/19 10/23/19 10/24/19 23:59 23:59 23:59 23:59 Intake Total 162 123 9365 390 Balance 080 212 9943 390 Weight 204 lb 6.4 oz 204 lb 3.2 oz 207 lb 12.8 oz 206 lb 3.2 oz Last Vital Signs Temp Pulse Resp BP Pulse Ox 97.5 F L 84 20 137/60 94 L 10/24/19 09:14 10/24/19 09:14 10/24/19 09:14 10/24/19 09:14 10/24/19 10:00 Active Medications Acetylcysteine (Mucomyst 20 Oral / Inh Use Only*) 200 mg NEB RQID [facility] Last Admin: 10/24/19 11:35 Dose: 200 mg Albuterol Sulfate (Ventolin 0.083% Nebulizer Soln -) 1 amp NEB Q4H PRN PRN Reason: SHORT OF BREATH/WHEEZING Last Admin: 10/24/19 11:35 Dose: 1 amp Albuterol/Ipratropium (Duoneb -) 1 amp NEB RQID [facility] Last Admin: 10/24/19 11:35 Dose: Not Given Aspirin (Ecotrin -) 81 mg PO DAILY [facility] Last Admin: 10/24/19 09:19 Dose: 81 mg Budesonide/Formoterol Fumarate (Symbicort 160/4.5mcg -) 2 puff IH BID [facility] Last Admin: 10/24/19 09:20 Dose: 2 puff Carvedilol (Coreg -) 6.25 mg PO BID [facility] Last Admin: 10/24/19 09:18 Dose: 6.25 mg Enoxaparin Sodium (Lovenox -) 40 mg SQ DAILY [facility] Last Admin: 10/24/19 09:19 Dose: 40 mg Methylprednisolone Sodium Succinate (Solu-Medrol -) 40 mg IVPB Q6H-IV [facility] Last Admin: 10/24/19 09:18 Dose: 40 mg Constitutional: Yes: Mildly tachypneic at rest Eyes: Yes: Conjunctiva Clear, EOM Intact HENT: Yes: Atraumatic, Normocephalic Neck: Yes: Supple, Trachea Midline Cardiovascular: Yes: Regular Rate and Rhythm Respiratory: Yes: Bilateral coarse rhonchi, scattered mild expiratory wheeze, Diminished at the bases ...Clubbing: No Gastrointestinal: Yes: Normal Bowel Sounds, Soft. No: Tenderness Edema: No Neurological: Yes: Alert, Oriented Labs: Laboratory Results - last 24 hr 10/23/19 10/24/19 10/24/19 15:30 06:20 06:20 WBC 10.8 H RBC 4.46 Hgb 13.8 Hct 41.9 MCV 93.8 MCH 31.0 MCHC 33.1 RDW 13.3 Plt Count 197 D MPV 9.8 Sodium 139 Potassium 4.8 4.7 Chloride 107 Carbon Dioxide 23 Anion Gap 9 BUN 21.7 H Creatinine 0.9 Est GFR (CKD-EPI)AfAm 71.98 Est GFR (CKD-EPI)NonAf 62.11 Random Glucose 127 H Calcium 8.9 Total Bilirubin 0.2 AST 14 L ALT 19 Alkaline Phosphatase 69 Total Protein 6.3 L Albumin 3.0 L Problem List - Problems (1) COPD exacerbation Code(s): J44.1 - CHRONIC OBSTRUCTIVE PULMONARY DISEASE W (ACUTE) EXACERBATION Assessment/Plan Acute COPD exacerbation URI Chronic Hypoxic Respiratory Failure LV Systolic Dysfunction HTN h/o CVA - Humidify O2 - IV medrol - inhaled bronchodilators - O2 to keep SpO2 >90% - Noted azithromycin - DVT prophylaxis Dr Chowdhury
[2019-10-24] MEDS ORDERED: FUROSEMIDE 40 MG/4 ML INJECTABLE VIAL IVPUSH ONE (14:26)
[2019-10-24] MEDS ORDERED: SODIUM CHLORIDE NASAL SPRAY 44 ML BOTTLE NS PRN (15:11)
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
--- NOTE | 2019-10-24 15:56 | PN ---
Progress Note, Physician History of Present Illness: 74 yr old woman with PM h/o HOCM, with diastolic CHF (2019 ECHO: asymmetric severe septal LVH; normal LVEF, with moderately elevated LVOT gradient); hx nonsustained VT/s/p AICD; CVA with L-sided deficits (CT head 07/03: chronic small vessel ischemia), non-obstructive CAD on coronary angiogram, HTN, COPD ( 3L home O2), obesity/s/p gastric bypass surgery, sleep apnea, and lumbar radiculopathy, now presenting to ED with SOB and cough. Pt states that she has had SOB x 1 week, worsening. Denies F/C. Endorses pain in her chest with coughing. Denies leg swelling. Has been using breathing treatments at home with no improvement. - Current Medication List Current Medications: Active Medications Acetylcysteine (Mucomyst 20 Oral / Inh Use Only*) 200 mg NEB RQID [facility] Last Admin: 10/24/19 11:35 Dose: 200 mg Albuterol Sulfate (Ventolin 0.083% Nebulizer Soln -) 1 amp NEB Q4H PRN PRN Reason: SHORT OF BREATH/WHEEZING Last Admin: 10/24/19 11:35 Dose: 1 amp Albuterol/Ipratropium (Duoneb -) 1 amp NEB RQID [facility] Last Admin: 10/24/19 11:35 Dose: Not Given Aspirin (Ecotrin -) 81 mg PO DAILY [facility] Last Admin: 10/24/19 09:19 Dose: 81 mg Budesonide/Formoterol Fumarate (Symbicort 160/4.5mcg -) 2 puff IH BID [facility] Last Admin: 10/24/19 09:20 Dose: 2 puff Carvedilol (Coreg -) 6.25 mg PO BID [facility] Last Admin: 10/24/19 09:18 Dose: 6.25 mg Enoxaparin Sodium (Lovenox -) 40 mg SQ DAILY [facility] Last Admin: 10/24/19 09:19 Dose: 40 mg Furosemide (Lasix Injection -) 20 mg IVPUSH DAILY [facility] Methylprednisolone Sodium Succinate (Solu-Medrol -) 40 mg IVPB Q6H-IV [facility] Last Admin: 10/24/19 14:49 Dose: 40 mg Sodium Chloride ([place] Nasal [place] -) 2 spray NS BID PRN PRN Reason: NASAL CONGESTION - Objective Vital Signs: Vital Signs Temperature 97.9 F 10/24/19 14:45 Pulse Rate 82 10/24/19 14:45 Respiratory Rate 18 10/24/19 14:45 Blood Pressure 127/71 10/24/19 14:45 O2 Sat by Pulse Oximetry (%) 94 L 10/24/19 10:00 Eyes: Yes: WNL, Conjunctiva Clear, EOM Intact HENT: Yes: WNL, Atraumatic, Normocephalic Neck: Yes: WNL, Supple, Trachea Midline Cardiovascular: Yes: WNL, Regular Rate and Rhythm Respiratory: Yes: Rhonchi Gastrointestinal: Yes: WNL, Normal Bowel Sounds Genitourinary: Yes: WNL Musculoskeletal: Yes: WNL Extremities: Yes: WNL Edema: No Integumentary: Yes: WNL Neurological: Yes: WNL, Alert, Oriented ...Motor Strength: WNL Psychiatric: Yes: WNL Labs: CBC, BMP 10/24/19 06:20 10/24/19 06:20 INR, PTT INR 1.02 (0.83-1.09) 10/21/19 11:44 Assessment/Plan Problems (1) Chronic diastolic (congestive) heart failure Assessment/Plan: Pt does not appear to be in acute heart failure. On carvedilol (HOCM;HTN; NSVT) Avoid excessive dehydration (attempt to use diuretics sparingly with HOCM, as use may worsen LVOT obstruction). f/u BUN/Cr, electrolytes, daily weight, Is and Os. Code(s): I50.32 - CHRONIC DIASTOLIC (CONGESTIVE) HEART FAILURE (2) Obesity Code(s): E66.9 - OBESITY, UNSPECIFIED (3) Lumbar radiculopathy Assessment/Plan: s/p lumbar surgery Code(s): M54.16 - RADICULOPATHY, LUMBAR REGION (4) AICD (automatic cardioverter/defibrillator) present Assessment/Plan: f/u most recent interrogation (Hx NSVT) Code(s): Z95.810 - PRESENCE OF AUTOMATIC (IMPLANTABLE) CARDIAC DEFIBRILLATOR (5) COPD (chronic obstructive pulmonary disease) Assessment/Plan: steroids, bronchodilators, and O2 per lay out worker. Code(s): J44.9 - CHRONIC OBSTRUCTIVE PULMONARY DISEASE, UNSPECIFIED Qualifiers: COPD type: unspecified COPD Qualified Code(s): J44.9 - Chronic obstructive pulmonary disease, unspecified (6) H/O gastric bypass Code(s): Z98.84 - BARIATRIC SURGERY STATUS (7) H/O: CVA (cerebrovascular accident) Code(s): Z86.73 - PRSNL HX OF TIA (TIA), AND CEREB INFRC W/O RESID DEFICITS (8) HTN (hypertension) Code(s): I10 - ESSENTIAL (PRIMARY) HYPERTENSION Qualifiers: Hypertension type: essential hypertension Qualified Code(s): I10 - Essential (primary) hypertension (9) Peripheral neuropathy Code(s): G62.9 - POLYNEUROPATHY, UNSPECIFIED Qualifiers: Peripheral neuropathy type: polyneuropathy, unspecified Qualified Code(s): G62.9 - Polyneuropathy, unspecified (10) NSVT (nonsustained ventricular tachycardia) Assessment/Plan: Hx NSVT on recent ICD interrogation. Continue carvedilol 6.25 mg bid. F/u electrolytes. Avoid excessive dehydration. Code(s): I47.2 - VENTRICULAR TACHYCARDIA (11) HOCM (hypertrophic obstructive cardiomyopathy) Assessment/Plan: On carvedilol (HOCM;HTN; NSVT). On losartan (HTN); caution with vasodilators in HOCM. F/u ECHO. will start Lasix IV Code(s): I42.1 - OBSTRUCTIVE HYPERTROPHIC CARDIOMYOPATHY
[2019-10-24] MEDS ORDERED: DOCUSATE NA 100 MG/10 ML UNIT-DOSE CUPS PO PRN (17:22)
[2019-10-24] MEDS ORDERED: SODIUM PHOSPHATE/NA BIPHOS 133 ML ENEMA PR ONE (18:33)
--- NOTE | 2019-10-24 19:27 | PN ---
Teaching Attending Note Name of Resident: Hudson Vences ATTENDING PHYSICIAN STATEMENT I saw and evaluated the patient. I reviewed the resident's note and discussed the case with the resident. I agree with the resident's findings and plan as documented. SUBJECTIVE: No fever or chills. No BROOKS . breathing is the same as yesterday. no cough . has no CP. feels depressed but no SI OBJECTIVE: NAD Cv : RRR Lungs: wheezing b/l but better today. improved air entry Ext : No edema ASSESSMENT AND PLAN: 74 y/o F PMH HTN, diastolic CHF s/p AICD, CVA w/ residual left side weakness, COPD (3L O2 at home), peripheral neuropathy, HOCM , h/o NSVT, presented with SOband was diagnosed with COPD exacerbation 1- Acute COPD exacerbation 2- h/o diastolic CHF. possible acute Diastolic CHF exacerbation 3- h/o HOCM 4- h/o NSVT with ICD placement 5- Hyperkalemia : resolved plan : - cont steroids - off azithro since yesterday - cont Symbicort - add BIPAP q HS - nebs - cont mucomyst - Iv lasix started today - will ask card if losartan to be resumed in light of hyperkalemia - cont asa - SQ lovenox for DVt Px HLOC ASSESSMENT AND PLAN:
[2019-10-24 19:49] VITALS: BMI 35.3
[2019-10-24] MEDS: SENNOSIDES 8.6MG TABLET (FP) PO PRN (21:24)
[2019-10-25] MEDS ORDERED: MELATONIN 5 MG TABLETS PO ONE (00:58)
[2019-10-25] MEDS: methylPREDNISolone NA SUCC 40 MG/1 ML VIAL IVPB SCH ×2 (03:30→09:55)
[2019-10-25 07:06] LABS: HEMATOCRIT 42.9 % (32.4-45.2); HEMOGLOBIN 14.3 GM/dL (10.7-15.3); MCHC 33.4 g/dl (32.0-36.0); MEAN CELL VOLUME 92.9 fl (80-96); RBC 4.62 M/mm3 (3.60-5.2); RDW 13.3 % (11.6-15.6); WHITE BLOOD COUNT 9.2 K/mm3 (4.0-10.0)
[2019-10-25 07:11] LABS: ALBUMIN 2.9 g/dl (3.4-5.0); BILIRUBIN,TOTAL 0.2 mg/dL (0.2-1); BLOOD UREA NITROGEN 22.9 mg/dL (7-18); CALCIUM 8.6 mg/dL (8.5-10.1); POTASSIUM 4.5 mmol/L (3.5-5.1); TOT PROT 6.2 g/dl (6.4-8.2)
[2019-10-25] MEDS: ACETYLCYSTEINE 20% 200MG/ML 4 ML VIAL *FOR ORAL / INH USE ONLY NEB SCH ×4 (08:58→21:20)
[2019-10-25] MEDS: ALBUTEROL SO4 2.5/IPRATROPIUM 0.5 INH SOL 3 ML VIAL.NEB. NEB SCH (08:58)
[2019-10-25] MEDS: ALBUTEROL SO4 0.083% IH SOL 2.5 MG/3 ML VIAL.NEB. NEB PRN (08:59)
--- NOTE | 2019-10-25 09:42 | PN ---
Progress Note, Physician History of Present Illness: 74 yr old woman with PM h/o HOCM, with diastolic CHF (2019 ECHO: asymmetric severe septal LVH; normal LVEF, with moderately elevated LVOT gradient); hx nonsustained VT/s/p AICD; CVA with L-sided deficits (CT head 07/03: chronic small vessel ischemia), non-obstructive CAD on coronary angiogram, HTN, COPD ( 3L home O2), obesity/s/p gastric bypass surgery, sleep apnea, and lumbar radiculopathy, now presenting to ED with SOB and cough. Pt states that she has had SOB x 1 week, worsening. Denies F/C. Endorses pain in her chest with coughing. Denies leg swelling. Has been using breathing treatments at home with no improvement. - Current Medication List Current Medications: Active Medications Acetylcysteine (Mucomyst 20 Oral / Inh Use Only*) 200 mg NEB RQID [facility] Last Admin: 10/25/19 08:58 Dose: 200 mg Albuterol Sulfate (Ventolin 0.083% Nebulizer Soln -) 1 amp NEB Q4H PRN PRN Reason: SHORT OF BREATH/WHEEZING Last Admin: 10/25/19 08:59 Dose: 1 amp Albuterol Sulfate (Ventolin 0.083% Nebulizer Soln -) 1 amp NEB RQID [facility] Aspirin (Ecotrin -) 81 mg PO DAILY [facility] Last Admin: 10/24/19 09:19 Dose: 81 mg Budesonide/Formoterol Fumarate (Symbicort 160/4.5mcg -) 2 puff IH BID [facility] Last Admin: 10/24/19 21:35 Dose: 2 puff Carvedilol (Coreg -) 6.25 mg PO BID [facility] Last Admin: 10/24/19 21:24 Dose: 6.25 mg Docusate Sodium (Colace Liquid -) 100 mg PO DAILY PRN PRN Reason: CONSTIPATION Enoxaparin Sodium (Lovenox -) 40 mg SQ DAILY [facility] Last Admin: 10/24/19 09:19 Dose: 40 mg Escitalopram Oxalate (Lexapro -) 10 mg PO DAILY [facility] Furosemide (Lasix Injection -) 20 mg IVPUSH DAILY [facility] Methylprednisolone Sodium Succinate (Solu-Medrol -) 40 mg IVPB Q6H-IV [facility] Last Admin: 10/25/19 03:30 Dose: 40 mg Senna (Senna -) 2 tab PO HS PRN PRN Reason: CONSTIPATION Last Admin: 10/24/19 21:24 Dose: 2 tab Sodium Chloride ([place] Nasal [place] -) 2 spray NS BID PRN PRN Reason: NASAL CONGESTION Last Admin: 10/24/19 17:35 Dose: 2 spray - Objective Vital Signs: Vital Signs Temperature 97.4 F L 10/25/19 06:00 Pulse Rate 64 10/25/19 06:00 Respiratory Rate 10/25/19 06:00 Blood Pressure 151/55 L 10/25/19 06:00 O2 Sat by Pulse Oximetry (%) 95 10/24/19 22:00 Eyes: Yes: WNL, Conjunctiva Clear, EOM Intact HENT: Yes: WNL, Atraumatic, Normocephalic Neck: Yes: WNL, Supple, Trachea Midline Cardiovascular: Yes: WNL, Regular Rate and Rhythm, Murmur Respiratory: Yes: WNL, Regular, CTA Bilaterally Gastrointestinal: Yes: WNL, Normal Bowel Sounds Genitourinary: Yes: WNL Musculoskeletal: Yes: WNL Extremities: Yes: WNL Edema: No Integumentary: Yes: WNL Neurological: Yes: WNL, Alert, Oriented ...Motor Strength: WNL Psychiatric: Yes: WNL Labs: CBC, BMP 10/25/19 06:10 10/25/19 06:10 INR, PTT INR 1.02 (0.83-1.09) 10/21/19 11:44 Assessment/Plan Problems (1) Chronic diastolic (congestive) heart failure Assessment/Plan: Pt does not appear to be in acute heart failure. On carvedilol (HOCM;HTN; NSVT) Avoid excessive dehydration (attempt to use diuretics sparingly with HOCM, as use may worsen LVOT obstruction). f/u BUN/Cr, electrolytes, daily weight, Is and Os. Code(s): I50.32 - CHRONIC DIASTOLIC (CONGESTIVE) HEART FAILURE (2) Obesity Code(s): E66.9 - OBESITY, UNSPECIFIED (3) Lumbar radiculopathy Assessment/Plan: s/p lumbar surgery Code(s): M54.16 - RADICULOPATHY, LUMBAR REGION (4) AICD (automatic cardioverter/defibrillator) present Assessment/Plan: f/u most recent interrogation (Hx NSVT) Code(s): Z95.810 - PRESENCE OF AUTOMATIC (IMPLANTABLE) CARDIAC DEFIBRILLATOR (5) COPD (chronic obstructive pulmonary disease) Assessment/Plan: steroids, bronchodilators, and O2 per senior climate advisor. Code(s): J44.9 - CHRONIC OBSTRUCTIVE PULMONARY DISEASE, UNSPECIFIED Qualifiers: COPD type: unspecified COPD Qualified Code(s): J44.9 - Chronic obstructive pulmonary disease, unspecified (6) H/O gastric bypass Code(s): Z98.84 - BARIATRIC SURGERY STATUS (7) H/O: CVA (cerebrovascular accident) Code(s): Z86.73 - PRSNL HX OF TIA (TIA), AND CEREB INFRC W/O RESID DEFICITS (8) HTN (hypertension) Code(s): I10 - ESSENTIAL (PRIMARY) HYPERTENSION Qualifiers: Hypertension type: essential hypertension Qualified Code(s): I10 - Essential (primary) hypertension (9) Peripheral neuropathy Code(s): G62.9 - POLYNEUROPATHY, UNSPECIFIED Qualifiers: Peripheral neuropathy type: polyneuropathy, unspecified Qualified Code(s): G62.9 - Polyneuropathy, unspecified (10) NSVT (nonsustained ventricular tachycardia) Assessment/Plan: Hx NSVT on recent ICD interrogation. Continue carvedilol 6.25 mg bid. F/u electrolytes. Avoid excessive dehydration. Code(s): I47.2 - VENTRICULAR TACHYCARDIA (11) HOCM (hypertrophic obstructive cardiomyopathy) Assessment/Plan: On carvedilol (HOCM;HTN; NSVT). losartan held due to hyperkalemia (HTN); caution with vasodilators in HOCM. F/u ECHO. will start Lasix IV sob improving change lasix to PO next 24 - 48 hrs Code(s): I42.1 - OBSTRUCTIVE HYPERTROPHIC CARDIOMYOPATHY
[2019-10-25] MEDS: BUDESONIDE/FORMETEROL FUMARATE 160/4.5 mcg INHALER IH SCH ×2 (09:56→21:29)
[2019-10-25] MEDS: FUROSEMIDE 40 MG/4 ML INJECTABLE VIAL IVPUSH SCH (09:56)
[2019-10-25] MEDS: ENOXAPARIN NA (PORCINE) 40 MG/0.4 ML DISP.SYRIN SQ SCH (09:56)
[2019-10-25] MEDS: ESCITALOPRAM OXALATE 10 MG TABLET (FP) PO SCH (09:56)
[2019-10-25] MEDS: ASPIRIN COATED 81 MG TABLET.EC PO SCH (09:56)
[2019-10-25] MEDS: CARVEDILOL 6.25 MG TABLET (FP) PO SCH ×2 (09:57→21:29)
[2019-10-25 10:52] LABS: MEAN PLT VOLUME 8.9 fl (7.5-11.1); PLATELET COUNT 278 K/MM3 (134-434)
--- NOTE | 2019-10-25 11:27 | PN ---
Progress Note (short form) - Note Progress Note: PULMONARY AWAKE/ALERT SUBJECTIVE IMPROVEMENT VSS/AFEBRILE Constitutional: Yes: Mildly tachypneic at rest Eyes: Yes: Conjunctiva Clear, EOM Intact HENT: Yes: Atraumatic, Normocephalic Neck: Yes: Supple, Trachea Midline Cardiovascular: Yes: Regular Rate and Rhythm Respiratory: Yes: Bilateral coarse rhonchi, scattered mild expiratory wheeze, Diminished at the bases ...Clubbing: No Gastrointestinal: Yes: Normal Bowel Sounds, Soft. No: Tenderness Edema: No Neurological: Yes: Alert, Oriented Labs: REVIEWED - Problems (1) COPD exacerbation Code(s): J44.1 - CHRONIC OBSTRUCTIVE PULMONARY DISEASE W (ACUTE) EXACERBATION Acute COPD exacerbation URI Chronic Hypoxic Respiratory Failure LV Systolic Dysfunction HTN h/o CVA - Humidify O2 - IV medrol change to prednisone - inhaled bronchodilators - O2 to keep SpO2 >90% - Noted azithromycin - DVT prophylaxis Ary SINGH MD
[2019-10-25] MEDS: ALBUTEROL SO4 0.083% IH SOL 2.5 MG/3 ML VIAL.NEB. NEB SCH ×3 (12:28→21:20)
--- NOTE | 2019-10-25 16:01 | PN ---
Teaching Attending Note Name of Resident: Анна Simeon ATTENDING PHYSICIAN STATEMENT I saw and evaluated the patient. I reviewed the resident's note and discussed the case with the resident. I agree with the resident's findings and plan as documented. SUBJECTIVE: No fever or chills. SOB is better , she felt winded after walking to the bathroom and a little light headed. denies CP . requests a sleeping pill OBJECTIVE: NAD Cv: RRR Lungs: good air entry, less rales, scattered wheezes. Ext : No edema ASSESSMENT AND PLAN: 74 y/o F PMH HTN, diastolic CHF s/p AICD, CVA w/ residual left side weakness, COPD (3L O2 at home), peripheral neuropathy, HOCM , h/o NSVT, presented with SOB and was diagnosed with COPD exacerbation 1- Acute COPD exacerbation 2- h/o diastolic CHF with acute diastolic CHF exacerbation 3- h/o HOCM 4- h/o NSVT with ICD placement 5- Hyperkalemia : resolved plan : - cont steroids - finished a course of azithro - cont Symbicort - BIPAP q HS - Nebs - cont mucomyst - Cont IV lasix, it seems like it is helping - BP is elevated will resume losartan and monitor K - cont asa - SQ lovenox for DVt Px HLOC PT eval
--- NOTE | 2019-10-25 16:42 | PN ---
Physical Exam: SUBJECTIVE: Patient seen and examined. She reports some shortness of breath. She was able to ambulate to the bathroom but got dizzy on the way back. OBJECTIVE: Vital Signs Period Temp Pulse Resp BP Sys/Vasquez Pulse Ox Last 24 Hr 97 F-98.7 F 64-77 20-20 133-151/33-92 95-95 GENERAL: The patient is awake, alert, and fully oriented, in no acute distress. Obese. HEAD: Normal with no signs of trauma. EYES: PERRL, extraocular movements intact, conjunctiva clear. ENT: Ears normal, nares patent, moist mucous membranes. NECK: Trachea midline, full range of motion, supple. LUNGS: Diffuse wheezing bilaterally HEART: Regular rate and rhythm, no murmur appreciated ABDOMEN: Soft, nontender, nondistended, normoactive bowel sounds EXTREMITIES: Warm, well-perfused, trace LE edema. NEUROLOGICAL: Cranial nerves II through XII grossly intact. Normal speech, gait not observed. PSYCH: Normal mood, normal affect. SKIN: Warm, dry, normal turgor Laboratory Results - last 24 hr 10/25/19 10/25/19 06:10 06:10 WBC 9.2 RBC 4.62 Hgb 14.3 Hct 42.9 MCV 92.9 MCH 31.0 MCHC 33.4 RDW 13.3 Plt Count 278 D MPV 8.9 Sodium 137 Potassium 4.5 Chloride 103 Carbon Dioxide 26 Anion Gap 8 BUN 22.9 H Creatinine 1.0 Est GFR (CKD-EPI)AfAm 63.38 Est GFR (CKD-EPI)NonAf 54.68 Random Glucose 130 H Calcium 8.6 Total Bilirubin 0.2 AST 22 ALT 29 Alkaline Phosphatase 69 Total Protein 6.2 L Albumin 2.9 L Active Medications Generic Name Dose Route Start Last Admin Trade Name Freq PRN Reason Stop Dose Admin Acetylcysteine 200 mg 10/23/19 11:25 10/25/19 12:27 Mucomyst 20 Oral / Inh Use Only* NEB 200 mg RQID [facility]AT[facility] Administration Albuterol Sulfate 1 amp 10/21/19 17:02 10/25/19 08:59 Ventolin 0.083% Nebulizer Soln - NEB 1 amp Q4H PRN Administration SHORT OF BREATH/WHEEZING Albuterol Sulfate 1 amp 10/25/19 08:59 10/25/19 12:28 Ventolin 0.083% Nebulizer Soln - NEB 1 amp RQID [facility] Administration Aspirin 81 mg 10/23/19 10:00 10/25/19 09:56 Ecotrin - PO 81 mg DAILY [facility] Administration Budesonide/Formoterol Fumarate 2 puff 10/23/19 12:30 10/25/19 09:56 Symbicort 160/4.5mcg - IH 2 puff BID [facility] Administration Carvedilol 6.25 mg 10/21/19 22:00 10/25/19 09:57 Coreg - PO 6.25 mg BID [facility] Administration Docusate Sodium 100 mg 10/24/19 17:22 Colace Liquid - PO DAILY PRN CONSTIPATION Enoxaparin Sodium 40 mg 10/22/19 10:00 10/25/19 09:56 Lovenox - SQ 40 mg DAILY [facility] Administration Escitalopram Oxalate 10 mg 10/25/19 10:00 10/25/19 09:56 Lexapro - PO 10 mg DAILY [facility] Administration Furosemide 20 mg 10/25/19 10:00 10/25/19 09:56 Lasix Injection - IVPUSH 20 mg DAILY [facility] Administration Losartan Potassium 50 mg 10/25/19 16:00 Cozaar - PO DAILY [facility] Prednisone 40 mg 10/26/19 10:00 Deltasone - PO DAILY [facility] Senna 2 tab 10/24/19 18:32 10/24/19 21:24 Senna - PO 2 tab HS PRN Administration CONSTIPATION Sodium Chloride 2 spray 10/24/19 15:11 10/24/19 17:35 [place] Nasal [place] - NS 2 spray BID PRN Administration NASAL CONGESTION ASSESSMENT/PLAN: 74 y/o F PMH HTN, CHF s/p AICD, CVA w/ residual left side weakness, COPD (3L O2 at home), peripheral neuropathy c/o SOB and cough. #COPD exacerbation -duonebs -abuterol PRN -solu-medrol -Mucomyst -Symbicort -BiPAP HS -pulm consulted -Zithromax d/c'ed #diastolic CHF -echo Oct 2018- asymmetric severe septal LVH, normal EF -Lasix -losartan held -monitor I/Os -cards consulted #PTSD psych consulted- Lexapro 10 mg PO #HTN -carvedilol -hold losartan DVT Ppx Lovenox FEN PO fluids monitor labs sodium-controlled diet dispo tele Visit type - Emergency Visit Emergency Visit: Yes ED Registration Date: 10/21/19 Care time: The patient presented to the Emergency Department on the above date and was hospitalized for further evaluation of their emergent condition. - New Patient This patient is new to me today: Yes Date on this admission: 10/25/19 - Critical Care Critical Care patient: No - Discharge Referral Referred to [facility] Med P.C[facility] No ATTENDING PHYSICIAN STATEMENT I saw and evaluated the patient. I reviewed the resident's note and discussed the case with the resident. I agree with the resident's findings and plan as documented. SUBJECTIVE: OBJECTIVE: ASSESSMENT AND PLAN:
[2019-10-25] MEDS: LOSARTAN POTASSIUM 50 MG TABLET (FP) PO SCH (17:29)
[2019-10-26] MEDS: ALBUTEROL SO4 0.083% IH SOL 2.5 MG/3 ML VIAL.NEB. NEB PRN (01:05)
[2019-10-26 07:22] LABS: CALCIUM 8.4 mg/dL (8.5-10.1); CREATININE 0.8 mg/dL (0.55-1.3); POTASSIUM 4.4 mmol/L (3.5-5.1)
--- NOTE | 2019-10-26 07:48 | PN ---
Progress Note, Physician History of Present Illness: 74 yr old woman with PM h/o HOCM, with diastolic CHF (2019 ECHO: asymmetric severe septal LVH; normal LVEF, with moderately elevated LVOT gradient); hx nonsustained VT/s/p AICD; CVA with L-sided deficits (CT head 07/03: chronic small vessel ischemia), non-obstructive CAD on coronary angiogram, HTN, COPD ( 3L home O2), obesity/s/p gastric bypass surgery, sleep apnea, and lumbar radiculopathy, now presenting to ED with SOB and cough. Pt states that she has had SOB x 1 week, worsening. Denies F/C. Endorses pain in her chest with coughing. Denies leg swelling. Has been using breathing treatments at home with no improvement. - Current Medication List Current Medications: Active Medications Acetylcysteine (Mucomyst 20 Oral / Inh Use Only*) 200 mg NEB RQID [facility] Last Admin: 10/25/19 21:20 Dose: 200 mg Albuterol Sulfate (Ventolin 0.083% Nebulizer Soln -) 1 amp NEB Q4H PRN PRN Reason: SHORT OF BREATH/WHEEZING Last Admin: 10/26/19 01:05 Dose: 1 amp Albuterol Sulfate (Ventolin 0.083% Nebulizer Soln -) 1 amp NEB RQID [facility] Last Admin: 10/25/19 21:20 Dose: 1 amp Aspirin (Ecotrin -) 81 mg PO DAILY [facility] Last Admin: 10/25/19 09:56 Dose: 81 mg Budesonide/Formoterol Fumarate (Symbicort 160/4.5mcg -) 2 puff IH BID [facility] Last Admin: 10/25/19 21:29 Dose: 2 puff Carvedilol (Coreg -) 6.25 mg PO BID [facility] Last Admin: 10/25/19 21:29 Dose: 6.25 mg Docusate Sodium (Colace Liquid -) 100 mg PO DAILY PRN PRN Reason: CONSTIPATION Enoxaparin Sodium (Lovenox -) 40 mg SQ DAILY [facility] Last Admin: 10/25/19 09:56 Dose: 40 mg Escitalopram Oxalate (Lexapro -) 10 mg PO DAILY [facility] Last Admin: 10/25/19 09:56 Dose: 10 mg Furosemide (Lasix Injection -) 20 mg IVPUSH DAILY [facility] Last Admin: 10/25/19 09:56 Dose: 20 mg Losartan Potassium (Cozaar -) 50 mg PO DAILY [facility] Last Admin: 10/25/19 17:29 Dose: 50 mg Prednisone (Deltasone -) 40 mg PO DAILY [facility] Senna (Senna -) 2 tab PO HS PRN PRN Reason: CONSTIPATION Last Admin: 10/24/19 21:24 Dose: 2 tab Sodium Chloride ([place] Nasal [place] -) 2 spray NS BID PRN PRN Reason: NASAL CONGESTION Last Admin: 10/24/19 17:35 Dose: 2 spray - Objective Vital Signs: Vital Signs Temperature 98.1 F 10/26/19 06:00 Pulse Rate 53 L 10/26/19 06:00 Respiratory Rate 17 10/26/19 06:00 Blood Pressure 141/82 10/26/19 06:00 O2 Sat by Pulse Oximetry (%) 98 10/25/19 22:00 Eyes: Yes: WNL, Conjunctiva Clear, EOM Intact HENT: Yes: WNL, Atraumatic, Normocephalic Neck: Yes: WNL, Supple, Trachea Midline Cardiovascular: Yes: Murmur Respiratory: Yes: WNL, Regular, CTA Bilaterally Gastrointestinal: Yes: WNL, Normal Bowel Sounds Genitourinary: Yes: WNL Musculoskeletal: Yes: WNL Extremities: Yes: WNL Edema: No Integumentary: Yes: WNL Neurological: Yes: WNL, Alert, Oriented ...Motor Strength: WNL Psychiatric: Yes: WNL Labs: CBC, BMP 10/25/19 06:10 10/26/19 05:55 INR, PTT INR 1.02 (0.83-1.09) 10/21/19 11:44 Assessment/Plan Problems (1) Chronic diastolic (congestive) heart failure Assessment/Plan: Pt does not appear to be in acute heart failure. On carvedilol (HOCM;HTN; NSVT) Avoid excessive dehydration (attempt to use diuretics sparingly with HOCM, as use may worsen LVOT obstruction). f/u BUN/Cr, electrolytes, daily weight, Is and Os. Code(s): I50.32 - CHRONIC DIASTOLIC (CONGESTIVE) HEART FAILURE (2) Obesity Code(s): E66.9 - OBESITY, UNSPECIFIED (3) Lumbar radiculopathy Assessment/Plan: s/p lumbar surgery Code(s): M54.16 - RADICULOPATHY, LUMBAR REGION (4) AICD (automatic cardioverter/defibrillator) present Assessment/Plan: f/u most recent interrogation (Hx NSVT) Code(s): Z95.810 - PRESENCE OF AUTOMATIC (IMPLANTABLE) CARDIAC DEFIBRILLATOR (5) COPD (chronic obstructive pulmonary disease) Assessment/Plan: steroids, bronchodilators, and O2 per vacuum truck driver. Code(s): J44.9 - CHRONIC OBSTRUCTIVE PULMONARY DISEASE, UNSPECIFIED Qualifiers: COPD type: unspecified COPD Qualified Code(s): J44.9 - Chronic obstructive pulmonary disease, unspecified (6) H/O gastric bypass Code(s): Z98.84 - BARIATRIC SURGERY STATUS (7) H/O: CVA (cerebrovascular accident) Code(s): Z86.73 - PRSNL HX OF TIA (TIA), AND CEREB INFRC W/O RESID DEFICITS (8) HTN (hypertension) Code(s): I10 - ESSENTIAL (PRIMARY) HYPERTENSION Qualifiers: Hypertension type: essential hypertension Qualified Code(s): I10 - Essential (primary) hypertension (9) Peripheral neuropathy Code(s): G62.9 - POLYNEUROPATHY, UNSPECIFIED Qualifiers: Peripheral neuropathy type: polyneuropathy, unspecified Qualified Code(s): G62.9 - Polyneuropathy, unspecified (10) NSVT (nonsustained ventricular tachycardia) Assessment/Plan: Hx NSVT on recent ICD interrogation. Continue carvedilol 6.25 mg bid. F/u electrolytes. Avoid excessive dehydration. Code(s): I47.2 - VENTRICULAR TACHYCARDIA (11) HOCM (hypertrophic obstructive cardiomyopathy) Assessment/Plan: On carvedilol (HOCM;HTN; NSVT). losartan held due to hyperkalemia (HTN); caution with vasodilators in HOCM. F/u ECHO. will start Lasix IV sob improving change lasix to PO next 24 - 48 hrs Code(s): I42.1 - OBSTRUCTIVE HYPERTROPHIC CARDIOMYOPATHY
[2019-10-26] MEDS: ACETYLCYSTEINE 20% 200MG/ML 4 ML VIAL *FOR ORAL / INH USE ONLY NEB SCH ×4 (08:07→21:20)
[2019-10-26] MEDS: ALBUTEROL SO4 0.083% IH SOL 2.5 MG/3 ML VIAL.NEB. NEB SCH ×4 (08:07→21:20)
[2019-10-26] MEDS: LOSARTAN POTASSIUM 50 MG TABLET (FP) PO SCH (10:04)
[2019-10-26] MEDS: CARVEDILOL 6.25 MG TABLET (FP) PO SCH ×2 (10:04→21:53)
[2019-10-26] MEDS: ASPIRIN COATED 81 MG TABLET.EC PO SCH (10:05)
[2019-10-26] MEDS: predniSONE 20 MG TABLET (UD) PO SCH (10:05)
[2019-10-26] MEDS: ESCITALOPRAM OXALATE 10 MG TABLET (FP) PO SCH (10:06)
[2019-10-26] MEDS: BUDESONIDE/FORMETEROL FUMARATE 160/4.5 mcg INHALER IH SCH ×2 (10:06→21:53)
[2019-10-26] MEDS: ENOXAPARIN NA (PORCINE) 40 MG/0.4 ML DISP.SYRIN SQ SCH (10:06)
[2019-10-26] MEDS: FUROSEMIDE 40 MG/4 ML INJECTABLE VIAL IVPUSH SCH (10:06)
--- NOTE | 2019-10-26 17:07 | PN ---
Progress Note (short form) - Note Progress Note: Subjective: no fever or chills. She feels SOB is better . no cp . Objective: Vital Signs: Last Vital Signs Temp Pulse Resp BP Pulse Ox 97.9 F 100 H 20 102/72 96 10/26/19 14:00 10/26/19 14:00 10/26/19 14:00 10/26/19 14:00 10/26/19 09:41 Laboratory Results - last 24 hr 10/26/19 05:55 Sodium 139 Potassium 4.4 Chloride 105 Carbon Dioxide 27 Anion Gap 7 L BUN 20.0 H Creatinine 0.8 Est GFR (CKD-EPI)AfAm 83.00 Est GFR (CKD-EPI)NonAf 71.61 Random Glucose 99 Calcium 8.4 L Physical Exam: NAD Cv: RRR Lungs: good air entry, less rales,No wheezes . Ext : No edema ASSESSMENT AND PLAN: 74 y/o F PMH HTN, diastolic CHF s/p AICD, CVA w/ residual left side weakness, COPD (3L O2 at home), peripheral neuropathy, HOCM , h/o NSVT, presented with SOB and was diagnosed with COPD exacerbation 1- Acute COPD exacerbation 2- acute on chronic diastolic CHF exacerbation 3- h/o HOCM 4- h/o NSVT with ICD placement 5- Hyperkalemia : resolved plan : - cont steroids: prednisone today - cont Symbicort - BIPAP q HS - Nebs - cont mucomyst -cont IV lasix . hoepfully can change to po soon - cont losartan and monitor K - cont asa - SQ lovenox for DVt Px HLOC PT eval possible dc in 1-2 days . she declines rehab placement and wants to go home Visit type - Emergency Visit Emergency Visit: Yes ED Registration Date: 10/21/19 Care time: The patient presented to the Emergency Department on the above date and was hospitalized for further evaluation of their emergent condition. - New Patient This patient is new to me today: No - Critical Care Critical Care patient: No
[2019-10-26] MEDS: SENNOSIDES 8.6MG TABLET (FP) PO PRN (21:56)
[2019-10-26] MEDS ORDERED: MELATONIN 5 MG TABLETS PO ONE (23:03)
[2019-10-27] MEDS: ACETYLCYSTEINE 20% 200MG/ML 4 ML VIAL *FOR ORAL / INH USE ONLY NEB SCH ×4 (08:10→20:50)
[2019-10-27] MEDS: ALBUTEROL SO4 0.083% IH SOL 2.5 MG/3 ML VIAL.NEB. NEB SCH ×4 (08:10→20:50)
[2019-10-27 08:45] LABS: BLOOD UREA NITROGEN 24.3 mg/dL (7-18); CALCIUM 8.1 mg/dL (8.5-10.1); POTASSIUM 4.3 mmol/L (3.5-5.1)
[2019-10-27] MEDS: CARVEDILOL 6.25 MG TABLET (FP) PO SCH ×2 (09:52→22:05)
[2019-10-27] MEDS: predniSONE 20 MG TABLET (UD) PO SCH (09:52)
[2019-10-27] MEDS: ESCITALOPRAM OXALATE 10 MG TABLET (FP) PO SCH (09:52)
[2019-10-27] MEDS: LOSARTAN POTASSIUM 50 MG TABLET (FP) PO SCH (09:53)
[2019-10-27] MEDS: ASPIRIN COATED 81 MG TABLET.EC PO SCH (09:56)
[2019-10-27] MEDS: ENOXAPARIN NA (PORCINE) 40 MG/0.4 ML DISP.SYRIN SQ SCH (10:23)
[2019-10-27] MEDS: BUDESONIDE/FORMETEROL FUMARATE 160/4.5 mcg INHALER IH SCH ×2 (10:23→22:07)
[2019-10-27] MEDS: FUROSEMIDE 40 MG/4 ML INJECTABLE VIAL IVPUSH SCH (10:55)
--- NOTE | 2019-10-27 12:20 | PN ---
Progress Note (short form) - Note Progress Note: PULMONARY States breathing is improving. Less cough and wheezing. Vital Signs Period Temp Pulse Resp BP Sys/Vasquez Pulse Ox Last 24 Hr 97.8 F-98.6 F 63-102 20-20 102-136/63-76 95-95 Gen: mildly tachypneic with speaking Heart: RRR Lung: distant breath sounds, no wheezes Abd: soft, nontender Ext: no edema CBC, BMP 10/25/19 06:10 10/27/19 05:50 Active Medications Acetylcysteine (Mucomyst 20 Oral / Inh Use Only*) 200 mg NEB RQID [facility] Last Admin: 10/27/19 11:24 Dose: Not Given Albuterol Sulfate (Ventolin 0.083% Nebulizer Soln -) 1 amp NEB RQID [facility] Last Admin: 10/27/19 11:24 Dose: Not Given Aspirin (Ecotrin -) 81 mg PO DAILY [facility] Last Admin: 10/27/19 09:56 Dose: 81 mg Budesonide/Formoterol Fumarate (Symbicort 160/4.5mcg -) 2 puff IH BID [facility] Last Admin: 10/27/19 10:23 Dose: 2 puff Carvedilol (Coreg -) 6.25 mg PO BID [facility] Last Admin: 10/27/19 09:52 Dose: 6.25 mg Docusate Sodium (Colace Liquid -) 100 mg PO DAILY PRN PRN Reason: CONSTIPATION Enoxaparin Sodium (Lovenox -) 40 mg SQ DAILY [facility] Last Admin: 10/27/19 10:23 Dose: 40 mg Escitalopram Oxalate (Lexapro -) 10 mg PO DAILY [facility] Last Admin: 10/27/19 09:52 Dose: 10 mg Furosemide (Lasix Injection -) 20 mg IVPUSH DAILY [facility] Last Admin: 10/27/19 10:55 Dose: 20 mg Losartan Potassium (Cozaar -) 50 mg PO DAILY [facility] Last Admin: 10/27/19 09:53 Dose: 50 mg Prednisone (Deltasone -) 40 mg PO DAILY [facility] Last Admin: 10/27/19 09:52 Dose: 40 mg Senna (Senna -) 2 tab PO HS PRN PRN Reason: CONSTIPATION Last Admin: 10/26/19 21:56 Dose: 2 tab Sodium Chloride ([place] Nasal [place] -) 2 spray NS BID PRN PRN Reason: NASAL CONGESTION Last Admin: 10/24/19 17:35 Dose: 2 spray A/P Acute COPD exacerbation URI Chronic Hypoxic Respiratory Failure LV Systolic Dysfunction HTN h/o CVA - prednisone taper - inhaled bronchodilators - O2 to keep SpO2 >90% - completed azithromycin - DVT prophylaxis Problem List - Problems (1) COPD exacerbation Code(s): J44.1 - CHRONIC OBSTRUCTIVE PULMONARY DISEASE W (ACUTE) EXACERBATION
--- NOTE | 2019-10-27 15:39 | PN ---
Teaching Attending Note Name of Resident: Hudson Vences ATTENDING PHYSICIAN STATEMENT I saw and evaluated the patient. I reviewed the resident's note and discussed the case with the resident. I agree with the resident's findings and plan as documented. SUBJECTIVE: No fever or chills. No BROOKS . no abd pain . she feels better OBJECTIVE: NAD Cv: RRR Lungs: good air entry , no wheezes. Ext : No edema ASSESSMENT AND PLAN: 74 y/o F PMH HTN, diastolic CHF s/p AICD, CVA w/ residual left side weakness, COPD (3L O2 at home), peripheral neuropathy, HOCM , h/o NSVT, presented with SOB and was diagnosed with COPD exacerbation 1- Acute COPD exacerbation: improved 2- Acute on chronic diastolic CHF exacerbation : improved 3- h/o HOCM 4- h/o NSVT with ICD placement 5- Hyperkalemia : resolved plan: - cont steroids taper - cont Symbicort - Nebs and inahaler at home - cont mucomyst - cont po lasix at home - cont losartan - cont asa - HLOC dc home with services. she refuses to go to SNF
--- NOTE | 2019-10-27 22:42 | DS ---
Physical Exam: SUBJECTIVE: Patient seen and examined OBJECTIVE: Vital Signs Period Temp Pulse Resp BP Sys/Vasquez Pulse Ox Last 24 Hr 97.8 F-98.2 F 63-102 20-22 117-131/53-76 95-98 PHYSICAL EXAM GENERAL: The patient is awake, alert, and fully oriented, in no acute distress. HEAD: Normal with no signs of trauma. EYES: PERRL, extraocular movements intact, sclera anicteric, conjunctiva clear. ENT: Ears normal, nares patent, oropharynx clear without exudates, moist mucous membranes. NECK: Trachea midline, full range of motion, supple. LUNGS: Breath sounds equal, clear to auscultation bilaterally, no wheezes, no crackles, no accessory muscle use. HEART: Regular rate and rhythm, S1, S2 without murmur, rub or gallop. ABDOMEN: Soft, nontender, nondistended, normoactive bowel sounds, no guarding, no rebound, no hepatosplenomegaly, no masses. EXTREMITIES: 2+ pulses, warm, well-perfused, no edema. NEUROLOGICAL: Cranial nerves II through XII grossly intact. Normal speech, gait not observed. PSYCH: Normal mood, normal affect. SKIN: Warm, dry, normal turgor, no rashes or lesions noted. LABS Laboratory Results - last 24 hr 10/27/19 05:50 Sodium 134 L Potassium 4.3 Chloride 101 Carbon Dioxide 25 Anion Gap 9 BUN 24.3 H Creatinine 1.0 Est GFR (CKD-EPI)AfAm 63.38 Est GFR (CKD-EPI)NonAf 54.68 Random Glucose 93 Calcium 8.1 L HOSPITAL COURSE: Date of Admission:10/21/19 Date of Discharge: 10/27/19 Discharge Summary Problems reviewed: Yes Reason For Visit: CHRONIC OBSTR PULM DIS,ACUTE EXACERBATION OF COPD Current Active Problems Acute exacerbation of congestive heart failure (Acute) COPD exacerbation (Acute) Chronic diastolic (congestive) heart failure (Chronic) HOCM (hypertrophic obstructive cardiomyopathy) (Chronic) Obesity (Chronic) Condition: Improved - Instructions Diet, Activity, Other Instructions: YOUR VISIT You came to the hospital because you were feeling short of breath and had a cough. You were admitted to the hospital for worsening of your medical conditions (COPD and heart failure exacerbation). While here you were seen by a pulmonology, cardiology, and psychiatry. You are stable and may return home. MEDICATIONS Please continue to take your medications as prescribed below: - Lexapro 10 mg by mouth every day. Do not stop on your own, this can be dangerous. - Aspirin 81 mg by mouth every day - Carvedilol 6.25 mg by mouth every 12 hours - Furosemide 20 mg by mouth every day - Losartan 50 mg by mouth every day - Albterol 1 puff by mouth as needed - Symbicort 2 puffs by mouth every 12 hours You can use your new nebulizer/breathing treatments 3 times a day when you are short of breath. You can also use your albuterol inhaler twice a day when you are short of breath. Since you were receiving steroid medications in the hospital, you will need to continue this at home with a tapered dose as follows: October 28, 2019 prednisone 40 mg by mouth October 29, 2019 prednisone 30 mg by mouth October 30, 2019 prednisone 30 mg by mouth October 31, 2019 prednisone 30 mg by mouth November 01, 2019 prednisone 20 mg by mouth November 02, 2019 prednisone 20 mg by mouth November 03, 2019 prednisone 20 mg by mouth November 04, 2019 prednisone 10 mg by mouth November 05, 2019 prednisone 10 mg by mouth November 06, 2019 prednisone 10 mg by mouth November 07, 2019 STOP taking prednisone Do NOT stop predbnisone on your own. it might be dangerous ADDITIONAL CARE Please make an appointment to see your primary care provider, Dr. Cohen within 1 week from today. Please make an appointment to see a spring assembler in 1 week. A referral has to Dr. Salinas has been provided. Please make an appointment to see a central melt specialist in 2 week. A referral has to Dr. Chatman has been provided. Please make an appointment to see a psychiatry in 3 weeks. A referral has to Dr. Alexander has been provided. ADDITIONAL INFORMATION Please call 911 or come directly to the emergency department if you experience unusual headache, vision change, shortness of breath, chest pain, numbness, tingling, loss of alertness/awareness, loss of function, unusual bleeding or any alarming symptoms. please weigh your self every day and take the log to your doctor ( spring assembler ) cont to use 3 L of oxygen all the time Referrals: Jose Francisco Chatman MD [Staff Physician] - 2 Weeks Vaibhav Alexander MD [Staff Physician] - 3 Weeks Emile Salinas MD [Staff Physician] - 1 Week Loc Fay MD [Staff Physician] - 1 Week Disposition: VNS/HOME HEALTH CARE - Home Medications Comprehensive Discharge Medication List: Ambulatory Orders Albuterol 0.083% Nebulizer Arlene [Ventolin 0.083% Nebulizer Soln -] 1 amp NEB RQID 30 Days #1 amp 10/27/19 Albuterol Sulfate [Proair Digihaler] 90 mcg IH Q4H PRN #1 aer.pw.bas 10/27/19 Aspirin Coated [Ecotrin -] 81 mg PO DAILY 30 Days #30 tablet.ec 10/27/19 Budesonide/Formeterol Fumarate [SYMBICORT 160/4.5mcg -] 2 puff IH BID 30 Days # 1 inhaler 10/27/19 Carvedilol [Coreg -] 6.25 mg PO BID 30 Days #60 tablet 10/27/19 Escitalopram Oxalate [Lexapro -] 10 mg PO DAILY 30 Days #30 tablet 10/27/19 Furosemide [Lasix -] 20 mg PO DAILY 30 Days #30 tablet 10/27/19 Losartan Potassium [Cozaar -] 50 mg PO DAILY 30 Days #30 tablet 10/27/19 Nebulizer Accessories [Adult Aerosol Mask] 1 each MC BID 30 Days #1 each Nebulizer Accessories [Aeroneb Go] 1 each MC BID #1 each 10/27/19 Nebulizer [Aeroneb Go Nebulizer] 1 each MC BID 30 Days #1 each 10/27/19 ATTENDING PHYSICIAN STATEMENT I saw and evaluated the patient. I reviewed the resident's note and discussed the case with the resident. I agree with the resident's findings and plan as documented. SUBJECTIVE: OBJECTIVE: ASSESSMENT AND PLAN:
[2019-10-28 06:26] VITALS: TEMP 97.7
[2019-10-28 08:22] VITALS: BP 100/81; PULSE 68
[2019-10-28] MEDS: CARVEDILOL 6.25 MG TABLET (FP) PO SCH (08:53)
[2019-10-28] MEDS: LOSARTAN POTASSIUM 50 MG TABLET (FP) PO SCH (08:54)
[2019-10-28] MEDS: ESCITALOPRAM OXALATE 10 MG TABLET (FP) PO SCH (08:54)
[2019-10-28] MEDS: ASPIRIN COATED 81 MG TABLET.EC PO SCH (08:54)
[2019-10-28] MEDS: predniSONE 20 MG TABLET (UD) PO SCH (08:54)
[2019-10-28] MEDS: BUDESONIDE/FORMETEROL FUMARATE 160/4.5 mcg INHALER IH SCH (08:55)
[2019-10-28] MEDS: ACETYLCYSTEINE 20% 200MG/ML 4 ML VIAL *FOR ORAL / INH USE ONLY NEB SCH (09:15)
[2019-10-28] MEDS: ALBUTEROL SO4 0.083% IH SOL 2.5 MG/3 ML VIAL.NEB. NEB SCH (09:16)
[2019-10-28] MEDS ORDERED: FUROSEMIDE 20 MG TABLET (FP) PO SCH (10:00)
--- NOTE | 2019-10-28 18:09 | PN ---
Teaching Attending Note Name of Resident: Kameron Lala ATTENDING PHYSICIAN STATEMENT I saw and evaluated the patient. I reviewed the resident's note and discussed the case with the resident. I agree with the resident's findings and plan as documented. SUBJECTIVE: went to see patient. dressed up and EMS at bedside ASSESSMENT AND PLAN: 74 y/o F PMH HTN, diastolic CHF s/p AICD, CVA w/ residual left side weakness, COPD (3L O2 at home), peripheral neuropathy, HOCM , h/o NSVT, presented with SOB and was diagnosed with COPD exacerbation 1- Acute COPD exacerbation: improved 2- Acute on chronic diastolic CHF exacerbation: improved 3- h/o HOCM 4- h/o NSVT with ICD placement 5- Hyperkalemia : resolved plan: - cont steroids taper as out pt - cont Symbicort - Nebs and inahaler at home - cont po lasix at home - cont losartan - cont asa detailed discharge instructions were discussed with her yesterday, but she could not leave due to non-availability of her aid. Home today
== END 2019-10-28 09:28 | disposition home health service (06) | DRG 190 ==
LOC: JER 10:38 → JERBED 12:52 → J5S 15:12 → J4W 18:49
PROVIDERS: ADMIT Internal Medicine; ATTEND Internal Medicine
DX: J44.1 Chronic obstructive pulmonary disease with (acute) exacerbation (principal); I50.33 Acute on chronic diastolic (congestive) heart failure; I69.354 Hemiplegia and hemiparesis following cerebral infarction affecting left non-dominant side; I42.1 Obstructive hypertrophic cardiomyopathy; I47.2 Ventricular tachycardia; J96.11 Chronic respiratory failure with hypoxia; J06.9 Acute upper respiratory infection, unspecified; J44.9 Chronic obstructive pulmonary disease, unspecified; M54.16 Radiculopathy, lumbar region; I25.10 Atherosclerotic heart disease of native coronary artery without angina pectoris; G62.9 Polyneuropathy, unspecified; E66.8 Other obesity; Z68.35 Body mass index [BMI] 35.0-35.9, adult; E87.5 Hyperkalemia; G47.30 Sleep apnea, unspecified; M54.5 Low back pain; F43.10 Post-traumatic stress disorder, unspecified; F32.9 Major depressive disorder, single episode, unspecified; I11.0 Hypertensive heart disease with heart failure; Z95.810 Presence of automatic (implantable) cardiac defibrillator; Z99.81 Dependence on supplemental oxygen; Z98.84 Bariatric surgery status; Z87.891 Personal history of nicotine dependence
CPT/HCPCS: 36415; 71045-TC-FY; 80048; 80053; 80061; 83036; 83721; 83735; 83880; 84100; 84132; 84484; 85025; 85027; 85610; 87804; 93005; 93010; 93306-TC; 94640; 97116-GP; 97162-GP; 99285-25

== ENCOUNTER 2019-10-28 11:38 | Emergency (ER) | payer MEDICARE, OTHER ==
[2019-10-28 12:32] VITALS: BMI 35.2
[2019-10-28] MEDS ORDERED: RANITIDINE HCL 150 MG/10 ML UNIT-DOSE PO ONE (12:55)
[2019-10-28] MEDS ORDERED: MAG HYDROX/AL HYDROX/SIMETH 30 ML UNIT-DOSE CUP PO ONE (12:55)
--- NOTE | 2019-10-28 13:13 | PDOC ---
History of Present Illness - General Chief Complaint: Pain Stated Complaint: N/V/D Time Seen by Provider: 10/28/19 12:01 - History of Present Illness Initial Comments: 10/28/19 13:12 74 yo F with h/o gastric bypass, COPD, CHF, HTN who p/w vomiting, loose stool. Patient reports acute onset of diaphoresis, one episode of loose watery, non bloody, stool and one episode of NBNB emesis today following discharge home from hospital ([facility]). Recent admission and discharge (10/28/18) for acute CHF/ COPD. Denies identifiable alleviators or triggers. Symptoms now resolved. Endorses subjective chills, and dry non productive cough (stable). Denies CP, SOB, wheezing, abdominal pain, urinary complaints, flank pain, lightheadedness, weakness, sensory changes. No recent travels or known sick contacts. Past History - Past Medical History Allergies/Adverse Reactions: Allergies Allergy/AdvReac Type Severity Reaction Status Date / Time No Known Allergies Allergy Verified 10/21/19 11:06 Home Medications: Ambulatory Orders Albuterol 0.083% Nebulizer Arlene [Ventolin 0.083% Nebulizer Soln -] 1 amp NEB RQID 30 Days #1 amp 10/27/19 Albuterol Sulfate [Proair Digihaler] 90 mcg IH Q4H PRN #1 aer.pw.bas 10/27/19 Aspirin Coated [Ecotrin -] 81 mg PO DAILY 30 Days #30 tablet.ec 10/27/19 Budesonide/Formeterol Fumarate [SYMBICORT 160/4.5mcg -] 2 puff IH BID 30 Days # 1 inhaler 10/27/19 Carvedilol [Coreg -] 6.25 mg PO BID 30 Days #60 tablet 10/27/19 Escitalopram Oxalate [Lexapro -] 10 mg PO DAILY 30 Days #30 tablet 10/27/19 Furosemide [Lasix -] 20 mg PO DAILY 30 Days #30 tablet 10/27/19 Losartan Potassium [Cozaar -] 50 mg PO DAILY 30 Days #30 tablet 10/27/19 Nebulizer Accessories [Adult Aerosol Mask] 1 each MC BID 30 Days #1 each Nebulizer Accessories [Aeroneb Go] 1 each MC BID #1 each 10/27/19 Nebulizer [Aeroneb Go Nebulizer] 1 each MC BID 30 Days #1 each 10/27/19 Anemia: No Asthma: Yes (ON 5L/MIN PRN) Cancer: No Cardiac Disorders: Yes CVA: Yes (2000 LEFT SIDED WEAKNESS) COPD: Yes CHF: Yes Dementia: No Diabetes: No GI Disorders: No Disorders: No HTN: Yes Hypercholesterolemia: No Liver Disease: No Seizures: No Thyroid Disease: No - Surgical History Abdominal Surgery: Yes (GASTRIC [employer]PASS [employer],) Appendectomy: No Cardiac Surgery: Yes (icd) Cholecystectomy: No Lung Surgery: No Neurologic Surgery: No Orthopedic Surgery: No (2000 SURGERY ON NECK,REMOVAL BOILS BOTH ARMPIT) - Immunization History Td Vaccination: No Immunization Up to Date: Yes - Psycho Social/Smoking Cessation Hx Smoking Status: Yes Smoking History: Former smoker Have you smoked in the past 12 months: No Number of Cigarettes Smoked Daily: 5 If you are a former smoker, when did you quit?: 3 years ago Information on smoking cessation initiated: No 'Breaking Loose' booklet given: 03/09/15 Hx Alcohol Use: No Drug/Substance Use Hx: No Substance Use Type: None Hx Substance Use Treatment: No Review of Systems - Review of Systems Constitutional: Yes: Chills, Diaphoresis. No: Symptoms Reported, See HPI, Fever , Loss of Appetite, Malaise, Night Sweats, Weakness, Weight Stable, Unintentional Wgt. Loss, Unexplained wgt Loss, Other HEENTM: No: Symptoms Reported, See HPI, Eye Pain, Blurred Vision, Tearing, Recent change in vision, Double Vision, Cataracts, Ear Pain, Ocular Prothesis, Ear Discharge, Nose Pain, Nose Congestion, Tinnitus, Nose Bleeding, Hearing Loss , Throat Pain, Throat Swelling, Mouth Pain, Dental Problems, Difficulty Swallowing, Mouth Swelling, Other Respiratory: No: Symptoms reported, See HPI, Cough, Orthopnea, Shortness of Breath, SOB with Exertion, SOB at Rest, Stridor, Wheezing, Productive cough, Hemoptysis, Other Cardiac (ROS): No: Symptoms Reported, See HPI, Chest Pain, Edema, Irregular Heart Rate, Lightheadedness, Palpitations, Syncope, Chest Tightness, Other ABD/GI: Yes: Diarrhea, Nausea, Vomiting. No: Symptoms Reported, See HPI, Abdominal Distended, Abd. Pain w/ defecation, Blood Streaked Bowels, Constipated , Difficulty Swallowing, Poor Appetite, Poor Fluid Intake, Rectal Bleeding, Indigestion, Abdominal cramping, Tarry Stools, Other : No: Symptoms Reported, See HPI, Burning, Dysuria, Discharge, Frequency, Flank Pain, Hematuria, Incontinence, Pain, Urgency, Testicular Mass, Testicular Swelling, Lesions, Testicular Pain, Other Musculoskeletal: No: Symptoms Reported, See HPI, Back Pain, Gout, Joint Pain, Joint Swelling, Muscle Pain, Muscle Weakness, Neck Pain, Joint Stiffness, Other Integumentary: No: Symptoms Reported, See HPI, Bruising, Change in Color, Change in Hair/Nails, Dryness, Erythema, Flushing, Lesions, Lumps, Pallor, Pruritus, Rash, Sweating, Other Neurological: No: Symptoms reported, See HPI, Headache, Numbness, Paresthesia, Pre-Existing Deficit, Seizure, Tingling, Tremors, Weakness, Unsteady Gait, Ataxia, Dizziness, Other Psychiatric: No: Anxiety, Depression, Frequent Crying, Stressors, Sleep Pattern Change, Emotional Problems, Mood Swings, Change in Appetite, Other *Physical Exam - Vital Signs Last Vital Signs Temp Pulse Resp BP Pulse Ox 97.3 F L 64 19 105/58 L 90 L 10/28/19 12:10/28/19 12:10/28/19 12:10/28/19 12:10/28/19 12:01 - Physical Exam General Appearance: Yes: Nourished, Obese. No: Appropriately Dressed, Apparent Distress, Disheveled, Mild Distress, Moderate Distress, Severe Distress, Alcohol on Breath, Intoxicated, Cachetic, Thin, Other HEENT: positive: EOMI, MERNA, Normal ENT Inspection Neck: positive: Trachea midline, Normal Thyroid, Supple Respiratory/Chest: positive: Lungs Clear, Normal Breath Sounds Cardiovascular: positive: Regular Rhythm, Regular Rate Gastrointestinal/Abdominal: positive: Normal Bowel Sounds. negative: Tender, Flat, Soft, Organomegaly, Pulsatile Mass, Increased Bowel Sounds, Decreased BS, Protuberent, Distended, Guarding, Rebound, Tenderness, Hernia, Mass, Hepatomegaly, Spleenomegaly, Other Lymphatic: negative: Adenopathy, Tenderness, Other Musculoskeletal: positive: Normal Inspection. negative: CVA Tenderness, CVA Tenderness (R), CVA Tenderness (L), Decreased Range of Motion, Muscle Spasm, Vertebral Tenderness, Other Extremity: positive: Normal Capillary Refill, Normal Inspection, Normal Range of Motion. negative: Tender, Pelvis Stable, Coldness, Cyanosis, Delayed Capillary Refill, Pedal Edema, Swelling, Calf Tenderness, Erythema, Inflammation , Other Integumentary: positive: Normal Color, Dry. negative: Warm, Cyanotic, Erythema , Jaundice, Mottled, Pale, Cold, Clammy, Diaphoresis, Moist, Hives, Petechiae, Rash, Swelling, Ecchymosis, Bruising, Other Neurologic: positive: trimmer and reinforcer II-XII NML intact, Fully Oriented, Alert, Normal Mood/ Affect, Normal Response, Motor Strength 5/5. negative: Abnormal Cranial NS, Respond to painful stimul, Responsive, EOM Palsy, Facial Droop, Numbness, Sensory Deficit, Finger to Nose, Confused, Disoriented, Depressed Affect, Babinski, Other ED Treatment Course - LABORATORY CBC & Chemistry Diagram: 10/28/19 13:26 10/28/19 13:26 Medical Decision Making - Medical Decision Making 10/28/19 13:18 74 yo F with h/o gastric bypass, COPD, CHF, HTN who p/w acute onset of one episode of loose watery, non bloody, stool and one episode of NBNB emesis today following discharge home from hospital ([facility]). 90 % O2 RA, Vitals otherwise wnl , AF, A&Ox3. ACS/VA r/o. Physical exam unremarkable. Will consider enteritis/ gastritis, biliary dz., pancreatitis, colitis. Will provide analgesic support, and reassess. ED Course: 10/28/19 13:24 Maloox, Ranitidine, Carafate 10/28/19 16:14 Pt tolerated PO and was setup for transport and discharge. Discharge - Discharge Information Problems reviewed: Yes Clinical Impression/Diagnosis: Combined abdominal pain, vomiting, and diarrhea Condition: Stable - Follow up/Referral Referrals: Leeanne Monterroso MD [Primary Care Provider] - - Patient Discharge Instructions Patient Printed Discharge Instructions: DI for Abdominal Pain-Adult Additional Instructions: Please return to the emergency department with any new or worsening symptoms or concerns. Please follow up with your primary medical provider within 72 hours. - Post Discharge Activity
--- NOTE | 2019-10-28 13:25 | PDOC ---
Attending Attestation - Resident Resident Name: Анна Simeon - ED Attending Attestation I have performed the following: I have examined & evaluated the patient, The case was reviewed & discussed with the resident, I agree w/resident's findings & plan, Exceptions are as noted - HPI HPI: 10/28/19 13:23 74 F with h/o COPD, CHF, HTN, recently admitted for COPD exacerbation and KS'ed this morning, returning to hospital for N+V+D. Pt states that last night while in the hospital, she experienced chills but no fevers. Pt was DC'ed home this morning, and approx one hour after arriving home, pt began to feel nauseous. She endorses abdominal pain accompanied by diarrhea, both of which have resolved. Pt currently denies any complaints other then mild chills. Denies CP/ SOB. - Physicial Exam PE: 10/28/19 13:25 "GENERAL: Awake, alert, and fully oriented, in no acute distress. HEAD: No signs of trauma EYES: PERRLA, EOMI, sclera anicteric, conjunctiva clear ENT: Auricles normal inspection, hearing grossly normal, nares patent, oropharynx clear without exudates. Moist mucosa NECK: Nontender, no stepoffs, Normal ROM, supple, no lymphadenopathy, JVD, or masses LUNGS: Breath sounds equal, clear to auscultation bilaterally. No wheezes, and no crackles HEART: Regular rate and rhythm, normal S1 and S2, no murmurs, rubs or gallops ABDOMEN: Soft, nontender, normoactive bowel sounds. No guarding, no rebound. No masses EXTREMITIES: Normal range of motion, no edema. No clubbing or cyanosis. No cords, erythema, or tenderness NEUROLOGICAL: Cranial nerves II through XII intact. 5/5 strength and sensation in all extremities, Normal speech, normal gait, normal cerebellar function SKIN: Warm, Dry, normal turgor, no rashes or lesions noted. - Medical Decision Making 10/28/19 13:25 74 F with N+V+D. Pt was recently admitted and discharged home this morning. Benign abdominal exam. Suspect viral infection. Will check for flu. - Labs - GI cocktail 10/28/19 15:42 Labs wnl Pt reassessed - denies any complaints at this time, states she is hungry Abdominal exam completely benign. Pt is well appearing, with normal vitals. Clinically stable for DC at this time. I discussed the physical exam findings, ancillary test results and final diagnoses with the patient. I answered all of the patient's questions. The patient was satisfied with the care received and felt comfortable with the discharge plan and treatment plan. The patient agrees to follow up with the primary care physician within 24-72 hours.
[2019-10-28] MEDS ORDERED: MAG HYDROX/AL HYDROX/SIMETH 30 ML UNIT-DOSE CUP ONE (13:41)
[2019-10-28] MEDS ORDERED: SUCRALFATE 1 GM TABLET (FP) ONE (13:41)
[2019-10-28] MEDS ORDERED: SUCRALFATE 1 GM/10 ML UNIT DOSE CUPS PO ONE (14:00)
[2019-10-28 14:11] LABS: BASO % 0.4 % (0-2.0); EOS % 0.7 % (0-4.5); HEMATOCRIT 48.6 % (32.4-45.2); HEMOGLOBIN 15.9 GM/dL (10.7-15.3); LYMPH % 6.5 % (8-40); MCH 30.7 pg (25.7-33.7); MCHC 32.8 g/dl (32.0-36.0); MEAN CELL VOLUME 93.6 fl (80-96); MEAN PLT VOLUME 9.8 fl (7.5-11.1); NEUT % 87.4 % (42.8-82.8); PLATELET COUNT 283 K/MM3 (134-434); RDW 13.6 % (11.6-15.6); WHITE BLOOD COUNT 15.6 K/mm3 (4.0-10.0)
[2019-10-28 15:28] LABS: ALBUMIN 2.9 g/dl (3.4-5.0); BILIRUBIN,TOTAL 0.5 mg/dL (0.2-1); BLOOD UREA NITROGEN 31.2 mg/dL (7-18); CALCIUM 8.8 mg/dL (8.5-10.1); CREATININE 1.1 mg/dL (0.55-1.3); TOT PROT 6.2 g/dl (6.4-8.2)
[2019-10-28 15:49] LABS: ANISOCYTOSIS 1+; MACROCYTOSIS 0; PLATELET ESTIMATE NORMAL; TEAR DROP CELLS 1+
[2019-10-28 21:31] VITALS: BP 123/70; PULSE 67; TEMP 98.6
[2019-10-28] MEDS ORDERED: SUCRALFATE 1 GM/10 ML UNIT DOSE CUPS PO SCH (22:00)
== END 2019-10-28 21:15 | disposition home or self-care (01) ==
LOC: JER 11:38 → SUPCPDRO 11:38 → JER 21:15
DX: R10.9 Unspecified abdominal pain (principal); R11.2 Nausea with vomiting, unspecified; I25.10 Atherosclerotic heart disease of native coronary artery without angina pectoris; I11.0 Hypertensive heart disease with heart failure; I50.9 Heart failure, unspecified; J44.9 Chronic obstructive pulmonary disease, unspecified; J45.998 Other asthma; I69.854 Hemiplegia and hemiparesis following other cerebrovascular disease affecting left non-dominant side; Z87.891 Personal history of nicotine dependence; Z95.810 Presence of automatic (implantable) cardiac defibrillator; Z98.84 Bariatric surgery status
CPT/HCPCS: 36415; 80053; 82550; 83690; 84484; 85025; 87804; 99283-25

== ENCOUNTER 2022-10-17 10:51 | Emergency (ER) | payer OTHER ==
[2022-10-17 10:57] VITALS: BMI 28.3
[2022-10-17] MEDS ORDERED: METHOCARBAMOL 750 MG TAB PO ONE (12:50)
[2022-10-17] MEDS ORDERED: METHOCARBAMOL 500 MG TABLET ONE (13:11)
[2022-10-17] MEDS ORDERED: CARVEDILOL 6.25 MG TABLET (FP) PO ONE (14:53)
[2022-10-17] MEDS ORDERED: LIDOCAINE 5% TOPICAL PATCH TP ONE (14:58)
[2022-10-17] MEDS ORDERED: CARVEDILOL 6.25 MG TABLET (FP) ONE ×2 (15:40→15:41)
[2022-10-17] MEDS ORDERED: LIDOCAINE 5% TOPICAL PATCH ONE (15:41)
[2022-10-17] MEDS ORDERED: DEXAMETHASONE SOD PHOSPHATE 10 MG/1 ML VIAL PO ONE (16:33)
[2022-10-17] MEDS ORDERED: DEXAMETHASONE 4 MG TABLET (FP) ONE (17:20)
[2022-10-17 17:36] VITALS: RESP 18; TEMP 97.9
[2022-10-17 17:52] VITALS: BP 129/71; PULSE 75
[2022-10-17] MEDS ORDERED: LIDOCAINE PATCH REMOVAL MC SCH (22:00)
== END 2022-10-18 03:18 | disposition home or self-care (01) ==
LOC: JER 10:51
DX: M54.2 Cervicalgia (principal)
CPT/HCPCS: 0241U-QW; 71046-TC-FY; 99283-25; J1100